=== PATIENT | female | born 1965 | race Caucasian/White ===

== ENCOUNTER → 2017-09-05 | Outpatient (CLI) | payer OTHER ==
[2016-11-08 12:27] VITALS: BP 129/80
[~2017-09-05] MED LIST: ATOR20TA58 PO; LISI40TA PO; MESA500C PO; METF-620 PO; METO-269 PO; METO50TA2 PO; REGADENOSON 0.4 MG/5 ML DISP.SYRIN. IV ONE; SITA50TA PO; [UNRECOGNIZED DRUG - CODE] PO
--- NOTE | 2017-09-05 12:49 | RAD ---
APPROVED REPORT Test Type: Pharmacological Stress Nurse/Tech: Angelica Sykes R.N. Test Indications: dyspnea on exertion Cardiac History: afib, htn, smoker, dm Medications: see ehr Medical History: see ehr Resting ECG: sr Resting Heart Rate: 89 bpm Resting Blood Pressure: 140/78mmHg Pretest Chest Pain: No chest pain Nurse/Tech Notes lungs cta but diminished, heart tones regular. Pt attempted treadmilll Luciano protocol-unable to comp lete due to leg cramping, Stopped treadmill test after 2:10 and proceeded on to [facility] Consent: The procedure was explained to the patient in lay terms. Informed consent was witnessed. Arie marsh was entered into [employer]. History and Stress Test performed by RT Hodan (R) (N) Pharm. Details Pharmacologic stress testing was performed using 0.4mg per 5ml of regadenoson given intravenously ove r 7-10 seconds. Stress Symptoms Dyspnea, pt had short episode of sharp chest pain 4/10 in minute 1 of recovery that resolved POST EXERCISE Reason for Termination: Infusion complete Target HR: No Max HR: 110 bpm Max Blood Pressure: 126/63mmHg Chest Pain: Yes. see above Arrhythmia: Yes. [address] Change: No. INTERPRETATION Stress EKG Conclusion: No evidence of stress induced EKG changes. Imaging Protocol IMAGE PROTOCOL: Rest Tc-99m/stress Tc-99m 1 day Rest: Stress: Viability: Radiopharm.Tc99m [id number] Sestamibi Dose11.4mCi 35mCi Duration 15min. 10min. Img Date 09/05/2017 09/05/2017 Inj-Img [id number]. 60min. Rest Admin Site:IV - Right AntecubitalAdministrator:RT Hodan (Jessica)(N) Stress Admin Site: IV - Right AntecubitalAdministrator: CHARLY Agustin STRESS DATA End Diast. Vol.67.0mlAv. Heart Rate93.0bpm End Syst. Vol.5.0mlCO Index BSA0.0L/min Myocardial Pvcj827.0gEject. Ebhozjac92.0% Stress Rates Pk. Fill Rate4.44EDV/secLVtime Pk. Fill 160.54msec Pk. Empty Rate5.02ESV/secLVtime Pk. Tmvaz230.28msec 1/3 Pk. Fill1.55EDV/sec Stress Scores Regional WT0.00Summed WT0.00 Regional WM0.00Summed WM0.00 The rest and stress images show normal perfusion, normal contraction and thickening. LV Perf. Quant 17 Seg. SSS0.00 17 Seg. SRS0.00 17 Seg. SDS0.00 Stress Defect Extent (% LAD)0.00Rest Defect Extent (% LAD)0.00Rev. Defect Extent (% LAD)0.00 Stress Defect Extent (% LCX) 0.00Rest Defect Extent (% LCX)0.00Rev. Defect Extent (% LCX)0.00 Stress Defect Extent (% RCA)0.00Rest Defect Extent (% RCA)0.00Rev. Defect Extent (% RCA)0.00 Stress Defect Extent (% MAURA)0.00Rest Defect Extent (% MAURA)0.00Rev. Defect Extent (% MAURA)0.00 Other Information Quality:Good Risk Assessment: Low Risk Conclusion 1. No evidence of EKG changes with stress testing. Poor exercise capacity, converted to lexiscan due to inability to go past stage 1 of the luciano protocol. 2. Normal perfusion at stress/rest. 3. Low risk study. 4. EF > 60%.
== END | disposition home or self-care (01) ==
LOC: NM 08:30
PROVIDERS: ATTEND Internal Medicine Cardiovascular Disease
DX: I49.5 Sick sinus syndrome (principal); I49.3 Ventricular premature depolarization; R06.09 Other forms of dyspnea
CPT/HCPCS: 78452; 93017; 96374; 96375; 96376; A9500; J2785

== ENCOUNTER → 2017-10-03 | Outpatient (CLI) | payer OTHER ==
[2016-11-08 12:27] VITALS: BP 129/80
[~2017-10-03] MED LIST changes: +IOHEXOL 300 MG/ML 100ML VIAL. IV ONE; -REGADENOSON 0.4 MG/5 ML DISP.SYRIN. IV ONE
[2017-10-03 09:13] LABS: CREATININE 0.8 mg/dL (0.6-1.0); GFR 75.3
--- NOTE | 2017-10-03 10:36 | RAD ---
CTA of the chest with and without contrast Clinical indications: Dyspnea on exertion. Technique: Noncontrast axial localizer was performed. After IV infusion of [ ] cc of Omnipaque 300, helical CT scanning of the chest was performed using the CT pulmonary embolism protocol. A coronal MIP reconstruction was generated. PQRS Compliance Statement: One or more of the following individualized dose reduction techniques were utilized for this examination: 1. Automated exposure control 2. Adjustment of the mA and/or kV according to patient size 3. Use of iterative reconstruction technique Comparison: No previous chest CT available. Findings: No enlarged thoracic lymphadenopathy is seen. Calcified granulomatous lymph node is seen in the right paratracheal region. No pulmonary embolism is evident. No focal aneurysmal dilatation or dissection of thoracic aorta is seen. The heart size is at the upper limits of normal. No pericardial effusion is seen. No lung mass or lung infiltrate is seen. There is a calcified granuloma of the medial anterior aspect of the medial segment of the right middle lobe which measures 13 mm. No pleural effusion or pneumothorax is evident. The proximal bronchial tree is patent. No adrenal mass is seen. There is a 6.2 cm hypodense mass of the upper pole of the left kidney. This measures up to 30 Hounsfield units. This most likely represents a cyst containing dense fluid. This could be seen on a previous CT study of the abdomen dated September 22, 2016 and is otherwise unchanged in size. Renal sonography may be performed to confirm the true cystic nature of this lesion given the higher Hounsfield unit measurement. No osteolytic process is seen. IMPRESSION: No pulmonary embolism is evident. No acute lung infiltrate. Calcified granulomatous disease. Probable hyperdense cyst of the upper pole of the right kidney. Renal sonography may confirm the true cystic nature.
== END | disposition home or self-care (01) ==
LOC: CT 08:45
PROVIDERS: ATTEND Internal Medicine Cardiovascular Disease
DX: Z01.818 Encounter for other preprocedural examination (principal); D71 Functional disorders of polymorphonuclear neutrophils; I10 Essential (primary) hypertension; E11.9 Type 2 diabetes mellitus without complications; R06.09 Other forms of dyspnea; Z79.01 Long term (current) use of anticoagulants; Z87.891 Personal history of nicotine dependence
CPT/HCPCS: 36415; 71275; 82565; Q9967

== ENCOUNTER → 2017-10-15 | Outpatient (CLI) | payer OTHER ==
[2016-11-08 12:27] VITALS: BP 129/80
[~2017-10-15] MED LIST changes: -IOHEXOL 300 MG/ML 100ML VIAL. IV ONE
--- NOTE | 2017-10-15 09:45 | CARD ---
APPROVED REPORT EXAM: Two-dimensional and M-mode echocardiogram with Doppler and color Doppler. Other Information Quality : Good INDICATION Murmur 2D DIMENSIONS RVDd2.5 (2.9-3.5cm)Left Atrium(2D)3.5 (1.6-4.0cm) IVSd1.1 (0.7-1.1cm)Aortic Root(2D)2.2 (2.0-3.7cm) LVDd3.7 (3.9-5.9cm)LVOT Diameter2.0 (1.8-2.4cm) PWd0.9 (0.7-1.1cm)LVDs2.0 (2.5-4.0cm) FS (%) 30.0 %SV43.9 ml LVEF(%)60.0 (>50%) Aortic Valve AoV Peak Landon.111.8cm/sAoV VTI21.6cm AO Peak GR.5.0mmHgLVOT Peak Landon.96.1cm/s LVOT VTI 22.31cmAO Mean GR.3mmHg HAILY (VMAX)2.45rk4BDO (VTI)3.20cm2 Mitral Valve MV E Ebjukdyo950.9cm/sMV DECEL SPCY285jc MV A Mipewveh83.0cm/sMV AYQ29qn E/A Ratio1.3MVA (PHT)3.79cm2 TDI E/Lateral E'14.3E/Medial E'19.0 Pulmonary Vein S1 Vqkhtsvh65.7cm/sD2 Zhzyqjjs36.2cm/s LEFT VENTRICLE The left ventricle is normal size. There is normal left ventricular wall thickness. The left ventricu lar systolic function is normal and the ejection fraction is within normal range. The Ejection Fracti on is 55-60%. There is normal LV segmental wall motion. The left ventricular diastolic function and f illing is normal for age. RIGHT VENTRICLE The right ventricle is normal size. The right ventricular systolic function is normal. ATRIA The left atrium size is normal. The right atrium size is normal. The interatrial septum is intact wit h no evidence for an atrial septal defect or patent foramen ovale as noted on 2-D or Doppler imaging. AORTIC VALVE The aortic valve is calcified but opens well and appears to be trileaflet. Doppler and Color Flow rev ealed trace aortic regurgitation. There is no significant aortic valvular stenosis. MITRAL VALVE The mitral valve is normal in structure and function. Posterior mitral annular calcification is mild. There is no evidence of mitral valve prolapse. There is no mitral valve stenosis. Doppler and Color- flow revealed trace mitral regurgitation. TRICUSPID VALVE The tricuspid valve is normal in structure and function. Doppler and Color Flow revealed no significa nt tricuspid valve regurgitation. There is no tricuspid valve stenosis. PULMONIC VALVE Doppler and Color Flow revealed no pulmonic valvular regurgitation. There is no pulmonic valvular dolores nosis. GREAT VESSELS The aortic root is normal in size. The ascending aorta is normal in size. The IVC is normal in size a nd collapses >50% with inspiration. PERICARDIAL EFFUSION There is no evidence of significant pericardial effusion. Critical Notification Critical Value: No <Conclusion> The left ventricular systolic function is normal and the ejection fraction is within normal range. Th e Ejection Fraction is 55-60%. There is normal LV segmental wall motion. No significant valvular disease.
== END | disposition home or self-care (01) ==
LOC: ECHO 08:46
PROVIDERS: ATTEND Internal Medicine Cardiovascular Disease
DX: R01.1 Cardiac murmur, unspecified (principal)
CPT/HCPCS: 93306

== ENCOUNTER 2017-12-27 11:07 | Inpatient (IN) | payer OTHER ==
[2017-12-27 12:03] LABS: ADD MAN DIFF? NO
[2017-12-27 12:10] LABS: BASO # 0.1 x10^3/uL (0.0-0.2); BASO % 1 % (0-3); EOS # 0.1 x10^3/uL (0.0-0.7); EOS % 2 % (0-3); HEMATOCRIT 42.3 % (36.0-47.0); LYMPH # 1.7 x10^3/uL (1.0-4.8); LYMPH % 20 % (24-48); MEAN CORPUSCULAR HEMOGLOBIN 31 pg (25-35); MEAN CORPUSCULAR HGB CONC 35 g/dL (31-37); MEAN CORPUSCULAR VOLUME 86 fL (79-100); MONO # 0.6 x10^3/uL (0.0-1.1); MONO % 7 % (0-9); NEUT # 5.9 x10^3uL (1.8-7.7); NEUT % 71 % (31-73); PLATELET COUNT 208 x10^3/uL (140-400); RED BLOOD COUNT 4.92 x10^6/uL (3.50-5.40); RED CELL DISTRIBUTION WIDTH 13.7 % (11.5-14.5); WHITE BLOOD COUNT 8.4 x10^3/uL (4.0-11.0)
[2017-12-27 12:23] LABS: ALBUMIN 3.6 g/dL (3.4-5.0); ALK PHOS 171 U/L (46-116); ALT (SGPT) 16 U/L (14-59); ANION GAP 6 (6-14); AST (SGOT) 10 U/L (15-37); BLOOD UREA NITROGEN 14 mg/dL (7-20); BUN/CREATININE RATIO 23 (6-20); CALCIUM 9.4 mg/dL (8.5-10.1); CARBON DIOXIDE 29 mmol/L (21-32); CHLORIDE 96 mmol/L (98-107); CREATINE KINASE 28 U/L (26-192); CREATININE 0.6 mg/dL (0.6-1.0); LIPASE 119 U/L (73-393); POTASSIUM 3.9 mmol/L (3.5-5.1); SODIUM 131 mmol/L (136-145); TOTAL BILIRUBIN 0.5 mg/dL (0.2-1.0); TOTAL PROTEIN 7.2 g/dL (6.4-8.2)
[2017-12-27 12:24] LABS: D-DIMER 0.27 ug/mlFEU (0.00-0.50)
[2017-12-27 12:26] LABS: GLUCOSE 511 mg/dL (70-99)
[2017-12-27 12:26] LABS: TROPONINI < 0.017 ng/mL (0.000-0.055)
[2017-12-27 12:32] LABS: NT-PRO BNP 30 pg/mL (0-124)
[2017-12-27 12:32] LABS: CKMB MASS < 0.5 ng/mL (0.0-3.6); CREATINE KINASE 29 U/L (26-192)
[2017-12-27] MEDS: INSULIN REGULAR 100 UNIT/ML 10ML VIAL. IV (12:45)
[2017-12-27] MEDS: IV NORMAL SALINE 1000ML BAG 1,000 ML IV (12:45)
[2017-12-27 13:12] LABS: ACETONE NEG (NEG)
[2017-12-27] MEDS ORDERED: ONDANSETRON PF 4 MG/2 ML VIAL. IV ×2 (13:15→14:30)
[2017-12-27] MEDS ORDERED: MORPHINE SULFATE 2 MG/ML DISP.SYRIN. IV (13:15)
[2017-12-27] MEDS ORDERED: DEXTROSE 50% 25 GM / 50ML DISP.SYRIN. IV (14:30)
[2017-12-27 14:53] LABS: POC GLUCOSE 262 mg/dL (70-99)
[2017-12-27] MEDS: METOPROLOL TART IMMED RELEASE 50 MG TABLET. PO ×3 (15:00→21:44)
[2017-12-27] MEDS: LISINOPRIL 40 MG TABLET. PO (15:00)
[2017-12-27 15:26] LABS: INFLUENZA A PATIENT NEGATIVE (NEGATIVE); INFLUENZA B PATIENT NEGATIVE (NEGATIVE); OBC FLU VALID
[2017-12-27] MEDS: LINAGLIPTIN 5 MG TABLET PO (16:27)
[2017-12-27 16:51] LABS: POC GLUCOSE 327 mg/dL (70-99)
[2017-12-27 16:54] LABS: CHOLESTEROL 232 mg/dL (0-200); HDLC 36 mg/dL (40-60); NON-HDL CHOLESTEROL 196 mg/dL (0-129); TRIGLYCERIDES 635 mg/dL (0-150); VLDLC 127 mg/dL (0-40)
[2017-12-27 16:56] LABS: CHOLESTEROL/HDL RATIO 6.4
[2017-12-27 17:11] LABS: BILIRUBIN,URINE NEGATIVE (NEG); CLARITY,URINE CLEAR; COLOR,URINE YELLOW; GLUCOSE,URINE >=1000 mg/dL (NEG); NITRITE,URINE POSITIVE (NEG); PH,URINE 5.5; PROTEIN,URINE 100 mg/dL (NEG-TRACE); UROBILINOGEN,URINE 0.2 mg/dL (0.2 mg/dL)
[2017-12-27] MEDS: INSULIN ASPART 300 UNITS/3 ML INSULN.PEN SQ ×2 (17:20→21:47)
[2017-12-27 17:25] LABS: BACTERIA,URINE MANY /HPF (0-FEW); WBC,URINE 20-40 /HPF (0-4)
[2017-12-27 20:07] LABS: TROPONINI < 0.017 ng/mL (0.000-0.055)
[2017-12-27 20:55] LABS: POC GLUCOSE 303 mg/dL (70-99)
[2017-12-27] MEDS: OMEGA-3 FATTY ACIDS/FISH OIL 1,000 MG CAPSULE. PO (21:48)
[2017-12-27] MEDS: ATORVASTATIN CALCIUM 20 MG TABLET PO (21:48)
[2017-12-28] MEDS: ACETAMINOPHEN 325 MG TABLET. PO ×2 (02:25→08:20)
[2017-12-28 05:18] LABS: ADD MAN DIFF? NO
[2017-12-28 05:47] LABS: BASO # 0.1 x10^3/uL (0.0-0.2); BASO % 1 % (0-3); EOS # 0.1 x10^3/uL (0.0-0.7); EOS % 2 % (0-3); HEMATOCRIT 44.4 % (36.0-47.0); LYMPH % 27 % (24-48); MEAN CORPUSCULAR HEMOGLOBIN 30 pg (25-35); MEAN CORPUSCULAR HGB CONC 34 g/dL (31-37); MEAN CORPUSCULAR VOLUME 88 fL (79-100); MONO # 0.4 x10^3/uL (0.0-1.1); MONO % 6 % (0-9); NEUT # 4.7 x10^3uL (1.8-7.7); NEUT % 65 % (31-73); PLATELET COUNT 223 x10^3/uL (140-400); RED BLOOD COUNT 5.02 x10^6/uL (3.50-5.40); RED CELL DISTRIBUTION WIDTH 14.1 % (11.5-14.5); WHITE BLOOD COUNT 7.4 x10^3/uL (4.0-11.0)
[2017-12-28 06:21] LABS: ALBUMIN 3.6 g/dL (3.4-5.0); ALK PHOS 158 U/L (46-116); ALT (SGPT) 14 U/L (14-59); ANION GAP 8 (6-14); AST (SGOT) 9 U/L (15-37); BLOOD UREA NITROGEN 15 mg/dL (7-20); BUN/CREATININE RATIO 25 (6-20); CALCIUM 9.8 mg/dL (8.5-10.1); CARBON DIOXIDE 30 mmol/L (21-32); CHLORIDE 100 mmol/L (98-107); CREATININE 0.6 mg/dL (0.6-1.0); GLUCOSE 354 mg/dL (70-99); POTASSIUM 3.3 mmol/L (3.5-5.1); SODIUM 138 mmol/L (136-145); TOTAL BILIRUBIN 0.6 mg/dL (0.2-1.0); TOTAL PROTEIN 7.3 g/dL (6.4-8.2)
[2017-12-28 06:27] LABS: TROPONINI < 0.017 ng/mL (0.000-0.055)
[2017-12-28] MEDS: PANTOPRAZOLE 40 MG TABLET.DR. PO (08:20)
[2017-12-28] MEDS: OMEGA-3 FATTY ACIDS/FISH OIL 1,000 MG CAPSULE. PO ×2 (08:20→08:26)
[2017-12-28] MEDS: FENOFIBRATE 54 MG TABLET. PO (08:20)
[2017-12-28 08:21] LABS: POC GLUCOSE 271 mg/dL (70-99)
[2017-12-28] MEDS: METOPROLOL TART IMMED RELEASE 50 MG TABLET. PO (08:21)
[2017-12-28] MEDS: LINAGLIPTIN 5 MG TABLET PO (08:21)
[2017-12-28] MEDS: INSULIN ASPART 300 UNITS/3 ML INSULN.PEN SQ ×2 (08:25→12:17)
[2017-12-28 11:38] LABS: POC GLUCOSE 309 mg/dL (70-99)
[2017-12-29 03:08] LABS: HEMOGLOBIN A1C 11.9 % (4.8-5.6)
== END 2017-12-28 14:43 | disposition home or self-care (01) | DRG 391 ==
LOC: ER 11:07 → 5 NORTH 12:42
DX: K21.9 Gastro-esophageal reflux disease without esophagitis (principal); E11.00 Type 2 diabetes mellitus with hyperosmolarity without nonketotic hyperglycemic-hyperosmolar coma (NKHHC); K50.90 Crohn's disease, unspecified, without complications; I48.0 Paroxysmal atrial fibrillation; E87.1 Hypo-osmolality and hyponatremia; E11.65 Type 2 diabetes mellitus with hyperglycemia; F17.210 Nicotine dependence, cigarettes, uncomplicated; R05 Cough; E78.5 Hyperlipidemia, unspecified; E78.00 Pure hypercholesterolemia, unspecified; I10 Essential (primary) hypertension; Z98.891 History of uterine scar from previous surgery; Z87.442 Personal history of urinary calculi; Z82.49 Family history of ischemic heart disease and other diseases of the circulatory system; Z86.010 Personal history of colon polyps; Z79.899 Other long term (current) drug therapy
CPT/HCPCS: 36415; 71045; 80053; 80061; 81001; 82010; 82550; 82553; 82962; 83036; 83690; 83880; 84484; 85025; 85379; 87804; 87804-59; 93005; 96361; 96374; 99285; 99285-25; J1815; J7030

== ENCOUNTER → 2018-03-03 | Outpatient (CLI) | payer OTHER | END | disposition home or self-care (01) | LOC: PMGWOUND 10:01 | DX: E11.622 Type 2 diabetes mellitus with other skin ulcer (principal); L97.313 Non-pressure chronic ulcer of right ankle with necrosis of muscle; I10 Essential (primary) hypertension; K21.9 Gastro-esophageal reflux disease without esophagitis; E11.65 Type 2 diabetes mellitus with hyperglycemia; I48.0 Paroxysmal atrial fibrillation; E78.00 Pure hypercholesterolemia, unspecified; F17.210 Nicotine dependence, cigarettes, uncomplicated; Z79.4 Long term (current) use of insulin | CPT/HCPCS: 97597; 97598 ==

== ENCOUNTER → 2018-03-13 | Outpatient (CLI) | payer OTHER | END | disposition home or self-care (01) | LOC: PMGWOUND 09:55 | DX: E11.622 Type 2 diabetes mellitus with other skin ulcer (principal); L97.821 Non-pressure chronic ulcer of other part of left lower leg limited to breakdown of skin; L97.313 Non-pressure chronic ulcer of right ankle with necrosis of muscle; I10 Essential (primary) hypertension; K21.9 Gastro-esophageal reflux disease without esophagitis; E11.65 Type 2 diabetes mellitus with hyperglycemia; I48.0 Paroxysmal atrial fibrillation; E78.00 Pure hypercholesterolemia, unspecified; F17.210 Nicotine dependence, cigarettes, uncomplicated; Z79.4 Long term (current) use of insulin | CPT/HCPCS: 97597; 97598 ==

== ENCOUNTER → 2018-03-20 | Outpatient (CLI) | payer OTHER | END | disposition home or self-care (01) | LOC: PMGWOUND 10:08 | DX: E11.622 Type 2 diabetes mellitus with other skin ulcer (principal); L97.821 Non-pressure chronic ulcer of other part of left lower leg limited to breakdown of skin; L97.313 Non-pressure chronic ulcer of right ankle with necrosis of muscle; I10 Essential (primary) hypertension; K21.9 Gastro-esophageal reflux disease without esophagitis; E11.65 Type 2 diabetes mellitus with hyperglycemia; I48.0 Paroxysmal atrial fibrillation; E78.00 Pure hypercholesterolemia, unspecified; F17.210 Nicotine dependence, cigarettes, uncomplicated; Z79.4 Long term (current) use of insulin | CPT/HCPCS: 97597; 97598 ==

== ENCOUNTER → 2018-03-27 | Outpatient (CLI) | payer OTHER | END | disposition home or self-care (01) | LOC: PMGWOUND 09:59 | DX: E11.622 Type 2 diabetes mellitus with other skin ulcer (principal); L97.821 Non-pressure chronic ulcer of other part of left lower leg limited to breakdown of skin; I10 Essential (primary) hypertension; K21.9 Gastro-esophageal reflux disease without esophagitis; I48.0 Paroxysmal atrial fibrillation; E78.00 Pure hypercholesterolemia, unspecified; F17.210 Nicotine dependence, cigarettes, uncomplicated; Z79.4 Long term (current) use of insulin | CPT/HCPCS: 97597; 97598 ==

== ENCOUNTER → 2018-03-28 | Outpatient (CLI) | payer OTHER | END | disposition home or self-care (01) | LOC: KCIC US 12:55 | DX: I10 Essential (primary) hypertension (principal); E11.9 Type 2 diabetes mellitus without complications; I48.91 Unspecified atrial fibrillation; I70.8 Atherosclerosis of other arteries; Z87.891 Personal history of nicotine dependence | CPT/HCPCS: 93926 ==

== ENCOUNTER → 2018-03-31 | Outpatient (CLI) | payer OTHER | END | disposition home or self-care (01) | LOC: PMGWOUND 13:12 | DX: E11.622 Type 2 diabetes mellitus with other skin ulcer (principal); L97.323 Non-pressure chronic ulcer of left ankle with necrosis of muscle; I10 Essential (primary) hypertension; K21.9 Gastro-esophageal reflux disease without esophagitis; I48.0 Paroxysmal atrial fibrillation; E78.00 Pure hypercholesterolemia, unspecified; F17.210 Nicotine dependence, cigarettes, uncomplicated; Z79.4 Long term (current) use of insulin | CPT/HCPCS: 99214 ==

== ENCOUNTER 2018-04-07 06:28 | Outpatient (CLI) | payer OTHER ==
[2018-04-07] MEDS ORDERED: IV NORMAL SALINE 1000ML BAG 1,000 ML IV ×2 (07:00→08:57)
[2018-04-07 07:04] LABS: HEMATOCRIT 40.7 % (36.0-47.0); HEMOGLOBIN 14.3 g/dL (12.0-15.5); MEAN CORPUSCULAR HEMOGLOBIN 30 pg (25-35); MEAN CORPUSCULAR HGB CONC 35 g/dL (31-37); MEAN CORPUSCULAR VOLUME 86 fL (79-100); PLATELET COUNT 282 x10^3/uL (140-400); RED BLOOD COUNT 4.74 x10^6/uL (3.50-5.40); RED CELL DISTRIBUTION WIDTH 13.8 % (11.5-14.5); WHITE BLOOD COUNT 10.4 x10^3/uL (4.0-11.0)
[2018-04-07] MEDS ORDERED: IODIXANOL 320 MG/ML 100 ML VIAL. (07:08)
[2018-04-07] MEDS ORDERED: LIDOCAINE 2% 20 ML VIAL. (07:08)
[2018-04-07 07:10] LABS: ANION GAP 10 (6-14); BLOOD UREA NITROGEN 24 mg/dL (7-20); CALCIUM 9.9 mg/dL (8.5-10.1); CARBON DIOXIDE 28 mmol/L (21-32); CHLORIDE 103 mmol/L (98-107); CREATININE 0.7 mg/dL (0.6-1.0); GFR 87.9; GLUCOSE 159 mg/dL (70-99); POTASSIUM 4.1 mmol/L (3.5-5.1); SODIUM 141 mmol/L (136-145)
[2018-04-07 07:26] LABS: INR 0.9 (0.8-1.1); PROTHROMBIN TIME PATIENT 11.4 SEC (11.7-14.0)
[2018-04-07] MEDS ORDERED: fentaNYL PF VIAL 100 MCG/2 ML VIAL (07:44)
[2018-04-07] MEDS ORDERED: MIDAZOLAM HCL/PF 2 MG/2 ML VIAL. (07:45)
[2018-04-07] MEDS ORDERED: HEPARIN for IV BOLUS 10,000 UNIT/10 ML VIAL. (07:45)
[2018-04-07] MEDS: LIDOCAINE 2% 20 ML VIAL. IJ (08:00)
[2018-04-07] MEDS: fentaNYL PF VIAL 100 MCG/2 ML VIAL IV (08:00)
[2018-04-07] MEDS: IODIXANOL 320 MG/ML 100 ML VIAL. IART (08:00)
[2018-04-07] MEDS: MIDAZOLAM HCL/PF 2 MG/2 ML VIAL. IV (08:00)
[2018-04-07] MEDS ORDERED: 0.9 % SODIUM CHLORIDE 10 ML DISP.SYRIN. IV (09:00)
[2018-04-07] MEDS ORDERED: NITROGLYCERIN SUBLINGUAL 0.4 MG BOTTLE OF 25. SL (09:00)
== END 2018-04-07 12:10 | disposition home or self-care (01) ==
LOC: CCL 06:28
DX: I70.293 Other atherosclerosis of native arteries of extremities, bilateral legs (principal); I77.1 Stricture of artery; I10 Essential (primary) hypertension; E78.5 Hyperlipidemia, unspecified; I48.91 Unspecified atrial fibrillation; F17.210 Nicotine dependence, cigarettes, uncomplicated; Z98.890 Other specified postprocedural states; E78.00 Pure hypercholesterolemia, unspecified; Z86.010 Personal history of colon polyps; Z90.710 Acquired absence of both cervix and uterus; Z87.442 Personal history of urinary calculi
CPT/HCPCS: 36245; 36415; 75630; 75716; 80048; 85027; 85610; 99152; 99153; C1769; C1771; C1892; G0269; J1644; J2250; J3010

== ENCOUNTER → 2018-04-10 | Outpatient (CLI) | payer OTHER | END | disposition home or self-care (01) | LOC: PMGWOUND 09:45 | DX: E11.622 Type 2 diabetes mellitus with other skin ulcer (principal); L97.323 Non-pressure chronic ulcer of left ankle with necrosis of muscle; I70.202 Unspecified atherosclerosis of native arteries of extremities, left leg; I10 Essential (primary) hypertension; E11.65 Type 2 diabetes mellitus with hyperglycemia; K21.9 Gastro-esophageal reflux disease without esophagitis; I48.0 Paroxysmal atrial fibrillation; E78.00 Pure hypercholesterolemia, unspecified; F17.210 Nicotine dependence, cigarettes, uncomplicated; Z79.4 Long term (current) use of insulin | CPT/HCPCS: 97597; 97598 ==

== ENCOUNTER → 2018-04-22 | Outpatient (CLI) | payer OTHER | END | disposition home or self-care (01) | LOC: PMGWOUND 09:40 | DX: E11.622 Type 2 diabetes mellitus with other skin ulcer (principal); L97.323 Non-pressure chronic ulcer of left ankle with necrosis of muscle; I70.202 Unspecified atherosclerosis of native arteries of extremities, left leg; I10 Essential (primary) hypertension; E11.65 Type 2 diabetes mellitus with hyperglycemia; E78.5 Hyperlipidemia, unspecified; E78.00 Pure hypercholesterolemia, unspecified; K21.9 Gastro-esophageal reflux disease without esophagitis; I48.0 Paroxysmal atrial fibrillation; F17.210 Nicotine dependence, cigarettes, uncomplicated; Z79.4 Long term (current) use of insulin | CPT/HCPCS: 99214 ==

== ENCOUNTER → 2018-04-29 | Outpatient (CLI) | payer OTHER | END | disposition home or self-care (01) | LOC: PMGWOUND 10:20 | DX: E11.622 Type 2 diabetes mellitus with other skin ulcer (principal); L97.323 Non-pressure chronic ulcer of left ankle with necrosis of muscle; I70.202 Unspecified atherosclerosis of native arteries of extremities, left leg; I10 Essential (primary) hypertension; E11.65 Type 2 diabetes mellitus with hyperglycemia; E78.5 Hyperlipidemia, unspecified; E78.00 Pure hypercholesterolemia, unspecified; K21.9 Gastro-esophageal reflux disease without esophagitis; I48.0 Paroxysmal atrial fibrillation; F17.210 Nicotine dependence, cigarettes, uncomplicated; Z79.4 Long term (current) use of insulin | CPT/HCPCS: 99214 ==

== ENCOUNTER → 2018-05-05 | Outpatient (CLI) | payer OTHER | END | disposition home or self-care (01) | LOC: US 07:32 | DX: I73.9 Peripheral vascular disease, unspecified (principal); R23.8 Other skin changes | CPT/HCPCS: 93970 ==

== ENCOUNTER → 2018-05-13 | Outpatient (CLI) | payer OTHER | END | disposition home or self-care (01) | LOC: PMGWOUND 09:52 | DX: E11.622 Type 2 diabetes mellitus with other skin ulcer (principal); L97.323 Non-pressure chronic ulcer of left ankle with necrosis of muscle; I87.2 Venous insufficiency (chronic) (peripheral); I70.202 Unspecified atherosclerosis of native arteries of extremities, left leg; I10 Essential (primary) hypertension; E11.65 Type 2 diabetes mellitus with hyperglycemia; E78.5 Hyperlipidemia, unspecified; E78.00 Pure hypercholesterolemia, unspecified; K21.9 Gastro-esophageal reflux disease without esophagitis; I48.0 Paroxysmal atrial fibrillation; F17.210 Nicotine dependence, cigarettes, uncomplicated; Z79.4 Long term (current) use of insulin | CPT/HCPCS: 99214 ==

== ENCOUNTER → 2018-05-27 | Outpatient (CLI) | payer OTHER | END | disposition home or self-care (01) | LOC: PMGWOUND 10:49 | DX: E11.622 Type 2 diabetes mellitus with other skin ulcer (principal); L97.323 Non-pressure chronic ulcer of left ankle with necrosis of muscle; I87.2 Venous insufficiency (chronic) (peripheral); I70.202 Unspecified atherosclerosis of native arteries of extremities, left leg; I10 Essential (primary) hypertension; E11.65 Type 2 diabetes mellitus with hyperglycemia; E78.5 Hyperlipidemia, unspecified; E78.00 Pure hypercholesterolemia, unspecified; K21.9 Gastro-esophageal reflux disease without esophagitis; I48.0 Paroxysmal atrial fibrillation; F17.210 Nicotine dependence, cigarettes, uncomplicated; Z79.4 Long term (current) use of insulin | CPT/HCPCS: 97597 ==

== ENCOUNTER → 2018-06-10 | Outpatient (CLI) | payer OTHER | END | disposition home or self-care (01) | LOC: PMGWOUND 09:00 | DX: E11.622 Type 2 diabetes mellitus with other skin ulcer (principal); L97.323 Non-pressure chronic ulcer of left ankle with necrosis of muscle; I87.2 Venous insufficiency (chronic) (peripheral); I70.202 Unspecified atherosclerosis of native arteries of extremities, left leg; E78.5 Hyperlipidemia, unspecified; I48.91 Unspecified atrial fibrillation; K21.9 Gastro-esophageal reflux disease without esophagitis; I48.0 Paroxysmal atrial fibrillation; E78.00 Pure hypercholesterolemia, unspecified; E11.51 Type 2 diabetes mellitus with diabetic peripheral angiopathy without gangrene; F17.210 Nicotine dependence, cigarettes, uncomplicated; Z79.4 Long term (current) use of insulin | CPT/HCPCS: 99214 ==

== ENCOUNTER → 2018-06-24 | Outpatient (CLI) | payer OTHER | END | disposition home or self-care (01) | LOC: PMGWOUND 08:53 | DX: E11.622 Type 2 diabetes mellitus with other skin ulcer (principal); L97.323 Non-pressure chronic ulcer of left ankle with necrosis of muscle; I87.2 Venous insufficiency (chronic) (peripheral); I70.202 Unspecified atherosclerosis of native arteries of extremities, left leg; E78.5 Hyperlipidemia, unspecified; K21.9 Gastro-esophageal reflux disease without esophagitis; I48.0 Paroxysmal atrial fibrillation; E78.00 Pure hypercholesterolemia, unspecified; E11.51 Type 2 diabetes mellitus with diabetic peripheral angiopathy without gangrene; F17.210 Nicotine dependence, cigarettes, uncomplicated; Z79.4 Long term (current) use of insulin | CPT/HCPCS: 99213 ==

== ENCOUNTER 2018-10-03 15:26 | Observation (INO) | payer OTHER ==
[~2018-10-03] VITALS: Ht 170.2 cm; Wt 85.4 kg
[~2018-10-03 15:26] MED LIST changes: +ASPI-630 PO; +CHOL2000 PO; +DILT180C2 PO; +FAMO-63 PO; +FENO54TA PO; +GLIP5TAB10 PO; +INSU100I17 SQ; +INSU100V13 SQ; +LISI-130 PO; -LISI40TA PO; -METF-620 PO; +METF10007 PO; -METO50TA2 PO; +METO50TA6 PO; +OMEG1CAP6 PO; +[UNRECOGNIZED DRUG - CODE] MC
[2018-10-03] MEDS ORDERED: ASPIRIN CHEWABLE 81 MG TABLET. PO ONE (16:15)
[2018-10-03 16:20] LABS: BASO # 0.1 x10^3/uL (0.0-0.2); BASO % 1 % (0-3); EOS # 0.2 x10^3/uL (0.0-0.7); EOS % 2 % (0-3); HEMATOCRIT 38.9 % (36.0-47.0); HEMOGLOBIN 13.5 g/dL (12.0-15.5); LYMPH # 2.3 x10^3/uL (1.0-4.8); LYMPH % 26 % (24-48); MEAN CORPUSCULAR HEMOGLOBIN 30 pg (25-35); MEAN CORPUSCULAR HGB CONC 35 g/dL (31-37); MEAN CORPUSCULAR VOLUME 85 fL (79-100); MONO # 0.6 x10^3/uL (0.0-1.1); MONO % 7 % (0-9); NEUT # 5.6 x10^3uL (1.8-7.7); NEUT % 64 % (31-73); PLATELET COUNT 254 x10^3/uL (140-400); RED BLOOD COUNT 4.56 x10^6/uL (3.50-5.40); RED CELL DISTRIBUTION WIDTH 13.8 % (11.5-14.5); WHITE BLOOD COUNT 8.8 x10^3/uL (4.0-11.0)
--- NOTE | 2018-10-03 16:20 | EKG ---
[facility] [address] [place] [address] Test Date: 2018-10-03 Test Time: 15:35:21 Pat Name: DENNIS JAIMES Department: Room: Gender: F [employer]: : 1965 Requested By: KEVIN TRUJILLO Order Number: [id number] Reading MD: Pedro uLis Cisneros MD Measurements Intervals [place] Rate: 97 P: 58 [place]: 164 QRS: 64 QRSD: 76 T: 38 QT: 300 QTc: 385 Interpretive Statements SINUS RHYTHM Electronically Signed On 10-06-2018 11:18:06 [employer] by Pedro Luis Cisneros MD
--- NOTE | 2018-10-03 16:27 | RAD ---
Single view of the chest. 10/03/2018 4:11 PM Indication: Chest pain x 1 hr Comparison: Chest radiograph December 27, 2017 Findings: There is no focal consolidation. There is no pleural effusion or pneumothorax. Heart size is normal. No acute osseous abnormalities are seen. Impression: No evidence of acute cardiopulmonary process. Electronically signed by: Aiden Pichardo MD (10/03/2018 4:24 PM) [facility]
[2018-10-03 16:31] LABS: CALCIUM 9.6 mg/dL (8.5-10.1); CREATININE 1.1 mg/dL (0.6-1.0); POTASSIUM 4.3 mmol/L (3.5-5.1)
[2018-10-03 16:36] LABS: ALBUMIN 3.6 g/dL (3.4-5.0); TOTAL BILIRUBIN 0.5 mg/dL (0.2-1.0); TOTAL PROTEIN 7.2 g/dL (6.4-8.2)
[2018-10-03 17:30] VITALS: BP 151/80
--- NOTE | 2018-10-03 17:45 | PHYS DOC ---
Past Medical History Past Medical History: A-Fib, Diabetes-Type II, High Cholesterol, Hypertension, Other Additional Past Medical Histor: IBS Past Surgical History: Additional Information: "1/2 PACK DAILY" Alcohol Use: Rarely Drug Use: None Adult General Chief Complaint Chief Complaint: CHEST PAIN HPI HPI Patient is a 53 year old female presenting with chest pain and right arm numbness. She's had these symptoms for the last 1 hour the chest pain is left- sided she feels like it is something sharp it comes and goes not really short of breath positive mild nausea also she's having tingling in the right arm. She has had a stress test over the last 2 years that was negative she does have a history of diabetes she is a smoker she currently is feeling better. Review of Systems Review of Systems Constitutional: Denies fever or chills [] Eyes: Denies change in visual acuity, redness, or eye pain [] HENT: Denies nasal congestion or sore throat [] GI: Denies abdominal pain, : Denies dysuria or hematuria [] Integument: Denies rash or skin lesions [] Neurologic: Denies headache, focal weaknes Endocrine: Denies polyuria or polydipsia [] All other systems were reviewed and found to be within normal limits, except as documented in this note. Current Medications Current Medications Current Medications Medications (Trade) Dose Ordered Sig/Perry Start Time Stop Time Status Last Admin Dose Admin Aspirin (Children'S Aspirin) 324 mg 1X ONCE 10/03/18 16:15 10/03/18 16:16 DC 10/03/18 16:22 324 MG Allergies Allergies Allergies Coded Allergies Type Severity Reaction Last Updated Verified No Known Drug Allergies 11/08/16 No Physical Exam Physical Exam Constitutional: Well developed, well nourished, no acute distress, non-toxic appearance. [] HENT: Normocephalic, atraumatic, bilateral external ears normal, oropharynx moist, no oral exudates, nose normal. [] Eyes: PERRLA, EOMI, conjunctiva normal, no discharge. [] Neck: Normal range of motion, no tenderness, supple, no stridor. [] Cardiovascular:Heart rate regular rhythm, no murmur [] Lungs & Thorax: Bilateral breath sounds clear to auscultation [] Abdomen: Bowel sounds normal, soft, no tenderness, no masses, no pulsatile masses. [] Skin: Warm, dry, no erythema, no rash. [] Back: No tenderness, no CVA tenderness. [] Extremities: No tenderness, no cyanosis, no clubbing, ROM intact, no edema. [] Sensation intact throughout Neurologic: Alert and oriented X 3, normal motor function, normal sensory function, no focal deficits noted. [] Psychologic: Affect normal, judgement normal, mood normal. [] Current Patient Data Vital Signs Vital Signs Date Time Temp Pulse Resp B/P (MAP) Pulse Ox O2 Delivery O2 Flow Rate FiO2 10/03/18 16:35 92 20 152/72 (98) 99 Room Air 10/03/18 15:28 97.6 97.6 Lab Values Laboratory Tests Test 10/03/18 15:45 White Blood Count 8.8 x10^3/uL (4.0-11.0) Red Blood Count 4.56 x10^6/uL (3.50-5.40) Hemoglobin 13.5 g/dL (12.0-15.5) Hematocrit 38.9 % (36.0-47.0) Mean Corpuscular Volume 85 fL (79-100) Mean Corpuscular Hemoglobin 30 pg (25-35) Mean Corpuscular Hemoglobin Concent 35 g/dL (31-37) Red Cell Distribution Width 13.8 % (11.5-14.5) Platelet Count 254 x10^3/uL (140-400) Neutrophils (%) (Auto) 64 % (31-73) Lymphocytes (%) (Auto) 26 % (24-48) Monocytes (%) (Auto) 7 % (0-9) Eosinophils (%) (Auto) 2 % (0-3) Basophils (%) (Auto) 1 % (0-3) Neutrophils # (Auto) 5.6 x10^3uL (1.8-7.7) Lymphocytes # (Auto) 2.3 x10^3/uL (1.0-4.8) Monocytes # (Auto) 0.6 x10^3/uL (0.0-1.1) Eosinophils # (Auto) 0.2 x10^3/uL (0.0-0.7) Basophils # (Auto) 0.1 x10^3/uL (0.0-0.2) Sodium Level 139 mmol/L (136-145) Potassium Level 4.3 mmol/L (3.5-5.1) Chloride Level 100 mmol/L (98-107) Carbon Dioxide Level 28 mmol/L (21-32) Anion Gap 11 (6-14) Blood Urea Nitrogen 19 mg/dL (7-20) Creatinine 1.1 mg/dL (0.6-1.0) H Estimated GFR (Cockcroft-Gault) 52.0 BUN/Creatinine Ratio 17 (6-20) Glucose Level 263 mg/dL (70-99) H Calcium Level 9.6 mg/dL (8.5-10.1) Total Bilirubin 0.5 mg/dL (0.2-1.0) Aspartate Amino Transferase (AST) 14 U/L (15-37) L Alanine Aminotransferase (ALT) 21 U/L (14-59) Alkaline Phosphatase 97 U/L (46-116) Troponin I Quantitative < 0.017 ng/mL (0.000-0.055) Total Protein 7.2 g/dL (6.4-8.2) Albumin 3.6 g/dL (3.4-5.0) Albumin/Globulin Ratio 1.0 (1.0-1.7) Laboratory Tests 10/03/18 15:45 Laboratory Tests 10/03/18 15:45 EKG EKG EKG shows normal sinus rhythm rate of 97 no acute ischemic changes noted interpreted by me time of encounter[] Radiology/Procedures Radiology/Procedures [] Impressions: Chest x-ray negative acute Course & Med Decision Making Course & Med Decision Making Pertinent Labs and Imaging studies reviewed. (See chart for details) []Atypical chest pain. It does not sound like a PE. Patient does have risk factors for coronary artery disease I think it would be prudent to keep her overnight for observation and serial troponins. She had negative stress testing somewhat recently She was given aspirin in the emergency room she was feeling somewhat better. Admitted to the service of Dr. FAYE. Latanya Disclaimer Latanya Disclaimer This electronic medical record was generated, in whole or in part, using a voice recognition dictation system. Departure Departure Impression: Primary Impression: Chest pain Disposition: ADMITTED INPATIENT Condition: STABLE KEVIN TRUJILLO MD Oct 03, 2018 17:45
[2018-10-03] MEDS ORDERED: DEXTROSE 50% 25 GM / 50ML DISP.SYRIN. IV PRN (18:00)
--- NOTE | 2018-10-03 18:06 | PDOC1 ---
History and Physical Date of Admission Date of Admission 10/03/18 Identification/Chief Complaint Chief Complaint chest pain Source Source: Chart review, Patient History of Present Illness History of Present Illness HPI HPI Patient is a 53 year old female presenting with chest pain and right arm numbness today from 3PM. pt had stress test 1 year ago, neg. has h/o afib now sinus, HTN, dm2, hld. + FMH heart dz. pt was sitting at desk today about 3pm, started to feel rt arm numbness and tingling, no weakness, then started to feel substernal "twinge" sharp pain, lasting for about 35-40min, no radiation, no diaphoresis, sob or N/V. She came to ER, rt arm numbness came back one time, not with chest pain this time. She is 1/2 PPD, has been non productive cough for months, sometimes has sob with cough. denies chest pain tenderness. denies acid reflux. see in room 672, no chest pain now. EKG sinus no acute changes, first trop neg. Past Medical History Cardiovascular: AFIB, HTN, Hyperlipidemia GI: Other Heme/Onc: No pertinent hx Hepatobiliary: No pertinent hx Rheumatologic: No pertinent hx Infectious disease: No pertinent hx Renal/: Other Endocrine: Diabetes Past Surgical History Past Surgical History: , No pertinent history Family History Family History: Coronary Artery Disease Social History Smoke: <1 pack per day ALCOHOL: occassional Drugs: None Current Medications Current Medications Current Medications Medications (Trade) Dose Ordered Sig/Perry Start Time Stop Time Status Last Admin Dose Admin Aspirin (Children'S Aspirin) 324 mg 1X ONCE 10/03/18 16:15 10/03/18 16:16 DC 10/03/18 16:22 324 MG Allergies Allergies Allergies Coded Allergies Type Severity Reaction Last Updated Verified No Known Drug Allergies 11/08/16 No ROS Review of System CONSTITUTIONAL: No fever or chills EYES: No recent changes SKIN: No rash or itching CARDIOVASCULAR: No chest pain, syncope, palpitations, or edema RESPIRATORY: No SOB or cough GASTROINTESTINAL: No nausea, vomiting or abdominal pain NEUROLOGICAL: No headaches or weakness ENDOCRINE: No cold or heat intolerance GENITOURINARY: No urgency or frequency of urination MUSCULOSKELETAL: No back pain or joint pain LYMPHATICS: No enlarged lymph nodes PSYCHIATRIC: No anxiety or depression Physical Exam Physical Exam GEN.: No apparent distress. Alert and oriented. HEENT: Head is normocephalic, atraumatic NECK: Supple. LUNGS: bl mild decreased bs. no chest wall tenderness. HEART: RRR, S1, S2 present. Peripheral pulses intact ABDOMEN: Soft, nontender. Positive bowel sounds. EXTREMITIES: Without any cyanosis. NEUROLOGIC: Normal speech, normal tone PSYCHIATRIC: Normal affect, normal mood. SKIN: No ulcerations Vitals Vitals Vital Signs Date Time Temp Pulse Resp B/P (MAP) Pulse Ox O2 Delivery O2 Flow Rate FiO2 10/03/18 16:35 92 20 152/72 (98) 99 Room Air 10/03/18 15:28 97.6 97.6 Labs Labs Laboratory Tests Test 10/03/18 15:45 White Blood Count 8.8 x10^3/uL (4.0-11.0) Red Blood Count 4.56 x10^6/uL (3.50-5.40) Hemoglobin 13.5 g/dL (12.0-15.5) Hematocrit 38.9 % (36.0-47.0) Mean Corpuscular Volume 85 fL (79-100) Mean Corpuscular Hemoglobin 30 pg (25-35) Mean Corpuscular Hemoglobin Concent 35 g/dL (31-37) Red Cell Distribution Width 13.8 % (11.5-14.5) Platelet Count 254 x10^3/uL (140-400) Neutrophils (%) (Auto) 64 % (31-73) Lymphocytes (%) (Auto) 26 % (24-48) Monocytes (%) (Auto) 7 % (0-9) Eosinophils (%) (Auto) 2 % (0-3) Basophils (%) (Auto) 1 % (0-3) Neutrophils # (Auto) 5.6 x10^3uL (1.8-7.7) Lymphocytes # (Auto) 2.3 x10^3/uL (1.0-4.8) Monocytes # (Auto) 0.6 x10^3/uL (0.0-1.1) Eosinophils # (Auto) 0.2 x10^3/uL (0.0-0.7) Basophils # (Auto) 0.1 x10^3/uL (0.0-0.2) Sodium Level 139 mmol/L (136-145) Potassium Level 4.3 mmol/L (3.5-5.1) Chloride Level 100 mmol/L (98-107) Carbon Dioxide Level 28 mmol/L (21-32) Anion Gap 11 (6-14) Blood Urea Nitrogen 19 mg/dL (7-20) Creatinine 1.1 mg/dL (0.6-1.0) Estimated GFR (Cockcroft-Gault) 52.0 BUN/Creatinine Ratio 17 (6-20) Glucose Level 263 mg/dL (70-99) Calcium Level 9.6 mg/dL (8.5-10.1) Total Bilirubin 0.5 mg/dL (0.2-1.0) Aspartate Amino Transf (AST/SGOT) 14 U/L (15-37) Alanine Aminotransferase (ALT/SGPT) 21 U/L (14-59) Alkaline Phosphatase 97 U/L (46-116) Troponin I Quantitative < 0.017 ng/mL (0.000-0.055) Total Protein 7.2 g/dL (6.4-8.2) Albumin 3.6 g/dL (3.4-5.0) Albumin/Globulin Ratio 1.0 (1.0-1.7) Laboratory Tests Test 10/03/18 15:45 White Blood Count 8.8 x10^3/uL (4.0-11.0) Red Blood Count 4.56 x10^6/uL (3.50-5.40) Hemoglobin 13.5 g/dL (12.0-15.5) Hematocrit 38.9 % (36.0-47.0) Mean Corpuscular Volume 85 fL (79-100) Mean Corpuscular Hemoglobin 30 pg (25-35) Mean Corpuscular Hemoglobin Concent 35 g/dL (31-37) Red Cell Distribution Width 13.8 % (11.5-14.5) Platelet Count 254 x10^3/uL (140-400) Neutrophils (%) (Auto) 64 % (31-73) Lymphocytes (%) (Auto) 26 % (24-48) Monocytes (%) (Auto) 7 % (0-9) Eosinophils (%) (Auto) 2 % (0-3) Basophils (%) (Auto) 1 % (0-3) Neutrophils # (Auto) 5.6 x10^3uL (1.8-7.7) Lymphocytes # (Auto) 2.3 x10^3/uL (1.0-4.8) Monocytes # (Auto) 0.6 x10^3/uL (0.0-1.1) Eosinophils # (Auto) 0.2 x10^3/uL (0.0-0.7) Basophils # (Auto) 0.1 x10^3/uL (0.0-0.2) Sodium Level 139 mmol/L (136-145) Potassium Level 4.3 mmol/L (3.5-5.1) Chloride Level 100 mmol/L (98-107) Carbon Dioxide Level 28 mmol/L (21-32) Anion Gap 11 (6-14) Blood Urea Nitrogen 19 mg/dL (7-20) Creatinine 1.1 mg/dL (0.6-1.0) Estimated GFR (Cockcroft-Gault) 52.0 BUN/Creatinine Ratio 17 (6-20) Glucose Level 263 mg/dL (70-99) Calcium Level 9.6 mg/dL (8.5-10.1) Total Bilirubin 0.5 mg/dL (0.2-1.0) Aspartate Amino Transf (AST/SGOT) 14 U/L (15-37) Alanine Aminotransferase (ALT/SGPT) 21 U/L (14-59) Alkaline Phosphatase 97 U/L (46-116) Troponin I Quantitative < 0.017 ng/mL (0.000-0.055) Total Protein 7.2 g/dL (6.4-8.2) Albumin 3.6 g/dL (3.4-5.0) Albumin/Globulin Ratio 1.0 (1.0-1.7) VTE Prophylaxis Ordered VTE Prophylaxis Devices: No VTE Pharmacological Prophylaxi: Yes Assessment/Plan Assessment/Plan rt arm numbness with chest pain, need to rule out unstable angina accelerate HTN dm2 on insulin h/o Afib now sinus wo AC HLD IBS tobaccoism CKD3 plan: card consult cycle CE, check lipid panel, tsh Echo cont home meds ssi, add lantus 15u qhs for now Head CT dvt ppx RAND FAYE MD Oct 03, 2018 18:06
[2018-10-03] MEDS ORDERED: METO50TA6 PO (18:07)
--- NOTE | 2018-10-03 18:15 | RAD ---
EXAM: Head CT without contrast. HISTORY: Right arm numbness. TECHNIQUE: Computed tomographic images of the head were obtained without contrast. *One or more of the following individualized dose reduction techniques were utilized for this examination: 1. Automated exposure control. 2. Adjustment of the mA and/or kV according to patient size. 3. Use of iterative reconstruction technique. COMPARISON: None. FINDINGS: There is no acute or subacute extra-axial or intraparenchymal hemorrhage. There is no mass effect or midline shift. There is no hydrocephalus. The degroot-white matter differentiation pattern is intact. There is a prominent incidental left choroid fissure cyst. The visualized portions of the orbits, paranasal sinuses and mastoid air cells are unremarkable. No suspicious calvarial lesion is seen. IMPRESSION: 1. No acute intracranial finding. 2. Note is made that MRI is more sensitive for acute infarction. Electronically signed by: Salena Antoine MD (10/03/2018 6:12 PM) [facility]
[2018-10-03 19:20] VITALS: BP 140/68
[2018-10-03] MEDS: CHOLECALCIFEROL (VITAMIN D3) 1,000 UNIT TABLET PO SCH (19:27)
[2018-10-03] MEDS: METOPROLOL TART IMMED RELEASE 50 MG TABLET. PO SCH (19:27)
[2018-10-03] MEDS ORDERED: NON FORMULARY ITEM (Metoprolol Succinate (Toprol Xl) 1 TAB) PO SCH (21:00)
[2018-10-03] MEDS ORDERED: INSULIN GLARGINE 300 UNITS/3 ML INSULN.PEN. SQ SCH (21:00)
[2018-10-03] MEDS ORDERED: ATORVASTATIN CALCIUM 20 MG TABLET PO SCH (21:00)
[2018-10-03] MEDS ORDERED: OMEGA-3 FATTY ACIDS/FISH OIL 1,000 MG CAPSULE. PO SCH (21:00)
[2018-10-03] MEDS: ENOXAPARIN 40 MG/0.4 ML SYRINGE. SQ SCH (21:17)
[2018-10-03] MEDS: INSULIN GLARGINE 300 UNITS/3 ML INSULN.PEN. SQ SCH (21:29)
[2018-10-03 23:18] VITALS: BP 144/76
[2018-10-04 03:48] VITALS: BP 152/71
[2018-10-04 07:19] LABS: CALCIUM 9.5 mg/dL (8.5-10.1); CREATININE 0.7 mg/dL (0.6-1.0); GFR 87.5; POTASSIUM 4.4 mmol/L (3.5-5.1)
[2018-10-04 07:20] VITALS: BP 108/69
[2018-10-04 07:30] LABS: CHOLESTEROL/HDL RATIO 4.9
[2018-10-04] MEDS ORDERED: ASPIRIN CHEWABLE 81 MG TABLET. PO SCH (08:00)
[2018-10-04] MEDS ORDERED: NICOTINE 21MG PATCH. TD PRN (08:30)
--- NOTE | 2018-10-04 08:57 | PDOC ---
PROGRESS NOTES Chief Complaint Chief Complaint RT facial numbness rt arm numbness with chest pain, need to rule out unstable angina accelerate HTN dm2 on insulin h/o Afib now sinus wo AC HLD IBS tobaccoism CKD3 History of Present Illness History of Present Illness called by RN because of right-sided facial numbness Right hand numbness still there, minimal chest pain Known patient of Dr. Deleon for A. fib 2 years ago but now normal sinus rhythm -only maintained on aspirin 81 Echo ordered by cardiology service Plan: MRI of the brain without contrast now Continue aspirin 81, follow-up echocardiogram to be done today Discussed with her NEuro consult my neuro exam is nonfocal Vitals Vitals Vital Signs Date Time Temp Pulse Resp B/P (MAP) Pulse Ox O2 Delivery O2 Flow Rate FiO2 10/04/18 07:20 97.9 100 18 108/69 (82) 97 Room Air 97.9 Physical Exam General: Alert, Oriented X3, Cooperative, No acute distress Heart: Regular rate, Normal S1, Normal S2, No murmurs Lungs: Clear Abdomen: Normal bowel sounds, Soft, No tenderness Extremities: No clubbing, No cyanosis, No edema Skin: No rashes, No breakdown, No significant lesion Labs LABS Laboratory Tests Test 10/03/18 15:45 10/03/18 19:30 10/03/18 20:26 10/04/18 01:00 White Blood Count 8.8 x10^3/uL (4.0-11.0) Red Blood Count 4.56 x10^6/uL (3.50-5.40) Hemoglobin 13.5 g/dL (12.0-15.5) Hematocrit 38.9 % (36.0-47.0) Mean Corpuscular Volume 85 fL (79-100) Mean Corpuscular Hemoglobin 30 pg (25-35) Mean Corpuscular Hemoglobin Concent 35 g/dL (31-37) Red Cell Distribution Width 13.8 % (11.5-14.5) Platelet Count 254 x10^3/uL (140-400) Neutrophils (%) (Auto) 64 % (31-73) Lymphocytes (%) (Auto) 26 % (24-48) Monocytes (%) (Auto) 7 % (0-9) Eosinophils (%) (Auto) 2 % (0-3) Basophils (%) (Auto) 1 % (0-3) Neutrophils # (Auto) 5.6 x10^3uL (1.8-7.7) Lymphocytes # (Auto) 2.3 x10^3/uL (1.0-4.8) Monocytes # (Auto) 0.6 x10^3/uL (0.0-1.1) Eosinophils # (Auto) 0.2 x10^3/uL (0.0-0.7) Basophils # (Auto) 0.1 x10^3/uL (0.0-0.2) Sodium Level 139 mmol/L (136-145) Potassium Level 4.3 mmol/L (3.5-5.1) Chloride Level 100 mmol/L (98-107) Carbon Dioxide Level 28 mmol/L (21-32) Anion Gap 11 (6-14) Blood Urea Nitrogen 19 mg/dL (7-20) Creatinine 1.1 mg/dL (0.6-1.0) Estimated GFR (Cockcroft-Gault) 52.0 BUN/Creatinine Ratio 17 (6-20) Glucose Level 263 mg/dL (70-99) Calcium Level 9.6 mg/dL (8.5-10.1) Total Bilirubin 0.5 mg/dL (0.2-1.0) Aspartate Amino Transf (AST/SGOT) 14 U/L (15-37) Alanine Aminotransferase (ALT/SGPT) 21 U/L (14-59) Alkaline Phosphatase 97 U/L (46-116) Troponin I Quantitative < 0.017 ng/mL (0.000-0.055) < 0.017 ng/mL (0.000-0.055) < 0.017 ng/mL (0.000-0.055) Total Protein 7.2 g/dL (6.4-8.2) Albumin 3.6 g/dL (3.4-5.0) Albumin/Globulin Ratio 1.0 (1.0-1.7) Glucose (Fingerstick) 348 mg/dL (70-99) Test 10/04/18 06:15 10/04/18 07:26 Sodium Level 141 mmol/L (136-145) Potassium Level 4.4 mmol/L (3.5-5.1) Chloride Level 103 mmol/L (98-107) Carbon Dioxide Level 29 mmol/L (21-32) Anion Gap 9 (6-14) Blood Urea Nitrogen 20 mg/dL (7-20) Creatinine 0.7 mg/dL (0.6-1.0) Estimated GFR (Cockcroft-Gault) 87.5 Glucose Level 234 mg/dL (70-99) Calcium Level 9.5 mg/dL (8.5-10.1) Troponin I Quantitative < 0.017 ng/mL (0.000-0.055) Triglycerides Level 401 mg/dL (0-150) Cholesterol Level 167 mg/dL (0-200) LDL Cholesterol, Calculated 53 mg/dL (0-100) VLDL Cholesterol, Calculated 80 mg/dL (0-40) Non-HDL Cholesterol Calculated 133 mg/dL (0-129) HDL Cholesterol 34 mg/dL (40-60) Cholesterol/HDL Ratio 4.9 Thyroid Stimulating Hormone (TSH) 0.715 uIU/mL (0.358-3.74) Glucose (Fingerstick) 217 mg/dL (70-99) Review of Systems Review of Systems As per history of present illness, the rest of ROS 14 point negative Comment Review of Relevant I have reviewed the following items mady (where applicable) has been applied. Labs Laboratory Tests Test 10/03/18 15:45 10/03/18 19:30 10/03/18 20:26 10/04/18 01:00 White Blood Count 8.8 x10^3/uL (4.0-11.0) Red Blood Count 4.56 x10^6/uL (3.50-5.40) Hemoglobin 13.5 g/dL (12.0-15.5) Hematocrit 38.9 % (36.0-47.0) Mean Corpuscular Volume 85 fL (79-100) Mean Corpuscular Hemoglobin 30 pg (25-35) Mean Corpuscular Hemoglobin Concent 35 g/dL (31-37) Red Cell Distribution Width 13.8 % (11.5-14.5) Platelet Count 254 x10^3/uL (140-400) Neutrophils (%) (Auto) 64 % (31-73) Lymphocytes (%) (Auto) 26 % (24-48) Monocytes (%) (Auto) 7 % (0-9) Eosinophils (%) (Auto) 2 % (0-3) Basophils (%) (Auto) 1 % (0-3) Neutrophils # (Auto) 5.6 x10^3uL (1.8-7.7) Lymphocytes # (Auto) 2.3 x10^3/uL (1.0-4.8) Monocytes # (Auto) 0.6 x10^3/uL (0.0-1.1) Eosinophils # (Auto) 0.2 x10^3/uL (0.0-0.7) Basophils # (Auto) 0.1 x10^3/uL (0.0-0.2) Sodium Level 139 mmol/L (136-145) Potassium Level 4.3 mmol/L (3.5-5.1) Chloride Level 100 mmol/L (98-107) Carbon Dioxide Level 28 mmol/L (21-32) Anion Gap 11 (6-14) Blood Urea Nitrogen 19 mg/dL (7-20) Creatinine 1.1 mg/dL (0.6-1.0) Estimated GFR (Cockcroft-Gault) 52.0 BUN/Creatinine Ratio 17 (6-20) Glucose Level 263 mg/dL (70-99) Calcium Level 9.6 mg/dL (8.5-10.1) Total Bilirubin 0.5 mg/dL (0.2-1.0) Aspartate Amino Transf (AST/SGOT) 14 U/L (15-37) Alanine Aminotransferase (ALT/SGPT) 21 U/L (14-59) Alkaline Phosphatase 97 U/L (46-116) Troponin I Quantitative < 0.017 ng/mL (0.000-0.055) < 0.017 ng/mL (0.000-0.055) < 0.017 ng/mL (0.000-0.055) Total Protein 7.2 g/dL (6.4-8.2) Albumin 3.6 g/dL (3.4-5.0) Albumin/Globulin Ratio 1.0 (1.0-1.7) Glucose (Fingerstick) 348 mg/dL (70-99) Test 10/04/18 06:15 10/04/18 07:26 Sodium Level 141 mmol/L (136-145) Potassium Level 4.4 mmol/L (3.5-5.1) Chloride Level 103 mmol/L (98-107) Carbon Dioxide Level 29 mmol/L (21-32) Anion Gap 9 (6-14) Blood Urea Nitrogen 20 mg/dL (7-20) Creatinine 0.7 mg/dL (0.6-1.0) Estimated GFR (Cockcroft-Gault) 87.5 Glucose Level 234 mg/dL (70-99) Calcium Level 9.5 mg/dL (8.5-10.1) Troponin I Quantitative < 0.017 ng/mL (0.000-0.055) Triglycerides Level 401 mg/dL (0-150) Cholesterol Level 167 mg/dL (0-200) LDL Cholesterol, Calculated 53 mg/dL (0-100) VLDL Cholesterol, Calculated 80 mg/dL (0-40) Non-HDL Cholesterol Calculated 133 mg/dL (0-129) HDL Cholesterol 34 mg/dL (40-60) Cholesterol/HDL Ratio 4.9 Thyroid Stimulating Hormone (TSH) 0.715 uIU/mL (0.358-3.74) Glucose (Fingerstick) 217 mg/dL (70-99) Laboratory Tests Test 10/03/18 15:45 10/03/18 19:30 10/03/18 20:26 10/04/18 01:00 White Blood Count 8.8 x10^3/uL (4.0-11.0) Red Blood Count 4.56 x10^6/uL (3.50-5.40) Hemoglobin 13.5 g/dL (12.0-15.5) Hematocrit 38.9 % (36.0-47.0) Mean Corpuscular Volume 85 fL (79-100) Mean Corpuscular Hemoglobin 30 pg (25-35) Mean Corpuscular Hemoglobin Concent 35 g/dL (31-37) Red Cell Distribution Width 13.8 % (11.5-14.5) Platelet Count 254 x10^3/uL (140-400) Neutrophils (%) (Auto) 64 % (31-73) Lymphocytes (%) (Auto) 26 % (24-48) Monocytes (%) (Auto) 7 % (0-9) Eosinophils (%) (Auto) 2 % (0-3) Basophils (%) (Auto) 1 % (0-3) Neutrophils # (Auto) 5.6 x10^3uL (1.8-7.7) Lymphocytes # (Auto) 2.3 x10^3/uL (1.0-4.8) Monocytes # (Auto) 0.6 x10^3/uL (0.0-1.1) Eosinophils # (Auto) 0.2 x10^3/uL (0.0-0.7) Basophils # (Auto) 0.1 x10^3/uL (0.0-0.2) Sodium Level 139 mmol/L (136-145) Potassium Level 4.3 mmol/L (3.5-5.1) Chloride Level 100 mmol/L (98-107) Carbon Dioxide Level 28 mmol/L (21-32) Anion Gap 11 (6-14) Blood Urea Nitrogen 19 mg/dL (7-20) Creatinine 1.1 mg/dL (0.6-1.0) Estimated GFR (Cockcroft-Gault) 52.0 BUN/Creatinine Ratio 17 (6-20) Glucose Level 263 mg/dL (70-99) Calcium Level 9.6 mg/dL (8.5-10.1) Total Bilirubin 0.5 mg/dL (0.2-1.0) Aspartate Amino Transf (AST/SGOT) 14 U/L (15-37) Alanine Aminotransferase (ALT/SGPT) 21 U/L (14-59) Alkaline Phosphatase 97 U/L (46-116) Troponin I Quantitative < 0.017 ng/mL (0.000-0.055) < 0.017 ng/mL (0.000-0.055) < 0.017 ng/mL (0.000-0.055) Total Protein 7.2 g/dL (6.4-8.2) Albumin 3.6 g/dL (3.4-5.0) Albumin/Globulin Ratio 1.0 (1.0-1.7) Glucose (Fingerstick) 348 mg/dL (70-99) Test 10/04/18 06:15 10/04/18 07:26 Sodium Level 141 mmol/L (136-145) Potassium Level 4.4 mmol/L (3.5-5.1) Chloride Level 103 mmol/L (98-107) Carbon Dioxide Level 29 mmol/L (21-32) Anion Gap 9 (6-14) Blood Urea Nitrogen 20 mg/dL (7-20) Creatinine 0.7 mg/dL (0.6-1.0) Estimated GFR (Cockcroft-Gault) 87.5 Glucose Level 234 mg/dL (70-99) Calcium Level 9.5 mg/dL (8.5-10.1) Troponin I Quantitative < 0.017 ng/mL (0.000-0.055) Triglycerides Level 401 mg/dL (0-150) Cholesterol Level 167 mg/dL (0-200) LDL Cholesterol, Calculated 53 mg/dL (0-100) VLDL Cholesterol, Calculated 80 mg/dL (0-40) Non-HDL Cholesterol Calculated 133 mg/dL (0-129) HDL Cholesterol 34 mg/dL (40-60) Cholesterol/HDL Ratio 4.9 Thyroid Stimulating Hormone (TSH) 0.715 uIU/mL (0.358-3.74) Glucose (Fingerstick) 217 mg/dL (70-99) Medications Current Medications Aspirin (Children'S Aspirin) 324 mg 1X ONCE PO Last administered on 10/03/18at 16:22; Start 10/03/18 at 16:15; Stop 10/03/18 at 16:16; Status DC Aspirin (Children'S Aspirin) 81 mg DAILY08 PO ; Start 10/04/18 at 08:00 Atorvastatin Calcium (Lipitor) 20 mg HS PO ; Start 10/03/18 at 21:00; Stop 10/03 at 21:00; Status DC Fenofibrate (Lofibra) 54 mg DAILY PO ; Start 10/04/18 at 09:00 Glipizide (Glucotrol) 5 mg BIDAC PO ; Start 10/04/18 at 07:30 Fish Oil (Fish Oil) 2,000 mg BID PO ; Start 10/03/18 at 21:00; Stop 10/03/18 at 21:00; Status DC Vitamin D (Vitamin D3) 1,000 unit BID PO ; Start 10/03/18 at 21:00 Diltiazem HCl (Cardizem 24hr Cd) 180 mg DAILY PO ; Start 10/04/18 at 09:00 Insulin Glargine (Lantus) 15 units QHS SQ ; Start 10/03/18 at 21:00; Stop at 21:00; Status DC Non-Formulary Medication (Metoprolol Succinate (Toprol Xl)) 1 tab BID PO ; Start 10/03/18 at 21:00; Status UNV Insulin Human Lispro (HumaLOG) 0-9 UNITS TIDWMEALS SQ ; Start 10/04/18 at 08:00 Dextrose (Dextrose 50%-Water Syringe) 12.5 gm PRN Q15MIN PRN IV SEE COMMENTS; Start 10/03/18 at 18:00 Enoxaparin Sodium (Lovenox 40mg Syringe) 40 mg DAILY SQ Last administered on at 21:17; Start 10/03/18 at 18:30 Metoprolol Tartrate (Lopressor) 50 mg BID PO ; Start 10/03/18 at 21:00 Atorvastatin Calcium (Lipitor) 20 mg DAILY PO ; Start 10/04/18 at 09:00 Insulin Glargine (Lantus) 20 units QHS SQ Last administered on 10/03/18at 21:29 ; Start 10/03/18 at 21:00 Nicotine (Nicoderm Cq 21mg) 1 patch PRN DAILY PRN TD SMOKING CESSATION; Start 10/04/18 at 08:30 Active Scripts Active Vitamin D (Cholecalciferol (Vitamin D3)) 2,000 Unit Capsule 1 Cap PO BID Cool Blood Glucose Meter (Blood-Glucose Meter) 1 Each Each Each dm please also dispense test strips and lancets quantity sufficient for 1 month Fenofibrate 54 Mg Tablet 54 Mg PO DAILY 30 Days Reported Metoprolol Tartrate 50 Mg Tablet 50 Mg PO BID Levemir (Insulin Detemir) 100 Unit/1 Ml Vial 20 Unit SQ HS Aspirin 81 Mg Tab.chew 1 Tab PO DAILY Glipizide 5 Mg Tablet 1 Tab PO BID Cardizem Cd (Diltiazem Hcl) 180 Mg Cap.er.24h 1 Cap PO DAILY Metformin Hcl 1,000 Mg Tablet 1,000 Mg PO BID hold for 48 hours. Next dose 04/09 evening dose Atorvastatin Calcium 20 Mg Tablet 20 Mg PO DAILY Vitals/I & O Vital Sign - Last 24 Hours 10/03/18 10/03/18 10/03/18 10/03/18 15:28 16:05 16:35 17:30 Temp 97.6 97.9 97.6 97.9 Pulse 94 96 92 92 Resp 20 20 20 16 B/P (MAP) 171/77 (108) 174/69 (104) 152/72 (98) 151/80 (103) Pulse Ox 99 99 99 98 O2 Delivery Room Air Room Air Room Air Room Air 10/03/18 10/03/18 10/04/18 10/04/18 19:20 23:18 03:48 07:20 Temp 97.5 97.5 97.9 97.9 97.5 97.5 97.9 97.9 Pulse 97 100 92 100 Resp 18 B/P (MAP) 140/68 (92) 144/76 (98) 152/71 (98) 108/69 (82) Pulse Ox 97 99 98 97 O2 Delivery Room Air Room Air Room Air Room Air Intake and Output 10/03/18 10/03/18 10/04/18 15:00 23:00 07:00 Intake Total 0 ml 350 ml Balance 0 ml 350 ml MARJAN RUIZ MD Oct 04, 2018 08:57
[2018-10-04] MEDS ORDERED: ATORVASTATIN CALCIUM 20 MG TABLET PO SCH (09:00)
[2018-10-04] MEDS: ENOXAPARIN 40 MG/0.4 ML SYRINGE. SQ SCH (09:15)
[2018-10-04] MEDS: CHOLECALCIFEROL (VITAMIN D3) 1,000 UNIT TABLET PO SCH ×2 (09:18→20:42)
[2018-10-04] MEDS: FENOFIBRATE 54 MG TABLET. PO SCH (09:18)
[2018-10-04] MEDS: glipiZIDE 5 MG TABLET PO SCH ×2 (09:19→17:17)
[2018-10-04] MEDS: METOPROLOL TART IMMED RELEASE 50 MG TABLET. PO SCH ×2 (09:19→20:43)
[2018-10-04] MEDS: INSULIN LISPRO 300 UNITS/3 ML INSULN.PEN. SQ SCH ×3 (09:30→17:22)
[2018-10-04 11:27] VITALS: BP 127/79
--- NOTE | 2018-10-04 13:03 | PDOC2 ---
CONSULT Date of Consult Date of Consult DATE: 10/04/18 TIME: 12:57 Reason for Consult Reason for Consult: Chest pain Referring Physician Referring Physician: Dr. Bond Identification/Chief Complaint Chief Complaint Chest and right arm pain Source Source: Patient History of Present Illness Reason for Visit: The patient is a 53-year-old female who was admitted through the emergency room with episodes of chest and right arm discomfort. Patient states the right arm discomfort occurred initially and had some mild radiation to the chest. Her chest pain has really resolved but she reports continued right sided arm pain and numbness. From a cardiac viewpoint her troponins have been normal 4. EKG shows no acute ischemic changes. Her pain in her chest has resolved. Arm pain has continued and is now more of a numbness. CT head scan showed no acute changes. An MRI is pending. Past Medical History Cardiovascular: AFIB, HTN, Hyperlipidemia GI: Other Heme/Onc: No pertinent hx Hepatobiliary: No pertinent hx Rheumatologic: No pertinent hx Infectious disease: No pertinent hx Renal/: Chronic renal insuff, Other Endocrine: Diabetes Past Surgical History Past Surgical History: , No pertinent history Family History Family History: Coronary Artery Disease Social History <1 pack per day ALCOHOL: occassional Drugs: None Lives: with Family Current Medications Current Medications Current Medications Aspirin (Children'S Aspirin) 324 mg 1X ONCE PO Last administered on 10/03/18at 16:22; Start 10/03/18 at 16:15; Stop 10/03/18 at 16:16; Status DC Aspirin (Children'S Aspirin) 81 mg DAILY08 PO Last administered on 10/04/18at 09:18; Start 10/04/18 at 08:00; Stop 10/04/18 at 11:56; Status DC Atorvastatin Calcium (Lipitor) 20 mg HS PO ; Start 10/03/18 at 21:00; Stop 10/03 at 21:00; Status DC Fenofibrate (Lofibra) 54 mg DAILY PO Last administered on 10/04/18at 09:18; Start 10/04/18 at 09:00 Glipizide (Glucotrol) 5 mg BIDAC PO Last administered on 10/04/18at 09:19; Start 10/04/18 at 07:30 Fish Oil (Fish Oil) 2,000 mg BID PO ; Start 10/03/18 at 21:00; Stop 10/03/18 at 21:00; Status DC Vitamin D (Vitamin D3) 1,000 unit BID PO Last administered on 10/04/18at 09:18 ; Start 10/03/18 at 21:00 Diltiazem HCl (Cardizem 24hr Cd) 180 mg DAILY PO Last administered on at 09:18; Start 10/04/18 at 09:00 Insulin Glargine (Lantus) 15 units QHS SQ ; Start 10/03/18 at 21:00; Stop at 21:00; Status DC Non-Formulary Medication (Metoprolol Succinate (Toprol Xl)) 1 tab BID PO ; Start 10/03/18 at 21:00; Status UNV Insulin Human Lispro (HumaLOG) 0-9 UNITS TIDWMEALS SQ Last administered on 09/11at 12:28; Start 10/04/18 at 08:00 Dextrose (Dextrose 50%-Water Syringe) 12.5 gm PRN Q15MIN PRN IV SEE COMMENTS; Start 10/03/18 at 18:00 Enoxaparin Sodium (Lovenox 40mg Syringe) 40 mg DAILY SQ Last administered on at 09:15; Start 10/03/18 at 18:30 Metoprolol Tartrate (Lopressor) 50 mg BID PO Last administered on 10/04/18at 09 :19; Start 10/03/18 at 21:00 Atorvastatin Calcium (Lipitor) 20 mg DAILY PO Last administered on 10/04/18at 09:19; Start 10/04/18 at 09:00 Insulin Glargine (Lantus) 20 units QHS SQ Last administered on 10/03/18at 21:29 ; Start 10/03/18 at 21:00 Nicotine (Nicoderm Cq 21mg) 1 patch PRN DAILY PRN TD SMOKING CESSATION; Start 10/04/18 at 08:30 Aspirin (Susan Aspirin) 325 mg DAILY08 PO ; Start 10/04/18 at 12:00 Active Scripts Active Vitamin D (Cholecalciferol (Vitamin D3)) 2,000 Unit Capsule 1 Cap PO BID Cool Blood Glucose Meter (Blood-Glucose Meter) 1 Each Each Each dm please also dispense test strips and lancets quantity sufficient for 1 month Fenofibrate 54 Mg Tablet 54 Mg PO DAILY 30 Days Reported Metoprolol Tartrate 50 Mg Tablet 50 Mg PO BID Levemir (Insulin Detemir) 100 Unit/1 Ml Vial 20 Unit SQ HS Aspirin 81 Mg Tab.chew 1 Tab PO DAILY Glipizide 5 Mg Tablet 1 Tab PO BID Cardizem Cd (Diltiazem Hcl) 180 Mg Cap.er.24h 1 Cap PO DAILY Metformin Hcl 1,000 Mg Tablet 1,000 Mg PO BID hold for 48 hours. Next dose 04/09 evening dose Atorvastatin Calcium 20 Mg Tablet 20 Mg PO DAILY Allergies Allergies: Coded Allergies: No Known Drug Allergies (Unverified , 11/08/16) ROS Cardiovascular: yes Chest Pain Neurological: Yes Other (right arm numbness and discomfort) Physical Exam General: mild distress HEENT: Atraumatic Lungs: Clear to auscultation Heart: Regular rate Abdomen: Normal bowel sounds Extremities: No clubbing Skin: No rashes Vitals VITALS Vital Signs Date Time Temp Pulse Resp B/P (MAP) Pulse Ox O2 Delivery O2 Flow Rate FiO2 10/04/18 11:27 97.7 83 18 127/79 (95) 99 Room Air 97.7 Labs Labs Laboratory Tests Test 10/03/18 15:45 10/03/18 19:30 10/03/18 20:26 10/04/18 01:00 White Blood Count 8.8 x10^3/uL (4.0-11.0) Red Blood Count 4.56 x10^6/uL (3.50-5.40) Hemoglobin 13.5 g/dL (12.0-15.5) Hematocrit 38.9 % (36.0-47.0) Mean Corpuscular Volume 85 fL (79-100) Mean Corpuscular Hemoglobin 30 pg (25-35) Mean Corpuscular Hemoglobin Concent 35 g/dL (31-37) Red Cell Distribution Width 13.8 % (11.5-14.5) Platelet Count 254 x10^3/uL (140-400) Neutrophils (%) (Auto) 64 % (31-73) Lymphocytes (%) (Auto) 26 % (24-48) Monocytes (%) (Auto) 7 % (0-9) Eosinophils (%) (Auto) 2 % (0-3) Basophils (%) (Auto) 1 % (0-3) Neutrophils # (Auto) 5.6 x10^3uL (1.8-7.7) Lymphocytes # (Auto) 2.3 x10^3/uL (1.0-4.8) Monocytes # (Auto) 0.6 x10^3/uL (0.0-1.1) Eosinophils # (Auto) 0.2 x10^3/uL (0.0-0.7) Basophils # (Auto) 0.1 x10^3/uL (0.0-0.2) Sodium Level 139 mmol/L (136-145) Potassium Level 4.3 mmol/L (3.5-5.1) Chloride Level 100 mmol/L (98-107) Carbon Dioxide Level 28 mmol/L (21-32) Anion Gap 11 (6-14) Blood Urea Nitrogen 19 mg/dL (7-20) Creatinine 1.1 mg/dL (0.6-1.0) Estimated GFR (Cockcroft-Gault) 52.0 BUN/Creatinine Ratio 17 (6-20) Glucose Level 263 mg/dL (70-99) Calcium Level 9.6 mg/dL (8.5-10.1) Total Bilirubin 0.5 mg/dL (0.2-1.0) Aspartate Amino Transf (AST/SGOT) 14 U/L (15-37) Alanine Aminotransferase (ALT/SGPT) 21 U/L (14-59) Alkaline Phosphatase 97 U/L (46-116) Troponin I Quantitative < 0.017 ng/mL (0.000-0.055) < 0.017 ng/mL (0.000-0.055) < 0.017 ng/mL (0.000-0.055) Total Protein 7.2 g/dL (6.4-8.2) Albumin 3.6 g/dL (3.4-5.0) Albumin/Globulin Ratio 1.0 (1.0-1.7) Glucose (Fingerstick) 348 mg/dL (70-99) Test 10/04/18 06:15 10/04/18 07:26 10/04/18 11:50 Sodium Level 141 mmol/L (136-145) Potassium Level 4.4 mmol/L (3.5-5.1) Chloride Level 103 mmol/L (98-107) Carbon Dioxide Level 29 mmol/L (21-32) Anion Gap 9 (6-14) Blood Urea Nitrogen 20 mg/dL (7-20) Creatinine 0.7 mg/dL (0.6-1.0) Estimated GFR (Cockcroft-Gault) 87.5 Glucose Level 234 mg/dL (70-99) Calcium Level 9.5 mg/dL (8.5-10.1) Troponin I Quantitative < 0.017 ng/mL (0.000-0.055) Triglycerides Level 401 mg/dL (0-150) Cholesterol Level 167 mg/dL (0-200) LDL Cholesterol, Calculated 53 mg/dL (0-100) VLDL Cholesterol, Calculated 80 mg/dL (0-40) Non-HDL Cholesterol Calculated 133 mg/dL (0-129) HDL Cholesterol 34 mg/dL (40-60) Cholesterol/HDL Ratio 4.9 Thyroid Stimulating Hormone (TSH) 0.715 uIU/mL (0.358-3.74) Glucose (Fingerstick) 217 mg/dL (70-99) 216 mg/dL (70-99) Laboratory Tests Test 10/03/18 15:45 10/03/18 19:30 10/03/18 20:26 10/04/18 01:00 White Blood Count 8.8 x10^3/uL (4.0-11.0) Red Blood Count 4.56 x10^6/uL (3.50-5.40) Hemoglobin 13.5 g/dL (12.0-15.5) Hematocrit 38.9 % (36.0-47.0) Mean Corpuscular Volume 85 fL (79-100) Mean Corpuscular Hemoglobin 30 pg (25-35) Mean Corpuscular Hemoglobin Concent 35 g/dL (31-37) Red Cell Distribution Width 13.8 % (11.5-14.5) Platelet Count 254 x10^3/uL (140-400) Neutrophils (%) (Auto) 64 % (31-73) Lymphocytes (%) (Auto) 26 % (24-48) Monocytes (%) (Auto) 7 % (0-9) Eosinophils (%) (Auto) 2 % (0-3) Basophils (%) (Auto) 1 % (0-3) Neutrophils # (Auto) 5.6 x10^3uL (1.8-7.7) Lymphocytes # (Auto) 2.3 x10^3/uL (1.0-4.8) Monocytes # (Auto) 0.6 x10^3/uL (0.0-1.1) Eosinophils # (Auto) 0.2 x10^3/uL (0.0-0.7) Basophils # (Auto) 0.1 x10^3/uL (0.0-0.2) Sodium Level 139 mmol/L (136-145) Potassium Level 4.3 mmol/L (3.5-5.1) Chloride Level 100 mmol/L (98-107) Carbon Dioxide Level 28 mmol/L (21-32) Anion Gap 11 (6-14) Blood Urea Nitrogen 19 mg/dL (7-20) Creatinine 1.1 mg/dL (0.6-1.0) Estimated GFR (Cockcroft-Gault) 52.0 BUN/Creatinine Ratio 17 (6-20) Glucose Level 263 mg/dL (70-99) Calcium Level 9.6 mg/dL (8.5-10.1) Total Bilirubin 0.5 mg/dL (0.2-1.0) Aspartate Amino Transf (AST/SGOT) 14 U/L (15-37) Alanine Aminotransferase (ALT/SGPT) 21 U/L (14-59) Alkaline Phosphatase 97 U/L (46-116) Troponin I Quantitative < 0.017 ng/mL (0.000-0.055) < 0.017 ng/mL (0.000-0.055) < 0.017 ng/mL (0.000-0.055) Total Protein 7.2 g/dL (6.4-8.2) Albumin 3.6 g/dL (3.4-5.0) Albumin/Globulin Ratio 1.0 (1.0-1.7) Glucose (Fingerstick) 348 mg/dL (70-99) Test 10/04/18 06:15 10/04/18 07:26 10/04/18 11:50 Sodium Level 141 mmol/L (136-145) Potassium Level 4.4 mmol/L (3.5-5.1) Chloride Level 103 mmol/L (98-107) Carbon Dioxide Level 29 mmol/L (21-32) Anion Gap 9 (6-14) Blood Urea Nitrogen 20 mg/dL (7-20) Creatinine 0.7 mg/dL (0.6-1.0) Estimated GFR (Cockcroft-Gault) 87.5 Glucose Level 234 mg/dL (70-99) Calcium Level 9.5 mg/dL (8.5-10.1) Troponin I Quantitative < 0.017 ng/mL (0.000-0.055) Triglycerides Level 401 mg/dL (0-150) Cholesterol Level 167 mg/dL (0-200) LDL Cholesterol, Calculated 53 mg/dL (0-100) VLDL Cholesterol, Calculated 80 mg/dL (0-40) Non-HDL Cholesterol Calculated 133 mg/dL (0-129) HDL Cholesterol 34 mg/dL (40-60) Cholesterol/HDL Ratio 4.9 Thyroid Stimulating Hormone (TSH) 0.715 uIU/mL (0.358-3.74) Glucose (Fingerstick) 217 mg/dL (70-99) 216 mg/dL (70-99) Images Images Chest x-ray showed no acute changes. CT scan of the head showed no acute changes. Assessment/Plan Assessment/Plan 1. Chest pain. Resolved. Troponin 4 is normal. EKG shows no acute ischemic changes. We'll continue medical treatment and consider outpatient stress testing. 2. Right arm numbness. This is been somewhat progressive. MRI scan is pending. 3. Hypertension. Under improved control. Continue medical treatment. 4. Hyperlipidemia. We'll check lab in the morning. 5. Chronic kidney disease. Again will monitor lab. 6. Diabetes mellitus. As per the primary service. Thank you for allowing us to participate in the care of your patient. RICK GAUTHIER MD Oct 04, 2018 13:03
[2018-10-04 13:36] LABS: BILIRUBIN,URINE SMALL (NEG); CLARITY,URINE CLEAR; COLOR,URINE YELLOW; NITRITE,URINE NEGATIVE (NEG); PH,URINE 5.5; PROTEIN,URINE 30 mg/dL (NEG-TRACE)
[2018-10-04 13:45] LABS: BARBITURATES NEG (NEG); BENZODIAZEPINES NEG (NEG); CANNABINOIDS NEG (NEG); COCAINE NEG (NEG); METHADONE NEG (NEG); OPIATES NEG (NEG); PHENCYCLIDINE NEG (NEG)
[2018-10-04 13:49] LABS: BACTERIA,URINE MANY /HPF (0-FEW); RBC,URINE 0 /HPF (0-2); SQUAMOUS EPITHELIAL CELL,UR MOD /LPF; WBC,URINE >40 /HPF (0-4)
[2018-10-04 13:50] LABS: AMPHETAMINE/METHAMPHETAMINE NEG (NEG)
[2018-10-04] MEDS: ASPIRIN 325 MG TABLET PO SCH (14:08)
--- NOTE | 2018-10-04 14:32 | PDOC2 ---
NEUROLOGY CONSULT Date of Admission Date of Admission DATE: 10/04/18 TIME: 14:20 Reason for Consult Reason for Consult: IMPRESSION: Subacute left BG infarct likely. Right side face and UE numbness and tingling x 1 day. Hyperglycemia. Chest pain. AFib Hx, sinus rhythm now. DM. HTN. HLD. IBS. Obesity. Smoking. RECOMMENDATIONS/PLAN: ASA 325 mg daily. Lipitor 40 mg HS. Carotid A US + Doppler. Echo + Bubble study. Weight reduction. Diet. Exercise. Discussed in great detail with her, her and her mother at bedside on 09/11. HISTORY OF THE PRESENT ILLNESS: 53-y-old female patient with above medical history developed symptoms of chest pain to be brought to the ER of [facility]. She also has symptoms of right UE and face numbness and tingling persistent so far, so neurology was requested for consultation. Past Medical History Cardiovascular: AFIB, HTN, Hyperlipidemia GI: Other Heme/Onc: No pertinent hx Hepatobiliary: No pertinent hx Rheumatologic: No pertinent hx Infectious disease: No pertinent hx Renal/: Other Endocrine: Diabetes Past Surgical History . Family History Coronary Artery Disease Social History Smoke: <1 pack per day She drinks occasionally. Denied illicit drug use. ALLERGY: NKDA MEDICATIONS: Refer to MAR REVIEW OF SYSTEMS: Constitutional: Obesity.. Head: No recent traumatic brain or head injury. Skin: No edema, or rash. Ear: No infection. Eyes: No vision loss or color blindness. Nose: No bleeding or purulent discharges. Hearing: No hearing decrease. Neck: No injury. Breast: No history of cancer, masses,or discharges. Cardiac: Chest pain, HTN, HLD. Pulmonary: Smoking.. GI: No GI ulcer, GI bleeding. Urinary/genital: UTI. Endocrinologic: Diabetes Mellitus, obesity. Skeletomuscular: No muscular atrophy, deformity. Neurological: see HP. Psychiatric: Denies drug use/abuse. Otherwise, not [id number] review of systems. PHYSICAL EXAMINATION: General appearance is in subacute distress. HEENT: Normocephalic and nontraumatic. Eyes, nose, ears, and throat are unremarkable. Neck is supple. No lymphadenopathy. No crepitus. Cardiovascular: S1, S2, regular rate and rhythm. Pulmonary: Clear to auscultation bilaterally. Abdomen: Bowel sounds are positive. Abdomen is soft, nontender, and nondistended. Extremities: No rash, lesions, or edema. No restriction of range of motion NEUROLOGICAL EXAMINATION: Alert Oriented to time, place and person. PERRL. EOMI. CN: no focal findings. Muscle tone: within normal. Muscle strength: 5 DTR: 2 Plantar reflex: Flexor response bilaterally Gait: not examined in bed. Sensory exam: no abnormal findings. No cerebellar signs elicited. F-T-N test fine. Current Medications Current Medications Current Medications Aspirin (Children'S Aspirin) 324 mg 1X ONCE PO Last administered on 10/03/18at 16:22; Start 10/03/18 at 16:15; Stop 10/03/18 at 16:16; Status DC Aspirin (Children'S Aspirin) 81 mg DAILY08 PO Last administered on 10/04/18at 09:18; Start 10/04/18 at 08:00; Stop 10/04/18 at 11:56; Status DC Atorvastatin Calcium (Lipitor) 20 mg HS PO ; Start 10/03/18 at 21:00; Stop 10/03 at 21:00; Status DC Fenofibrate (Lofibra) 54 mg DAILY PO Last administered on 10/04/18at 09:18; Start 10/04/18 at 09:00 Glipizide (Glucotrol) 5 mg BIDAC PO Last administered on 10/04/18at 09:19; Start 10/04/18 at 07:30 Fish Oil (Fish Oil) 2,000 mg BID PO ; Start 10/03/18 at 21:00; Stop 10/03/18 at 21:00; Status DC Vitamin D (Vitamin D3) 1,000 unit BID PO Last administered on 10/04/18at 09:18 ; Start 10/03/18 at 21:00 Diltiazem HCl (Cardizem 24hr Cd) 180 mg DAILY PO Last administered on at 09:18; Start 10/04/18 at 09:00 Insulin Glargine (Lantus) 15 units QHS SQ ; Start 10/03/18 at 21:00; Stop at 21:00; Status DC Non-Formulary Medication (Metoprolol Succinate (Toprol Xl)) 1 tab BID PO ; Start 10/03/18 at 21:00; Status UNV Insulin Human Lispro (HumaLOG) 0-9 UNITS TIDWMEALS SQ Last administered on 09/11at 12:28; Start 10/04/18 at 08:00 Dextrose (Dextrose 50%-Water Syringe) 12.5 gm PRN Q15MIN PRN IV SEE COMMENTS; Start 10/03/18 at 18:00 Enoxaparin Sodium (Lovenox 40mg Syringe) 40 mg DAILY SQ Last administered on at 09:15; Start 10/03/18 at 18:30 Metoprolol Tartrate (Lopressor) 50 mg BID PO Last administered on 10/04/18at 09 :19; Start 10/03/18 at 21:00 Atorvastatin Calcium (Lipitor) 20 mg DAILY PO Last administered on 10/04/18at 09:19; Start 10/04/18 at 09:00 Insulin Glargine (Lantus) 20 units QHS SQ Last administered on 10/03/18at 21:29 ; Start 10/03/18 at 21:00 Nicotine (Nicoderm Cq 21mg) 1 patch PRN DAILY PRN TD SMOKING CESSATION; Start 10/04/18 at 08:30 Aspirin (Susan Aspirin) 325 mg DAILY08 PO Last administered on 10/04/18at 14:08 ; Start 10/04/18 at 12:00 Active Scripts Active Vitamin D (Cholecalciferol (Vitamin D3)) 2,000 Unit Capsule 1 Cap PO BID Cool Blood Glucose Meter (Blood-Glucose Meter) 1 Each Each Each dm please also dispense test strips and lancets quantity sufficient for 1 month Fenofibrate 54 Mg Tablet 54 Mg PO DAILY 30 Days Reported Metoprolol Tartrate 50 Mg Tablet 50 Mg PO BID Levemir (Insulin Detemir) 100 Unit/1 Ml Vial 20 Unit SQ HS Aspirin 81 Mg Tab.chew 1 Tab PO DAILY Glipizide 5 Mg Tablet 1 Tab PO BID Cardizem Cd (Diltiazem Hcl) 180 Mg Cap.er.24h 1 Cap PO DAILY Metformin Hcl 1,000 Mg Tablet 1,000 Mg PO BID hold for 48 hours. Next dose 04/09 evening dose Atorvastatin Calcium 20 Mg Tablet 20 Mg PO DAILY Allergies Allergies: Allergies Coded Allergies Type Severity Reaction Last Updated Verified No Known Drug Allergies 11/08/16 No ROS Review of System The patient denies any associated fevers, chills, headache, ear pain, rhinorrhea , sore throat, stiff neck, productive cough, chest pain, shortness of breath, back or flank pain, abdominal pain, nausea, vomiting, diarrhea, constipation, dysuria, rash, numbness, weakness, tingling, incontinence, difficulty ambulating, or diaphoresis. Physical Exam Physical Exam General: Well developed, well nourished, no acute distress, well appearing HEENT: Pupils equally round and reactive to light, EOMI, no discharge, normal conjunctiva Neck: Supple, no nuchal rigidity, no JVD, trachea midline, no tenderness Cardiac: RRR, no murmurs, no gallops, no rubs Chest/Lungs: CTAB, no wheeze, no rhonchi, no crackles Abdomen: soft, non-distended, no guarding, no peritoneal signs, non-tender Back: No tenderness Extremities: no edema, pulses intact, non-tender,capillary refill <3 sec bilateral upper and lower extremities, Neuro: Alert and oriented x 4, no focal deficits, normal speech Vitals Vitals: Vital Signs Date Time Temp Pulse Resp B/P (MAP) Pulse Ox O2 Delivery O2 Flow Rate FiO2 10/04/18 11:27 97.7 83 18 127/79 (95) 99 Room Air 97.7 Labs Labs Laboratory Tests Test 10/03/18 15:45 10/03/18 19:30 10/03/18 20:26 10/04/18 01:00 White Blood Count 8.8 x10^3/uL (4.0-11.0) Red Blood Count 4.56 x10^6/uL (3.50-5.40) Hemoglobin 13.5 g/dL (12.0-15.5) Hematocrit 38.9 % (36.0-47.0) Mean Corpuscular Volume 85 fL (79-100) Mean Corpuscular Hemoglobin 30 pg (25-35) Mean Corpuscular Hemoglobin Concent 35 g/dL (31-37) Red Cell Distribution Width 13.8 % (11.5-14.5) Platelet Count 254 x10^3/uL (140-400) Neutrophils (%) (Auto) 64 % (31-73) Lymphocytes (%) (Auto) 26 % (24-48) Monocytes (%) (Auto) 7 % (0-9) Eosinophils (%) (Auto) 2 % (0-3) Basophils (%) (Auto) 1 % (0-3) Neutrophils # (Auto) 5.6 x10^3uL (1.8-7.7) Lymphocytes # (Auto) 2.3 x10^3/uL (1.0-4.8) Monocytes # (Auto) 0.6 x10^3/uL (0.0-1.1) Eosinophils # (Auto) 0.2 x10^3/uL (0.0-0.7) Basophils # (Auto) 0.1 x10^3/uL (0.0-0.2) Sodium Level 139 mmol/L (136-145) Potassium Level 4.3 mmol/L (3.5-5.1) Chloride Level 100 mmol/L (98-107) Carbon Dioxide Level 28 mmol/L (21-32) Anion Gap 11 (6-14) Blood Urea Nitrogen 19 mg/dL (7-20) Creatinine 1.1 mg/dL (0.6-1.0) Estimated GFR (Cockcroft-Gault) 52.0 BUN/Creatinine Ratio 17 (6-20) Glucose Level 263 mg/dL (70-99) Calcium Level 9.6 mg/dL (8.5-10.1) Total Bilirubin 0.5 mg/dL (0.2-1.0) Aspartate Amino Transf (AST/SGOT) 14 U/L (15-37) Alanine Aminotransferase (ALT/SGPT) 21 U/L (14-59) Alkaline Phosphatase 97 U/L (46-116) Troponin I Quantitative < 0.017 ng/mL (0.000-0.055) < 0.017 ng/mL (0.000-0.055) < 0.017 ng/mL (0.000-0.055) Total Protein 7.2 g/dL (6.4-8.2) Albumin 3.6 g/dL (3.4-5.0) Albumin/Globulin Ratio 1.0 (1.0-1.7) Glucose (Fingerstick) 348 mg/dL (70-99) Test 10/04/18 06:15 10/04/18 07:26 10/04/18 11:50 10/04/18 13:05 Sodium Level 141 mmol/L (136-145) Potassium Level 4.4 mmol/L (3.5-5.1) Chloride Level 103 mmol/L (98-107) Carbon Dioxide Level 29 mmol/L (21-32) Anion Gap 9 (6-14) Blood Urea Nitrogen 20 mg/dL (7-20) Creatinine 0.7 mg/dL (0.6-1.0) Estimated GFR (Cockcroft-Gault) 87.5 Glucose Level 234 mg/dL (70-99) Calcium Level 9.5 mg/dL (8.5-10.1) Troponin I Quantitative < 0.017 ng/mL (0.000-0.055) Triglycerides Level 401 mg/dL (0-150) Cholesterol Level 167 mg/dL (0-200) LDL Cholesterol, Calculated 53 mg/dL (0-100) VLDL Cholesterol, Calculated 80 mg/dL (0-40) Non-HDL Cholesterol Calculated 133 mg/dL (0-129) HDL Cholesterol 34 mg/dL (40-60) Cholesterol/HDL Ratio 4.9 Thyroid Stimulating Hormone (TSH) 0.715 uIU/mL (0.358-3.74) Glucose (Fingerstick) 217 mg/dL (70-99) 216 mg/dL (70-99) Urine Collection Type Unknown Urine Color Yellow Urine Clarity Clear Urine pH 5.5 Urine Specific [place] 1.025 Urine Protein 30 mg/dL (NEG-TRACE) Urine Glucose (UA) 500 mg/dL (NEG) Urine Ketones (Stick) Negative mg/dL (NEG) Urine Blood Negative (NEG) Urine Nitrite Negative (NEG) Urine Bilirubin Small (NEG) Urine Urobilinogen Dipstick 1.0 mg/dL (0.2 mg/dL) Urine Leukocyte Esterase Small (NEG) Urine RBC 0 /HPF (0-2) Urine WBC >40 /HPF (0-4) Urine Squamous Epithelial Cells Mod /LPF Urine Bacteria Many /HPF (0-FEW) Urine Mucus Mod /LPF Urine Opiates Screen Neg (NEG) Urine Methadone Screen Neg (NEG) Urine Barbiturates Neg (NEG) Urine Phencyclidine Screen Neg (NEG) Urine Amphetamine/Methamphetamine Neg (NEG) Urine Benzodiazepines Screen Neg (NEG) Urine Cocaine Screen Neg (NEG) Urine Cannabinoids Screen Neg (NEG) Urine Ethyl Alcohol Neg (NEG) Laboratory Tests Test 10/03/18 15:45 10/03/18 19:30 10/03/18 20:26 10/04/18 01:00 White Blood Count 8.8 x10^3/uL (4.0-11.0) Red Blood Count 4.56 x10^6/uL (3.50-5.40) Hemoglobin 13.5 g/dL (12.0-15.5) Hematocrit 38.9 % (36.0-47.0) Mean Corpuscular Volume 85 fL (79-100) Mean Corpuscular Hemoglobin 30 pg (25-35) Mean Corpuscular Hemoglobin Concent 35 g/dL (31-37) Red Cell Distribution Width 13.8 % (11.5-14.5) Platelet Count 254 x10^3/uL (140-400) Neutrophils (%) (Auto) 64 % (31-73) Lymphocytes (%) (Auto) 26 % (24-48) Monocytes (%) (Auto) 7 % (0-9) Eosinophils (%) (Auto) 2 % (0-3) Basophils (%) (Auto) 1 % (0-3) Neutrophils # (Auto) 5.6 x10^3uL (1.8-7.7) Lymphocytes # (Auto) 2.3 x10^3/uL (1.0-4.8) Monocytes # (Auto) 0.6 x10^3/uL (0.0-1.1) Eosinophils # (Auto) 0.2 x10^3/uL (0.0-0.7) Basophils # (Auto) 0.1 x10^3/uL (0.0-0.2) Sodium Level 139 mmol/L (136-145) Potassium Level 4.3 mmol/L (3.5-5.1) Chloride Level 100 mmol/L (98-107) Carbon Dioxide Level 28 mmol/L (21-32) Anion Gap 11 (6-14) Blood Urea Nitrogen 19 mg/dL (7-20) Creatinine 1.1 mg/dL (0.6-1.0) Estimated GFR (Cockcroft-Gault) 52.0 BUN/Creatinine Ratio 17 (6-20) Glucose Level 263 mg/dL (70-99) Calcium Level 9.6 mg/dL (8.5-10.1) Total Bilirubin 0.5 mg/dL (0.2-1.0) Aspartate Amino Transf (AST/SGOT) 14 U/L (15-37) Alanine Aminotransferase (ALT/SGPT) 21 U/L (14-59) Alkaline Phosphatase 97 U/L (46-116) Troponin I Quantitative < 0.017 ng/mL (0.000-0.055) < 0.017 ng/mL (0.000-0.055) < 0.017 ng/mL (0.000-0.055) Total Protein 7.2 g/dL (6.4-8.2) Albumin 3.6 g/dL (3.4-5.0) Albumin/Globulin Ratio 1.0 (1.0-1.7) Glucose (Fingerstick) 348 mg/dL (70-99) Test 10/04/18 06:15 10/04/18 07:26 10/04/18 11:50 10/04/18 13:05 Sodium Level 141 mmol/L (136-145) Potassium Level 4.4 mmol/L (3.5-5.1) Chloride Level 103 mmol/L (98-107) Carbon Dioxide Level 29 mmol/L (21-32) Anion Gap 9 (6-14) Blood Urea Nitrogen 20 mg/dL (7-20) Creatinine 0.7 mg/dL (0.6-1.0) Estimated GFR (Cockcroft-Gault) 87.5 Glucose Level 234 mg/dL (70-99) Calcium Level 9.5 mg/dL (8.5-10.1) Troponin I Quantitative < 0.017 ng/mL (0.000-0.055) Triglycerides Level 401 mg/dL (0-150) Cholesterol Level 167 mg/dL (0-200) LDL Cholesterol, Calculated 53 mg/dL (0-100) VLDL Cholesterol, Calculated 80 mg/dL (0-40) Non-HDL Cholesterol Calculated 133 mg/dL (0-129) HDL Cholesterol 34 mg/dL (40-60) Cholesterol/HDL Ratio 4.9 Thyroid Stimulating Hormone (TSH) 0.715 uIU/mL (0.358-3.74) Glucose (Fingerstick) 217 mg/dL (70-99) 216 mg/dL (70-99) Urine Collection Type Unknown Urine Color Yellow Urine Clarity Clear Urine pH 5.5 Urine Specific [place] 1.025 Urine Protein 30 mg/dL (NEG-TRACE) Urine Glucose (UA) 500 mg/dL (NEG) Urine Ketones (Stick) Negative mg/dL (NEG) Urine Blood Negative (NEG) Urine Nitrite Negative (NEG) Urine Bilirubin Small (NEG) Urine Urobilinogen Dipstick 1.0 mg/dL (0.2 mg/dL) Urine Leukocyte Esterase Small (NEG) Urine RBC 0 /HPF (0-2) Urine WBC >40 /HPF (0-4) Urine Squamous Epithelial Cells Mod /LPF Urine Bacteria Many /HPF (0-FEW) Urine Mucus Mod /LPF Urine Opiates Screen Neg (NEG) Urine Methadone Screen Neg (NEG) Urine Barbiturates Neg (NEG) Urine Phencyclidine Screen Neg (NEG) Urine Amphetamine/Methamphetamine Neg (NEG) Urine Benzodiazepines Screen Neg (NEG) Urine Cocaine Screen Neg (NEG) Urine Cannabinoids Screen Neg (NEG) Urine Ethyl Alcohol Neg (NEG) ALETHEA GUERRA MD Oct 04, 2018 14:32
--- NOTE | 2018-10-04 14:59 | RAD ---
MRI brain without contrast 10/04/2018 CLINICAL INDICATION: Right facial numbness. COMPARISON: CT head 10/03/2018 TECHNIQUE: Multisequence, multiplanar MR imaging of the brain was performed without contrast. FINDINGS: Ventricles and subarachnoid spaces are normal in size and configuration for age. Prominent left basal ganglia perivascular spaces. No midline shift. The basal cisterns are patent. There is mild periventricular and deep supratentorial punctate FLAIR hyperintensities. There is a more patchy left periventricular FLAIR hyperintensity measuring 0.7 cm series 11/image 18. The central T2 vascular flow voids are maintained. No restricted diffusion to suggest acute or recent infarct. Globes and orbits are unremarkable. IMPRESSION: 1. No evidence of acute or recent infarct. 2. Mild nonspecific white matter disease, most commonly seen with chronic small vessel ischemic disease. Electronically signed by: Federico Guevara MD (10/04/2018 2:56 PM) [facility] [place]
[2018-10-04 15:39] VITALS: BP 126/73
[2018-10-04 19:40] VITALS: BP 160/73
[2018-10-04] MEDS: INSULIN GLARGINE 300 UNITS/3 ML INSULN.PEN. SQ SCH (20:47)
[2018-10-04] MEDS ORDERED: ATORVASTATIN CALCIUM 40 MG TABLET. PO SCH (21:00)
[2018-10-04 22:11] LABS: HEMOGLOBIN A1C 9.1 % (4.8-5.6)
[2018-10-04 23:23] VITALS: BP 164/79
--- NOTE | 2018-10-05 00:10 | RAD ---
Examination: DOPPLER CAROTID BILAT History: CVA Comparison/Correlation: None Findings: Duplex carotid ultrasound exam was performed. Grayscale, spectral Doppler and color Doppler imaging was performed. Right common carotid artery peak systolic velocity: 73.5 cm/s Right common carotid artery end-diastolic velocity: 20.2 cm/s Right internal carotid artery peak systolic velocity: 89 cm/s Right internal carotid artery peak systolic velocity: 30.7 cm/s Right internal carotid artery/right common carotid artery peak systolic velocity ratio: 1.32 Left common carotid artery peak systolic velocity 116.2 cm/s Left common carotid artery end-diastolic velocity 29.6 cm/s Left internal carotid artery peak systolic velocity: 94 cm/s Left internal carotid artery end-diastolic velocity: 36.3 cm/s Left internal carotid artery/left common carotid artery peak systolic velocity ratio: 1.04 cm/s Normal spectral waveforms of the carotid arteries including the external carotid arteries is noted. Antegrade flow is identified involving the vertebral arteries. Mild diffuse plaque and intimal wall thickening is noted involving the common carotid and internal carotid arteries. Impression: No evidence of significant stenosis involving the the visualized common carotid arteries or internal carotid arteries. Normal antegrade flow in the vertebral arteries. Electronically signed by: Keyon Silvestre MD (10/05/2018 12:07 AM) [facility]
[2018-10-05 03:40] VITALS: BP 128/69
[2018-10-05 07:30] VITALS: BP 135/72
[2018-10-05 07:34] LABS: CALCIUM 9.6 mg/dL (8.5-10.1); CREATININE 0.6 mg/dL (0.6-1.0); GFR 104.6; POTASSIUM 4.1 mmol/L (3.5-5.1)
[2018-10-05] MEDS ORDERED: PSEUDOEPHEDRINE ER 120 MG TABLET.ER. PO PRN (08:15)
[2018-10-05] MEDS: FENOFIBRATE 54 MG TABLET. PO SCH (08:41)
[2018-10-05] MEDS: glipiZIDE 5 MG TABLET PO SCH (08:41)
[2018-10-05] MEDS: ASPIRIN 325 MG TABLET PO SCH (08:41)
[2018-10-05] MEDS: ENOXAPARIN 40 MG/0.4 ML SYRINGE. SQ SCH (08:41)
[2018-10-05] MEDS: METOPROLOL TART IMMED RELEASE 50 MG TABLET. PO SCH (08:41)
[2018-10-05] MEDS: CHOLECALCIFEROL (VITAMIN D3) 1,000 UNIT TABLET PO SCH (08:42)
[2018-10-05] MEDS: INSULIN LISPRO 300 UNITS/3 ML INSULN.PEN. SQ SCH (08:46)
[2018-10-05] MEDS ORDERED: PSEU120T12 PO (08:47)
[2018-10-05] MEDS ORDERED: ATOR40TA59 PO (08:47)
--- NOTE | 2018-10-05 08:49 | PDOC3 ---
Discharge Summary Visit Information Date of Admission: Oct 03, 2018 Date of Discharge: Oct 05, 2018 Admitting Diagnosis Comment: RT facial numbness, rt arm numbness neg Acute CVA dm2 on insulin h/o Afib now sinus wo AC HLD IBS tobaccoism CKD3 CHest pain, MSK, non cardiac Brief Hospital Course Allergies Allergies Coded Allergies Type Severity Reaction Last Updated Verified No Known Drug Allergies 11/08/16 No Vital Signs Vital Signs Date Time Temp Pulse Resp B/P (MAP) Pulse Ox O2 Delivery O2 Flow Rate FiO2 10/05/18 08:42 83 135/72 10/05/18 07:30 97.5 18 98 Room Air 97.5 Lab Results Laboratory Tests Test 10/03/18 15:45 10/03/18 19:30 10/03/18 20:26 10/04/18 01:00 White Blood Count 8.8 x10^3/uL (4.0-11.0) Red Blood Count 4.56 x10^6/uL (3.50-5.40) Hemoglobin 13.5 g/dL (12.0-15.5) Hematocrit 38.9 % (36.0-47.0) Mean Corpuscular Volume 85 fL (79-100) Mean Corpuscular Hemoglobin 30 pg (25-35) Mean Corpuscular Hemoglobin Concent 35 g/dL (31-37) Red Cell Distribution Width 13.8 % (11.5-14.5) Platelet Count 254 x10^3/uL (140-400) Neutrophils (%) (Auto) 64 % (31-73) Lymphocytes (%) (Auto) 26 % (24-48) Monocytes (%) (Auto) 7 % (0-9) Eosinophils (%) (Auto) 2 % (0-3) Basophils (%) (Auto) 1 % (0-3) Neutrophils # (Auto) 5.6 x10^3uL (1.8-7.7) Lymphocytes # (Auto) 2.3 x10^3/uL (1.0-4.8) Monocytes # (Auto) 0.6 x10^3/uL (0.0-1.1) Eosinophils # (Auto) 0.2 x10^3/uL (0.0-0.7) Basophils # (Auto) 0.1 x10^3/uL (0.0-0.2) Sodium Level 139 mmol/L (136-145) Potassium Level 4.3 mmol/L (3.5-5.1) Chloride Level 100 mmol/L (98-107) Carbon Dioxide Level 28 mmol/L (21-32) Anion Gap 11 (6-14) Blood Urea Nitrogen 19 mg/dL (7-20) Creatinine 1.1 mg/dL (0.6-1.0) Estimated GFR (Cockcroft-Gault) 52.0 BUN/Creatinine Ratio 17 (6-20) Glucose Level 263 mg/dL (70-99) Calcium Level 9.6 mg/dL (8.5-10.1) Total Bilirubin 0.5 mg/dL (0.2-1.0) Aspartate Amino Transf (AST/SGOT) 14 U/L (15-37) Alanine Aminotransferase (ALT/SGPT) 21 U/L (14-59) Alkaline Phosphatase 97 U/L (46-116) Troponin I Quantitative < 0.017 ng/mL (0.000-0.055) < 0.017 ng/mL (0.000-0.055) < 0.017 ng/mL (0.000-0.055) Total Protein 7.2 g/dL (6.4-8.2) Albumin 3.6 g/dL (3.4-5.0) Albumin/Globulin Ratio 1.0 (1.0-1.7) Glucose (Fingerstick) 348 mg/dL (70-99) Test 10/04/18 06:15 10/04/18 07:26 10/04/18 11:50 10/04/18 13:05 Sodium Level 141 mmol/L (136-145) Potassium Level 4.4 mmol/L (3.5-5.1) Chloride Level 103 mmol/L (98-107) Carbon Dioxide Level 29 mmol/L (21-32) Anion Gap 9 (6-14) Blood Urea Nitrogen 20 mg/dL (7-20) Creatinine 0.7 mg/dL (0.6-1.0) Estimated GFR (Cockcroft-Gault) 87.5 Glucose Level 234 mg/dL (70-99) Hemoglobin A1c 9.1 % (4.8-5.6) Calcium Level 9.5 mg/dL (8.5-10.1) Troponin I Quantitative < 0.017 ng/mL (0.000-0.055) Triglycerides Level 401 mg/dL (0-150) Cholesterol Level 167 mg/dL (0-200) LDL Cholesterol, Calculated 53 mg/dL (0-100) VLDL Cholesterol, Calculated 80 mg/dL (0-40) Non-HDL Cholesterol Calculated 133 mg/dL (0-129) HDL Cholesterol 34 mg/dL (40-60) Cholesterol/HDL Ratio 4.9 Thyroid Stimulating Hormone (TSH) 0.715 uIU/mL (0.358-3.74) Glucose (Fingerstick) 217 mg/dL (70-99) 216 mg/dL (70-99) Urine Collection Type Unknown Urine Color Yellow Urine Clarity Clear Urine pH 5.5 Urine Specific [place] 1.025 Urine Protein 30 mg/dL (NEG-TRACE) Urine Glucose (UA) 500 mg/dL (NEG) Urine Ketones (Stick) Negative mg/dL (NEG) Urine Blood Negative (NEG) Urine Nitrite Negative (NEG) Urine Bilirubin Small (NEG) Urine Urobilinogen Dipstick 1.0 mg/dL (0.2 mg/dL) Urine Leukocyte Esterase Small (NEG) Urine RBC 0 /HPF (0-2) Urine WBC >40 /HPF (0-4) Urine Squamous Epithelial Cells Mod /LPF Urine Bacteria Many /HPF (0-FEW) Urine Mucus Mod /LPF Urine Opiates Screen Neg (NEG) Urine Methadone Screen Neg (NEG) Urine Barbiturates Neg (NEG) Urine Phencyclidine Screen Neg (NEG) Urine Amphetamine/Methamphetamine Neg (NEG) Urine Benzodiazepines Screen Neg (NEG) Urine Cocaine Screen Neg (NEG) Urine Cannabinoids Screen Neg (NEG) Urine Ethyl Alcohol Neg (NEG) Test 10/04/18 17:04 10/04/18 20:33 10/05/18 06:55 10/05/18 07:29 Glucose (Fingerstick) 234 mg/dL (70-99) 274 mg/dL (70-99) 195 mg/dL (70-99) Sodium Level 141 mmol/L (136-145) Potassium Level 4.1 mmol/L (3.5-5.1) Chloride Level 102 mmol/L (98-107) Carbon Dioxide Level 31 mmol/L (21-32) Anion Gap 8 (6-14) Blood Urea Nitrogen 18 mg/dL (7-20) Creatinine 0.6 mg/dL (0.6-1.0) Estimated GFR (Cockcroft-Gault) 104.6 Glucose Level 204 mg/dL (70-99) Calcium Level 9.6 mg/dL (8.5-10.1) Laboratory Tests Test 10/04/18 11:50 10/04/18 13:05 10/04/18 17:04 10/04/18 20:33 Glucose (Fingerstick) 216 mg/dL (70-99) 234 mg/dL (70-99) 274 mg/dL (70-99) Urine Collection Type Unknown Urine Color Yellow Urine Clarity Clear Urine pH 5.5 Urine Specific [place] 1.025 Urine Protein 30 mg/dL (NEG-TRACE) Urine Glucose (UA) 500 mg/dL (NEG) Urine Ketones (Stick) Negative mg/dL (NEG) Urine Blood Negative (NEG) Urine Nitrite Negative (NEG) Urine Bilirubin Small (NEG) Urine Urobilinogen Dipstick 1.0 mg/dL (0.2 mg/dL) Urine Leukocyte Esterase Small (NEG) Urine RBC 0 /HPF (0-2) Urine WBC >40 /HPF (0-4) Urine Squamous Epithelial Cells Mod /LPF Urine Bacteria Many /HPF (0-FEW) Urine Mucus Mod /LPF Urine Opiates Screen Neg (NEG) Urine Methadone Screen Neg (NEG) Urine Barbiturates Neg (NEG) Urine Phencyclidine Screen Neg (NEG) Urine Amphetamine/Methamphetamine Neg (NEG) Urine Benzodiazepines Screen Neg (NEG) Urine Cocaine Screen Neg (NEG) Urine Cannabinoids Screen Neg (NEG) Urine Ethyl Alcohol Neg (NEG) Test 10/05/18 06:55 10/05/18 07:29 Sodium Level 141 mmol/L (136-145) Potassium Level 4.1 mmol/L (3.5-5.1) Chloride Level 102 mmol/L (98-107) Carbon Dioxide Level 31 mmol/L (21-32) Anion Gap 8 (6-14) Blood Urea Nitrogen 18 mg/dL (7-20) Creatinine 0.6 mg/dL (0.6-1.0) Estimated GFR (Cockcroft-Gault) 104.6 Glucose Level 204 mg/dL (70-99) Calcium Level 9.6 mg/dL (8.5-10.1) Glucose (Fingerstick) 195 mg/dL (70-99) Brief Hospital Course Ms. Chamorro is a 53 old white female admitted for stroke workup basically right facial numbness and right arm numbness, negative MRI.. Known patient of Dr. Melgar for history of A. fib now NSR. Also had some chest pains but EKG and troponin 4 negative hence no further workup Neurology did increase home atorvastatin from 20 to 40 because of high lipids. Could not help but wonder if this is some peripheral neuropathy? Trial of gabapentin But medically ready for discharge if okay with neurology. We'll await for neurology rounds. I did leave some scripts in the chart including increased dose of atorvastatin and maybe trial of gabapentin? Discussed with RN at bedside Patient seen and examined Procedures performed MRI brain, CAT scan brain, carotid ultrasound all negative Procedures per consults cardiology and neurology Discharge Information Condition at Discharge: Improved, Stable Disposition/Orders: D/C to Home Scheduled Aspirin (Aspirin) 81 Mg Tab.chew, 1 TAB PO DAILY, #90 Ref 3 (Reported) Entered as Reported by: BEBE PALAFOX on 04/07/18 0700 Last Action: Reviewed on 10/03/181842 by YADIEL TINOCO Atorvastatin Calcium (Atorvastatin Calcium) 20 Mg Tablet, 20 MG PO DAILY for high cholesterol, #30 Ref 0 (Reported) Entered as Reported by: ISAIAH BELL on 08/30/16 0907 Last Action: Edited on 10/03/181841 by YADIEL TINOCO Atorvastatin Calcium (Atorvastatin Calcium) 40 Mg Tablet, 40 MG PO QHS for hlp MDD 1, #30 Prescribed by: MARJAN RUIZ on 10/05/18 0847 Cholecalciferol (Vitamin D3) (Vitamin D) 2,000 Unit Capsule, 1 CAP PO BID, #60 Ref 3 Prescribed by: KEREN KILLIAN MD on 12/28/17 1302 Last Action: Reviewed on 10/03/181841 by YADIEL TINOCO Diltiazem Hcl (Cardizem Cd) 180 Mg Cap.er.24h, 1 CAP PO DAILY, #90 Ref 1 ( Reported) Entered as Reported by: JAE HERNANDEZ on 12/27/17 1644 Last Action: Reviewed on 10/03/181841 by YADIEL TINOCO Fenofibrate (Fenofibrate) 54 Mg Tablet, 54 MG PO DAILY for 30 Days, #30 Prescribed by: KEREN KILLIAN MD on 12/28/17 130 Last Action: Reviewed on 10/03/181841 by YADIEL TINOCO Glipizide (Glipizide) 5 Mg Tablet, 1 TAB PO BID, #180 Ref 3 (Reported) Entered as Reported by: BEBE PALAFOX on 04/07/18 0700 Last Action: Reviewed on 10/03/181842 by YADIEL TINOCO Insulin Detemir (Levemir) 100 Unit/1 Ml Vial, 20 UNIT SQ HS for diabetes, ( Reported) Entered as Reported by: BEBE PALAFOX on 04/07/18 0700 Last Action: Edited on 10/03/181842 by YADIEL TINOCO Metformin Hcl (Metformin Hcl) 1,000 Mg Tablet, 1,000 MG PO BID for ANTI-DIABETIC , Ref 0 (Reported) hold for 48 hours. Next dose Wed 04/09 evening dose Entered as Reported by: ISAIAH BELL on 08/30/16 0907 Last Action: Reviewed on 10/03/181841 by YADIEL TINOCO Metoprolol Tartrate (Metoprolol Tartrate) 50 Mg Tablet, 50 MG PO BID, (Reported) Entered as Reported by: BEAN MCCOLLUM RPH on 10/03/181806 Last Action: Reviewed on 10/03/181842 by YADIEL TINOCO Scheduled PRN Pseudoephedrine Hcl (Sinus 12-Hour) 120 Mg Tablet.er, 120 MG PO PRN BID PRN for NASAL CONGESTION for 7 Days, #14 Prescribed by: MARJAN RUIZ on 10/05/18 0847 Discontinued Medications Metoprolol Succinate (Toprol Xl) 50 Mg Tab.er.24h, 1 TAB PO BID, #30 Ref 5 ( Reported) Discontinued Reason: DC Entered as Reported by: RYLIE SOSA on 11/08/16 1008 Last Action: Discontinued on 10/03/181811 by BEAN MCCOLLUM [facility] Durable Medical Equipment Blood-Glucose Meter (Cool Blood Glucose Meter) 1 Each Each, EACH for SEE COMMENTS, #1, (DME) dm please also dispense test strips and lancets quantity sufficient for 1 month Prescribed by: KEREN KILLIAN MD on 12/28/171301 MARJAN RUIZ MD Oct 05, 2018 08:49
--- NOTE | 2018-10-05 10:57 | CARD ---
MR#: [id number] Date of Study: 10/05/2018 Ordering Physician: ALETHEA GUERRA, Referring Physician: RAND FAYE Tech: Mayra Jain RDCS APPROVED REPORT EXAM: Two-dimensional and M-mode echocardiogram with Doppler, color Doppler with contrast. Other Information Quality : GoodHR: 90bpm Rhythm : NSR INDICATION CVA/TIA 2D DIMENSIONS Left Atrium(2D)3.8 (1.6-4.0cm)IVSd0.9 (0.7-1.1cm) Aortic Root(2D)1.8 (2.0-3.7cm)LVDd3.7 (3.9-5.9cm) LVOT Diameter2.0 (1.8-2.4cm)PWd0.9 (0.7-1.1cm) LA Eecxqi47 (18-58mL)LVDs2.6 (2.5-4.0cm) FS (%) 30.2 %SV34.0 ml LVEF(%)58.4 (>50%)CO2.8 L/min M-Mode DIMENSIONS Aortic Cusp Exc1.17 (1.5-2.0cm) Aortic Valve AoV Peak Landon.153.6cm/sAoV VTI32.2cm AO Peak GR.9.4mmHgLVOT VTI 27.02cm AO Mean GR.6mmHgAVA (VTI)2.70cm2 Mitral Valve MV E Ddhokotz40.0cm/sMV DECEL FVMT188gu MV A Juwtiwtn60.8cm/sE/A Ratio1.0 MV A Cntmjcln116kd TDI Lateral E' P. V6.89cm/sMedial E' P. V6.57cm/s E/Lateral E'13.9E/Medial E'14.6 Tricuspid Valve TR P. Idfuzmok410qb/sTR Peak Gr.17mmHg Pulmonary Vein S1 Eoyhavcv65.0cm/sS2 Fxqdjqjq61.37cm/s D2 Haecjdyq21.4cm/s LEFT VENTRICLE The left ventricle is normal size. There is normal left ventricular wall thickness. The left ventricu lar systolic function is normal and the ejection fraction is within normal range. Left ventricular ej ection fraction of 55-60%. There is normal LV segmental wall motion. Transmitral Doppler flow pattern is Grade I-abnormal relaxation pattern. No left ventricle thrombus noted on this study. There is no ventricular septal defect visualized. There is no left ventricular aneurysm. There is no mass noted i n the left ventricle. RIGHT VENTRICLE The right ventricle is normal size. There is normal right ventricular wall thickness. The right ventr icular systolic function is normal. ATRIA The left atrium size is normal. The right atrium size is normal. The interatrial septum is intact wit h no evidence for an atrial septal defect or patent foramen ovale as noted on 2-D or Doppler imaging. Normal bubble study. AORTIC VALVE The aortic valve is normal in structure and function. Doppler and Color Flow revealed no significant aortic regurgitation. There is no significant aortic valvular stenosis. There is no aortic valvular v egetation. MITRAL VALVE The mitral valve is normal in structure and function. There is no evidence of mitral valve prolapse. There is no mitral valve stenosis. Doppler and Color Flow revealed no mitral valve regurgitation note d. TRICUSPID VALVE The tricuspid valve is normal in structure and function. Doppler and Color Flow revealed trace tricus pid regurgitation. There is no tricuspid valve prolapse or vegetation. There is no tricuspid valve st enosis. PULMONIC VALVE The pulmonary valve is normal in structure and function. There is no pulmonic valvular stenosis. GREAT VESSELS The aortic root is normal in size. Normal pulmonary venous flow (Doppler). The IVC is normal in size and collapses >50% with inspiration. PERICARDIAL EFFUSION There is no pleural effusion. There is no evidence of significant pericardial effusion. Critical Notification Critical Value: No <Conclusion> The left ventricle is normal size. The left ventricular systolic function is normal and the ejection fraction is within normal range. Left ventricular ejection fraction of 55-60%. The interatrial septum is intact with no evidence for an atrial septal defect or patent foramen ovale as noted on 2-D or Doppler imaging. Normal bubble study. There is no significant aortic valvular stenosis. Doppler and Color Flow revealed no significant aortic regurgitation. Doppler and Color Flow revealed no mitral valve regurgitation noted. Doppler and Color Flow revealed trace tricuspid regurgitation. Signed by : Loc Marquez MD Electronically Approved : 10/05/2018 10:56:09
[2018-10-05 11:30] VITALS: BP 151/82
--- NOTE | 2018-10-05 11:37 | PDOC ---
PROGRESS NOTES Subjective Subjective Patient seen and examined The patient has no chest pain. She continues to have numbness of her right upper extremity. Objective Objective Vital Signs Date Time Temp Pulse Resp B/P (MAP) Pulse Ox O2 Delivery O2 Flow Rate FiO2 10/05/18 11:30 98.1 80 18 151/82 (105) 100 Room Air 98.1 Intake and Output 10/05/18 07:00 Intake Total 1150 ml Output Total 300 ml Balance 850 ml Intake Oral 1150 ml Output Urine Total 300 ml Physical Exam Abdomen: Normal bowel sounds Heart: Regular rate General: No acute distress Lungs: Clear to auscultation Assessment Assessment 1. Chest pain. Resolved. Troponin 4 is normal. EKG shows no acute ischemic changes. Echo shows normal left ventricular systolic function. We'll continue medical treatment and consider outpatient stress testing. 2. Right arm numbness. MRI scan shows no acute changes. Echocardiogram has a negative bubble study. Neurology following. 3. Hypertension. Under improved control. Continue medical treatment. 4. Hyperlipidemia. Continue present treat treatment, 5. Chronic kidney disease. Continue present treatment. 6. Diabetes mellitus. As per the primary service. Comment Review of Relevant I have reviewed the following items mady (where applicable) has been applied. Labs Laboratory Tests Test 10/03/18 15:45 10/03/18 19:30 10/03/18 20:26 10/04/18 01:00 White Blood Count 8.8 x10^3/uL (4.0-11.0) Red Blood Count 4.56 x10^6/uL (3.50-5.40) Hemoglobin 13.5 g/dL (12.0-15.5) Hematocrit 38.9 % (36.0-47.0) Mean Corpuscular Volume 85 fL (79-100) Mean Corpuscular Hemoglobin 30 pg (25-35) Mean Corpuscular Hemoglobin Concent 35 g/dL (31-37) Red Cell Distribution Width 13.8 % (11.5-14.5) Platelet Count 254 x10^3/uL (140-400) Neutrophils (%) (Auto) 64 % (31-73) Lymphocytes (%) (Auto) 26 % (24-48) Monocytes (%) (Auto) 7 % (0-9) Eosinophils (%) (Auto) 2 % (0-3) Basophils (%) (Auto) 1 % (0-3) Neutrophils # (Auto) 5.6 x10^3uL (1.8-7.7) Lymphocytes # (Auto) 2.3 x10^3/uL (1.0-4.8) Monocytes # (Auto) 0.6 x10^3/uL (0.0-1.1) Eosinophils # (Auto) 0.2 x10^3/uL (0.0-0.7) Basophils # (Auto) 0.1 x10^3/uL (0.0-0.2) Sodium Level 139 mmol/L (136-145) Potassium Level 4.3 mmol/L (3.5-5.1) Chloride Level 100 mmol/L (98-107) Carbon Dioxide Level 28 mmol/L (21-32) Anion Gap 11 (6-14) Blood Urea Nitrogen 19 mg/dL (7-20) Creatinine 1.1 mg/dL (0.6-1.0) Estimated GFR (Cockcroft-Gault) 52.0 BUN/Creatinine Ratio 17 (6-20) Glucose Level 263 mg/dL (70-99) Calcium Level 9.6 mg/dL (8.5-10.1) Total Bilirubin 0.5 mg/dL (0.2-1.0) Aspartate Amino Transf (AST/SGOT) 14 U/L (15-37) Alanine Aminotransferase (ALT/SGPT) 21 U/L (14-59) Alkaline Phosphatase 97 U/L (46-116) Troponin I Quantitative < 0.017 ng/mL (0.000-0.055) < 0.017 ng/mL (0.000-0.055) < 0.017 ng/mL (0.000-0.055) Total Protein 7.2 g/dL (6.4-8.2) Albumin 3.6 g/dL (3.4-5.0) Albumin/Globulin Ratio 1.0 (1.0-1.7) Glucose (Fingerstick) 348 mg/dL (70-99) Test 10/04/18 06:15 10/04/18 07:26 10/04/18 11:50 10/04/18 13:05 Sodium Level 141 mmol/L (136-145) Potassium Level 4.4 mmol/L (3.5-5.1) Chloride Level 103 mmol/L (98-107) Carbon Dioxide Level 29 mmol/L (21-32) Anion Gap 9 (6-14) Blood Urea Nitrogen 20 mg/dL (7-20) Creatinine 0.7 mg/dL (0.6-1.0) Estimated GFR (Cockcroft-Gault) 87.5 Glucose Level 234 mg/dL (70-99) Hemoglobin A1c 9.1 % (4.8-5.6) Calcium Level 9.5 mg/dL (8.5-10.1) Troponin I Quantitative < 0.017 ng/mL (0.000-0.055) Triglycerides Level 401 mg/dL (0-150) Cholesterol Level 167 mg/dL (0-200) LDL Cholesterol, Calculated 53 mg/dL (0-100) VLDL Cholesterol, Calculated 80 mg/dL (0-40) Non-HDL Cholesterol Calculated 133 mg/dL (0-129) HDL Cholesterol 34 mg/dL (40-60) Cholesterol/HDL Ratio 4.9 Thyroid Stimulating Hormone (TSH) 0.715 uIU/mL (0.358-3.74) Glucose (Fingerstick) 217 mg/dL (70-99) 216 mg/dL (70-99) Urine Collection Type Unknown Urine Color Yellow Urine Clarity Clear Urine pH 5.5 Urine Specific [place] 1.025 Urine Protein 30 mg/dL (NEG-TRACE) Urine Glucose (UA) 500 mg/dL (NEG) Urine Ketones (Stick) Negative mg/dL (NEG) Urine Blood Negative (NEG) Urine Nitrite Negative (NEG) Urine Bilirubin Small (NEG) Urine Urobilinogen Dipstick 1.0 mg/dL (0.2 mg/dL) Urine Leukocyte Esterase Small (NEG) Urine RBC 0 /HPF (0-2) Urine WBC >40 /HPF (0-4) Urine Squamous Epithelial Cells Mod /LPF Urine Bacteria Many /HPF (0-FEW) Urine Mucus Mod /LPF Urine Opiates Screen Neg (NEG) Urine Methadone Screen Neg (NEG) Urine Barbiturates Neg (NEG) Urine Phencyclidine Screen Neg (NEG) Urine Amphetamine/Methamphetamine Neg (NEG) Urine Benzodiazepines Screen Neg (NEG) Urine Cocaine Screen Neg (NEG) Urine Cannabinoids Screen Neg (NEG) Urine Ethyl Alcohol Neg (NEG) Test 10/04/18 17:04 10/04/18 20:33 10/05/18 06:55 10/05/18 07:29 Glucose (Fingerstick) 234 mg/dL (70-99) 274 mg/dL (70-99) 195 mg/dL (70-99) Sodium Level 141 mmol/L (136-145) Potassium Level 4.1 mmol/L (3.5-5.1) Chloride Level 102 mmol/L (98-107) Carbon Dioxide Level 31 mmol/L (21-32) Anion Gap 8 (6-14) Blood Urea Nitrogen 18 mg/dL (7-20) Creatinine 0.6 mg/dL (0.6-1.0) Estimated GFR (Cockcroft-Gault) 104.6 Glucose Level 204 mg/dL (70-99) Calcium Level 9.6 mg/dL (8.5-10.1) Test 10/05/18 11:04 Glucose (Fingerstick) 268 mg/dL (70-99) Laboratory Tests Test 10/04/18 11:50 10/04/18 13:05 10/04/18 17:04 10/04/18 20:33 Glucose (Fingerstick) 216 mg/dL (70-99) 234 mg/dL (70-99) 274 mg/dL (70-99) Urine Collection Type Unknown Urine Color Yellow Urine Clarity Clear Urine pH 5.5 Urine Specific [place] 1.025 Urine Protein 30 mg/dL (NEG-TRACE) Urine Glucose (UA) 500 mg/dL (NEG) Urine Ketones (Stick) Negative mg/dL (NEG) Urine Blood Negative (NEG) Urine Nitrite Negative (NEG) Urine Bilirubin Small (NEG) Urine Urobilinogen Dipstick 1.0 mg/dL (0.2 mg/dL) Urine Leukocyte Esterase Small (NEG) Urine RBC 0 /HPF (0-2) Urine WBC >40 /HPF (0-4) Urine Squamous Epithelial Cells Mod /LPF Urine Bacteria Many /HPF (0-FEW) Urine Mucus Mod /LPF Urine Opiates Screen Neg (NEG) Urine Methadone Screen Neg (NEG) Urine Barbiturates Neg (NEG) Urine Phencyclidine Screen Neg (NEG) Urine Amphetamine/Methamphetamine Neg (NEG) Urine Benzodiazepines Screen Neg (NEG) Urine Cocaine Screen Neg (NEG) Urine Cannabinoids Screen Neg (NEG) Urine Ethyl Alcohol Neg (NEG) Test 10/05/18 06:55 10/05/18 07:29 10/05/18 11:04 Sodium Level 141 mmol/L (136-145) Potassium Level 4.1 mmol/L (3.5-5.1) Chloride Level 102 mmol/L (98-107) Carbon Dioxide Level 31 mmol/L (21-32) Anion Gap 8 (6-14) Blood Urea Nitrogen 18 mg/dL (7-20) Creatinine 0.6 mg/dL (0.6-1.0) Estimated GFR (Cockcroft-Gault) 104.6 Glucose Level 204 mg/dL (70-99) Calcium Level 9.6 mg/dL (8.5-10.1) Glucose (Fingerstick) 195 mg/dL (70-99) 268 mg/dL (70-99) Medications Current Medications Aspirin (Children'S Aspirin) 324 mg 1X ONCE PO Last administered on 10/03/18at 16:22; Start 10/03/18 at 16:15; Stop 10/03/18 at 16:16; Status DC Aspirin (Children'S Aspirin) 81 mg DAILY08 PO Last administered on 10/04/18at 09:18; Start 10/04/18 at 08:00; Stop 10/04/18 at 11:56; Status DC Atorvastatin Calcium (Lipitor) 20 mg HS PO ; Start 10/03/18 at 21:00; Stop 10/03 at 21:00; Status DC Fenofibrate (Lofibra) 54 mg DAILY PO Last administered on 10/05/18at 08:41; Start 10/04/18 at 09:00 Glipizide (Glucotrol) 5 mg BIDAC PO Last administered on 10/05/18at 08:41; Start 10/04/18 at 07:30 Fish Oil (Fish Oil) 2,000 mg BID PO ; Start 10/03/18 at 21:00; Stop 10/03/18 at 21:00; Status DC Vitamin D (Vitamin D3) 1,000 unit BID PO Last administered on 10/05/18at 08:42 ; Start 10/03/18 at 21:00 Diltiazem HCl (Cardizem 24hr Cd) 180 mg DAILY PO Last administered on at 08:42; Start 10/04/18 at 09:00 Insulin Glargine (Lantus) 15 units QHS SQ ; Start 10/03/18 at 21:00; Stop at 21:00; Status DC Non-Formulary Medication (Metoprolol Succinate (Toprol Xl)) 1 tab BID PO ; Start 10/03/18 at 21:00; Status UNV Insulin Human Lispro (HumaLOG) 0-9 UNITS TIDWMEALS SQ Last administered on 10/12at 08:46; Start 10/04/18 at 08:00 Dextrose (Dextrose 50%-Water Syringe) 12.5 gm PRN Q15MIN PRN IV SEE COMMENTS; Start 10/03/18 at 18:00 Enoxaparin Sodium (Lovenox 40mg Syringe) 40 mg DAILY SQ Last administered on at 08:41; Start 10/03/18 at 18:30 Metoprolol Tartrate (Lopressor) 50 mg BID PO Last administered on 10/05/18at 08 :41; Start 10/03/18 at 21:00 Atorvastatin Calcium (Lipitor) 20 mg DAILY PO Last administered on 10/04/18at 09:19; Start 10/04/18 at 09:00; Stop 10/04/18 at 14:20; Status DC Insulin Glargine (Lantus) 20 units QHS SQ Last administered on 10/04/18at 20:47 ; Start 10/03/18 at 21:00 Nicotine (Nicoderm Cq 21mg) 1 patch PRN DAILY PRN TD SMOKING CESSATION; Start 10/04/18 at 08:30 Aspirin (Susan Aspirin) 325 mg DAILY08 PO Last administered on 10/05/18at 08:41 ; Start 10/04/18 at 12:00 Atorvastatin Calcium (Lipitor) 40 mg QHS PO Last administered on 10/04/18at 20: 43; Start 10/04/18 at 21:00 Pseudoephedrine HCl (Sudafed 12-Hour) 120 mg PRN BID PRN PO NASAL CONGESTION Last administered on 10/05/18at 08:42; Start 10/05/18 at 08:15 Active Scripts Active Atorvastatin Calcium 40 Mg Tablet 40 Mg PO QHS MDD 1 Sinus 12-Hour (Pseudoephedrine Hcl) 120 Mg Tablet.er 120 Mg PO PRN BID PRN 7 Days Vitamin D (Cholecalciferol (Vitamin D3)) 2,000 Unit Capsule 1 Cap PO BID Cool Blood Glucose Meter (Blood-Glucose Meter) 1 Each Each Each dm please also dispense test strips and lancets quantity sufficient for 1 month Fenofibrate 54 Mg Tablet 54 Mg PO DAILY 30 Days Reported Metoprolol Tartrate 50 Mg Tablet 50 Mg PO BID Levemir (Insulin Detemir) 100 Unit/1 Ml Vial 20 Unit SQ HS Aspirin 81 Mg Tab.chew 1 Tab PO DAILY Glipizide 5 Mg Tablet 1 Tab PO BID Cardizem Cd (Diltiazem Hcl) 180 Mg Cap.er.24h 1 Cap PO DAILY Metformin Hcl 1,000 Mg Tablet 1,000 Mg PO BID hold for 48 hours. Next dose 04/09 evening dose Atorvastatin Calcium 20 Mg Tablet 20 Mg PO DAILY Vitals/I & O Vital Sign - Last 24 Hours 10/04/18 10/04/18 10/04/18 10/04/18 15:39 19:40 20:43 23:23 Temp 97.7 97.5 98.2 97.7 97.5 98.2 Pulse 84 91 91 86 Resp B/P (MAP) 126/73 (90) 160/73 (102) 160/73 164/79 (107) Pulse Ox 98 98 99 O2 Delivery Room Air Room Air Room Air 10/05/18 10/05/18 10/05/18 10/05/18 03:40 07:30 08:00 08:41 Temp 97.7 97.5 97.7 97.5 Pulse 81 83 83 Resp 18 B/P (MAP) 128/69 (88) 135/72 (93) 135/72 Pulse Ox 98 98 O2 Delivery Room Air Room Air Room Air 10/05/18 10/05/18 08:42 11:30 Temp 98.1 98.1 Pulse 83 80 Resp 18 B/P (MAP) 135/72 151/82 (105) Pulse Ox 100 O2 Delivery Room Air Intake and Output 10/04/18 10/04/18 10/05/18 15:00 23:00 07:00 Intake Total 200 ml 700 ml 250 ml Output Total 300 ml Balance 200 ml 400 ml 250 ml RICK GAUTHIER MD Oct 05, 2018 11:37
--- NOTE | 2018-10-05 13:24 | PDOC ---
PROGRESS NOTES Assessment Assessment Subacute left thalamic infarct. Right side face and UE numbness and tingling. Hyperglycemia. Chest pain. AFib Hx, sinus rhythm now. DM. HTN. HLD. IBS. Obesity. Smoking. RECOMMENDATIONS/PLAN: ASA 325 mg daily. Lipitor 40 mg HS. [id number] mg tid. Control hyperglycemia per medical team. Treat medical diseases. Weight reduction. Diet. Exercise. FU with PCP. FU with Neurology within 1 month. Discussed in a great detail with the patient about her stroke, diagnosis, treatment, prognosis, and secondary prevention, etc. at bedside on 10/05/18. Carotid A US + Doppler on 10/04/18: No high grade stenosis. Echo + Bubble study on 10/05/18: Unremarkable. Brain MRI on 10/04/18: Report and addendum refer to Radiology final reports. HISTORY OF THE PRESENT ILLNESS: 53-y-old female patient with above medical history developed symptoms of chest pain to be brought to the ER of [facility]. She also has symptoms of right UE numbness on 10/03/18 and face numbness and tingling since 10/04/18 and her symptoms persistent, so neurology was requested for consultation on 10/04/18. She stated on 10/05/18 still has symptoms of numbness in her right side of face below eye and right UE. No motor deficits. Past Medical History Cardiovascular: AFIB, HTN, Hyperlipidemia GI: Other Heme/Onc: No pertinent hx Hepatobiliary: No pertinent hx Rheumatologic: No pertinent hx Infectious disease: No pertinent hx Renal/: Other Endocrine: Diabetes Past Surgical History . Family History Coronary Artery Disease Social History Smoke: <1 pack per day She drinks occasionally. Denied illicit drug use. ALLERGY: NKDA MEDICATIONS: Refer to [facility] REVIEW OF SYSTEMS: Constitutional: Obesity.. Head: No recent traumatic brain or head injury. Skin: No edema, or rash. Ear: No infection. Eyes: No vision loss or color blindness. Nose: No bleeding or purulent discharges. Hearing: No hearing decrease. Neck: No injury. Breast: No history of cancer, masses,or discharges. Cardiac: Chest pain, HTN, HLD. Pulmonary: Smoking.. GI: No GI ulcer, GI bleeding. Urinary/genital: UTI. Endocrinologic: Diabetes Mellitus, obesity. Skeletomuscular: No muscular atrophy, deformity. Neurological: see HP. Psychiatric: Denies drug use/abuse. Otherwise, not [id number] review of systems. PHYSICAL EXAMINATION: General appearance is in subacute distress. HEENT: Normocephalic and nontraumatic. Eyes, nose, ears, and throat are unremarkable. Neck is supple. No lymphadenopathy. No crepitus. Cardiovascular: S1, S2, regular rate and rhythm. Pulmonary: Clear to auscultation bilaterally. Abdomen: Bowel sounds are positive. Abdomen is soft, nontender, and nondistended. Extremities: No rash, lesions, or edema. No restriction of range of motion NEUROLOGICAL EXAMINATION: Alert Oriented to time, place and person. PERRL. EOMI. CN: no focal findings. Muscle tone: within normal. Muscle strength: 5 DTR: 2 Plantar reflex: Flexor response bilaterally Gait: Reportedly normal. Sensory exam: no acute abnormal findings. No cerebellar signs elicited. F-T-N test fine. Objective Objective Vital Signs Date Time Temp Pulse Resp B/P (MAP) Pulse Ox O2 Delivery O2 Flow Rate FiO2 10/05/18 11:30 98.1 80 18 151/82 (105) 100 Room Air 98.1 Intake and Output 10/05/18 07:00 Intake Total 1150 ml Output Total 300 ml Balance 850 ml Intake Oral 1150 ml Output Urine Total 300 ml Vitals Signs Vitals VS - Last 72 Hours, by Label Date Time Temp Pulse Resp B/P (MAP) Pulse Ox O2 Delivery O2 Flow Rate FiO2 10/05/18 11:30 98.1 80 18 151/82 (105) 100 Room Air 98.1 10/05/18 08:42 83 135/72 10/05/18 08:41 83 135/72 10/05/18 08:00 Room Air 10/05/18 07:30 97.5 83 18 135/72 (93) 98 Room Air 97.5 10/05/18 03:40 97.7 81 18 128/69 (88) 98 Room Air 97.7 10/04/18 23:23 98.2 86 18 164/79 (107) 99 Room Air 98.2 10/04/18 20:43 91 160/73 10/04/18 19:40 97.5 91 20 160/73 (102) 98 Room Air 97.5 10/04/18 15:39 97.7 84 18 126/73 (90) 98 Room Air 97.7 10/04/18 11:27 97.7 83 18 127/79 (95) 99 Room Air 97.7 10/04/18 09:19 92 140/78 10/04/18 09:18 92 140/78 10/04/18 08:00 Room Air 10/04/18 07:20 97.9 100 18 108/69 (82) 97 Room Air 97.9 Laboratory Laboratory Laboratory Tests Test 10/04/18 17:04 10/04/18 20:33 10/05/18 06:55 10/05/18 07:29 Glucose (Fingerstick) 234 mg/dL (70-99) 274 mg/dL (70-99) 195 mg/dL (70-99) Sodium Level 141 mmol/L (136-145) Potassium Level 4.1 mmol/L (3.5-5.1) Chloride Level 102 mmol/L (98-107) Carbon Dioxide Level 31 mmol/L (21-32) Anion Gap 8 (6-14) Blood Urea Nitrogen 18 mg/dL (7-20) Creatinine 0.6 mg/dL (0.6-1.0) Estimated GFR (Cockcroft-Gault) 104.6 Glucose Level 204 mg/dL (70-99) Calcium Level 9.6 mg/dL (8.5-10.1) Test 10/05/18 11:04 Glucose (Fingerstick) 268 mg/dL (70-99) Medication Medications Current Medications Atorvastatin Calcium (Lipitor) 40 mg QHS PO Last administered on 10/04/18at 20: 43; Start 10/04/18 at 21:00 Pseudoephedrine HCl (Sudafed 12-Hour) 120 mg PRN BID PRN PO NASAL CONGESTION Last administered on 10/05/18at 08:42; Start 10/05/18 at 08:15 Comment Review of Relevant I have reviewed the following items mady (where applicable) has been applied. ALETHEA GUERRA MD Oct 05, 2018 13:24
== END 2018-10-05 14:39 | disposition home or self-care (01) ==
LOC: ER 15:26 → INTOOBSV 17:14 → 6 SOUTH 17:14 → UNDODISOB 10-05 14:39
PROVIDERS: ADMIT Internal Medicine; ATTEND Internal Medicine
DX: R07.9 Chest pain, unspecified (principal); E11.22 Type 2 diabetes mellitus with diabetic chronic kidney disease; E11.65 Type 2 diabetes mellitus with hyperglycemia; E66.9 Obesity, unspecified; E78.00 Pure hypercholesterolemia, unspecified; E78.5 Hyperlipidemia, unspecified; I12.9 Hypertensive chronic kidney disease with stage 1 through stage 4 chronic kidney disease, or unspecified chronic kidney disease; I48.91 Unspecified atrial fibrillation; K58.9 Irritable bowel syndrome, unspecified; E11.42 Type 2 diabetes mellitus with diabetic polyneuropathy; N18.3 Chronic kidney disease, stage 3 (moderate); F17.210 Nicotine dependence, cigarettes, uncomplicated; Z79.4 Long term (current) use of insulin; Z79.82 Long term (current) use of aspirin; Z82.49 Family history of ischemic heart disease and other diseases of the circulatory system; Z68.29 Body mass index [BMI] 29.0-29.9, adult; Z79.899 Other long term (current) drug therapy
CPT/HCPCS: 36415; 70450; 70551; 71045; 80048; 80053; 80061; 80307; 81001; 82607; 82962; 83036; 84443; 84484; 85025; 93005; 93880; 96372; 99285; C8929; G0378; G0379; J1650; J1815

== ENCOUNTER 2019-11-11 05:55 | Day surgery (SDC) | payer OTHER ==
[~2019-11-11] VITALS: Ht 170.2 cm; Wt 88.5 kg
[~2019-11-11 05:55] MED LIST changes: +ATOR40TA59 PO; +PSEU120T12 PO
[2019-11-11] MEDS ORDERED: MORPHINE SULFATE 2 MG/ML VIAL. IV PRN (07:00)
[2019-11-11] MEDS ORDERED: fentaNYL PF VIAL 100 MCG/2 ML VIAL IV PRN (07:00)
[2019-11-11] MEDS ORDERED: IV RINGERS,LACTATED 1000ML 1,000 ML IV SCH (07:00)
[2019-11-11] MEDS ORDERED: HYDROmorphone 2 MG/ML VIAL IV PRN (07:00)
[2019-11-11] MEDS ORDERED: LIDOCAINE 1% PF 2 ML VIAL. ID PRN (07:00)
[2019-11-11] MEDS ORDERED: ONDANSETRON PF 4 MG/2 ML VIAL. IV PRN (07:00)
[2019-11-11] MEDS ORDERED: PROCHLORPERAZINE 10 MG/2 ML VIAL. IV PRN (07:00)
[2019-11-11] MEDS: INSULIN LISPRO 100 UNIT/ML 3ML VIAL for OP,RR ONLY. SQ PRN ×2 (07:03→08:45)
[2019-11-11] MEDS ORDERED: BUPIVACAINE MPF 0.5% 30 ML VIAL. ONE (07:05)
[2019-11-11] MEDS ORDERED: LIDOCAINE 1% 20 ML VIAL. ONE (07:05)
[2019-11-11] MEDS ORDERED: LIDOCAINE 1% PF 5 ML VIAL. ONE (07:06)
[2019-11-11] MEDS ORDERED: PROPOFOL 20 ML IV ONE (07:06)
[2019-11-11] MEDS ORDERED: ONDANSETRON PF 4 MG/2 ML VIAL. ONE (07:06)
[2019-11-11] MEDS ORDERED: DEXAMETHASONE SOD PHOS 4 MG/ML VIAL ONE (07:06)
[2019-11-11] MEDS ORDERED: fentaNYL PF VIAL 100 MCG/2 ML VIAL ONE (07:07)
[2019-11-11] MEDS ORDERED: MIDAZOLAM HCL/PF 2 MG/2 ML VIAL. ONE (07:07)
[2019-11-11] MEDS ORDERED: KETOROLAC 30 MG/ML VIAL. ONE (07:07)
[2019-11-11] MEDS ORDERED: PHENYLEPHRINE in 0.9% NACL PF 1 MG/10 ML SYRINGE. IV ONE (07:56)
[2019-11-11] MEDS ORDERED: ceFAZolin 2GM PREMIX 2 GM/50 ML BAG IV ONE (08:00)
--- NOTE | 2019-11-11 08:43 | DISCH ---
DISCHARGE INSTRUCTIONS Condition on Discharge Condition on Discharge: Stable Activity After Discharge Activity Instructions for Disc: Activity as tolerated Bathing Instructions: Shower-keep dressing dry Exercise Instruction after Dis: Progress as tolerated Driving Instructions after Dis: Do not drive Weight Bearing Status after Di: As tolerated Diet after Discharge Diet after Discharge: Regular, Diabetic No Calorie Level Diet Texture: Regular Swallowing Supervision: None needed Wound Incision Care Wound/Incision Care: Ice to area for comfort, Keep wound/cast CDI Other wound/incision instructi: okay to change dressing, keep incision covered and resume brace in 2 days Wound Care Equipment: Dressings Checks after Discharge Checks after discharge: Check blood press - daily, Check blood sugar, ac/hs Contacting the DR. after DC Call your doctor for: Concerns you may have Follow-Up Follow up with: Alejandra in 2 weeks HARLEEN CORREA II, MD Nov 11, 2019 08:43
--- NOTE | 2019-11-11 08:48 | PDOC4 ---
Operative Note Operative Note Date of procedure: 11/11/2019 Surgeon: Darin Correa Asst.: Fuad Gandhi Preoperative diagnosis: Painful bony prominence at the right BKA site Postoperative diagnosis: Same Procedure performed: Revision right below-knee amputation Complications: None Blood loss: 25 mL Anesthesia: Gen. Tourniquet time: Less than 60 minutes Reason for procedure: Patient is a pleasant 54-year-old female who underwent a below-knee amputation and began noticing a painful bony prominence that limited her prosthetic wear. Radiographs and clinical exam were performed by myself and I discussed the risks, benefits, alternatives to surgery and she wished to proceed. Description of procedure: Patient was greeted in the preoperative area where the correct extremity was verified and marked. She is taking the operative suite and antibiotics are started as she was brought back. Once in the operating room, she was transferred gently supine to the operating table and secured to the bed with all pressure points padded and had successful induction of a general anesthetic. Nonsterile tourniquet was taped in place to her right upper thigh. Right lower extremity was prepped and draped in our usual sterile fashion and tourniquet was insufflated. We then conducted our standard preoperative timeout. I then incised skin through her prior incision and dissected subcutaneous tissue and cauterized bleeders with electrocautery. Identified her prior fascial repair from my posterior flap and incised this with electrocautery. I then palpated for the distal tibia, she had a an abundant amount of fibrotic tissue around this area and I released some with electrocautery in order to gain access to the distal tibia, I then used an elevator to free up a couple centimeters of distal tibia for appropriate exposure and then made an oblique cut to remove the bony prominence. I then used the saw blade to carefully paint the area to smooth out any rough edges. After this, irrigated the operative field out and inspected to see if there is any further bone removal, there was not. I irrigated everything out again and closed deep layer and repaired my prior layer with #2 Ethibond in a simple interrupted fashion. Inverted interrupted 0 Vicryl was used for deeper layers of the subcutaneous tissues tissue and inverted interrupted 2-0 Vicryl for superficial subcutaneous tissue. 3-0 nylon in a mattress fashion was used for skin. Prior to wound closure, hemostasis was ensured with electrocautery and tourniquet was let down. All counts were correct 2 prior to wound closure. After closing the wound, I injected local anesthetic into the grayson-incisional soft tissues. A soft bulky dressing was then applied and held in place with an Aaron wrap. She tolerated surgery well. No complications. At the conclusion, she was awakened from anesthesia and transferred gently supine to the hospital bed and taken to the PACU in a stable next bit condition. Postoperative plan is to discharge her home, we will follow up with wound care and healing here in 2 weeks. DARIN CORREA II, MD Nov 11, 2019 08:48
[2019-11-11] MEDS: fentaNYL PF VIAL 100 MCG/2 ML VIAL IV PRN ×2 (08:57→09:06)
[2019-11-11] MEDS ORDERED: OXYC-325 PO (08:59)
[2019-11-11] MEDS ORDERED: DOCU-109 PO (09:00)
[2019-11-11] MEDS ORDERED: ONDA8TAB9 PO (09:00)
[2019-11-11 09:10] VITALS: BP 96/53
[2019-11-11] MEDS ORDERED: oxyCODONE/APAP 5/325 1 TAB TABLET PO PRN (09:15)
== END 2019-11-11 09:40 | disposition home or self-care (01) ==
LOC: SURG 05:55
PROVIDERS: ATTEND Orthopaedic Surgery Sports Medicine
DX: T84.84XA Pain due to internal orthopedic prosthetic devices, implants and grafts, initial encounter (principal); I48.20 Chronic atrial fibrillation, unspecified; K58.9 Irritable bowel syndrome, unspecified; E78.5 Hyperlipidemia, unspecified; E11.22 Type 2 diabetes mellitus with diabetic chronic kidney disease; I12.9 Hypertensive chronic kidney disease with stage 1 through stage 4 chronic kidney disease, or unspecified chronic kidney disease; N18.9 Chronic kidney disease, unspecified; Z86.73 Personal history of transient ischemic attack (TIA), and cerebral infarction without residual deficits; Z89.611 Acquired absence of right leg above knee; Z87.891 Personal history of nicotine dependence; Z79.84 Long term (current) use of oral hypoglycemic drugs; Z89.511 Acquired absence of right leg below knee; Z98.890 Other specified postprocedural states; Z82.49 Family history of ischemic heart disease and other diseases of the circulatory system; Z79.82 Long term (current) use of aspirin; Z79.899 Other long term (current) drug therapy; Y83.8 Other surgical procedures as the cause of abnormal reaction of the patient, or of later complication, without mention of misadventure at the time of the procedure; Y92.89 Other specified places as the place of occurrence of the external cause
CPT/HCPCS: 27886; 82962; A7015; J0696; J1100; J1885; J2250; J2370; J2405; J2704; J3010; J3490; J7120

== ENCOUNTER 2020-11-28 08:06 | Inpatient (IN) | payer BC, OTHER ==
[~2020-11-28] VITALS: Ht 170.2 cm; Wt 83.5 kg
[2020-11-28] VITALS (9 sets, daily range): BP systolic 96–124; BP diastolic 40–74
[~2020-11-28 08:06] MED LIST changes: +DOCU-109 PO; +ONDA8TAB9 PO; +OXYC-325 PO
[2020-11-28] MEDS ORDERED: PIPERACILLIN/TAZOBACTAM 3.375 GM in IV NORMAL SALINE 50ML 50 ML IV ONE (09:00)
--- NOTE | 2020-11-28 09:06 | PHYS DOC ---
Past Medical History Past Medical History: A-Fib, Diabetes-Type II, High Cholesterol, Hypertension, Other Additional Past Medical Histor: IBS Past Surgical History: Additional Past Surgical Histo: RIGHT BKA APRIL 2019 Smoking Status: Former Smoker Alcohol Use: None Drug Use: None General Adult EDM: Chief Complaint: LOWEREXTREMITY INJURY HPI: HPI: Patient is a 55 year old with history atrial fibrillation, diabetic, presented to ER for evaluation of a wound on her left foot. Patient says she was walking and hit her left foot against a door frame few days ago, now become infected. Patient already has a nonhealing ulcer on the distal part of her left leg for 6 months. Patient denies any fever. Patient denies any chest pain, no abdominal pain, no nausea vomiting. Patient denies any trouble breathing. Review of Systems: Review of Systems: Constitutional: Denies fever or chills. [] Eyes: Denies change in visual acuity. [] HENT: Denies nasal congestion or sore throat. [] Respiratory: Denies cough or shortness of breath. [] Cardiovascular: Denies chest pain or edema. [] GI: Denies abdominal pain, nausea, vomiting, bloody stools or diarrhea. [] : Denies dysuria. [] Musculoskeletal: Denies back pain or joint pain. [] Integument: Positive for left leg and left foot wounds. Neurologic: Denies headache, focal weakness or sensory changes. [] Endocrine: Denies polyuria or polydipsia. [] Lymphatic: Denies swollen glands. [] Psychiatric: Denies depression or anxiety. [] Heart Score: Risk Factors: Risk Factors: DM, Current or recent (<one month) smoker, HTN, HLP, family history of CAD, obesity. Risk Scores: Score 0 - 3: 2.5% MACE over next 6 weeks - Discharge Home Score 4 - 6: 20.3% MACE over next 6 weeks - Admit for Clinical Observation Score 7 - 10: 72.7% MACE over next 6 weeks - Early Invasive Strategies Current Medications: Current Medications Medications (Trade) Dose Ordered Sig/Perry Start Time Stop Time Status Last Admin Dose Admin Piperacillin Sod/ Tazobactam Sod 3.375 gm/Sodium Chloride 50 ml @ 100 mls/hr 1X ONCE 11/28/20 09:00 11/28/20 09:29 Allergies: Allergies: Allergies Coded Allergies Type Severity Reaction Last Updated Verified No Known Drug Allergies 11/11/19 No Physical Exam: PE: Constitutional: Well developed, well nourished, no acute distress, non-toxic appearance. [] HENT: Normocephalic, atraumatic, bilateral external ears normal, oropharynx moist, no oral exudates, nose normal. [] Eyes: PERRLA, EOMI, conjunctiva normal, no discharge. [] Neck: Normal range of motion, no tenderness, supple, no stridor. [] Cardiovascular:Heart rate regular rhythm, no murmur [] Lungs & Thorax: Bilateral breath sounds clear to auscultation [] Abdomen: Bowel sounds normal, soft, no tenderness, no masses, no pulsatile masses. [] Skin: Warm, dry, no erythema, no rash. [] Back: No tenderness, no CVA tenderness. [] Extremities: darken ulcerated wound on left foot at the 5th and 4th toe, crepitus to palpation. There is a large ulcerated wound on the inner part of left distal leg. Neurologic: Alert and oriented X 3, normal motor function, normal sensory function, no focal deficits noted. [] Psychologic: Affect normal, judgement normal, mood normal. [] Current Patient Data: Labs: Laboratory Tests Test 11/28/20 08:46 White Blood Count 13.7 x10^3/uL Red Blood Count 4.09 x10^6/uL Hemoglobin 11.5 g/dL Hematocrit 33.5 % Mean Corpuscular Volume 82 fL Mean Corpuscular Hemoglobin 28 pg Mean Corpuscular Hemoglobin Concent 34 g/dL Red Cell Distribution Width 13.4 % Platelet Count 352 x10^3/uL Neutrophils (%) (Auto) 87 % Lymphocytes (%) (Auto) 6 % Monocytes (%) (Auto) 7 % Eosinophils (%) (Auto) 0 % Basophils (%) (Auto) 0 % Neutrophils # (Auto) 11.9 x10^3/uL Lymphocytes # (Auto) 0.8 x10^3/uL Monocytes # (Auto) 1.0 x10^3/uL Eosinophils # (Auto) 0.0 x10^3/uL Basophils # (Auto) 0.0 x10^3/uL Platelet Estimate Pending Sodium Level 127 mmol/L Potassium Level 4.1 mmol/L Chloride Level 89 mmol/L Carbon Dioxide Level 28 mmol/L Anion Gap 10 Blood Urea Nitrogen 13 mg/dL Creatinine 1.0 mg/dL Estimated GFR (Cockcroft-Gault) 57.6 BUN/Creatinine Ratio 13 Glucose Level 572 mg/dL Lactic Acid Level 1.4 mmol/L Calcium Level 10.1 mg/dL Magnesium Level 1.7 mg/dL Total Bilirubin 0.6 mg/dL Aspartate Amino Transf (AST/SGOT) 6 U/L Alanine Aminotransferase (ALT/SGPT) 16 U/L Alkaline Phosphatase 114 U/L Total Protein 7.5 g/dL Albumin 2.8 g/dL Albumin/Globulin Ratio 0.6 Current Medications Medications (Trade) Dose Ordered Sig/Perry Route PRN Reason Start Time Stop Time Status Last Admin Dose Admin Piperacillin Sod/ Tazobactam Sod 3.375 gm/Sodium Chloride 50 ml @ 100 mls/hr 1X ONCE IV 11/28/20 09:00 11/28/20 09:29 DC 11/28/20 09:18 Atorvastatin Calcium (Lipitor) 40 mg QHS PO 11/28/20 21:00 Diltiazem HCl (Cardizem 24hr Cd) 180 mg DAILY PO 11/29/20 09:00 UNV Metoprolol Tartrate (Lopressor) 50 mg BID PO 11/28/20 21:00 UNV Oxycodone/ Acetaminophen (Percocet 5/325) 1 tab PRN Q6HRS PRN PO PAIN 11/28/20 09:45 UNV Non-Formulary Medication (Cholecalciferol (Vitamin D3) (Vitamin D)) 1 cap BID PO 11/28/20 21:00 UNV Non-Formulary Medication (Insulin Detemir (Levemir)) 30 unit HS SQ 11/28/20 21:00 UNV Non-Formulary Medication (Ondansetron Hcl (Zofran)) 8 mg BID PRN PO NAUSEA/VOMITING 11/28/20 09:45 UNV Ondansetron HCl (Zofran) 4 mg PRN Q6HRS PRN IVP NAUSEA/VOMITING 11/28/20 09:45 UNV Acetaminophen (Tylenol) 650 mg PRN Q6HRS PRN PO Headaches, Temp > 101.5F 11/28/20 09:45 UNV Bisacodyl (Dulcolax Supp) 10 mg PRN DAILY PRN PA CONSTIPATION 11/28/20 09:45 UNV Laboratory Tests Test 11/28/20 08:46 White Blood Count 13.7 x10^3/uL Red Blood Count 4.09 x10^6/uL Hemoglobin 11.5 g/dL Hematocrit 33.5 % Mean Corpuscular Volume 82 fL Mean Corpuscular Hemoglobin 28 pg Mean Corpuscular Hemoglobin Concent 34 g/dL Red Cell Distribution Width 13.4 % Platelet Count 352 x10^3/uL Neutrophils (%) (Auto) 87 % Lymphocytes (%) (Auto) 6 % Monocytes (%) (Auto) 7 % Eosinophils (%) (Auto) 0 % Basophils (%) (Auto) 0 % Neutrophils # (Auto) 11.9 x10^3/uL Lymphocytes # (Auto) 0.8 x10^3/uL Monocytes # (Auto) 1.0 x10^3/uL Eosinophils # (Auto) 0.0 x10^3/uL Basophils # (Auto) 0.0 x10^3/uL Platelet Estimate Pending Lactic Acid Level 1.4 mmol/L Magnesium Level 1.7 mg/dL Current Medications Medications (Trade) Dose Ordered Sig/Perry Route PRN Reason Start Time Stop Time Status Last Admin Dose Admin Piperacillin Sod/ Tazobactam Sod 3.375 gm/Sodium Chloride 50 ml @ 100 mls/hr 1X ONCE IV 11/28/20 09:00 11/28/20 09:29 DC 11/28/20 09:18 Vital Signs: Vital Signs Date Time Temp Pulse Resp B/P (MAP) Pulse Ox O2 Delivery O2 Flow Rate FiO2 11/28/20 08:20 98.7 103 18 146/76 (99) Room Air 98.7 EKG: EKG: [] Radiology/Procedures: Radiology/Procedures: [][facility] [address] [place], [place] [id number] IMAGING REPORT Signed PATIENT: DENNIS JAIMES ACCOUNT: [id number] : 1965 LOCATION: ER AGE: 55 SEX: F EXAM STATUS: REG ER ORD. PHYSICIAN: JERILYN MURPHY DO REASON: left foot injured, diabetic PROCEDURE: FOOT LEFT 3V XR FOOT_LEFT 3 VIEWS 11/28/2020 9:02 AM INDICATION: Left foot injured, diabetic COMPARISON: None available. TECHNIQUE: 3 views of the left foot are provided. FINDINGS/ IMPRESSION: 1. There is no acute fracture or dislocation. There is soft tissue swelling along the dorsum of the foot with associated thinning is gas is centered along the fourth metatarsophalangeal joint space. No definite osseous erosion or opaque foreign density. Vascular calcifications are identified. Posterior and plantar calcaneal enthesophytes are present. Further evaluation with MRI of the forefoot could be of benefit to assess for developing abscess or osteomyelitis. Electronically signed by: Jacquie Field MD (11/28/2020 9:21 AM) [id number] DICTATED and SIGNED BY: JACQUIE FIELD MD DATE: 11/28/20 [id number] 0 Course & Med Decision Making: Course & Med Decision Making Pertinent Labs and Imaging studies reviewed. (See chart for details) Patient is a 55-year-old female who presented to ER for evaluation of a wound on her left foot. Patient had diabetic, there is gas-forming infection in her left foot, patient will need to be admitted to hospital for IV antibiotic. Discussed with Dr. Hall who will admit the patient. Latanya Disclaimer: Latanya Disclaimer: This electronic medical record was generated, in whole or in part, using a voice recognition dictation system. Departure Departure Impression: Primary Impression: Gas gangrene of foot Additional Impression: Hyperglycemia Disposition: ADMITTED INPT THIS HOSP Admitting Physician: DOROTAS (Dr. Hall) Condition: STABLE Referrals: KALEN SPRING MD (PCP) JERILYN MURPHY DO Nov 28, 2020 09:06
[2020-11-28 09:19] LABS: BASO % 0 % (0-3); EOS % 0 % (0-3); HEMATOCRIT 33.5 % (36.0-47.0); HEMOGLOBIN 11.5 g/dL (12.0-15.5); LYMPH # 0.8 x10^3/uL (1.0-4.8); LYMPH % 6 % (24-48); MEAN CORPUSCULAR HEMOGLOBIN 28 pg (25-35); MEAN CORPUSCULAR HGB CONC 34 g/dL (31-37); MEAN CORPUSCULAR VOLUME 82 fL (79-100); MONO % 7 % (0-9); NEUT # 11.9 x10^3/uL (1.8-7.7); NEUT % 87 % (31-73); PLATELET COUNT 352 x10^3/uL (140-400); RED BLOOD COUNT 4.09 x10^6/uL (3.50-5.40); RED CELL DISTRIBUTION WIDTH 13.4 % (11.5-14.5); WHITE BLOOD COUNT 13.7 x10^3/uL (4.0-11.0)
--- NOTE | 2020-11-28 09:23 | RAD ---
XR FOOT_LEFT 3 VIEWS 11/28/2020 9:02 AM INDICATION: Left foot injured, diabetic COMPARISON: None available. TECHNIQUE: 3 views of the left foot are provided. FINDINGS/ IMPRESSION: 1. There is no acute fracture or dislocation. There is soft tissue swelling along the dorsum of the f oot with associated thinning is gas is centered along the fourth metatarsophalangeal joint space. No definite osseous erosion or opaque foreign density. Vascular calcifications are identified. Posterior and plantar calcaneal enthesophytes are present. Further evaluation with MRI of the forefoot could b e of benefit to assess for developing abscess or osteomyelitis. Electronically signed by: Leila Adam MD (11/28/2020 9:21 AM) [id number]
[2020-11-28] MEDS ORDERED: oxyCODONE/APAP 5/325 1 TAB TABLET PO PRN (09:45)
[2020-11-28] MEDS ORDERED: BISACODYL 10 MG SUPP.RECT. PR PRN (09:45)
[2020-11-28] MEDS ORDERED: ACETAMINOPHEN 325 MG TABLET. PO PRN (09:45)
[2020-11-28 09:50] LABS: ALBUMIN 2.8 g/dL (3.4-5.0); ALBUMIN/GLOBULIN RATIO 0.6 (1.0-1.7); CALCIUM 10.1 mg/dL (8.5-10.1); GFR 57.6; POTASSIUM 4.1 mmol/L (3.5-5.1); TOTAL BILIRUBIN 0.6 mg/dL (0.2-1.0); TOTAL PROTEIN 7.5 g/dL (6.4-8.2)
--- NOTE | 2020-11-28 09:52 | PDOC1 ---
History and Physical Date of Admission Date of Admission DATE: 11/28/20 TIME: 09:30 Identification/Chief Complaint Chief Complaint Left foot injury Source Source: Patient History of Present Illness History of Present Illness Ms Chamorro is a 55yo F w/ PMHx peripheral vascular disease s/p R BKA, diabetes, CVA, atrial fibrillation, hypertension, irritable bowel, kidney stones, HLD, CKD who presents to ED with her c/o left foot redness and swelling. She was walking and hit her left foot against a door frame 11/26/2020 and noted over the past 2 days it has become infected. She notes redness, an odor and popping sensation. Patient already has a nonhealing ulcer on the medial aspect of her left leg for 6 months mid-tibia. She has been unable to get into wound care due to insurance restrictions. Patient denies any fever. Patient denies any chest pain, no abdominal pain. Patient denies any trouble breathing. No recent sick contacts. She has had nausea since 11/23/2020 and has vomited 1 time daily for the past week. Left foot XR with soft tissue swelling along the dorsum of the foot with associated thinning is gas is centered along the fourth metatarsophalangeal joint space. No definite osseous erosion or opaque foreign density. WBC 13.7, Hb 11.5, Platelets 352, Na 127, K 4.1, BUN 13, Cr 1, glucose 572, Mg 1.7, albumin 2.8 Admitted for further treatment Past Medical History Cardiovascular: AFIB, HTN, Hyperlipidemia GI: Other Heme/Onc: No pertinent hx Hepatobiliary: No pertinent hx Rheumatologic: No pertinent hx Infectious disease: No pertinent hx Renal/: Chronic renal insuff, Other Endocrine: Diabetes Past Surgical History Past Surgical History: , Other (Right BKA) Family History Family History: Coronary Artery Disease, High Cholestrol, Hypertension Social History Smoke: No ALCOHOL: none Drugs: None Current Medications Current Medications Current Medications Piperacillin Sod/ Tazobactam Sod 3.375 gm/Sodium Chloride 50 ml @ 100 mls/hr 1X ONCE IV Last administered on 11/28/20at 09:18; Start 11/28/20 at 09:00; Stop 11/28/20 at 09:29; Status DC Active Scripts Active Atorvastatin Calcium 40 Mg Tablet 40 Mg PO QHS MDD 1 Sinus 12-Hour (Pseudoephedrine Hcl) 120 Mg Tablet.er 120 Mg PO PRN BID PRN 7 Days Vitamin D (Cholecalciferol (Vitamin D3)) 2,000 Unit Capsule 1 Cap PO BID Cool Blood Glucose Meter (Blood-Glucose Meter) 1 Each Each Each dm please also dispense test strips and lancets quantity sufficient for 1 month Fenofibrate 54 Mg Tablet 54 Mg PO DAILY 30 Days Reported Colace (Docusate Sodium) 100 Mg Capsule 1 Cap PO BID 30 Days Zofran (Ondansetron Hcl) 8 Mg Tablet 8 Mg PO BID PRN Percocet 5-325 mg Tablet (Oxycodone HCl/Acetaminophen) 1 Each Tablet 1 Tab PO PRN Q6HRS PRN MDD 2 Tablet(s) 5 Days Metoprolol Tartrate 50 Mg Tablet 50 Mg PO BID Levemir (Insulin Detemir) 100 Unit/1 Ml Vial 30 Unit SQ HS Aspirin 81 Mg Tab.chew 1 Tab PO DAILY Glipizide 5 Mg Tablet 1 Tab PO BID Cardizem Cd (Diltiazem Hcl) 180 Mg Cap.er.24h 1 Cap PO DAILY Metformin Hcl 1,000 Mg Tablet 1,000 Mg PO BID hold for 48 hours. Next dose 04/09 evening dose Allergies Allergies: Coded Allergies: No Known Drug Allergies (Unverified , 11/11/19) ROS General: YES: Chills, Night Sweats, Fatigue, Malaise, Appetite; No: Other PSYCHOLOGICAL ROS: No: Anxiety, Behavioral Disorder, Concentration difficultie, Decreased libido, Depression, Disorientation, Hallucinations, Hostility, Irritablity, Memory difficulties, Mood Swings, Obsessive thoughts, Physical abuse, Sexual abuse, Sleep disturbances, Suicidal ideation, Other Eyes: No Blurry vision, No Decreased vision, No Double vision, No Dry eyes, No Excessive tearing, No Eye Pain, No Itchy Eyes, No Loss of vision, No Photophobia, No Scotomata, No Uses contacts, No Uses glasses, No Other HEENT: No: Heacaches, Visual Changes, Hearing change, Nasal congestion, Nasal discharge, Oral lesions, Sinus pain, Sore Throat, Epistaxis, Sneezing, Snoring, Tinnitus, Vertigo, Vocal changes, Other ALLERGY AND IMMUNOLOGY: No: Hives, Insect Bite Sensitivity, Itchy/Watery Eyes, Nasal Congestion, Post Nasal Drip, Seasonal Allergies, Other Hematological and Lymphatic: No: Bleeding Problems, Blood Clots, Blood Transfusions, Brusing, Night Sweats, Pallor, Swollen Lymph Nodes, Other ENDOCRINE: No: Breast Changes, Galactorrhea, Hair Pattern Changes, Hot Flashes, Malaise/lethargy, Mood Swings, Palpitations, Polydipsia/polyuria, Skin Changes, Temperature Intolerance, Unexpected Weight Changes, Other Breast: No New/Changing Breast Lumps, No Nipple changes, No Nipple discharge, No Other Respiratory: No: Cough, Hemoptysis, Orthopnea, Pleuritic Pain, Shortness of breath, SOB with excertion, Sputum Changes, Stridor, Tachypnea, Wheezing, Other Cardiovascular: No Chest Pain, No Palpitations, No Orthopnea, No Paroxysmal Noc. Dyspnea, No Edema, No Lt Headedness, No Other Gastrointestinal: Yes Nausea, Yes Vomiting, Yes Abdominal Pain; No Diarrhea, No Constipation, No Melena, No Hematochezia, No Other Genitourinary: No Dysuria, No Frequency, No Incontinence, No Hematuria, No Retention, No Discharge, No Urgency, No Pain, No Flank Pain, No Other, No , No , No , No , No , No , No Musculoskeletal: Yes Gait Disturbance, Yes Joint Pain; No Joint Stiffness, No Joint Swelling, No Muscle Pain, No Muscular Weakness, No Pain In:, No Swelling In:, No Other Neurological: Yes Gait Disturbance; No Behavorial Changes, No Bowel/Bladder ControlChng, No Confusion, No Dizziness, No Headaches, No Impaired Coord/balance, No Memory Loss, No Numbness/Tingling, No Seizures, No Speech Problems, No Tremors, No Visual C hanges, No Weakness, No Other Skin: Yes Dry Skin, Yes Rash, Yes Skin Lesion Changes; No Eczema, No Hair Changes, No Lumps, No Mole Changes, No Mottling, No Nail Changes, No Pruritus, No Other, No Acne Physical Exam General: Alert, Oriented X3, Cooperative, mild distress HEENT: Atraumatic, PERRLA, EOMI, Mucous membr. moist/pink Lungs: Clear to auscultation, Normal air movement Heart: S1S2, RRR, no thrills, no rubs, no gallops, no murmurs Abdomen: Normal bowel sounds, Soft, No tenderness, No hepatosplenomegaly, No masses Rectal Exam: not examined Extremities: Other (RLE BKA clean, dry. LLE with medial ulcer 4cm x8 cm well demarcated. Fluctuance 4th and 5th dorsal MTP joint with surrounding erythema and crepitus) Skin: Other (left leg medial ulcer and left anterior foot hot red, crepitus, dry gangrene) Neuro: Normal speech, Strength at 5/5 X4 ext, Normal tone, Sensation intact, Cranial nerves 3-12 NL, Reflexes 2+ Psych/Mental Status: Mental status NL, Mood NL Vitals Vitals Vital Signs Date Time Temp Pulse Resp B/P (MAP) Pulse Ox O2 Delivery O2 Flow Rate FiO2 11/28/20 09:19 100 20 167/74 (105) 95 Room Air 11/28/20 08:20 98.7 98.7 Labs Labs Laboratory Tests Test 11/28/20 08:46 White Blood Count 13.7 x10^3/uL (4.0-11.0) Red Blood Count 4.09 x10^6/uL (3.50-5.40) Hemoglobin 11.5 g/dL (12.0-15.5) Hematocrit 33.5 % (36.0-47.0) Mean Corpuscular Volume 82 fL (79-100) Mean Corpuscular Hemoglobin 28 pg (25-35) Mean Corpuscular Hemoglobin Concent 34 g/dL (31-37) Red Cell Distribution Width 13.4 % (11.5-14.5) Platelet Count 352 x10^3/uL (140-400) Neutrophils (%) (Auto) 87 % (31-73) Lymphocytes (%) (Auto) 6 % (24-48) Monocytes (%) (Auto) 7 % (0-9) Eosinophils (%) (Auto) 0 % (0-3) Basophils (%) (Auto) 0 % (0-3) Neutrophils # (Auto) 11.9 x10^3/uL (1.8-7.7) Lymphocytes # (Auto) 0.8 x10^3/uL (1.0-4.8) Monocytes # (Auto) 1.0 x10^3/uL (0.0-1.1) Eosinophils # (Auto) 0.0 x10^3/uL (0.0-0.7) Basophils # (Auto) 0.0 x10^3/uL (0.0-0.2) Magnesium Level 1.7 mg/dL (1.8-2.4) Laboratory Tests Test 11/28/20 08:46 White Blood Count 13.7 x10^3/uL (4.0-11.0) Red Blood Count 4.09 x10^6/uL (3.50-5.40) Hemoglobin 11.5 g/dL (12.0-15.5) Hematocrit 33.5 % (36.0-47.0) Mean Corpuscular Volume 82 fL (79-100) Mean Corpuscular Hemoglobin 28 pg (25-35) Mean Corpuscular Hemoglobin Concent 34 g/dL (31-37) Red Cell Distribution Width 13.4 % (11.5-14.5) Platelet Count 352 x10^3/uL (140-400) Neutrophils (%) (Auto) 87 % (31-73) Lymphocytes (%) (Auto) 6 % (24-48) Monocytes (%) (Auto) 7 % (0-9) Eosinophils (%) (Auto) 0 % (0-3) Basophils (%) (Auto) 0 % (0-3) Neutrophils # (Auto) 11.9 x10^3/uL (1.8-7.7) Lymphocytes # (Auto) 0.8 x10^3/uL (1.0-4.8) Monocytes # (Auto) 1.0 x10^3/uL (0.0-1.1) Eosinophils # (Auto) 0.0 x10^3/uL (0.0-0.7) Basophils # (Auto) 0.0 x10^3/uL (0.0-0.2) Magnesium Level 1.7 mg/dL (1.8-2.4) Images Images Left foot radiograph 3 view: There is no acute fracture or dislocation. There is soft tissue swelling along the dorsum of the foot with associated thinning is gas is centered along the fourth metatarsophalangeal joint space. No definite osseous erosion or opaque foreign density. Vascular calcifications are identified. Posterior and plantar calcaneal enthesophytes are present. Further evaluation with MRI of the forefoot could be of benefit to assess for developing abscess or osteomyelitis. VTE Prophylaxis Ordered VTE Prophylaxis Devices: Yes VTE Pharmacological Prophylaxi: Yes Assessment/Plan Assessment/Plan A/P: Gas gangrene of left foot - empiric antibiotics, consult ID and vascular surgery Cellulitis left foot - antibiotics, fluids Left medial leg diabetic ulcer - will need wound care, debridement PVD s/p right BKA Sepsis - due to cellulitis/abscess, will cont empiric antibiotics. ID consulted for management given prior history of renal insufficiency and possible need for longer term antibiotics Diabetes - with hyperglycemia - will give aggressive insulin regimen Hypomagnesemia - will replace Hyponatremia - related to hyperglycemia, hypovolemia, will replace FEN - NPO PPX - lovenox FULL CODE Dispo - inpatient for above Justifications for Admission Other Justification TAJ GHOSH MD Nov 28, 2020 09:52
[2020-11-28] MEDS: METOPROLOL TART IMMED RELEASE 50 MG TABLET. PO SCH ×2 (10:00→21:00)
--- NOTE | 2020-11-28 10:08 | EKG ---
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
[2020-11-28] MEDS: CHOLECALCIFEROL (VITAMIN D3) 1,000 UNIT TABLET PO SCH ×2 (10:15→21:09)
[2020-11-28] MEDS ORDERED: ONDANSETRON ODT 4 MG TAB.RAPDIS. PO PRN (10:15)
[2020-11-28] MEDS: ONDANSETRON PF 4 MG/2 ML VIAL. IVP PRN (10:18)
--- NOTE | 2020-11-28 12:28 | PDOC ---
Infectious Disease Note Vital Sign Vital Signs Vital Signs Date Time Temp Pulse Resp B/P (MAP) Pulse Ox O2 Delivery O2 Flow Rate FiO2 11/28/20 09:19 100 20 167/74 (105) 95 Room Air 11/28/20 08:20 98.7 98.7 Labs Lab Laboratory Tests Test 11/28/20 08:46 11/28/20 10:25 White Blood Count 13.7 x10^3/uL (4.0-11.0) Red Blood Count 4.09 x10^6/uL (3.50-5.40) Hemoglobin 11.5 g/dL (12.0-15.5) Hematocrit 33.5 % (36.0-47.0) Mean Corpuscular Volume 82 fL (79-100) Mean Corpuscular Hemoglobin 28 pg (25-35) Mean Corpuscular Hemoglobin Concent 34 g/dL (31-37) Red Cell Distribution Width 13.4 % (11.5-14.5) Platelet Count 352 x10^3/uL (140-400) Neutrophils (%) (Auto) 87 % (31-73) Lymphocytes (%) (Auto) 6 % (24-48) Monocytes (%) (Auto) 7 % (0-9) Eosinophils (%) (Auto) 0 % (0-3) Basophils (%) (Auto) 0 % (0-3) Neutrophils # (Auto) 11.9 x10^3/uL (1.8-7.7) Lymphocytes # (Auto) 0.8 x10^3/uL (1.0-4.8) Monocytes # (Auto) 1.0 x10^3/uL (0.0-1.1) Eosinophils # (Auto) 0.0 x10^3/uL (0.0-0.7) Basophils # (Auto) 0.0 x10^3/uL (0.0-0.2) Sodium Level 127 mmol/L (136-145) Potassium Level 4.1 mmol/L (3.5-5.1) Chloride Level 89 mmol/L (98-107) Carbon Dioxide Level 28 mmol/L (21-32) Anion Gap 10 (6-14) Blood Urea Nitrogen 13 mg/dL (7-20) Creatinine 1.0 mg/dL (0.6-1.0) Estimated GFR (Cockcroft-Gault) 57.6 BUN/Creatinine Ratio 13 (6-20) Glucose Level 572 mg/dL (70-99) Lactic Acid Level 1.4 mmol/L (0.4-2.0) Calcium Level 10.1 mg/dL (8.5-10.1) Magnesium Level 1.7 mg/dL (1.8-2.4) Total Bilirubin 0.6 mg/dL (0.2-1.0) Aspartate Amino Transf (AST/SGOT) 6 U/L (15-37) Alanine Aminotransferase (ALT/SGPT) 16 U/L (14-59) Alkaline Phosphatase 114 U/L (46-116) Total Protein 7.5 g/dL (6.4-8.2) Albumin 2.8 g/dL (3.4-5.0) Albumin/Globulin Ratio 0.6 (1.0-1.7) SARS-CoV-2 Antigen (Rapid) Negative (NEGATIVE) Objective Assessment pt seen, consult dictated Plan Plan of Care / DONTA CRAIG MD Nov 28, 2020 12:28
[2020-11-28] MEDS ORDERED: CLINDAMYCIN 600MG PREMIX 50 ML IV ONE (13:00)
[2020-11-28] MEDS ORDERED: MORPHINE SULFATE 4 MG/ML VIAL. IV PRN (13:00)
[2020-11-28] MEDS ORDERED: DEXTROSE 50% 25 GM / 50ML DISP.SYRIN. IV PRN (13:00)
[2020-11-28 13:01] LABS: % BANDS 12 % (0-9); % BASOS 1 % (0-3); % LYMPHS 3 % (24-48); % MONOS 4 % (0-10); % SEGS 80 % (35-66); PLT ESTIMATE ADEQUATE (ADEQUATE)
--- NOTE | 2020-11-28 13:11 | PDOC2 ---
CONSULT Date of Service Date of Service DATE: 11/28/20 TIME: 12:56 Reason for Consult Reason for Consult: Left foot and leg ulcer Referring Physician Referring Physician: Dr. Hall Identification/Chief Complaint Chief Complaint Left foot injury with redness and swelling Source Source: Chart review, Patient History of Present Illness Reason for Visit: This is a 55-year-old female with a past medical history of peripheral vascular disease, status post right below-knee amputation, diabetes, CVA, atrial fibrillation, and hypertension who presents to the emergency room with a left foot wound with drainage, erythema and swelling. Patient notes that 2 days ago she injured her foot hitting it against a door frame while in her wheelchair and then progressively worsening with erythema, swelling and drainage. In addition she has a chronic non-healing ulcer on the posterior aspect of her left calf. This has been present for over 6 months. Patient states she has been trying to get into the wound care center but unable to due to insurance restrictions. Patient denies any recent fever or chills. She does have a 2-day history of nausea and vomiting. She has not been taking her medications to include her insulin. Left foot x-ray shows soft tissue swelling along the dorsum of the foot with associated thinning is gas is centered along the fourth metatarsophalangeal joint space. No definite osseous erosion or opaque foreign density. She states she has been using her wheelchair predominantly while awaiting adjustments to her right leg prosthesis. Past Medical History Cardiovascular: AFIB, HTN, Hyperlipidemia GI: Other Heme/Onc: No pertinent hx Hepatobiliary: No pertinent hx Rheumatologic: No pertinent hx Infectious disease: No pertinent hx Renal/: Chronic renal insuff, Other Endocrine: Diabetes Past Surgical History Past Surgical History: , Other (right below knee amputation) Family History Family History: Coronary Artery Disease, High Cholestrol, Hypertension Social History No ALCOHOL: none Drugs: None Lives: with Family Current Problem List Problem List Problems Medical Problems: (1) Gas gangrene of foot Status: Acute Current Medications Current Medications Current Medications Piperacillin Sod/ Tazobactam Sod 3.375 gm/Sodium Chloride 50 ml @ 100 mls/hr 1X ONCE IV Last administered on 11/28/20at 09:18; Start 11/28/20 at 09:00; Stop 11/28/20 at 09:29; Status DC Atorvastatin Calcium (Lipitor) 40 mg QHS PO ; Start 11/28/20 at 21:00 Diltiazem HCl (Cardizem 24hr Cd) 180 mg DAILY PO ; Start 11/29/20 at 10:00 Metoprolol Tartrate (Lopressor) 50 mg BID PO ; Start 11/28/20 at 10:00 Oxycodone/ Acetaminophen (Percocet 5/325) 1 tab PRN Q6HRS PRN PO MODERATE TO SEVERE PAIN; Start 11/28/20 at 09:45 Vitamin D (Vitamin D3) 2,000 unit BID PO ; Start 11/28/20 at 10:15 Insulin Glargine (Lantus Syringe) 30 unit HS SQ ; Start 11/28/20 at 21:00 Ondansetron HCl (Zofran Odt) 8 mg PRN BID PRN PO NAUSEA/VOMITING; Start 11/28/20 at 10:15 Ondansetron HCl (Zofran) 4 mg PRN Q6HRS PRN IVP NAUSEA/VOMITING Last administered on 11/28/20at 10:18; Start 11/28/20 at 09:45 Acetaminophen (Tylenol) 650 mg PRN Q6HRS PRN PO Headaches, Temp > 101.5F; Start 11/28/20 at 09:45 Bisacodyl (Dulcolax Supp) 10 mg PRN DAILY PRN ID CONSTIPATION; Start 11/28/20 at 09:45 Linezolid/Dextrose 300 ml @ 300 mls/hr Q12HR IV ; Start 11/28/20 at 21:00; Status UNV Clindamycin Phosphate 50 ml @ 100 mls/hr Q8HRS IV ; Start 11/28/20 at 22:00; Status UNV Linezolid/Dextrose 300 ml @ 300 mls/hr Q12HR IV ; Start 11/28/20 at 13:00 Clindamycin Phosphate 50 ml @ 100 mls/hr 1X ONCE IV ; Start 11/28/20 at 13:00; Stop 11/28/20 at 13:29 Active Scripts Active Atorvastatin Calcium 40 Mg Tablet 40 Mg PO QHS MDD 1 Sinus 12-Hour (Pseudoephedrine Hcl) 120 Mg Tablet.er 120 Mg PO PRN BID PRN 7 Days Vitamin D (Cholecalciferol (Vitamin D3)) 2,000 Unit Capsule 1 Cap PO BID Cool Blood Glucose Meter (Blood-Glucose Meter) 1 Each Each Each dm please also dispense test strips and lancets quantity sufficient for 1 month Fenofibrate 54 Mg Tablet 54 Mg PO DAILY 30 Days Reported Colace (Docusate Sodium) 100 Mg Capsule 1 Cap PO BID 30 Days Zofran (Ondansetron Hcl) 8 Mg Tablet 8 Mg PO BID PRN Percocet 5-325 mg Tablet (Oxycodone HCl/Acetaminophen) 1 Each Tablet 1 Tab PO PRN Q6HRS PRN MDD 2 Tablet(s) 5 Days Metoprolol Tartrate 50 Mg Tablet 50 Mg PO BID Levemir (Insulin Detemir) 100 Unit/1 Ml Vial 30 Unit SQ HS Aspirin 81 Mg Tab.chew 1 Tab PO DAILY Glipizide 5 Mg Tablet 1 Tab PO BID Cardizem Cd (Diltiazem Hcl) 180 Mg Cap.er.24h 1 Cap PO DAILY Metformin Hcl 1,000 Mg Tablet 1,000 Mg PO BID hold for 48 hours. Next dose 04/09 evening dose Allergies Allergies: Coded Allergies: No Known Drug Allergies (Unverified , 11/11/19) ROS Review of System Constitutional: Denies fever or chills Eyes: Denies any visual disturbances HENT: Denies nasal congestion or sore throat Respiratory: Denies cough or shortness of breath Cardiovascular: Denies any palpitations or chest pain GI: Positive for nausea and vomiting : Denies dysuria or hematuria Musculoskeletal: As per HPI Integument: As per HPI Neurologic: No gross deficits, uses wheelchair due to right BKA and waiting on adjustments to her prosthesis Endocrine: Diabetes Physical Exam Physical Exam Gen.: Alert and oriented X3 Cardiac: Heart rate regular. Normal carotid pulses. Lungs: Nonlabored respirations. Abdomen: Obese, soft, nontender, nondistended, no palpable masses. Extremities: 2+ palpable bilateral radial and femoral pulses, Doppler left DP and PT. Skin: Large left lateral calf wound with tissue necrosis, unable to determine depth without surrounding erythema or swelling. Small ulceration dorsum of foot between 4th and 5th toes, maceration in webspace with purulent drainage, forefoot erythema and swelling. Fluctuance noted on dorsum near 4,5th toe webspace. Right below knee amputation well healed incision. Neurological: Motor and sensation intact Vitals VITALS Vital Signs Date Time Temp Pulse Resp B/P (MAP) Pulse Ox O2 Delivery O2 Flow Rate FiO2 11/28/20 09:19 100 20 167/74 (105) 95 Room Air 11/28/20 08:20 98.7 98.7 Labs Labs Laboratory Tests Test 11/28/20 08:46 11/28/20 10:25 11/28/20 12:41 White Blood Count 13.7 x10^3/uL (4.0-11.0) Red Blood Count 4.09 x10^6/uL (3.50-5.40) Hemoglobin 11.5 g/dL (12.0-15.5) Hematocrit 33.5 % (36.0-47.0) Mean Corpuscular Volume 82 fL (79-100) Mean Corpuscular Hemoglobin 28 pg (25-35) Mean Corpuscular Hemoglobin Concent 34 g/dL (31-37) Red Cell Distribution Width 13.4 % (11.5-14.5) Platelet Count 352 x10^3/uL (140-400) Neutrophils (%) (Auto) 87 % (31-73) Lymphocytes (%) (Auto) 6 % (24-48) Monocytes (%) (Auto) 7 % (0-9) Eosinophils (%) (Auto) 0 % (0-3) Basophils (%) (Auto) 0 % (0-3) Neutrophils # (Auto) 11.9 x10^3/uL (1.8-7.7) Lymphocytes # (Auto) 0.8 x10^3/uL (1.0-4.8) Monocytes # (Auto) 1.0 x10^3/uL (0.0-1.1) Eosinophils # (Auto) 0.0 x10^3/uL (0.0-0.7) Basophils # (Auto) 0.0 x10^3/uL (0.0-0.2) Sodium Level 127 mmol/L (136-145) Potassium Level 4.1 mmol/L (3.5-5.1) Chloride Level 89 mmol/L (98-107) Carbon Dioxide Level 28 mmol/L (21-32) Anion Gap 10 (6-14) Blood Urea Nitrogen 13 mg/dL (7-20) Creatinine 1.0 mg/dL (0.6-1.0) Estimated GFR (Cockcroft-Gault) 57.6 BUN/Creatinine Ratio 13 (6-20) Glucose Level 572 mg/dL (70-99) Lactic Acid Level 1.4 mmol/L (0.4-2.0) Calcium Level 10.1 mg/dL (8.5-10.1) Magnesium Level 1.7 mg/dL (1.8-2.4) Total Bilirubin 0.6 mg/dL (0.2-1.0) Aspartate Amino Transf (AST/SGOT) 6 U/L (15-37) Alanine Aminotransferase (ALT/SGPT) 16 U/L (14-59) Alkaline Phosphatase 114 U/L (46-116) Total Protein 7.5 g/dL (6.4-8.2) Albumin 2.8 g/dL (3.4-5.0) Albumin/Globulin Ratio 0.6 (1.0-1.7) SARS-CoV-2 Antigen (Rapid) Negative (NEGATIVE) Glucose (Fingerstick) 494 mg/dL (70-99) Laboratory Tests Test 11/28/20 08:46 11/28/20 10:25 11/28/20 12:41 White Blood Count 13.7 x10^3/uL (4.0-11.0) Red Blood Count 4.09 x10^6/uL (3.50-5.40) Hemoglobin 11.5 g/dL (12.0-15.5) Hematocrit 33.5 % (36.0-47.0) Mean Corpuscular Volume 82 fL (79-100) Mean Corpuscular Hemoglobin 28 pg (25-35) Mean Corpuscular Hemoglobin Concent 34 g/dL (31-37) Red Cell Distribution Width 13.4 % (11.5-14.5) Platelet Count 352 x10^3/uL (140-400) Neutrophils (%) (Auto) 87 % (31-73) Lymphocytes (%) (Auto) 6 % (24-48) Monocytes (%) (Auto) 7 % (0-9) Eosinophils (%) (Auto) 0 % (0-3) Basophils (%) (Auto) 0 % (0-3) Neutrophils # (Auto) 11.9 x10^3/uL (1.8-7.7) Lymphocytes # (Auto) 0.8 x10^3/uL (1.0-4.8) Monocytes # (Auto) 1.0 x10^3/uL (0.0-1.1) Eosinophils # (Auto) 0.0 x10^3/uL (0.0-0.7) Basophils # (Auto) 0.0 x10^3/uL (0.0-0.2) Sodium Level 127 mmol/L (136-145) Potassium Level 4.1 mmol/L (3.5-5.1) Chloride Level 89 mmol/L (98-107) Carbon Dioxide Level 28 mmol/L (21-32) Anion Gap 10 (6-14) Blood Urea Nitrogen 13 mg/dL (7-20) Creatinine 1.0 mg/dL (0.6-1.0) Estimated GFR (Cockcroft-Gault) 57.6 BUN/Creatinine Ratio 13 (6-20) Glucose Level 572 mg/dL (70-99) Lactic Acid Level 1.4 mmol/L (0.4-2.0) Calcium Level 10.1 mg/dL (8.5-10.1) Magnesium Level 1.7 mg/dL (1.8-2.4) Total Bilirubin 0.6 mg/dL (0.2-1.0) Aspartate Amino Transf (AST/SGOT) 6 U/L (15-37) Alanine Aminotransferase (ALT/SGPT) 16 U/L (14-59) Alkaline Phosphatase 114 U/L (46-116) Total Protein 7.5 g/dL (6.4-8.2) Albumin 2.8 g/dL (3.4-5.0) Albumin/Globulin Ratio 0.6 (1.0-1.7) SARS-CoV-2 Antigen (Rapid) Negative (NEGATIVE) Glucose (Fingerstick) 494 mg/dL (70-99) Assessment/Plan Assessment/Plan 55 year old female with diabetic foot wound from injury with possible gas in subcutaneous tissue and cellulitis. She has a history of peripheral arterial disease, I can not palpate distal pulses, she does have doppler signal in her DP and PT. Arterial doppler has been ordered. Depending on the results the patient may need angiogram. She will need urgent incision and drainage with possible amputation of her 4th and 5th toes if bone or joint is involved. Continue antibiotics per Infectious Disease. Aggressive management of her diabetes. The patient has been seen by Dr. Atwood and recommend surgical intervention this afternoon. Discussed planned procedure with the patient and she expresses willingness to proceed. 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 The patient has been seen by Dr. Atwood, will plan OR this afternoon. Lebron Galaviz MD Pt seen and examined with Maureen MCGHEE -- her left foot has gangrene at the base of the left 4th and 5th toes with fluctuance, erythema, pain and gas on films. there is also a wound on the left calf that will need debridement while we are there left leg was marked consent signed after discussion with patient and her significant other. MAUREEN LOERA APRN Nov 28, 2020 13:11 FABRIZIO GALAVIZ MD Nov 28, 2020 14:47
--- NOTE | 2020-11-28 13:18 | CONS ---
DATE OF CONSULTATION: 11/28/2020 REQUESTING PHYSICIAN: Gil Hall MD REASON FOR CONSULTATION: Gangrene and gas forming organism in the foot. HISTORY OF PRESENT ILLNESS: This is a 55-year-old female with a right BKA in 2019, diabetic, who has had wound on the back of the leg for some time, but since last 3 days ago or so, she noticed some change in the foot became all black and then foot became red, hence she decided to come in. The patient had no fever. She has no nausea, no vomiting, no diarrhea. Denies any trauma. Denies any dog or cat or any other bite. The patient was noted to have normal vitals. Tachycardic. White count 13.7, sugar 572. Normal creatinine. Lactic acid is normal and the foot has a red gangrene with some drainage coming out with the black area between the fourth and fifth toe and redness of the foot as well as subcutaneous air. The patient has been started on Zosyn and consult has been requested. I saw the patient in the ER. The patient has no chest pain, shortness of breath, abdominal pain or any other trauma. PAST MEDICAL HISTORY: Positive for diabetes mellitus, right BKA, hypertension, atrial fibrillation, hyperlipidemia, peripheral vascular disease, cerebrovascular accident, cardiac disorder, has had , hysterectomy, Crohn's disease, kidney stones. SOCIAL HISTORY: Negative for smoking. She quit in 2019. No alcohol use or drug use. ALLERGIES: No known drug allergies. CURRENT MEDICATIONS: Reviewed. REVIEW OF SYSTEMS: As per HPI, all other systems reviewed are negative. PHYSICAL EXAMINATION: GENERAL: Alert, oriented female, not in any distress. VITAL SIGNS: Stable, afebrile. HEENT: NAD. NECK: Supple, no JVP, no lymphadenopathy. LUNGS: Clear. HEART: S1, S2 regular. ABDOMEN: Benign. EXTREMITIES: Right BKA unremarkable. Left lower extremity has a necrotic wound on the back of the leg, which is chronic appearing, minimal surrounding edema. The patient's whole foot is red, subcutaneous air is palpable. There is a necrotic area between the fourth and fifth toe dorsally with some drainage coming out. NEUROLOGIC: The patient is alert, awake and appropriate. No focal neurologic deficit. LABORATORY DATA: White count is 13.7. BUN and creatinine is normal. Rapid COVID is negative. IMAGING: Foot x-ray does show air in the tissue. IMPRESSION: 1. Gangrene of the left foot. 2. Cellulitis of the left foot. 3. Gas forming organism with subcutaneous air in the left foot. 4. Chronic wound on the back of the left leg. 5. Leukocytosis. 6. Diabetes with poor control. 7. Hypertension. 8. Coronary artery disease. 9. Peripheral vascular disease. RECOMMENDATIONS: Continue Zosyn. Add Zyvox and clindamycin. I did personally call Vascular Surgery nurse practitioner to talk to her about the patient's condition so that they can see her sooner and take her to surgery. Thank you very much, Dr. Hall, for giving me the opportunity to participate in this patient's care. DONTA CRAIG MD DR: KASSI/pamela JOB#: [id number] / [id number] YANI
[2020-11-28] MEDS: METOCLOPRAMIDE HCL 10 MG/2 ML VIAL. IVP PRN ×2 (13:20→21:27)
[2020-11-28] MEDS ORDERED: MORPHINE SULFATE 2 MG/ML VIAL. IV PRN (13:45)
[2020-11-28] MEDS ORDERED: IV RINGERS,LACTATED 1000ML 1,000 ML IV SCH (13:45)
[2020-11-28] MEDS ORDERED: fentaNYL PF VIAL 100 MCG/2 ML VIAL IV PRN ×2 (13:45)
[2020-11-28] MEDS ORDERED: ONDANSETRON PF 4 MG/2 ML VIAL. IV PRN (13:45)
[2020-11-28] MEDS ORDERED: HYDROmorphone 2 MG/ML VIAL IV PRN (13:45)
[2020-11-28] MEDS ORDERED: LIDOCAINE 1% PF 2 ML VIAL. ID PRN (13:45)
[2020-11-28] MEDS ORDERED: PROCHLORPERAZINE 10 MG/2 ML VIAL. IV PRN (13:45)
[2020-11-28] MEDS ORDERED: PROPOFOL 10 MG/ML (20ML) VIAL. IV ONE (13:53)
[2020-11-28] MEDS ORDERED: DEXAMETHASONE SOD PHOS 4 MG/ML VIAL ONE (13:53)
[2020-11-28] MEDS ORDERED: ONDANSETRON PF 4 MG/2 ML VIAL. ONE (13:53)
[2020-11-28] MEDS ORDERED: LIDOCAINE 2% PF 5 ML VIAL. ONE (13:53)
--- NOTE | 2020-11-28 13:55 | NUR ---
Attempted to call report, RN unavailable.
--- NOTE | 2020-11-28 14:32 | NUR ---
Report given to Sayda VICKERS
--- NOTE | 2020-11-28 14:40 | RAD ---
EXAM: Left lower extremity arterial Doppler sonogram. HISTORY: Nonhealing wound. Peripheral vascular disease. Atherosclerosis. TECHNIQUE: Aponte scale and color Doppler sonographic imaging of the left lower extremity arteries with spectral analysis was performed. COMPARISON: None. FINDINGS: There is moderate atherosclerotic plaque throughout the left lower extremity arteries. The posterior tibial artery is not seen. There are elevated peak systolic velocities the common femoral, deep femoral and proximal superficial femoral artery, measuring 208 cm/s, 190 cm/s, and one 93 cm/s, respectively. IMPRESSION: 1. Moderate atherosclerotic plaque throughout the lower extremity arteries and elevated peak systolic velocities in the common femoral, deep femoral and proximal superficial femoral artery, consistent w ith hemodynamically significant stenosis. 2. Nonvisualization of the posterior tibial artery. This may be due to low flow or occlusion. Electronically signed by: Salena Antoine MD (11/28/2020 2:38 PM) [id number]
[2020-11-28] MEDS: INSULIN LISPRO 100 UNIT/ML 3ML VIAL for OP,RR ONLY. SQ PRN ×3 (14:42→16:41)
[2020-11-28] MEDS ORDERED: PHENYLEPHRINE in 0.9% NACL PF 1 MG/10 ML SYRINGE. IV ONE (14:57)
[2020-11-28] MEDS ORDERED: SEVOFLURANE 31 TO 60 MINUTES. IH ONE (14:57)
[2020-11-28] MEDS ORDERED: HYDROmorphone 2 MG/ML VIAL ONE (15:18)
--- NOTE | 2020-11-28 15:49 | PDOC4 ---
OPERATIVE NOTE Date: Date: Nov 28, 2020 Pre-Op Diagnosis: DM with PAD left foot gangrene, left calf wound Post-Op Diagnosis: left foot gangrene with severe soft tissue infection involving the fascia / tendons / etc extending up past the ankle and deep into the joint of the ankle requring BKA for source control Procedure Performed: left leg guillotine BKA Surgeon: Lebron Chris MD Anesthesia Type: general Blood Loss: 20 cc Specimans Obtained: left lower leg / foot left foot deep abscess culture Findings: infection was much more extensive than anticipated on opening the foot -- extended up to above the ankle with purulent drainage from deep in the ankle / foot I scrubbed out and called the patient's -- we discussed findings and he gave telephone consent to proceed with BKA. he was very upset and so I asked my partner Dr Atwood (operating in another room) to come to the room for a 2nd opinion. Dr. Atwood came to the room and examine the foot with mehe agreed about the extent of infection and agreed that the only course of action to control the source of infection was guillotine below-knee amputation. He agreed that this was a lifesaving urgent procedure and should not be delayed for another anesthetic. Complications: None Operative Note: Patient was taken to the operating room and placed supine on the table. Anesthesia was induced without difficulty. The left leg was prepped and draped in usual sterile fashion. An appropriate timeout was performed. Attention was directed to the left foot where scalpel was used to make a wedge shaped incision over the base of the fourth and fifth toes centered over the area of obvious open ulceration gangrene and purulent drainage to amputate these toes. This was carried down through the tendon and to the bone but as I got down to this level it is obvious that the infection extended medially and proximally within the foot. I probed the area proximally medially with sterile gloved finger and the skin easily lifted off showing tracking of infection and obviously data necrotic tissue deep including all of the tendons and extending down to the bone through most of the entire midfoot as well as all the way up to the ankle. I used the cautery to extend the incision proximally to examine the tissue in the midfoot and this showed that the tendons and deep tissue below this were all involved and on squeezing the foot extremely foul-smelling purulent drainage came out from deep in the midfoot deep down the ankle around osseous structures. I probed this more medially as well and it was obvious that the entire medial lateral ankle were involved on the dorsum of the foot and ankle that the infection was deep in the foot. This was much more severe than anticipated on external physical exam. It was obvious that there was severe life-threatening infection here and that this was deep and that simple debridement of the foot would not be adequate for source control. I directed attention to the more proximal wound in the posterior /medial distal calf and unroofed this area and a large amount of purulent drainage came out and it was obvious that the deep muscle and fascia were involved and severely infected below the eschar. At this point I scrubbed out and called the patient's husbandhe was no longer in the hospital but I discussed with him the findings on the phone and discussed with him the need for amputation of the entire foot and distal leg for source control of the infection. He was very upset and understandably very emotional but after some discussion he agreed to left BKA for source control of the infection given that I felt this was potentially life-threatening if not treated and given the fact that we would just have to bring the patient back either later tonight or early tomorrow morning for amputation anyway given the severity of infection. Given the 's very understandably upset condition I asked my partner who was operating on another patient in another room to come look at foot and give a second professional opinion. Dr. Atwood did come to the room and examined the foot with me sterilely draped in the operating room and agreed with my assessment that the foot was severely infected and not salvageable and that given the fluctuance and large purulent drainage from deep tissues that below-knee amputation was necessary for source control and would likely be life saving. We placed a tourniquet on the left thigh and inflated this and then used amputation saw to perform a guillotine amputation of the left leg just above the necrotic posterior calf wound through the tibia and fibula. I used some silk pop offs to oversew the tibial vessels and the took the tourniquet down with less than 3 minutes of inflation and used Bovie cautery bone wax and salt pop- off to obtain good hemostasis at the stump. Given the fact there was severe infection here I felt that we needed to perform only the guillotine amputation and leave the stump initially open with a resuscitation and a few days of antibiotics and then come back for a formal BKA with posterior flap for the best chance of preserving a BKA in this patient. There is a very high risk of BKA stump infection if we are to close this today. With excellent hemostasis achieved sterile dressing with tightly wrapped Kerlix and Coban was placed over the BKA stump for sterile seal and good hemostasis. Patient was awakened and extubated in the operating room and escorted to recovery in stable condition. There were no complications she tolerated procedure well throughout. At the end of the case all sponge, needle, and instrument counts were reported to me as correct x2. Cultures of the deep abscess in the foot were sent as well as the like for specimen GUILLAUME,FABRIZIO Sullivan MD Nov 28, 2020 15:48
[2020-11-28] MEDS ORDERED: fentaNYL PF VIAL 100 MCG/2 ML VIAL ONE (16:04)
--- NOTE | 2020-11-28 17:40 | PDOC ---
Provider Note Date of Service: DATE: 11/28/20 TIME: 17:35 Provider Note I was asked to evaluate the patient in the operating room regarding findings. I concur that the forefoot infection is extensive with proximal extension to the ankle joint. The exposed dorsum of the foot underlying the skin and subcutaneous tissue is necrotic, maloderous and clearly infected. I concur with the urgent need for guillotine amputation of the foot to prevent systemic sepsis in this brittle diabetic. Justifications for Admission Other Justification AKSHAT CARABALLO II, MD Nov 28, 2020 17:40
[2020-11-28] MEDS: MORPHINE SULFATE 2 MG/ML VIAL. IV PRN ×2 (19:11→21:27)
[2020-11-28] MEDS: INSULIN LISPRO 300 UNITS/3 ML VIAL. SQ SCH (19:14)
--- NOTE | 2020-11-28 19:19 | NUR ---
Pictures placed in chart.
[2020-11-28] MEDS: ATORVASTATIN CALCIUM 40 MG TABLET. PO SCH (21:00)
[2020-11-28] MEDS: INSULIN GLARGINE SYRINGE. SQ SCH (21:00)
[2020-11-28] MEDS ORDERED: MAGNESIUM SULFATE 2GM 50 ML IV ONE (22:00)
[2020-11-28] MEDS: CLINDAMYCIN 600MG PREMIX 50 ML IV SCH (22:40)
[2020-11-29 03:00] VITALS: BP 134/55
[2020-11-29] MEDS: CLINDAMYCIN 600MG PREMIX 50 ML IV SCH ×3 (06:19→22:07)
[2020-11-29 07:00] VITALS: BP 101/51
[2020-11-29] MEDS: INSULIN LISPRO 300 UNITS/3 ML VIAL. SQ SCH ×7 (08:00→18:53)
[2020-11-29 08:13] LABS: BASO # 0.1 x10^3/uL (0.0-0.2); BASO % 1 % (0-3); EOS # 0.1 x10^3/uL (0.0-0.7); EOS % 1 % (0-3); HEMATOCRIT 32.2 % (36.0-47.0); LYMPH # 1.6 x10^3/uL (1.0-4.8); LYMPH % 16 % (24-48); MEAN CORPUSCULAR HEMOGLOBIN 28 pg (25-35); MEAN CORPUSCULAR HGB CONC 34 g/dL (31-37); MEAN CORPUSCULAR VOLUME 83 fL (79-100); MONO # 0.8 x10^3/uL (0.0-1.1); MONO % 8 % (0-9); NEUT # 7.2 x10^3/uL (1.8-7.7); NEUT % 73 % (31-73); PLATELET COUNT 361 x10^3/uL (140-400); RED CELL DISTRIBUTION WIDTH 13.7 % (11.5-14.5); WHITE BLOOD COUNT 9.8 x10^3/uL (4.0-11.0)
[2020-11-29 08:39] LABS: CREATININE 1.8 mg/dL (0.6-1.0); GFR 29.2; POTASSIUM 3.3 mmol/L (3.5-5.1)
[2020-11-29] MEDS: METOCLOPRAMIDE HCL 10 MG/2 ML VIAL. IVP PRN (08:47)
[2020-11-29] MEDS: CHOLECALCIFEROL (VITAMIN D3) 1,000 UNIT TABLET PO SCH ×2 (10:13→20:32)
[2020-11-29] MEDS: METOPROLOL TART IMMED RELEASE 50 MG TABLET. PO SCH ×2 (10:16→20:33)
--- NOTE | 2020-11-29 10:28 | NUR ---
SW following. Discussed with RN, pt from home with , room air, ada diet. Pt had a surgery yesterday with an amputation. RN advised it is open and will likely need another surgery in a couple of days. SW will continue to follow.
[2020-11-29 11:00] VITALS: BP 124/52
[2020-11-29] MEDS: ENOXAPARIN 40 MG/0.4 ML SYRINGE. SQ SCH (11:00)
[2020-11-29] MEDS: MORPHINE SULFATE 2 MG/ML VIAL. IV PRN (11:03)
--- NOTE | 2020-11-29 11:08 | PDOC ---
Infectious Disease Note Subjective Subjective Patient is feeling good ROS ROS No nausea vomiting diarrhea or fever Vital Sign Vital Signs Vital Signs Date Time Temp Pulse Resp B/P (MAP) Pulse Ox O2 Delivery O2 Flow Rate FiO2 11/29/20 10:17 98 125/68 11/29/20 10:14 20 93 Room Air 11/29/20 07:00 97.5 97.5 11/28/20 16:25 10. Physical Exam PHYSICAL EXAM GENERAL: Alert, oriented female, not in any distress. VITAL SIGNS: Stable, afebrile. HEENT: NAD. NECK: Supple, no JVP, no lymphadenopathy. LUNGS: Clear. HEART: S1, S2 regular. ABDOMEN: Benign. EXTREMITIES: Right BKA unremarkable. Left lower extremity has BKA now coming out. NEUROLOGIC: The patient is alert, awake and appropriate. No focal neurologic deficit. Labs Lab Laboratory Tests Test 11/28/20 12:41 11/28/20 14:35 11/28/20 15:43 11/28/20 16:38 Glucose (Fingerstick) 494 mg/dL (70-99) 482 mg/dL (70-99) 462 mg/dL (70-99) 489 mg/dL (70-99) Test 11/28/20 17:51 11/28/20 20:33 11/29/20 07:10 11/29/20 07:34 Glucose (Fingerstick) 366 mg/dL (70-99) 264 mg/dL (70-99) 344 mg/dL (70-99) White Blood Count 9.8 x10^3/uL (4.0-11.0) Red Blood Count 3.90 x10^6/uL (3.50-5.40) Hemoglobin 11.0 g/dL (12.0-15.5) Hematocrit 32.2 % (36.0-47.0) Mean Corpuscular Volume 83 fL (79-100) Mean Corpuscular Hemoglobin 28 pg (25-35) Mean Corpuscular Hemoglobin Concent 34 g/dL (31-37) Red Cell Distribution Width 13.7 % (11.5-14.5) Platelet Count 361 x10^3/uL (140-400) Neutrophils (%) (Auto) 73 % (31-73) Lymphocytes (%) (Auto) 16 % (24-48) Monocytes (%) (Auto) 8 % (0-9) Eosinophils (%) (Auto) 1 % (0-3) Basophils (%) (Auto) 1 % (0-3) Neutrophils # (Auto) 7.2 x10^3/uL (1.8-7.7) Lymphocytes # (Auto) 1.6 x10^3/uL (1.0-4.8) Monocytes # (Auto) 0.8 x10^3/uL (0.0-1.1) Eosinophils # (Auto) 0.1 x10^3/uL (0.0-0.7) Basophils # (Auto) 0.1 x10^3/uL (0.0-0.2) Sodium Level 130 mmol/L (136-145) Potassium Level 3.3 mmol/L (3.5-5.1) Chloride Level 91 mmol/L (98-107) Carbon Dioxide Level 27 mmol/L (21-32) Anion Gap 12 (6-14) Blood Urea Nitrogen 24 mg/dL (7-20) Creatinine 1.8 mg/dL (0.6-1.0) Estimated GFR (Cockcroft-Gault) 29.2 Glucose Level 307 mg/dL (70-99) Calcium Level 10.0 mg/dL (8.5-10.1) Micro GRAM STAIN Final Final GRAM NEGATIVE RODS:RARE GRAM POSITIVE COCCI:MANY SQUAMOUS EPI CELL:NONE SEEN PMN (WBCs):MODERATE Unless otherwise specified, Testing Performed by: [address] [id number] For Inquires, the Physician may contact the Microbiology department at [phone] ANAEROBIC-AEROBIC CULTURE Preliminary Preliminary FEW GRAM NEGATIVE RODS on 11/29/20 at 0858 Unless otherwise specified, Testing Performed by: [address] [id number] For Inquires, the Physician may contact the Microbiology department at [phone] Objective Assessment IMPRESSION: 1. Gangrene of the left foot. Status post BKA 2. Cellulitis of the left foot. 3. Gas forming organism with subcutaneous air in the left foot. 4. Chronic wound on the back of the left leg. 5. Leukocytosis. 6. Diabetes with poor control. 7. Hypertension. 8. Coronary artery disease. 9. Peripheral vascular disease. Plan Plan of Care Continue antibiotics for now patient is going to go for another surgery to close the wound and then will scale down Continue supportive care Continue to monitor DONTA CRAIG MD Nov 29, 2020 11:07
--- NOTE | 2020-11-29 11:09 | NUR ---
Lovenox held per ortho
--- NOTE | 2020-11-29 11:42 | PDOC ---
Provider Note Date of Service: DATE: 11/29/20 TIME: 11:35 Provider Note Provider Note Vascular S: Patient seen and examined in room with Dr. Vallejo at bedside and daughter on phone. Patient with complaints of pain during dressing change, otherwise no new complaints. O: Awake and alert VSS Left leg dressing removed, periwound intact without erythema or drainage, amputation site tissues pink, no purulent drainage. A/P: Left foot gangrene with severe soft tissue infection involving the fascia / tendons / etc extending up past the ankle and deep into the joint of the ankle requring open BKA for source control Amputation site looks healthy without any evidence of more proximal infection, recommend formal BKA, scheduled for am. Patient is in agreement. WBC remain stable, no fevers. Continue Abx per ID Continue bedrest with leg elevation. CBC - BMP 11/29/20 07:10 Justicifation of Admission Dx: Justifications for Admission: Justification of Admission Dx: N/A MAUREEN LOERA APRN Nov 29, 2020 11:41
[2020-11-29] MEDS ORDERED: POTASSIUM CHLORIDE 20 MEQ TABLET.ER. PO ONE (14:45)
[2020-11-29] MEDS ORDERED: PSEUDOEPHEDRINE ER 120 MG TABLET.ER. PO PRN (14:45)
[2020-11-29 15:00] VITALS: BP 131/63
[2020-11-29] MEDS: ASPIRIN CHEWABLE 81 MG TABLET. PO SCH (15:00)
[2020-11-29] MEDS: glipiZIDE 5 MG TABLET PO SCH (18:40)
[2020-11-29] MEDS: IV RINGERS,LACTATED 1000ML 1,000 ML IV SCH (18:41)
[2020-11-29] MEDS: FENOFIBRATE 54 MG TABLET. PO SCH (18:41)
[2020-11-29 19:00] VITALS: BP 132/65
--- NOTE | 2020-11-29 20:29 | PDOC ---
PROGRESS NOTES Date of Service: DATE: 11/29/20 TIME: 21:25 Chief Complaint Chief Complaint Gas gangrene of left foot - empiric antibiotics, jewelry consultant recommendations greatly appreciated (ID and vascular surgery) left foot gangrene with severe soft tissue infection involving the fascia / tendons / etc extending up past the ankle and deep into the joint of the ankle requring BKA for source control Cellulitis left foot - antibiotics, fluids Left medial leg diabetic ulcer - will need wound care, debridement PVD s/p right BKA Sepsis - due to cellulitis/abscess, will cont empiric antibiotics. ID consulted for management given prior history of renal insufficiency and possible need for longer term antibiotics Diabetes - with hyperglycemia - will give aggressive insulin regimen Hypomagnesemia - will replace Hyponatremia - related to hyperglycemia, hypovolemia, will replace FEN - NPO PPX - lovenox FULL CODE Dispo - inpatient for above History of Present Illness History of Present Illness History of Present Illness Ms Chamorro is a 55yo F w/ PMHx peripheral vascular disease s/p R BKA, diabetes, CVA, atrial fibrillation, hypertension, irritable bowel, kidney stones, HLD, CKD who presents to ED with her c/o left foot redness and swelling. She was walking and hit her left foot against a door frame 11/26/2020 and noted over the past 2 days it has become infected. She notes redness, an odor and popping sensation. Patient already has a nonhealing ulcer on the medial aspect of her left leg for 6 months mid-tibia. She has been unable to get into wound care due to insurance restrictions. Patient denies any fever. Patient denies any chest pain, no abdominal pain. Patient denies any trouble breathing. No recent sick contacts. She has had nausea since 11/23/2020 and has vomited 1 time daily for the past week. Left foot XR with soft tissue swelling along the dorsum of the foot with associated thinning is gas is centered along the fourth metatarsophalangeal joint space. No definite osseous erosion or opaque foreign density. WBC 13.7, Hb 11.5, Platelets 352, Na 127, K 4.1, BUN 13, Cr 1, glucose 572, Mg 1.7, albumin 2.8 11/29: Patient with well controlled pain, no acute events reported overnight, plan of care discussed in detail. she will be going to the or in the am Vitals Vitals Vital Signs Date Time Temp Pulse Resp B/P (MAP) Pulse Ox O2 Delivery O2 Flow Rate FiO2 11/29/20 19:00 98.0 78 24 132/65 (87) 97 Room Air 98.0 11/28/20 16:25 10. Physical Exam Physical Exam GENERAL: Alert, oriented female, not in any distress. VITAL SIGNS: Stable, afebrile. HEENT: NAD. NECK: Supple, no JVP, no lymphadenopathy. LUNGS: Clear. HEART: S1, S2 regular. ABDOMEN: Benign. EXTREMITIES: Right BKA unremarkable. Left lower extremity has BKA now coming out. NEUROLOGIC: The patient is alert, awake and appropriate. No focal neurologic deficit. General: Alert, Oriented X3, Cooperative, mild distress Lungs: Clear Abdomen: Normal bowel sounds, Soft, No tenderness, No hepatosplenomegaly, No masses Extremities: Other (RLE BKA clean, dry. LLE with medial ulcer 4cm x8 cm well demarcated. Fluctuance 4th and 5th dorsal MTP joint with surrounding erythema and crepitus) Skin: Other (left leg medial ulcer and left anterior foot hot red, crepitus, dry gangrene) Labs LABS Laboratory Tests Test 11/28/20 20:33 11/29/20 07:10 11/29/20 07:34 11/29/20 11:10 Glucose (Fingerstick) 264 mg/dL (70-99) 344 mg/dL (70-99) 441 mg/dL (70-99) White Blood Count 9.8 x10^3/uL (4.0-11.0) Red Blood Count 3.90 x10^6/uL (3.50-5.40) Hemoglobin 11.0 g/dL (12.0-15.5) Hematocrit 32.2 % (36.0-47.0) Mean Corpuscular Volume 83 fL (79-100) Mean Corpuscular Hemoglobin 28 pg (25-35) Mean Corpuscular Hemoglobin Concent 34 g/dL (31-37) Red Cell Distribution Width 13.7 % (11.5-14.5) Platelet Count 361 x10^3/uL (140-400) Neutrophils (%) (Auto) 73 % (31-73) Lymphocytes (%) (Auto) 16 % (24-48) Monocytes (%) (Auto) 8 % (0-9) Eosinophils (%) (Auto) 1 % (0-3) Basophils (%) (Auto) 1 % (0-3) Neutrophils # (Auto) 7.2 x10^3/uL (1.8-7.7) Lymphocytes # (Auto) 1.6 x10^3/uL (1.0-4.8) Monocytes # (Auto) 0.8 x10^3/uL (0.0-1.1) Eosinophils # (Auto) 0.1 x10^3/uL (0.0-0.7) Basophils # (Auto) 0.1 x10^3/uL (0.0-0.2) Sodium Level 130 mmol/L (136-145) Potassium Level 3.3 mmol/L (3.5-5.1) Chloride Level 91 mmol/L (98-107) Carbon Dioxide Level 27 mmol/L (21-32) Anion Gap 12 (6-14) Blood Urea Nitrogen 24 mg/dL (7-20) Creatinine 1.8 mg/dL (0.6-1.0) Estimated GFR (Cockcroft-Gault) 29.2 Glucose Level 307 mg/dL (70-99) Calcium Level 10.0 mg/dL (8.5-10.1) Test 11/29/20 16:36 Glucose (Fingerstick) 383 mg/dL (70-99) Assessment and Plan Assessmemt and Plan Problems Medical Problems: (1) Gas gangrene of foot Status: Acute Comment Review of Relevant I have reviewed the following items mady (where applicable) has been applied. Labs Laboratory Tests Test 11/28/20 08:46 11/28/20 10:25 11/28/20 12:41 11/28/20 14:35 White Blood Count 13.7 x10^3/uL (4.0-11.0) Red Blood Count 4.09 x10^6/uL (3.50-5.40) Hemoglobin 11.5 g/dL (12.0-15.5) Hematocrit 33.5 % (36.0-47.0) Mean Corpuscular Volume 82 fL (79-100) Mean Corpuscular Hemoglobin 28 pg (25-35) Mean Corpuscular Hemoglobin Concent 34 g/dL (31-37) Red Cell Distribution Width 13.4 % (11.5-14.5) Platelet Count 352 x10^3/uL (140-400) Neutrophils (%) (Auto) 87 % (31-73) Lymphocytes (%) (Auto) 6 % (24-48) Monocytes (%) (Auto) 7 % (0-9) Eosinophils (%) (Auto) 0 % (0-3) Basophils (%) (Auto) 0 % (0-3) Neutrophils # (Auto) 11.9 x10^3/uL (1.8-7.7) Lymphocytes # (Auto) 0.8 x10^3/uL (1.0-4.8) Monocytes # (Auto) 1.0 x10^3/uL (0.0-1.1) Eosinophils # (Auto) 0.0 x10^3/uL (0.0-0.7) Basophils # (Auto) 0.0 x10^3/uL (0.0-0.2) Segmented Neutrophils % 80 % (35-66) Band Neutrophils % 12 % (0-9) Lymphocytes % 3 % (24-48) Monocytes % 4 % (0-10) Basophils % 1 % (0-3) Platelet Estimate Adequate (ADEQUATE) Sodium Level 127 mmol/L (136-145) Potassium Level 4.1 mmol/L (3.5-5.1) Chloride Level 89 mmol/L (98-107) Carbon Dioxide Level 28 mmol/L (21-32) Anion Gap 10 (6-14) Blood Urea Nitrogen 13 mg/dL (7-20) Creatinine 1.0 mg/dL (0.6-1.0) Estimated GFR (Cockcroft-Gault) 57.6 BUN/Creatinine Ratio 13 (6-20) Glucose Level 572 mg/dL (70-99) Lactic Acid Level 1.4 mmol/L (0.4-2.0) Calcium Level 10.1 mg/dL (8.5-10.1) Magnesium Level 1.7 mg/dL (1.8-2.4) Total Bilirubin 0.6 mg/dL (0.2-1.0) Aspartate Amino Transf (AST/SGOT) 6 U/L (15-37) Alanine Aminotransferase (ALT/SGPT) 16 U/L (14-59) Alkaline Phosphatase 114 U/L (46-116) Total Protein 7.5 g/dL (6.4-8.2) Albumin 2.8 g/dL (3.4-5.0) Albumin/Globulin Ratio 0.6 (1.0-1.7) Coronavirus (PCR) Not detected (Not Detected) SARS-CoV-2 Antigen (Rapid) Negative (NEGATIVE) Glucose (Fingerstick) 494 mg/dL (70-99) 482 mg/dL (70-99) Test 11/28/20 15:43 11/28/20 16:38 11/28/20 17:51 11/28/20 20:33 Glucose (Fingerstick) 462 mg/dL (70-99) 489 mg/dL (70-99) 366 mg/dL (70-99) 264 mg/dL (70-99) Test 11/29/20 07:10 11/29/20 07:34 11/29/20 11:10 11/29/20 16:36 White Blood Count 9.8 x10^3/uL (4.0-11.0) Red Blood Count 3.90 x10^6/uL (3.50-5.40) Hemoglobin 11.0 g/dL (12.0-15.5) Hematocrit 32.2 % (36.0-47.0) Mean Corpuscular Volume 83 fL (79-100) Mean Corpuscular Hemoglobin 28 pg (25-35) Mean Corpuscular Hemoglobin Concent 34 g/dL (31-37) Red Cell Distribution Width 13.7 % (11.5-14.5) Platelet Count 361 x10^3/uL (140-400) Neutrophils (%) (Auto) 73 % (31-73) Lymphocytes (%) (Auto) 16 % (24-48) Monocytes (%) (Auto) 8 % (0-9) Eosinophils (%) (Auto) 1 % (0-3) Basophils (%) (Auto) 1 % (0-3) Neutrophils # (Auto) 7.2 x10^3/uL (1.8-7.7) Lymphocytes # (Auto) 1.6 x10^3/uL (1.0-4.8) Monocytes # (Auto) 0.8 x10^3/uL (0.0-1.1) Eosinophils # (Auto) 0.1 x10^3/uL (0.0-0.7) Basophils # (Auto) 0.1 x10^3/uL (0.0-0.2) Sodium Level 130 mmol/L (136-145) Potassium Level 3.3 mmol/L (3.5-5.1) Chloride Level 91 mmol/L (98-107) Carbon Dioxide Level 27 mmol/L (21-32) Anion Gap 12 (6-14) Blood Urea Nitrogen 24 mg/dL (7-20) Creatinine 1.8 mg/dL (0.6-1.0) Estimated GFR (Cockcroft-Gault) 29.2 Glucose Level 307 mg/dL (70-99) Calcium Level 10.0 mg/dL (8.5-10.1) Glucose (Fingerstick) 344 mg/dL (70-99) 441 mg/dL (70-99) 383 mg/dL (70-99) Laboratory Tests Test 11/28/20 20:33 11/29/20 07:10 11/29/20 07:34 11/29/20 11:10 Glucose (Fingerstick) 264 mg/dL (70-99) 344 mg/dL (70-99) 441 mg/dL (70-99) White Blood Count 9.8 x10^3/uL (4.0-11.0) Red Blood Count 3.90 x10^6/uL (3.50-5.40) Hemoglobin 11.0 g/dL (12.0-15.5) Hematocrit 32.2 % (36.0-47.0) Mean Corpuscular Volume 83 fL (79-100) Mean Corpuscular Hemoglobin 28 pg (25-35) Mean Corpuscular Hemoglobin Concent 34 g/dL (31-37) Red Cell Distribution Width 13.7 % (11.5-14.5) Platelet Count 361 x10^3/uL (140-400) Neutrophils (%) (Auto) 73 % (31-73) Lymphocytes (%) (Auto) 16 % (24-48) Monocytes (%) (Auto) 8 % (0-9) Eosinophils (%) (Auto) 1 % (0-3) Basophils (%) (Auto) 1 % (0-3) Neutrophils # (Auto) 7.2 x10^3/uL (1.8-7.7) Lymphocytes # (Auto) 1.6 x10^3/uL (1.0-4.8) Monocytes # (Auto) 0.8 x10^3/uL (0.0-1.1) Eosinophils # (Auto) 0.1 x10^3/uL (0.0-0.7) Basophils # (Auto) 0.1 x10^3/uL (0.0-0.2) Sodium Level 130 mmol/L (136-145) Potassium Level 3.3 mmol/L (3.5-5.1) Chloride Level 91 mmol/L (98-107) Carbon Dioxide Level 27 mmol/L (21-32) Anion Gap 12 (6-14) Blood Urea Nitrogen 24 mg/dL (7-20) Creatinine 1.8 mg/dL (0.6-1.0) Estimated GFR (Cockcroft-Gault) 29.2 Glucose Level 307 mg/dL (70-99) Calcium Level 10.0 mg/dL (8.5-10.1) Test 11/29/20 16:36 Glucose (Fingerstick) 383 mg/dL (70-99) Microbiology 11/28/20 Gram Stain - Final, Resulted 11/28/20 Aerobic and Anaerobic Culture, Resulted Pending 11/28/20 Blood Culture - Preliminary, Resulted NO GROWTH AFTER 1 DAY Medications Current Medications Piperacillin Sod/ Tazobactam Sod 3.375 gm/Sodium Chloride 50 ml @ 100 mls/hr 1X ONCE IV Last administered on 11/28/20at 09:18; Start 11/28/20 at 09:00; Stop 11/28/20 at 09:29; Status DC Atorvastatin Calcium (Lipitor) 40 mg QHS PO ; Start 11/28/20 at 21:00 Diltiazem HCl (Cardizem 24hr Cd) 180 mg DAILY PO Last administered on 11/29/20at 10:17; Start 11/29/20 at 10:00 Metoprolol Tartrate (Lopressor) 50 mg BID PO Last administered on 11/29/20at 10:16; Start 11/28/20 at 10:00 Oxycodone/ Acetaminophen (Percocet 5/325) 1 tab PRN Q6HRS PRN PO MODERATE TO SEVERE PAIN Last administered on 11/29/20at 10:14; Start 11/28/20 at 09:45; Stop 11/29/20 at 11:36; Status DC Vitamin D (Vitamin D3) 2,000 unit BID PO Last administered on 11/29/20at 10:13; Start 11/28/20 at 10:15 Insulin Glargine (Lantus Syringe) 30 unit HS SQ ; Start 11/28/20 at 21:00 Ondansetron HCl (Zofran Odt) 8 mg PRN BID PRN PO NAUSEA/VOMITING; Start 11/28/20 at 10:15 Ondansetron HCl (Zofran) 4 mg PRN Q6HRS PRN IVP NAUSEA/VOMITING Last administered on 11/28/20at 10:18; Start 11/28/20 at 09:45 Acetaminophen (Tylenol) 650 mg PRN Q6HRS PRN PO Headaches, Temp > 101.5F; Start 11/28/20 at 09:45 Bisacodyl (Dulcolax Supp) 10 mg PRN DAILY PRN DC CONSTIPATION; Start 11/28/20 at 09:45 Linezolid/Dextrose 300 ml @ 300 mls/hr Q12HR IV ; Start 11/28/20 at 21:00; Status UNV Clindamycin Phosphate 50 ml @ 100 mls/hr Q8HRS IV Last administered on 11/29/20at 14:05; Start 11/28/20 at 22:00 Linezolid/Dextrose 300 ml @ 300 mls/hr Q12HR IV Last administered on 11/29/20at 08:37; Start 11/28/20 at 13:00 Clindamycin Phosphate 50 ml @ 100 mls/hr 1X ONCE IV Last administered on 11/28/20at 13:18; Start 11/28/20 at 13:00; Stop 11/28/20 at 13:29; Status DC Morphine Sulfate (Morphine Sulfate) 4 mg PRN Q2HR PRN IV PAIN Last administered on 11/28/20at 13:19; Start 11/28/20 at 13:00; Stop 11/28/20 at 16:56; Status DC Metoclopramide HCl (Reglan Vial) 10 mg PRN Q6HRS PRN IVP NAUSEA/VOMITING Last administered on 11/29/20at 08:47; Start 11/28/20 at 13:00 Insulin Human Lispro (HumaLOG) 0-9 UNITS TIDWMEALS SQ Last administered on 11/29/20at 18:52; Start 11/28/20 at 17:00 Dextrose (Dextrose 50%-Water Syringe) 12.5 gm PRN Q15MIN PRN IV SEE COMMENTS; Start 11/28/20 at 13:00 Ondansetron HCl (Zofran) 4 mg PRN Q6HRS PRN IV NAUSEA/VOMITING Last administered on 11/28/20at 18:19; Start 11/28/20 at 13:45; Stop 11/29/20 at 11:36; Status DC Fentanyl Citrate (Fentanyl 2ml Vial) 25 mcg PRN Q5MIN PRN IV MILD PAIN 1-3; Start 11/28/20 at 13:45; Stop 11/28/20 at 22:00; Status DC Fentanyl Citrate (Fentanyl 2ml Vial) 50 mcg PRN Q5MIN PRN IV MODERATE TO SEVERE PAIN Last administered on 11/28/20at 16:06; Start 11/28/20 at 13:45; Stop 11/28/20 at 22:00; Status DC Morphine Sulfate (Morphine Sulfate) 1 mg PRN Q10MIN PRN IV SEVERE PAIN 7-10; Start 11/28/20 at 13:45; Stop 11/28/20 at 22:00; Status DC Ringer's Solution 1,000 ml @ 30 mls/hr Q24H IV ; Start 11/28/20 at 13:45; Stop 11/29/20 at 01:44; Status DC Lidocaine HCl (Xylocaine-Mpf 1% 2ml Vial) 2 ml PRN 1X PRN ID PRIOR TO IV START; Start 11/28/20 at 13:45; Stop 11/28/20 at 22:00; Status DC Hydromorphone HCl (Dilaudid) 0.5 mg PRN Q10MIN PRN IV SEV PAIN, Second choice; Start 11/28/20 at 13:45; Stop 11/28/20 at 22:00; Status DC Prochlorperazine Edisylate (Compazine) 5 mg PACU PRN PRN IV NAUSEA, MRX1; Start 11/28/20 at 13:45; Stop 11/28/20 at 22:00; Status DC Propofol (Diprivan) 200 mg STK-MED ONCE IV ; Start 11/28/20 at 13:53; Stop 11/28/20 at 13:53; Status DC Dexamethasone Sodium Phosphate (Decadron) 4 mg STK-MED ONCE .ROUTE ; Start 11/28/20 at 13:53; Stop 11/28/20 at 13:53; Status DC Lidocaine HCl (Lidocaine Pf 2% Vial) 5 ml STK-MED ONCE .ROUTE ; Start 11/28/20 at 13:53; Stop 11/28/20 at 13:53; Status DC Ondansetron HCl (Zofran) 4 mg STK-MED ONCE .ROUTE ; Start 11/28/20 at 13:53; Stop 11/28/20 at 13:53; Status DC Insulin Human Lispro (HumaLOG VIAL for OP,RR ONLY) 0-10 units PRN Q1HR PRN SQ PER PROTOCOL Last administered on 11/28/20at 16:41; Start 11/28/20 at 14:45; Stop 11/29/20 at 10:24; Status DC Phenylephrine HCl (PHENYLEPHRINE in 0.9% NACL PF) 1 mg STK-MED ONCE IV ; Start 11/28/20 at 14:57; Stop 11/28/20 at 14:57; Status DC Sevoflurane (Ultane) 30 ml STK-MED ONCE IH ; Start 11/28/20 at 14:57; Stop 11/28/20 at 14:57; Status DC Hydromorphone HCl (Dilaudid) 2 mg STK-MED ONCE .ROUTE ; Start 11/28/20 at 15:18; Stop 11/28/20 at 15:18; Status DC Fentanyl Citrate (Fentanyl 2ml Vial) 100 mcg STK-MED ONCE .ROUTE ; Start 11/28/20 at 16:04; Stop 11/28/20 at 16:04; Status DC Morphine Sulfate (Morphine Sulfate) 2 mg PRN Q2HR PRN IV MODERATE TO SEVERE PAIN Last administered on 11/29/20at 11:03; Start 11/28/20 at 17:00 Oxycodone/ Acetaminophen (Percocet 5/325) 1 tab PRN Q4HRS PRN PO MODERATE TO SEVERE PAIN; Start 11/28/20 at 17:00 Insulin Human Lispro (HumaLOG) 4 units TIDWMEALS SQ Last administered on 11/29/20at 12:32; Start 11/29/20 at 08:00 Magnesium Sulfate 50 ml @ 25 mls/hr 1X ONCE IV Last administered on 11/28/20at 23:38; Start 11/28/20 at 22:00; Stop 11/28/20 at 23:59; Status DC Enoxaparin Sodium (Lovenox 40mg Syringe) 40 mg Q24H SQ ; Start 11/29/20 at 11:00 Aspirin (Aspirin Chewable) 81 mg DAILY PO ; Start 11/29/20 at 15:00 Docusate Sodium (Colace) 100 mg BID PO ; Start 11/29/20 at 21:00 Fenofibrate (Lofibra) 54 mg DAILY PO Last administered on 11/29/20at 18:41; Start 11/29/20 at 15:00 Glipizide (Glucotrol) 5 mg BIDAC PO Last administered on 11/29/20at 18:40; Start 11/29/20 at 16:30 Pseudoephedrine HCl (Sudafed 12-Hour) 120 mg PRN BID PRN PO NASAL CONGESTION; Start 11/29/20 at 14:45; Stop 11/29/20 at 14:42; Status DC Insulin Human Lispro (HumaLOG) 8 units TIDAC SQ Last administered on 11/29/20at 18:53; Start 11/29/20 at 16:30 Potassium Chloride (Klor-Con) 40 meq 1X ONCE PO Last administered on 11/29/20at 18:42; Start 11/29/20 at 14:45; Stop 11/29/20 at 14:46; Status DC Lactobacillus Rhamnosus (Culturelle) 1 cap BID PO ; Start 11/29/20 at 21:00 Ringer's Solution 1,000 ml @ 100 mls/hr Q10H IV Last administered on 11/29/20at 18:41; Start 11/29/20 at 15:00 Active Scripts Active Atorvastatin Calcium 40 Mg Tablet 40 Mg PO QHS MDD 1 Sinus 12-Hour (Pseudoephedrine Hcl) 120 Mg Tablet.er 120 Mg PO PRN BID PRN 7 Days Vitamin D (Cholecalciferol (Vitamin D3)) 2,000 Unit Capsule 1 Cap PO BID Cool Blood Glucose Meter (Blood-Glucose Meter) 1 Each Each Each MC dm please also dispense test strips and lancets quantity sufficient for 1 month Fenofibrate 54 Mg Tablet 54 Mg PO DAILY 30 Days Reported Colace (Docusate Sodium) 100 Mg Capsule 1 Cap PO BID 30 Days Zofran (Ondansetron Hcl) 8 Mg Tablet 8 Mg PO BID PRN Percocet 5-325 mg Tablet (Oxycodone HCl/Acetaminophen) 1 Each Tablet 1 Tab PO PRN Q6HRS PRN MDD 2 Tablet(s) 5 Days Metoprolol Tartrate 50 Mg Tablet 50 Mg PO BID Levemir (Insulin Detemir) 100 Unit/1 Ml Vial 30 Unit SQ HS Aspirin 81 Mg Tab.chew 1 Tab PO DAILY Glipizide 5 Mg Tablet 1 Tab PO BID Cardizem Cd (Diltiazem Hcl) 180 Mg Cap.er.24h 1 Cap PO DAILY Metformin Hcl 1,000 Mg Tablet 1,000 Mg PO BID hold for 48 hours. Next dose 04/09 evening dose Vitals/I & O Vital Sign - Last 24 Hours 11/28/20 11/28/20 11/28/20 11/29/20 21:27 22:00 23:11 03:00 Temp 97.6 97.5 97.6 97.5 Pulse 85 86 Resp 20 20 B/P (MAP) 109/54 (72) 134/55 (81) Pulse Ox 93 93 95 97 O2 Delivery Room Air Room Air Room Air Room Air 11/29/20 11/29/20 11/29/20 11/29/20 07:00 10:14 10:16 10:17 Temp 97.5 97.5 Pulse 89 99 98 Resp 16 20 B/P (MAP) 101/51 (68) 125/65 125/68 Pulse Ox 93 93 O2 Delivery Room Air Room Air 11/29/20 11/29/20 11/29/20 11/29/20 11:00 11:03 11:33 15:00 Temp 97.6 97.2 97.6 97.2 Pulse 96 85 Resp 16 20 20 16 B/P (MAP) 124/52 (76) 131/63 (85) Pulse Ox 94 93 93 93 O2 Delivery Room Air Room Air Room Air Room Air 11/29/20 19:00 Temp 98.0 98.0 Pulse 78 Resp 24 B/P (MAP) 132/65 (87) Pulse Ox 97 O2 Delivery Room Air Intake and Output 11/28/20 11/28/20 11/29/20 14:00 22:00 06:00 Intake Total 50 ml 400 ml 100 ml Output Total 25 ml Balance 50 ml 375 ml 100 ml Justicifation of Admission Dx: Justifications for Admission: Justification of Admission Dx: N/A PIOTR FLORES MD Nov 29, 2020 20:29
[2020-11-29] MEDS: ATORVASTATIN CALCIUM 40 MG TABLET. PO SCH (20:33)
[2020-11-29] MEDS: LACTOBACILLUS RHAMNOSUS GG 1 CAPSULE. PO SCH (20:33)
[2020-11-29] MEDS: DOCUSATE SODIUM 100 MG CAPSULE. PO SCH (20:33)
[2020-11-29] MEDS: oxyCODONE/APAP 5/325 1 TAB TABLET PO PRN (20:34)
[2020-11-29] MEDS ORDERED: INSULIN LISPRO 300 UNITS/3 ML VIAL. SQ ONE (22:00)
[2020-11-29] MEDS: INSULIN GLARGINE SYRINGE. SQ SCH (22:12)
[2020-11-29 23:00] VITALS: BP 123/82
[2020-11-30] MEDS: ONDANSETRON PF 4 MG/2 ML VIAL. IVP PRN (02:21)
[2020-11-30 03:00] VITALS: BP 162/83
[2020-11-30 03:12] LABS: HEMOGLOBIN A1C 11.3 % (4.8-5.6)
[2020-11-30] MEDS: IV RINGERS,LACTATED 1000ML 1,000 ML IV SCH ×2 (06:00→18:07)
[2020-11-30] MEDS: CLINDAMYCIN 600MG PREMIX 50 ML IV SCH (06:00)
[2020-11-30 07:00] VITALS: BP 150/101
[2020-11-30] MEDS: oxyCODONE/APAP 5/325 1 TAB TABLET PO PRN ×3 (07:25→17:30)
[2020-11-30] MEDS: glipiZIDE 5 MG TABLET PO SCH ×2 (07:25→16:17)
--- NOTE | 2020-11-30 07:35 | PDOC ---
Provider Note Date of Service: DATE: 11/30/20 TIME: 07:33 Provider Note Provider Note Vascular S: Patient seen and examined in room. at bedside and daughter on phone. Patient with complaints of pain at amputation site. O: Awake and alert VSS Left leg dressing removed, periwound intact without erythema or drainage, amputation site tissues pink, no purulent drainage. A/P: Left foot gangrene with severe soft tissue infection involving the fascia / tendons / etc extending up past the ankle and deep into the joint of the ankle requring open BKA for source control Amputation site looks healthy without any evidence of more proximal infection, recommend formal BKA, scheduled for tomorrow. Patient is in agreement. WBC remain stable, no fevers. Continue Abx per ID Continue bedrest with leg elevation. Justicifation of Admission Dx: Justifications for Admission: Justification of Admission Dx: N/A MAUREEN LOERA APRN Nov 30, 2020 07:35
[2020-11-30] MEDS: INSULIN LISPRO 300 UNITS/3 ML VIAL. SQ SCH ×9 (08:00→17:26)
[2020-11-30] MEDS: FENOFIBRATE 54 MG TABLET. PO SCH (08:12)
[2020-11-30] MEDS: LACTOBACILLUS RHAMNOSUS GG 1 CAPSULE. PO SCH ×2 (08:12→21:07)
[2020-11-30] MEDS: CHOLECALCIFEROL (VITAMIN D3) 1,000 UNIT TABLET PO SCH ×2 (08:12→21:06)
[2020-11-30] MEDS: DOCUSATE SODIUM 100 MG CAPSULE. PO SCH ×2 (08:13→21:07)
[2020-11-30] MEDS: METOPROLOL TART IMMED RELEASE 50 MG TABLET. PO SCH ×2 (08:13→21:07)
[2020-11-30] MEDS: ASPIRIN CHEWABLE 81 MG TABLET. PO SCH (08:13)
[2020-11-30] MEDS: ENOXAPARIN 40 MG/0.4 ML SYRINGE. SQ SCH (10:10)
--- NOTE | 2020-11-30 10:46 | PDOC ---
Infectious Disease Note Subjective Subjective Patient is feeling good Does have some burning at the surgery site ROS ROS No nausea vomiting diarrhea Vital Sign Vital Signs Vital Signs Date Time Temp Pulse Resp B/P (MAP) Pulse Ox O2 Delivery O2 Flow Rate FiO2 11/30/20 08:21 97 Room Air 11/30/20 08:13 93 150/101 11/30/20 07:00 97.8 22 97.8 Physical Exam PHYSICAL EXAM GENERAL: Alert, oriented female, not in any distress. VITAL SIGNS: Stable, afebrile. HEENT: NAD. NECK: Supple, no JVP, no lymphadenopathy. LUNGS: Clear. HEART: S1, S2 regular. ABDOMEN: Benign. EXTREMITIES: Right BKA unremarkable. Left lower extremity has BKA now coming out. NEUROLOGIC: The patient is alert, awake and appropriate. No focal neurologic deficit. Labs Lab Laboratory Tests Test 11/29/20 11:10 11/29/20 16:36 11/29/20 21:13 11/30/20 07:26 Glucose (Fingerstick) 441 mg/dL (70-99) 383 mg/dL (70-99) 459 mg/dL (70-99) 253 mg/dL (70-99) Micro GRAM STAIN Final Final GRAM NEGATIVE RODS:RARE GRAM POSITIVE COCCI:MANY SQUAMOUS EPI CELL:NONE SEEN PMN (WBCs):MODERATE Unless otherwise specified, Testing Performed by: [address] [address] For Inquires, the Physician may contact the Microbiology department at [phone] ANAEROBIC-AEROBIC CULTURE Preliminary Preliminary FEW GRAM NEGATIVE RODS on 11/29/20 at 0858 FINAL ID= [PSEUDOMONAS AERUGINOSA] MODERATE [STAPHYLOCOCCUS AUREUS] on 11/29/20 at 1251 PSEUDOMONAS AERUGINOSA STAPHYLOCOCCUS AUREUS STAPHYLOCOCCUS AUREUS ANTIMICROBIAL SUSCEPTIBILITY Preliminary Comment Comment NEG AJIME 56 PSEUDOMONAS AERUGINOSA ANTIBIOTIC RESULT INTERPRETATION AMIKACIN 32 I AZTREONAM <=4 S CEFTAZIDIME 4 S CIPROFLOXACIN 1 S CEFEPIME 8 S CEFTAZIDIME/AVIBACTAM <=4 S GENTAMICIN >8 R LEVOFLOXACIN 4 I MEROPENEM <=1 S PIPERACILLIN/TAZOBACTAM <=8 S RUN DATE: 11/30/20 [facility] *LIVE* PAGE 2 RUN TIME: 1001 Specimen Inquiry SPEC: [id number] PATIENT: DENNIS JAIMES [id number] (Continued) Procedure Result CONTINUED ON NEXT PAGE RUN DATE: 11/30/20 [facility] *LIVE* PAGE 3 RUN TIME: 1001 Specimen Inquiry SPEC: [id number] PATIENT: DENNIS JAIMES [id number] (Continued) ----- ------- Procedure Result ANTIMICROBIAL SUSCEPTIBILITY Preliminary (continued) TOBRAMYCIN 4 S POS JAIME TYPE 38 STAPHYLOCOCCUS AUREUS ANTIBIOTIC RESULT INTERPRETATION AZITHROMYCIN <=2 S CLINDAMYCIN <=0.25 S CEFOXITIN SCREEN <=4 NEG CIPROFLOXACIN <=1 S CEFTAROLINE <=0.5 S DAPTOMYCIN 1 S ERYTHROMYCIN <=0.25 S GENTAMICIN <=4 S LINEZOLID 2 S LEVOFLOXACIN <=1 S OXACILLIN <=0.25 S PENICILLIN >2 Yessica RIFAMPIN <=1 S TRIMETHOPRIM/SULFAMETHOXAZOLE <=0.5/9.5 S TETRACYCLINE <=4 S VANCOMYCIN 1 S Unless otherwise specified, Testing Performed by: [facility] [address] [place] [address] For Inquires, the Physician may contact the Microbiology department at [phone] END OF REPORT Objective Assessment IMPRESSION: 1. Gangrene of the left foot. Status post BKA 2. Cellulitis of the left foot. 3. Gas forming organism with subcutaneous air in the left foot. 4. Chronic wound on the back of the left leg. 5. Leukocytosis. 6. Diabetes with poor control. 7. Hypertension. 8. Coronary artery disease. 9. Peripheral vascular disease. Plan Plan of Care Continue Zosyn. Discontinue Clinda and Zyvox Continue supportive care Continue to monitor DONTA CRAIG MD Nov 30, 2020 10:46
[2020-11-30 11:00] VITALS: BP 139/61
--- NOTE | 2020-11-30 11:19 | NUR ---
SW following. Discussed with RN, pt from home with , room air, NPO, COVID-19 negative. Pt having surgery to close BKA tomorrow (12/01/20). SW will continue to follow.
[2020-11-30] MEDS: PIPERACILLIN/TAZOBACTAM 3.375 GM in IV NORMAL SALINE 50ML 50 ML IV SCH ×2 (14:16→22:51)
[2020-11-30 15:00] VITALS: BP 136/57
[2020-11-30 19:00] VITALS: BP 140/62
[2020-11-30] MEDS: ATORVASTATIN CALCIUM 40 MG TABLET. PO SCH (21:07)
[2020-11-30] MEDS: INSULIN GLARGINE SYRINGE. SQ SCH (21:15)
[2020-11-30 23:00] VITALS: BP 115/59
--- NOTE | 2020-11-30 23:10 | PDOC ---
PROGRESS NOTES Date of Service: DATE: 11/30/20 TIME: 1999 Chief Complaint Chief Complaint Gas gangrene of left foot - empiric antibiotics, professional benefits sales consultant recommendations greatly appreciated (ID and vascular surgery) left foot gangrene with severe soft tissue infection involving the fascia / tendons / etc extending up past the ankle and deep into the joint of the ankle requring BKA for source control Cellulitis left foot - antibiotics, fluids Left medial leg diabetic ulcer - will need wound care, debridement PVD s/p right BKA Sepsis - due to cellulitis/abscess, will cont empiric antibiotics. ID consulted for management given prior history of renal insufficiency and possible need for longer term antibiotics Diabetes - with hyperglycemia - will give aggressive insulin regimen Hypomagnesemia - will replace Hyponatremia - related to hyperglycemia, hypovolemia, will replace FEN - NPO PPX - lovenox FULL CODE Dispo - inpatient for above History of Present Illness History of Present Illness History of Present Illness Ms Chamorro is a 55yo F w/ PMHx peripheral vascular disease s/p R BKA, diabetes, CVA, atrial fibrillation, hypertension, irritable bowel, kidney stones, HLD, CKD who presents to ED with her c/o left foot redness and swelling. She was walking and hit her left foot against a door frame 11/26/2020 and noted over the past 2 days it has become infected. She notes redness, an odor and popping sensation. Patient already has a nonhealing ulcer on the medial aspect of her left leg for 6 months mid-tibia. She has been unable to get into wound care due to insurance restrictions. Patient denies any fever. Patient denies any chest pain, no abdominal pain. Patient denies any trouble breathing. No recent sick contacts. She has had nausea since 11/23/2020 and has vomited 1 time daily for the past week. Left foot XR with soft tissue swelling along the dorsum of the foot with associated thinning is gas is centered along the fourth metatarsophalangeal joint space. No definite osseous erosion or opaque foreign density. WBC 13.7, Hb 11.5, Platelets 352, Na 127, K 4.1, BUN 13, Cr 1, glucose 572, Mg 1.7, albumin 2.8 11/29: Patient with well controlled pain, no acute events reported overnight, plan of care discussed in detail. she will be going to the or in the am 11/30: Patient complainign fo nausea during my visit, hyperglycemia noted, patient not able to eat much and worried about receiving insulin and having hypogleycemic events, reassruacne provided, family at bedside, all concerns addressed to the best of my abilities Vitals Vitals Vital Signs Date Time Temp Pulse Resp B/P (MAP) Pulse Ox O2 Delivery O2 Flow Rate FiO2 11/30/20 21:07 94 140/62 11/30/20 19:00 98.3 18 93 Room Air 98.3 Physical Exam Physical Exam GENERAL: Alert, oriented female, not in any distress. VITAL SIGNS: Stable, afebrile. HEENT: NAD. NECK: Supple, no JVP, no lymphadenopathy. LUNGS: Clear. HEART: S1, S2 regular. ABDOMEN: Benign. EXTREMITIES: Right BKA unremarkable. Left lower extremity has BKA now coming out. NEUROLOGIC: The patient is alert, awake and appropriate. No focal neurologic deficit. General: Alert, Oriented X3, Cooperative, mild distress Lungs: Clear Abdomen: Normal bowel sounds, Soft, No tenderness, No hepatosplenomegaly, No masses Extremities: Other (RLE BKA clean, dry. LLE with medial ulcer 4cm x8 cm well demarcated. Fluctuance 4th and 5th dorsal MTP joint with surrounding erythema and crepitus) Skin: Other (left leg medial ulcer and left anterior foot hot red, crepitus, dry gangrene) Labs LABS Laboratory Tests Test 11/30/20 07:26 11/30/20 11:45 11/30/20 17:16 11/30/20 20:10 Glucose (Fingerstick) 253 mg/dL (70-99) 207 mg/dL (70-99) 145 mg/dL (70-99) 186 mg/dL (70-99) Assessment and Plan Assessmemt and Plan Problems Medical Problems: (1) Gas gangrene of foot Status: Acute Comment Review of Relevant I have reviewed the following items mady (where applicable) has been applied. Labs Laboratory Tests Test 11/29/20 07:10 11/29/20 07:34 11/29/20 11:10 11/29/20 16:36 White Blood Count 9.8 x10^3/uL (4.0-11.0) Red Blood Count 3.90 x10^6/uL (3.50-5.40) Hemoglobin 11.0 g/dL (12.0-15.5) Hematocrit 32.2 % (36.0-47.0) Mean Corpuscular Volume 83 fL (79-100) Mean Corpuscular Hemoglobin 28 pg (25-35) Mean Corpuscular Hemoglobin Concent 34 g/dL (31-37) Red Cell Distribution Width 13.7 % (11.5-14.5) Platelet Count 361 x10^3/uL (140-400) Neutrophils (%) (Auto) 73 % (31-73) Lymphocytes (%) (Auto) 16 % (24-48) Monocytes (%) (Auto) 8 % (0-9) Eosinophils (%) (Auto) 1 % (0-3) Basophils (%) (Auto) 1 % (0-3) Neutrophils # (Auto) 7.2 x10^3/uL (1.8-7.7) Lymphocytes # (Auto) 1.6 x10^3/uL (1.0-4.8) Monocytes # (Auto) 0.8 x10^3/uL (0.0-1.1) Eosinophils # (Auto) 0.1 x10^3/uL (0.0-0.7) Basophils # (Auto) 0.1 x10^3/uL (0.0-0.2) Sodium Level 130 mmol/L (136-145) Potassium Level 3.3 mmol/L (3.5-5.1) Chloride Level 91 mmol/L (98-107) Carbon Dioxide Level 27 mmol/L (21-32) Anion Gap 12 (6-14) Blood Urea Nitrogen 24 mg/dL (7-20) Creatinine 1.8 mg/dL (0.6-1.0) Estimated GFR (Cockcroft-Gault) 29.2 Glucose Level 307 mg/dL (70-99) Hemoglobin A1c 11.3 % (4.8-5.6) Calcium Level 10.0 mg/dL (8.5-10.1) Glucose (Fingerstick) 344 mg/dL (70-99) 441 mg/dL (70-99) 383 mg/dL (70-99) Test 11/29/20 21:13 11/30/20 07:26 11/30/20 11:45 11/30/20 17:16 Glucose (Fingerstick) 459 mg/dL (70-99) 253 mg/dL (70-99) 207 mg/dL (70-99) 145 mg/dL (70-99) Test 11/30/20 20:10 Glucose (Fingerstick) 186 mg/dL (70-99) Laboratory Tests Test 11/30/20 07:26 11/30/20 11:45 11/30/20 17:16 11/30/20 20:10 Glucose (Fingerstick) 253 mg/dL (70-99) 207 mg/dL (70-99) 145 mg/dL (70-99) 186 mg/dL (70-99) Microbiology 11/28/20 Gram Stain - Final, Resulted 11/28/20 Aerobic and Anaerobic Culture - Preliminary, Resulted 11/28/20 Blood Culture - Preliminary, Resulted NO GROWTH AFTER 2 DAYS Medications Current Medications Piperacillin Sod/ Tazobactam Sod 3.375 gm/Sodium Chloride 50 ml @ 100 mls/hr 1X ONCE IV Last administered on 11/28/20at 09:18; Start 11/28/20 at 09:00; Stop 11/28/20 at 09:29; Status DC Atorvastatin Calcium (Lipitor) 40 mg QHS PO Last administered on 11/30/20at 21:07; Start 11/28/20 at 21:00 Diltiazem HCl (Cardizem 24hr Cd) 180 mg DAILY PO Last administered on 11/30/20at 08:12; Start 11/29/20 at 10:00 Metoprolol Tartrate (Lopressor) 50 mg BID PO Last administered on 11/30/20at 21:07; Start 11/28/20 at 10:00 Oxycodone/ Acetaminophen (Percocet 5/325) 1 tab PRN Q6HRS PRN PO MODERATE TO SEVERE PAIN Last administered on 11/29/20at 10:14; Start 11/28/20 at 09:45; Stop 11/29/20 at 11:36; Status DC Vitamin D (Vitamin D3) 2,000 unit BID PO Last administered on 11/30/20at 21:06; Start 11/28/20 at 10:15 Insulin Glargine (Lantus Syringe) 30 unit HS SQ Last administered on 11/30/20at 21:15; Start 11/28/20 at 21:00 Ondansetron HCl (Zofran Odt) 8 mg PRN BID PRN PO NAUSEA/VOMITING; Start 11/28/20 at 10:15 Ondansetron HCl (Zofran) 4 mg PRN Q6HRS PRN IVP NAUSEA/VOMITING, 1ST CHOICE Last administered on 11/30/20at 02:21; Start 11/28/20 at 09:45 Acetaminophen (Tylenol) 650 mg PRN Q6HRS PRN PO Headaches, Temp > 101.5F; Start 11/28/20 at 09:45 Bisacodyl (Dulcolax Supp) 10 mg PRN DAILY PRN OK CONSTIPATION; Start 11/28/20 at 09:45 Linezolid/Dextrose 300 ml @ 300 mls/hr Q12HR IV ; Start 11/28/20 at 21:00; Status UNV Clindamycin Phosphate 50 ml @ 100 mls/hr Q8HRS IV Last administered on 11/30/20at 06:00; Start 11/28/20 at 22:00; Stop 11/30/20 at 11:24; Status DC Linezolid/Dextrose 300 ml @ 300 mls/hr Q12HR IV Last administered on 11/30/20at 08:14; Start 11/28/20 at 13:00; Stop 11/30/20 at 11:24; Status DC Clindamycin Phosphate 50 ml @ 100 mls/hr 1X ONCE IV Last administered on 11/28/20at 13:18; Start 11/28/20 at 13:00; Stop 11/28/20 at 13:29; Status DC Morphine Sulfate (Morphine Sulfate) 4 mg PRN Q2HR PRN IV PAIN Last administered on 11/28/20at 13:19; Start 11/28/20 at 13:00; Stop 11/28/20 at 16:56; Status DC Metoclopramide HCl (Reglan Vial) 10 mg PRN Q6HRS PRN IVP NAUSEA/VOMITING, 2ND CHOICE Last administered on 11/29/20at 08:47; Start 11/28/20 at 13:00 Insulin Human Lispro (HumaLOG) 0-9 UNITS TIDWMEALS SQ Last administered on 11/30/20at 12:13; Start 11/28/20 at 17:00 Dextrose (Dextrose 50%-Water Syringe) 12.5 gm PRN Q15MIN PRN IV SEE COMMENTS; Start 11/28/20 at 13:00 Ondansetron HCl (Zofran) 4 mg PRN Q6HRS PRN IV NAUSEA/VOMITING Last administered on 11/28/20at 18:19; Start 11/28/20 at 13:45; Stop 11/29/20 at 11:36; Status DC Fentanyl Citrate (Fentanyl 2ml Vial) 25 mcg PRN Q5MIN PRN IV MILD PAIN 1-3; Start 11/28/20 at 13:45; Stop 11/28/20 at 22:00; Status DC Fentanyl Citrate (Fentanyl 2ml Vial) 50 mcg PRN Q5MIN PRN IV MODERATE TO SEVERE PAIN Last administered on 11/28/20at 16:06; Start 11/28/20 at 13:45; Stop 11/28/20 at 22:00; Status DC Morphine Sulfate (Morphine Sulfate) 1 mg PRN Q10MIN PRN IV SEVERE PAIN 7-10; Start 11/28/20 at 13:45; Stop 11/28/20 at 22:00; Status DC Ringer's Solution 1,000 ml @ 30 mls/hr Q24H IV ; Start 11/28/20 at 13:45; Stop 11/29/20 at 01:44; Status DC Lidocaine HCl (Xylocaine-Mpf 1% 2ml Vial) 2 ml PRN 1X PRN ID PRIOR TO IV START; Start 11/28/20 at 13:45; Stop 11/28/20 at 22:00; Status DC Hydromorphone HCl (Dilaudid) 0.5 mg PRN Q10MIN PRN IV SEV PAIN, Second choice; Start 11/28/20 at 13:45; Stop 11/28/20 at 22:00; Status DC Prochlorperazine Edisylate (Compazine) 5 mg PACU PRN PRN IV NAUSEA, MRX1; Start 11/28/20 at 13:45; Stop 11/28/20 at 22:00; Status DC Propofol (Diprivan) 200 mg STK-MED ONCE IV ; Start 11/28/20 at 13:53; Stop 11/28/20 at 13:53; Status DC Dexamethasone Sodium Phosphate (Decadron) 4 mg STK-MED ONCE .ROUTE ; Start 11/28/20 at 13:53; Stop 11/28/20 at 13:53; Status DC Lidocaine HCl (Lidocaine Pf 2% Vial) 5 ml STK-MED ONCE .ROUTE ; Start 11/28/20 at 13:53; Stop 11/28/20 at 13:53; Status DC Ondansetron HCl (Zofran) 4 mg STK-MED ONCE .ROUTE ; Start 11/28/20 at 13:53; Stop 11/28/20 at 13:53; Status DC Insulin Human Lispro (HumaLOG VIAL for OP,RR ONLY) 0-10 units PRN Q1HR PRN SQ PER PROTOCOL Last administered on 11/28/20at 16:41; Start 11/28/20 at 14:45; Stop 11/29/20 at 10:24; Status DC Phenylephrine HCl (PHENYLEPHRINE in 0.9% NACL PF) 1 mg STK-MED ONCE IV ; Start 11/28/20 at 14:57; Stop 11/28/20 at 14:57; Status DC Sevoflurane (Ultane) 30 ml STK-MED ONCE IH ; Start 11/28/20 at 14:57; Stop 11/28/20 at 14:57; Status DC Hydromorphone HCl (Dilaudid) 2 mg STK-MED ONCE .ROUTE ; Start 11/28/20 at 15:18; Stop 11/28/20 at 15:18; Status DC Fentanyl Citrate (Fentanyl 2ml Vial) 100 mcg STK-MED ONCE .ROUTE ; Start 11/28/20 at 16:04; Stop 11/28/20 at 16:04; Status DC Morphine Sulfate (Morphine Sulfate) 2 mg PRN Q2HR PRN IV MODERATE TO SEVERE PAIN Last administered on 11/29/20at 11:03; Start 11/28/20 at 17:00 Oxycodone/ Acetaminophen (Percocet 5/325) 1 tab PRN Q4HRS PRN PO MODERATE TO SEVERE PAIN Last administered on 11/30/20at 17:30; Start 11/28/20 at 17:00 Insulin Human Lispro (HumaLOG) 4 units TIDWMEALS SQ Last administered on at 12:32; Start 11/29/20 at 08:00 Magnesium Sulfate 50 ml @ 25 mls/hr 1X ONCE IV Last administered on 11/28/20at 23:38; Start 11/28/20 at 22:00; Stop 11/28/20 at 23:59; Status DC Enoxaparin Sodium (Lovenox 40mg Syringe) 40 mg Q24H SQ Last administered on 11/30/20at 10:10; Start 11/29/20 at 11:00 Aspirin (Aspirin Chewable) 81 mg DAILY PO Last administered on 11/30/20at 08:13; Start 11/29/20 at 15:00 Docusate Sodium (Colace) 100 mg BID PO Last administered on 11/30/20at 21:07; Start 11/29/20 at 21:00 Fenofibrate (Lofibra) 54 mg DAILY PO Last administered on 11/30/20at 08:12; Start 11/29/20 at 15:00 Glipizide (Glucotrol) 5 mg BIDAC PO Last administered on 11/30/20at 16:17; Start 11/29/20 at 16:30 Pseudoephedrine HCl (Sudafed 12-Hour) 120 mg PRN BID PRN PO NASAL CONGESTION; Start 11/29/20 at 14:45; Stop 11/29/20 at 14:42; Status DC Insulin Human Lispro (HumaLOG) 8 units TIDAC SQ Last administered on 11/30/20at 17:26; Start 11/29/20 at 16:30 Potassium Chloride (Klor-Con) 40 meq 1X ONCE PO Last administered on 11/29/20at 18:42; Start 11/29/20 at 14:45; Stop 11/29/20 at 14:46; Status DC Lactobacillus Rhamnosus (Culturelle) 1 cap BID PO Last administered on 11/30/20at 21:07; Start 11/29/20 at 21:00 Ringer's Solution 1,000 ml @ 100 mls/hr Q10H IV Last administered on 11/30/20at 18:07; Start 11/29/20 at 15:00 Insulin Human Lispro (HumaLOG) 15 units 1X ONCE SQ Last administered on 11/29/20at 22:13; Start 11/29/20 at 22:00; Stop 11/29/20 at 22:01; Status DC Ondansetron HCl (Zofran) 4 mg PRN Q6HRS PRN IV NAUSEA/VOMITING; Start 12/01/20 at 07:00; Stop 12/01/20 at 20:00 Fentanyl Citrate (Fentanyl 2ml Vial) 25 mcg PRN Q5MIN PRN IV MILD PAIN 1-3; Start 12/01/20 at 07:00; Stop 12/01/20 at 20:00 Fentanyl Citrate (Fentanyl 2ml Vial) 50 mcg PRN Q5MIN PRN IV MODERATE TO SEVERE PAIN; Start 12/01/20 at 07:00; Stop 12/01/20 at 20:00 Morphine Sulfate (Morphine Sulfate) 1 mg PRN Q10MIN PRN IV SEVERE PAIN 7-10; Start 12/01/20 at 07:00; Stop 12/01/20 at 20:00 Ringer's Solution 1,000 ml @ 30 mls/hr Q24H IV ; Start 12/01/20 at 07:00; Stop 12/01/20 at 18:59 Lidocaine HCl (Xylocaine-Mpf 1% 2ml Vial) 2 ml PRN 1X PRN ID PRIOR TO IV START; Start 12/01/20 at 07:00; Stop 12/01/20 at 20:01 Hydromorphone HCl (Dilaudid) 0.5 mg PRN Q10MIN PRN IV SEV PAIN, Second choice; Start 12/01/20 at 07:00; Stop 12/01/20 at 20:00 Prochlorperazine Edisylate (Compazine) 5 mg PACU PRN PRN IV NAUSEA, MRX1; Start 12/01/20 at 07:00; Stop 12/02/20 at 06:59 Piperacillin Sod/ Tazobactam Sod 3.375 gm/Sodium Chloride 50 ml @ 100 mls/hr Q8HRS IV Last administered on 11/30/20at 22:51; Start 11/30/20 at 14:00 Active Scripts Active Atorvastatin Calcium 40 Mg Tablet 40 Mg PO QHS MDD 1 Sinus 12-Hour (Pseudoephedrine Hcl) 120 Mg Tablet.er 120 Mg PO PRN BID PRN 7 Days Vitamin D (Cholecalciferol (Vitamin D3)) 2,000 Unit Capsule 1 Cap PO BID Cool Blood Glucose Meter (Blood-Glucose Meter) 1 Each Each Each dm please also dispense test strips and lancets quantity sufficient for 1 month Fenofibrate 54 Mg Tablet 54 Mg PO DAILY 30 Days Reported Colace (Docusate Sodium) 100 Mg Capsule 1 Cap PO BID 30 Days Zofran (Ondansetron Hcl) 8 Mg Tablet 8 Mg PO BID PRN Percocet 5-325 mg Tablet (Oxycodone HCl/Acetaminophen) 1 Each Tablet 1 Tab PO PRN Q6HRS PRN MDD 2 Tablet(s) 5 Days Metoprolol Tartrate 50 Mg Tablet 50 Mg PO BID Levemir (Insulin Detemir) 100 Unit/1 Ml Vial 30 Unit SQ HS Aspirin 81 Mg Tab.chew 1 Tab PO DAILY Glipizide 5 Mg Tablet 1 Tab PO BID Cardizem Cd (Diltiazem Hcl) 180 Mg Cap.er.24h 1 Cap PO DAILY Metformin Hcl 1,000 Mg Tablet 1,000 Mg PO BID hold for 48 hours. Next dose 04/09 evening dose Vitals/I & O Vital Sign - Last 24 Hours 11/30/20 11/30/20 11/30/20 11/30/20 07:00 07:25 07:30 08:12 Temp 97.8 97.8 Pulse 93 93 Resp 22 B/P (MAP) 150/101 (117) 150/101 Pulse Ox 97 O2 Delivery Room Air Room Air Room Air 11/30/20 11/30/20 11/30/20 11/30/20 08:13 08:21 11:00 12:54 Temp 98.2 98.2 Pulse 93 85 Resp 20 B/P (MAP) 150/101 139/61 (87) Pulse Ox 97 96 O2 Delivery Room Air Room Air Room Air 11/30/20 11/30/20 11/30/20 11/30/20 14:16 15:00 17:30 18:34 Temp 97.9 97.9 Pulse 89 Resp 16 B/P (MAP) 136/57 (83) Pulse Ox 96 96 O2 Delivery Room Air Room Air Room Air Room Air 11/30/20 11/30/20 19:00 21:07 Temp 98.3 98.3 Pulse 94 94 Resp 18 B/P (MAP) 140/62 (88) 140/62 Pulse Ox 93 O2 Delivery Room Air Intake and Output 11/30/20 11/30/20 12/01/20 14:00 22:00 06:00 Intake Total 660 ml 410 ml Output Total 240 ml Balance 420 ml 410 ml Justicifation of Admission Dx: Justifications for Admission: Justification of Admission Dx: N/A PIOTR FLORES MD Nov 30, 2020 23:10
[2020-12-01] VITALS (11 sets, daily range): BP systolic 148–196; BP diastolic 67–93
[2020-12-01] MEDS: MORPHINE SULFATE 2 MG/ML VIAL. IV PRN ×6 (00:57→18:44)
[2020-12-01] MEDS: IV RINGERS,LACTATED 1000ML 1,000 ML IV SCH ×3 (04:45→23:46)
[2020-12-01] MEDS: ONDANSETRON PF 4 MG/2 ML VIAL. IVP PRN (04:53)
[2020-12-01] MEDS: PIPERACILLIN/TAZOBACTAM 3.375 GM in IV NORMAL SALINE 50ML 50 ML IV SCH ×4 (05:49→23:46)
[2020-12-01] MEDS ORDERED: PROPOFOL 10 MG/ML (20ML) VIAL. IV ONE (06:22)
[2020-12-01] MEDS ORDERED: LIDOCAINE 2% PF 5 ML VIAL. ONE (06:22)
[2020-12-01] MEDS ORDERED: DEXAMETHASONE SOD PHOS 4 MG/ML VIAL ONE (06:22)
[2020-12-01] MEDS ORDERED: ONDANSETRON PF 4 MG/2 ML VIAL. ONE (06:22)
[2020-12-01] MEDS ORDERED: HYDROmorphone 2 MG/ML VIAL IV PRN (07:00)
[2020-12-01] MEDS ORDERED: fentaNYL PF VIAL 100 MCG/2 ML VIAL IV PRN (07:00)
[2020-12-01] MEDS ORDERED: ONDANSETRON PF 4 MG/2 ML VIAL. IV PRN (07:00)
[2020-12-01] MEDS ORDERED: IV RINGERS,LACTATED 1000ML 1,000 ML IV SCH (07:00)
[2020-12-01] MEDS ORDERED: PROCHLORPERAZINE 10 MG/2 ML VIAL. IV PRN (07:00)
[2020-12-01] MEDS ORDERED: MORPHINE SULFATE 2 MG/ML VIAL. IV PRN (07:00)
[2020-12-01] MEDS ORDERED: LIDOCAINE 1% PF 2 ML VIAL. ID PRN (07:00)
[2020-12-01] MEDS ORDERED: fentaNYL PF VIAL 100 MCG/2 ML VIAL ONE ×3 (07:12→09:30)
[2020-12-01] MEDS: INSULIN LISPRO 100 UNIT/ML 3ML VIAL for OP,RR ONLY. SQ PRN ×2 (07:23→09:34)
--- NOTE | 2020-12-01 07:23 | PDOC ---
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 Plan to proceed. Objective Objective Vital Signs Date Time Temp Pulse Resp B/P (MAP) Pulse Ox O2 Delivery O2 Flow Rate FiO2 12/01/20 06:59 98.0 86 19 173/100 94 Room Air 98.0 11/28/20 16:25 10. Intake and Output 12/01/20 07:00 Intake Total 2320 ml Output Total 240 ml Balance 2080 ml Intake Oral 920 ml IV Total 1400 ml Output Urine Total 240 ml # Voids 4 Assessment Assessment Problems Medical Problems: (1) Gas gangrene of foot Status: Acute Comment Review of Relevant I have reviewed the following items mady (where applicable) has been applied. Labs Laboratory Tests Test 11/29/20 07:34 11/29/20 11:10 11/29/20 16:36 11/29/20 21:13 Glucose (Fingerstick) 344 mg/dL (70-99) 441 mg/dL (70-99) 383 mg/dL (70-99) 459 mg/dL (70-99) Test 11/30/20 07:26 11/30/20 11:45 11/30/20 17:16 11/30/20 20:10 Glucose (Fingerstick) 253 mg/dL (70-99) 207 mg/dL (70-99) 145 mg/dL (70-99) 186 mg/dL (70-99) Laboratory Tests Test 11/30/20 07:26 11/30/20 11:45 11/30/20 17:16 11/30/20 20:10 Glucose (Fingerstick) 253 mg/dL (70-99) 207 mg/dL (70-99) 145 mg/dL (70-99) 186 mg/dL (70-99) Microbiology 11/28/20 Gram Stain - Final, Resulted 11/28/20 Aerobic and Anaerobic Culture - Preliminary, Resulted 11/28/20 Blood Culture - Preliminary, Resulted NO GROWTH AFTER 2 DAYS Medications Current Medications Piperacillin Sod/ Tazobactam Sod 3.375 gm/Sodium Chloride 50 ml @ 100 mls/hr 1X ONCE IV Last administered on 11/28/20at 09:18; Start 11/28/20 at 09:00; Stop 11/28/20 at 09:29; Status DC Atorvastatin Calcium (Lipitor) 40 mg QHS PO Last administered on 11/30/20at 21:07; Start 11/28/20 at 21:00 Diltiazem HCl (Cardizem 24hr Cd) 180 mg DAILY PO Last administered on 11/30/20at 08:12; Start 11/29/20 at 10:00 Metoprolol Tartrate (Lopressor) 50 mg BID PO Last administered on 11/30/20at 21:07; Start 11/28/20 at 10:00 Oxycodone/ Acetaminophen (Percocet 5/325) 1 tab PRN Q6HRS PRN PO MODERATE TO SEVERE PAIN Last administered on 11/29/20at 10:14; Start 11/28/20 at 09:45; Stop 11/29/20 at 11:36; Status DC Vitamin D (Vitamin D3) 2,000 unit BID PO Last administered on 11/30/20at 21:06; Start 11/28/20 at 10:15 Insulin Glargine (Lantus Syringe) 30 unit HS SQ Last administered on 11/30/20at 21:15; Start 11/28/20 at 21:00 Ondansetron HCl (Zofran Odt) 8 mg PRN BID PRN PO NAUSEA/VOMITING; Start 11/28/20 at 10:15 Ondansetron HCl (Zofran) 4 mg PRN Q6HRS PRN IVP NAUSEA/VOMITING, 1ST CHOICE Last administered on 12/01/20at 04:53; Start 11/28/20 at 09:45 Acetaminophen (Tylenol) 650 mg PRN Q6HRS PRN PO Headaches, Temp > 101.5F; Start 11/28/20 at 09:45 Bisacodyl (Dulcolax Supp) 10 mg PRN DAILY PRN MT CONSTIPATION; Start 11/28/20 at 09:45 Linezolid/Dextrose 300 ml @ 300 mls/hr Q12HR IV ; Start 11/28/20 at 21:00; Status UNV Clindamycin Phosphate 50 ml @ 100 mls/hr Q8HRS IV Last administered on 11/30/20at 06:00; Start 11/28/20 at 22:00; Stop 11/30/20 at 11:24; Status DC Linezolid/Dextrose 300 ml @ 300 mls/hr Q12HR IV Last administered on 11/30/20at 08:14; Start 11/28/20 at 13:00; Stop 11/30/20 at 11:24; Status DC Clindamycin Phosphate 50 ml @ 100 mls/hr 1X ONCE IV Last administered on 11/28/20at 13:18; Start 11/28/20 at 13:00; Stop 11/28/20 at 13:29; Status DC Morphine Sulfate (Morphine Sulfate) 4 mg PRN Q2HR PRN IV PAIN Last administered on 11/28/20at 13:19; Start 11/28/20 at 13:00; Stop 11/28/20 at 16:56; Status DC Metoclopramide HCl (Reglan Vial) 10 mg PRN Q6HRS PRN IVP NAUSEA/VOMITING, 2ND CHOICE Last administered on 11/29/20at 08:47; Start 11/28/20 at 13:00 Insulin Human Lispro (HumaLOG) 0-9 UNITS TIDWMEALS SQ Last administered on 11/30/20at 12:13; Start 11/28/20 at 17:00 Dextrose (Dextrose 50%-Water Syringe) 12.5 gm PRN Q15MIN PRN IV SEE COMMENTS; Start 11/28/20 at 13:00 Ondansetron HCl (Zofran) 4 mg PRN Q6HRS PRN IV NAUSEA/VOMITING Last administered on 11/28/20at 18:19; Start 11/28/20 at 13:45; Stop 11/29/20 at 11:36; Status DC Fentanyl Citrate (Fentanyl 2ml Vial) 25 mcg PRN Q5MIN PRN IV MILD PAIN 1-3; Start 11/28/20 at 13:45; Stop 11/28/20 at 22:00; Status DC Fentanyl Citrate (Fentanyl 2ml Vial) 50 mcg PRN Q5MIN PRN IV MODERATE TO SEVERE PAIN Last administered on 11/28/20at 16:06; Start 11/28/20 at 13:45; Stop 11/28/20 at 22:00; Status DC Morphine Sulfate (Morphine Sulfate) 1 mg PRN Q10MIN PRN IV SEVERE PAIN 7-10; Start 11/28/20 at 13:45; Stop 11/28/20 at 22:00; Status DC Ringer's Solution 1,000 ml @ 30 mls/hr Q24H IV ; Start 11/28/20 at 13:45; Stop 11/29/20 at 01:44; Status DC Lidocaine HCl (Xylocaine-Mpf 1% 2ml Vial) 2 ml PRN 1X PRN ID PRIOR TO IV START; Start 11/28/20 at 13:45; Stop 11/28/20 at 22:00; Status DC Hydromorphone HCl (Dilaudid) 0.5 mg PRN Q10MIN PRN IV SEV PAIN, Second choice; Start 11/28/20 at 13:45; Stop 11/28/20 at 22:00; Status DC Prochlorperazine Edisylate (Compazine) 5 mg PACU PRN PRN IV NAUSEA, MRX1; Start 11/28/20 at 13:45; Stop 11/28/20 at 22:00; Status DC Propofol (Diprivan) 200 mg STK-MED ONCE IV ; Start 11/28/20 at 13:53; Stop 1 at 13:53; Status DC Dexamethasone Sodium Phosphate (Decadron) 4 mg STK-MED ONCE .ROUTE ; Start 11/28/20 at 13:53; Stop 11/28/20 at 13:53; Status DC Lidocaine HCl (Lidocaine Pf 2% Vial) 5 ml STK-MED ONCE .ROUTE ; Start 11/28/20 at 13:53; Stop 11/28/20 at 13:53; Status DC Ondansetron HCl (Zofran) 4 mg STK-MED ONCE .ROUTE ; Start 11/28/20 at 13:53; Stop 11/28/20 at 13:53; Status DC Insulin Human Lispro (HumaLOG VIAL for OP,RR ONLY) 0-10 units PRN Q1HR PRN SQ PER PROTOCOL Last administered on 11/28/20at 16:41; Start 11/28/20 at 14:45; Stop 11/29/20 at 10:24; Status DC Phenylephrine HCl (PHENYLEPHRINE in 0.9% NACL PF) 1 mg STK-MED ONCE IV ; Start 11/28/20 at 14:57; Stop 11/28/20 at 14:57; Status DC Sevoflurane (Ultane) 30 ml STK-MED ONCE IH ; Start 11/28/20 at 14:57; Stop 11/28/20 at 14:57; Status DC Hydromorphone HCl (Dilaudid) 2 mg STK-MED ONCE .ROUTE ; Start 11/28/20 at 15:18; Stop 11/28/20 at 15:18; Status DC Fentanyl Citrate (Fentanyl 2ml Vial) 100 mcg STK-MED ONCE .ROUTE ; Start 11/28/20 at 16:04; Stop 11/28/20 at 16:04; Status DC Morphine Sulfate (Morphine Sulfate) 2 mg PRN Q2HR PRN IV MODERATE TO SEVERE PAIN Last administered on 12/01/20at 04:45; Start 11/28/20 at 17:00 Oxycodone/ Acetaminophen (Percocet 5/325) 1 tab PRN Q4HRS PRN PO MODERATE TO SEVERE PAIN Last administered on 11/30/20at 17:30; Start 11/28/20 at 17:00 Insulin Human Lispro (HumaLOG) 4 units TIDWMEALS SQ Last administered on 11/29/20at 12:32; Start 11/29/20 at 08:00 Magnesium Sulfate 50 ml @ 25 mls/hr 1X ONCE IV Last administered on 11/28/20at 23:38; Start 11/28/20 at 22:00; Stop 11/28/20 at 23:59; Status DC Enoxaparin Sodium (Lovenox 40mg Syringe) 40 mg Q24H SQ Last administered on 11/30/20at 10:10; Start 11/29/20 at 11:00 Aspirin (Aspirin Chewable) 81 mg DAILY PO Last administered on 11/30/20at 08:13; Start 11/29/20 at 15:00 Docusate Sodium (Colace) 100 mg BID PO Last administered on 11/30/20at 21:07; Start 11/29/20 at 21:00 Fenofibrate (Lofibra) 54 mg DAILY PO Last administered on 11/30/20at 08:12; Start 11/29/20 at 15:00 Glipizide (Glucotrol) 5 mg BIDAC PO Last administered on 11/30/20at 16:17; Start 11/29/20 at 16:30 Pseudoephedrine HCl (Sudafed 12-Hour) 120 mg PRN BID PRN PO NASAL CONGESTION; Start 11/29/20 at 14:45; Stop 11/29/20 at 14:42; Status DC Insulin Human Lispro (HumaLOG) 8 units TIDAC SQ Last administered on 11/30/20at 17:26; Start 11/29/20 at 16:30 Potassium Chloride (Klor-Con) 40 meq 1X ONCE PO Last administered on 11/29/20at 18:42; Start 11/29/20 at 14:45; Stop 11/29/20 at 14:46; Status DC Lactobacillus Rhamnosus (Culturelle) 1 cap BID PO Last administered on 11/30/20at 21:07; Start 11/29/20 at 21:00 Ringer's Solution 1,000 ml @ 100 mls/hr Q10H IV Last administered on 12/01/20at 04:45; Start 11/29/20 at 15:00 Insulin Human Lispro (HumaLOG) 15 units 1X ONCE SQ Last administered on 11/29/20at 22:13; Start 11/29/20 at 22:00; Stop 11/29/20 at 22:01; Status DC Ondansetron HCl (Zofran) 4 mg PRN Q6HRS PRN IV NAUSEA/VOMITING; Start 12/01/20 at 07:00; Stop 12/01/20 at 20:00 Fentanyl Citrate (Fentanyl 2ml Vial) 25 mcg PRN Q5MIN PRN IV MILD PAIN 1-3; Start 12/01/20 at 07:00; Stop 12/01/20 at 20:00 Fentanyl Citrate (Fentanyl 2ml Vial) 50 mcg PRN Q5MIN PRN IV MODERATE TO SEVERE PAIN; Start 12/01/20 at 07:00; Stop 12/01/20 at 20:00 Morphine Sulfate (Morphine Sulfate) 1 mg PRN Q10MIN PRN IV SEVERE PAIN 7-10; Start 12/01/20 at 07:00; Stop 12/01/20 at 20:00 Ringer's Solution 1,000 ml @ 30 mls/hr Q24H IV ; Start 12/01/20 at 07:00; Stop 12/01/20 at 18:59 Lidocaine HCl (Xylocaine-Mpf 1% 2ml Vial) 2 ml PRN 1X PRN ID PRIOR TO IV START; Start 12/01/20 at 07:00; Stop 12/01/20 at 20:01 Hydromorphone HCl (Dilaudid) 0.5 mg PRN Q10MIN PRN IV SEV PAIN, Second choice; Start 12/01/20 at 07:00; Stop 12/01/20 at 20:00 Prochlorperazine Edisylate (Compazine) 5 mg PACU PRN PRN IV NAUSEA, MRX1; Start 12/01/20 at 07:00; Stop 12/02/20 at 06:59 Piperacillin Sod/ Tazobactam Sod 3.375 gm/Sodium Chloride 50 ml @ 100 mls/hr Q8HRS IV Last administered on 12/01/20at 05:49; Start 11/30/20 at 14:00 Ondansetron HCl (Zofran) 4 mg STK-MED ONCE .ROUTE ; Start 12/01/20 at 06:22; Stop 12/01/20 at 06:22; Status DC Propofol (Diprivan) 200 mg STK-MED ONCE IV ; Start 12/01/20 at 06:22; Stop 12/01/20 at 06:22; Status DC Lidocaine HCl (Lidocaine Pf 2% Vial) 5 ml STK-MED ONCE .ROUTE ; Start 12/01/20 at 06:22; Stop 12/01/20 at 06:22; Status DC Dexamethasone Sodium Phosphate (Decadron) 4 mg STK-MED ONCE .ROUTE ; Start 12/01/20 at 06:22; Stop 12/01/20 at 06:22; Status DC Fentanyl Citrate (Fentanyl 2ml Vial) 100 mcg STK-MED ONCE .ROUTE ; Start 12/01/20 at 07:12; Stop 12/01/20 at 07:13; Status DC Insulin Human Lispro (HumaLOG VIAL for OP,RR ONLY) 0-10 units PRN Q1HR PRN SQ PER PROTOCOL; Start 12/01/20 at 07:15; Stop 12/02/20 at 07:14 Active Scripts Active Atorvastatin Calcium 40 Mg Tablet 40 Mg PO QHS MDD 1 Sinus 12-Hour (Pseudoephedrine Hcl) 120 Mg Tablet.er 120 Mg PO PRN BID PRN 7 Days Vitamin D (Cholecalciferol (Vitamin D3)) 2,000 Unit Capsule 1 Cap PO BID Cool Blood Glucose Meter (Blood-Glucose Meter) 1 Each Each Each MC dm please also dispense test strips and lancets quantity sufficient for 1 month Fenofibrate 54 Mg Tablet 54 Mg PO DAILY 30 Days Reported Colace (Docusate Sodium) 100 Mg Capsule 1 Cap PO BID 30 Days Zofran (Ondansetron Hcl) 8 Mg Tablet 8 Mg PO BID PRN Percocet 5-325 mg Tablet (Oxycodone HCl/Acetaminophen) 1 Each Tablet 1 Tab PO PRN Q6HRS PRN MDD 2 Tablet(s) 5 Days Metoprolol Tartrate 50 Mg Tablet 50 Mg PO BID Levemir (Insulin Detemir) 100 Unit/1 Ml Vial 30 Unit SQ HS Aspirin 81 Mg Tab.chew 1 Tab PO DAILY Glipizide 5 Mg Tablet 1 Tab PO BID Cardizem Cd (Diltiazem Hcl) 180 Mg Cap.er.24h 1 Cap PO DAILY Metformin Hcl 1,000 Mg Tablet 1,000 Mg PO BID hold for 48 hours. Next dose 04/09 evening dose Vitals/I & O Vital Sign - Last 24 Hours 11/30/20 11/30/20 11/30/20 11/30/20 07:25 07:30 08:12 08:13 Pulse 93 93 B/P (MAP) 150/101 150/101 O2 Delivery Room Air Room Air 11/30/20 11/30/20 11/30/20 11/30/20 08:21 11:00 12:54 14:16 Temp 98.2 98.2 Pulse 85 Resp 20 B/P (MAP) 139/61 (87) Pulse Ox 97 96 96 O2 Delivery Room Air Room Air Room Air Room Air 11/30/20 11/30/20 11/30/20 11/30/20 15:00 17:30 18:34 19:00 Temp 97.9 98.3 97.9 98.3 Pulse 89 94 Resp 16 18 B/P (MAP) 136/57 (83) 140/62 (88) Pulse Ox 96 93 O2 Delivery Room Air Room Air Room Air Room Air 11/30/20 11/30/20 11/30/20 12/01/20 20:00 21:07 23:00 00:57 Temp 98.4 98.4 Pulse 94 89 Resp 18 20 B/P (MAP) 140/62 115/59 (77) Pulse Ox 94 O2 Delivery Room Air Room Air Room Air 12/01/20 12/01/20 12/01/20 12/01/20 01:27 03:00 04:45 06:59 Temp 98.0 98.0 98.0 98.0 Pulse 89 86 Resp 18 20 19 B/P (MAP) 169/79 (109) 173/100 Pulse Ox 97 94 O2 Delivery Room Air Room Air Room Air Room Air Intake and Output 11/30/20 11/30/20 12/01/20 15:00 23:00 07:00 Intake Total 710 ml 360 ml 1250 ml Output Total 240 ml Balance 470 ml 360 ml 1250 ml Justifications for Admission Other Justification GUILLAUME,FABRIZIO Sullivan MD Dec 01, 2020 07:23
[2020-12-01] MEDS: INSULIN LISPRO 300 UNITS/3 ML VIAL. SQ SCH ×8 (07:30→17:28)
[2020-12-01] MEDS: glipiZIDE 5 MG TABLET PO SCH ×2 (07:30→16:40)
[2020-12-01] MEDS ORDERED: SEVOFLURANE 31 TO 60 MINUTES. IH ONE (08:05)
[2020-12-01] MEDS ORDERED: SEVOFLURANE 61 TO 120 MINUTES. IH ONE (08:40)
--- NOTE | 2020-12-01 09:14 | PDOC4 ---
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 Left leg was prepped and draped in usual sterile fashion. Appropriate timeout was performed. Attention was directed to left leg where area for posterior flap of BKA was marked on the skin with a marking pen. A #10 scalpel was used to make an incision along this line and this was carried down with Bovie cautery through the subcutaneous tissue and fascia. The superficial muscle was divided and we inflated the tourniquet on the thigh. I divided the bone both the tibia and the fibula with the saw and then divided the posterior muscle with the amputation knife and passed the lower leg off the field. I oversewed the tibial vessels at their ends with 0 silk pop offs and then took the tourniquet down. Couple small areas of minimal bleeding were treated with Bovie cautery and oversewn with silk pop-off's and then the surgical wound was irrigated with saline and cleaned. Small amount of muscle was removed to ensure adequate space for posterior flap closure but there was plenty muscle left over for good pad below the bone. Once hemostasis had been assured and the flap was cleaned of the fibula was taken back above the area of amputation with rongeurs and the tibia was smoothed off with the saw. Posterior flap was brought forward and the fascia was reapproximated with a series of interrupted buried [id number] 0 Vicryl sutures. The skin was reapproximated with a running subdermal 3-0 Vicryl to take tension off of the closure and then the final layer was closed with klarissa. The leg was cleaned and dried and a sterile bulky dressing was placed. Patient was awakened and extubated in the operating_room and escorted to recovery in stable condition. There were no complications, she tolerated procedure well throughout, and at the end of the case all sponge, needle, and instrument counts were reported to me as correct x2. FABRIZIO GALAVIZ MD Dec 01, 2020 09:14
[2020-12-01] MEDS: fentaNYL PF VIAL 100 MCG/2 ML VIAL IV PRN ×2 (09:33→09:46)
--- NOTE | 2020-12-01 09:57 | NUR ---
ADRIAN following. Discussed with RN, pt from home with , room air, NPO, COVID-19 negative. Pt having BKA finished today. PT/OT to be ordered after amputation. ADRIAN will continue to follow. Addendum: 12/01/20 at 1154 by SUNITA CAMPBELL Therapy spoke with ADRIAN regarding pt's wishes to go to [facility] upon discharge, as she has been there before. Therapy has not yet worked with pt. ADRIAN to send referral to [facility] when therapy notes are in due to insurance having to approve acute rehab stay. Cassidy CAMPBELL following pt tomorrow (12/02/20) - notified of plan. ADRIAN will continue to follow.
[2020-12-01] MEDS ORDERED: HYDROmorphone 2 MG/ML VIAL IVP ONE (10:30)
[2020-12-01] MEDS: oxyCODONE/APAP 5/325 1 TAB TABLET PO PRN ×2 (11:03→16:39)
[2020-12-01 11:27] LABS: BASO # 0.1 x10^3/uL (0.0-0.2); BASO % 1 % (0-3); EOS # 0.1 x10^3/uL (0.0-0.7); EOS % 1 % (0-3); HEMATOCRIT 31.4 % (36.0-47.0); HEMOGLOBIN 10.6 g/dL (12.0-15.5); LYMPH # 1.3 x10^3/uL (1.0-4.8); LYMPH % 16 % (24-48); MEAN CORPUSCULAR HEMOGLOBIN 28 pg (25-35); MEAN CORPUSCULAR HGB CONC 34 g/dL (31-37); MEAN CORPUSCULAR VOLUME 83 fL (79-100); MONO # 0.9 x10^3/uL (0.0-1.1); MONO % 11 % (0-9); NEUT # 6.2 x10^3/uL (1.8-7.7); NEUT % 72 % (31-73); PLATELET COUNT 422 x10^3/uL (140-400); WHITE BLOOD COUNT 8.6 x10^3/uL (4.0-11.0)
[2020-12-01 11:31] LABS: CALCIUM 9.9 mg/dL (8.5-10.1); CREATININE 0.7 mg/dL (0.6-1.0); GFR 86.9; POTASSIUM 4.2 mmol/L (3.5-5.1)
[2020-12-01] MEDS: METOPROLOL TART IMMED RELEASE 50 MG TABLET. PO SCH ×2 (12:39→22:40)
[2020-12-01] MEDS: ASPIRIN CHEWABLE 81 MG TABLET. PO SCH (12:39)
[2020-12-01] MEDS: DOCUSATE SODIUM 100 MG CAPSULE. PO SCH ×2 (12:39→22:39)
[2020-12-01] MEDS: LACTOBACILLUS RHAMNOSUS GG 1 CAPSULE. PO SCH ×2 (12:39→22:39)
[2020-12-01] MEDS: CHOLECALCIFEROL (VITAMIN D3) 1,000 UNIT TABLET PO SCH ×2 (12:40→22:39)
[2020-12-01] MEDS: FENOFIBRATE 54 MG TABLET. PO SCH (12:40)
[2020-12-01] MEDS: ENOXAPARIN 40 MG/0.4 ML SYRINGE. SQ SCH (12:40)
[2020-12-01] MEDS: GABAPENTIN 100 MG CAPSULE. PO SCH ×2 (13:39→22:39)
[2020-12-01] MEDS: MORPHINE SULFATE 10 MG/5 ML ORAL SOLUTION. PO PRN ×2 (13:39→17:51)
--- NOTE | 2020-12-01 17:51 | PDOC ---
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 ID consulted for management given prior history of renal insufficiency and possible need for longer term antibiotics Diabetes - with hyperglycemia - will give aggressive insulin regimen Hypomagnesemia - will replace Hyponatremia - related to hyperglycemia, hypovolemia, will replace FEN - NPO PPX - lovenox FULL CODE Dispo - inpatient for above History of Present Illness History of Present Illness History of Present Illness Ms Chamorro is a 55yo F w/ PMHx peripheral vascular disease s/p R BKA, diabetes, CVA, atrial fibrillation, hypertension, irritable bowel, kidney stones, HLD, CKD who presents to ED with her c/o left foot redness and swelling. She was walking and hit her left foot against a door frame 11/26/2020 and noted over the past 2 days it has become infected. She notes redness, an odor and popping sensation. Patient already has a nonhealing ulcer on the medial aspect of her left leg for 6 months mid-tibia. She has been unable to get into wound care due to insurance restrictions. Patient denies any fever. Patient denies any chest pain, no abdominal pain. Patient denies any trouble breathing. No recent sick contacts. She has had nausea since 11/23/2020 and has vomited 1 time daily for the past week. Left foot XR with soft tissue swelling along the dorsum of the foot with associated thinning is gas is centered along the fourth metatarsophalangeal joint space. No definite osseous erosion or opaque foreign density. WBC 13.7, Hb 11.5, Platelets 352, Na 127, K 4.1, BUN 13, Cr 1, glucose 572, Mg 1.7, albumin 2.8 11/29: Patient with well controlled pain, no acute events reported overnight, plan of care discussed in detail. she will be going to the or in the am 11/30: Patient complainign fo nausea during my visit, hyperglycemia noted, patient not able to eat much and worried about receiving insulin and having hypogleycemic events, reassruacne provided, family at bedside, all concerns addressed to the best of my abilities 12/01: Patient with a lot of pain after the surgery. Patient is not responded well to Dilaudid since it does not seem to provide her prolonged relief. We will try with oral morphine and start her on gabapentin as well. Recommendations from Dr. Gomez greatly appreciated Vitals Vitals Vital Signs Date Time Temp Pulse Resp B/P (MAP) Pulse Ox O2 Delivery O2 Flow Rate FiO2 12/01/20 17:29 94 Room Air 12/01/20 15:00 97.9 103 16 196/93 (127) 97.9 12/01/20 09:46 6.0 Physical Exam Physical Exam GENERAL: Alert, oriented female, not in any distress. VITAL SIGNS: Stable, afebrile. HEENT: NAD. NECK: Supple, no JVP, no lymphadenopathy. LUNGS: Clear. HEART: S1, S2 regular. ABDOMEN: Benign. EXTREMITIES: Right BKA unremarkable. Left lower extremity has BKA now coming out. NEUROLOGIC: The patient is alert, awake and appropriate. No focal neurologic deficit. General: Alert, Oriented X3, Cooperative, mild distress Lungs: Clear Abdomen: Normal bowel sounds, Soft, No tenderness, No hepatosplenomegaly, No masses Extremities: Other (RLE BKA clean, dry. LLE with medial ulcer 4cm x8 cm well demarcated. Fluctuance 4th and 5th dorsal MTP joint with surrounding erythema and crepitus) Skin: Other (left leg medial ulcer and left anterior foot hot red, crepitus, dry gangrene) Labs LABS Laboratory Tests Test 11/30/20 20:10 12/01/20 07:12 12/01/20 09:21 12/01/20 10:50 Glucose (Fingerstick) 186 mg/dL (70-99) 220 mg/dL (70-99) 198 mg/dL (70-99) White Blood Count 8.6 x10^3/uL (4.0-11.0) Red Blood Count 3.80 x10^6/uL (3.50-5.40) Hemoglobin 10.6 g/dL (12.0-15.5) Hematocrit 31.4 % (36.0-47.0) Mean Corpuscular Volume 83 fL (79-100) Mean Corpuscular Hemoglobin 28 pg (25-35) Mean Corpuscular Hemoglobin Concent 34 g/dL (31-37) Red Cell Distribution Width 14.0 % (11.5-14.5) Platelet Count 422 x10^3/uL (140-400) Neutrophils (%) (Auto) 72 % (31-73) Lymphocytes (%) (Auto) 16 % (24-48) Monocytes (%) (Auto) 11 % (0-9) Eosinophils (%) (Auto) 1 % (0-3) Basophils (%) (Auto) 1 % (0-3) Neutrophils # (Auto) 6.2 x10^3/uL (1.8-7.7) Lymphocytes # (Auto) 1.3 x10^3/uL (1.0-4.8) Monocytes # (Auto) 0.9 x10^3/uL (0.0-1.1) Eosinophils # (Auto) 0.1 x10^3/uL (0.0-0.7) Basophils # (Auto) 0.1 x10^3/uL (0.0-0.2) Sodium Level 137 mmol/L (136-145) Potassium Level 4.2 mmol/L (3.5-5.1) Chloride Level 99 mmol/L (98-107) Carbon Dioxide Level 30 mmol/L (21-32) Anion Gap 8 (6-14) Blood Urea Nitrogen 22 mg/dL (7-20) Creatinine 0.7 mg/dL (0.6-1.0) Estimated GFR (Cockcroft-Gault) 86.9 Glucose Level 207 mg/dL (70-99) Calcium Level 9.9 mg/dL (8.5-10.1) Test 12/01/20 11:15 12/01/20 17:18 Glucose (Fingerstick) 213 mg/dL (70-99) 177 mg/dL (70-99) Assessment and Plan Assessmemt and Plan Problems Medical Problems: (1) Gas gangrene of foot Status: Acute Comment Review of Relevant I have reviewed the following items mady (where applicable) has been applied. Labs Laboratory Tests Test 11/29/20 21:13 11/30/20 07:26 11/30/20 11:45 11/30/20 17:16 Glucose (Fingerstick) 459 mg/dL (70-99) 253 mg/dL (70-99) 207 mg/dL (70-99) 145 mg/dL (70-99) Test 11/30/20 20:10 12/01/20 07:12 12/01/20 09:21 12/01/20 10:50 Glucose (Fingerstick) 186 mg/dL (70-99) 220 mg/dL (70-99) 198 mg/dL (70-99) White Blood Count 8.6 x10^3/uL (4.0-11.0) Red Blood Count 3.80 x10^6/uL (3.50-5.40) Hemoglobin 10.6 g/dL (12.0-15.5) Hematocrit 31.4 % (36.0-47.0) Mean Corpuscular Volume 83 fL (79-100) Mean Corpuscular Hemoglobin 28 pg (25-35) Mean Corpuscular Hemoglobin Concent 34 g/dL (31-37) Red Cell Distribution Width 14.0 % (11.5-14.5) Platelet Count 422 x10^3/uL (140-400) Neutrophils (%) (Auto) 72 % (31-73) Lymphocytes (%) (Auto) 16 % (24-48) Monocytes (%) (Auto) 11 % (0-9) Eosinophils (%) (Auto) 1 % (0-3) Basophils (%) (Auto) 1 % (0-3) Neutrophils # (Auto) 6.2 x10^3/uL (1.8-7.7) Lymphocytes # (Auto) 1.3 x10^3/uL (1.0-4.8) Monocytes # (Auto) 0.9 x10^3/uL (0.0-1.1) Eosinophils # (Auto) 0.1 x10^3/uL (0.0-0.7) Basophils # (Auto) 0.1 x10^3/uL (0.0-0.2) Sodium Level 137 mmol/L (136-145) Potassium Level 4.2 mmol/L (3.5-5.1) Chloride Level 99 mmol/L (98-107) Carbon Dioxide Level 30 mmol/L (21-32) Anion Gap 8 (6-14) Blood Urea Nitrogen 22 mg/dL (7-20) Creatinine 0.7 mg/dL (0.6-1.0) Estimated GFR (Cockcroft-Gault) 86.9 Glucose Level 207 mg/dL (70-99) Calcium Level 9.9 mg/dL (8.5-10.1) Test 12/01/20 11:15 12/01/20 17:18 Glucose (Fingerstick) 213 mg/dL (70-99) 177 mg/dL (70-99) Laboratory Tests Test 11/30/20 20:10 12/01/20 07:12 12/01/20 09:21 12/01/20 10:50 Glucose (Fingerstick) 186 mg/dL (70-99) 220 mg/dL (70-99) 198 mg/dL (70-99) White Blood Count 8.6 x10^3/uL (4.0-11.0) Red Blood Count 3.80 x10^6/uL (3.50-5.40) Hemoglobin 10.6 g/dL (12.0-15.5) Hematocrit 31.4 % (36.0-47.0) Mean Corpuscular Volume 83 fL (79-100) Mean Corpuscular Hemoglobin 28 pg (25-35) Mean Corpuscular Hemoglobin Concent 34 g/dL (31-37) Red Cell Distribution Width 14.0 % (11.5-14.5) Platelet Count 422 x10^3/uL (140-400) Neutrophils (%) (Auto) 72 % (31-73) Lymphocytes (%) (Auto) 16 % (24-48) Monocytes (%) (Auto) 11 % (0-9) Eosinophils (%) (Auto) 1 % (0-3) Basophils (%) (Auto) 1 % (0-3) Neutrophils # (Auto) 6.2 x10^3/uL (1.8-7.7) Lymphocytes # (Auto) 1.3 x10^3/uL (1.0-4.8) Monocytes # (Auto) 0.9 x10^3/uL (0.0-1.1) Eosinophils # (Auto) 0.1 x10^3/uL (0.0-0.7) Basophils # (Auto) 0.1 x10^3/uL (0.0-0.2) Sodium Level 137 mmol/L (136-145) Potassium Level 4.2 mmol/L (3.5-5.1) Chloride Level 99 mmol/L (98-107) Carbon Dioxide Level 30 mmol/L (21-32) Anion Gap 8 (6-14) Blood Urea Nitrogen 22 mg/dL (7-20) Creatinine 0.7 mg/dL (0.6-1.0) Estimated GFR (Cockcroft-Gault) 86.9 Glucose Level 207 mg/dL (70-99) Calcium Level 9.9 mg/dL (8.5-10.1) Test 12/01/20 11:15 12/01/20 17:18 Glucose (Fingerstick) 213 mg/dL (70-99) 177 mg/dL (70-99) Microbiology 11/28/20 Gram Stain - Final, Resulted 11/28/20 Aerobic and Anaerobic Culture - Preliminary, Resulted 11/28/20 Blood Culture - Preliminary, Resulted NO GROWTH AFTER 3 DAYS Medications Current Medications Piperacillin Sod/ Tazobactam Sod 3.375 gm/Sodium Chloride 50 ml @ 100 mls/hr 1X ONCE IV Last administered on 11/28/20at 09:18; Start 11/28/20 at 09:00; Stop 11/28/20 at 09:29; Status DC Atorvastatin Calcium (Lipitor) 40 mg QHS PO Last administered on 11/30/20at 21:07; Start 11/28/20 at 21:00 Diltiazem HCl (Cardizem 24hr Cd) 180 mg DAILY PO Last administered on 12/01/20at 12:40; Start 11/29/20 at 10:00 Metoprolol Tartrate (Lopressor) 50 mg BID PO Last administered on 12/01/20at 12:39; Start 11/28/20 at 10:00 Oxycodone/ Acetaminophen (Percocet 5/325) 1 tab PRN Q6HRS PRN PO MODERATE TO SEVERE PAIN Last administered on 11/29/20at 10:14; Start 11/28/20 at 09:45; Stop 11/29/20 at 11:36; Status DC Vitamin D (Vitamin D3) 2,000 unit BID PO Last administered on 12/01/20at 12:40; Start 11/28/20 at 10:15 Insulin Glargine (Lantus Syringe) 30 unit HS SQ Last administered on 11/30/20at 21:15; Start 11/28/20 at 21:00 Ondansetron HCl (Zofran Odt) 8 mg PRN BID PRN PO NAUSEA/VOMITING; Start 11/28/20 at 10:15 Ondansetron HCl (Zofran) 4 mg PRN Q6HRS PRN IVP NAUSEA/VOMITING, 1ST CHOICE Last administered on 12/01/20at 04:53; Start 11/28/20 at 09:45 Acetaminophen (Tylenol) 650 mg PRN Q6HRS PRN PO Headaches, Temp > 101.5F; Start 11/28/20 at 09:45 Bisacodyl (Dulcolax Supp) 10 mg PRN DAILY PRN AL CONSTIPATION; Start 11/28/20 at 09:45 Linezolid/Dextrose 300 ml @ 300 mls/hr Q12HR IV ; Start 11/28/20 at 21:00; Status UNV Clindamycin Phosphate 50 ml @ 100 mls/hr Q8HRS IV Last administered on 11/30/20at 06:00; Start 11/28/20 at 22:00; Stop 11/30/20 at 11:24; Status DC Linezolid/Dextrose 300 ml @ 300 mls/hr Q12HR IV Last administered on 11/30/20at 08:14; Start 11/28/20 at 13:00; Stop 11/30/20 at 11:24; Status DC Clindamycin Phosphate 50 ml @ 100 mls/hr 1X ONCE IV Last administered on 11/28/20at 13:18; Start 11/28/20 at 13:00; Stop 11/28/20 at 13:29; Status DC Morphine Sulfate (Morphine Sulfate) 4 mg PRN Q2HR PRN IV PAIN Last administered on 11/28/20at 13:19; Start 11/28/20 at 13:00; Stop 11/28/20 at 16:56; Status DC Metoclopramide HCl (Reglan Vial) 10 mg PRN Q6HRS PRN IVP NAUSEA/VOMITING, 2ND CHOICE Last administered on 11/29/20at 08:47; Start 11/28/20 at 13:00 Insulin Human Lispro (HumaLOG) 0-9 UNITS TIDWMEALS SQ Last administered on 11/30/20at 12:13; Start 11/28/20 at 17:00 Dextrose (Dextrose 50%-Water Syringe) 12.5 gm PRN Q15MIN PRN IV SEE COMMENTS; Start 11/28/20 at 13:00 Ondansetron HCl (Zofran) 4 mg PRN Q6HRS PRN IV NAUSEA/VOMITING Last administered on 11/28/20at 18:19; Start 11/28/20 at 13:45; Stop 11/29/20 at 11:36; Status DC Fentanyl Citrate (Fentanyl 2ml Vial) 25 mcg PRN Q5MIN PRN IV MILD PAIN 1-3; Start 11/28/20 at 13:45; Stop 11/28/20 at 22:00; Status DC Fentanyl Citrate (Fentanyl 2ml Vial) 50 mcg PRN Q5MIN PRN IV MODERATE TO SEVERE PAIN Last administered on 11/28/20at 16:06; Start 11/28/20 at 13:45; Stop 11/28/20 at 22:00; Status DC Morphine Sulfate (Morphine Sulfate) 1 mg PRN Q10MIN PRN IV SEVERE PAIN 7-10; Start 11/28/20 at 13:45; Stop 11/28/20 at 22:00; Status DC Ringer's Solution 1,000 ml @ 30 mls/hr Q24H IV ; Start 11/28/20 at 13:45; Stop 11/29/20 at 01:44; Status DC Lidocaine HCl (Xylocaine-Mpf 1% 2ml Vial) 2 ml PRN 1X PRN ID PRIOR TO IV START; Start 11/28/20 at 13:45; Stop 11/28/20 at 22:00; Status DC Hydromorphone HCl (Dilaudid) 0.5 mg PRN Q10MIN PRN IV SEV PAIN, Second choice; Start 11/28/20 at 13:45; Stop 11/28/20 at 22:00; Status DC Prochlorperazine Edisylate (Compazine) 5 mg PACU PRN PRN IV NAUSEA, MRX1; Start 11/28/20 at 13:45; Stop 11/28/20 at 22:00; Status DC Propofol (Diprivan) 200 mg STK-MED ONCE IV ; Start 11/28/20 at 13:53; Stop 11/28/20 at 13:53; Status DC Dexamethasone Sodium Phosphate (Decadron) 4 mg STK-MED ONCE .ROUTE ; Start 11/28/20 at 13:53; Stop 11/28/20 at 13:53; Status DC Lidocaine HCl (Lidocaine Pf 2% Vial) 5 ml STK-MED ONCE .ROUTE ; Start 11/28/20 at 13:53; Stop 11/28/20 at 13:53; Status DC Ondansetron HCl (Zofran) 4 mg STK-MED ONCE .ROUTE ; Start 11/28/20 at 13:53; Stop 11/28/20 at 13:53; Status DC Insulin Human Lispro (HumaLOG VIAL for OP,RR ONLY) 0-10 units PRN Q1HR PRN SQ PER PROTOCOL Last administered on 11/28/20at 16:41; Start 11/28/20 at 14:45; Stop 11/29/20 at 10:24; Status DC Phenylephrine HCl (PHENYLEPHRINE in 0.9% NACL PF) 1 mg STK-MED ONCE IV ; Start 11/28/20 at 14:57; Stop 11/28/20 at 14:57; Status DC Sevoflurane (Ultane) 30 ml STK-MED ONCE IH ; Start 11/28/20 at 14:57; Stop 11/28/20 at 14:57; Status DC Hydromorphone HCl (Dilaudid) 2 mg STK-MED ONCE .ROUTE ; Start 11/28/20 at 15:18; Stop 11/28/20 at 15:18; Status DC Fentanyl Citrate (Fentanyl 2ml Vial) 100 mcg STK-MED ONCE .ROUTE ; Start 11/28/20 at 16:04; Stop 11/28/20 at 16:04; Status DC Morphine Sulfate (Morphine Sulfate) 2 mg PRN Q2HR PRN IV MODERATE TO SEVERE PAIN Last administered on 12/01/20at 16:40; Start 11/28/20 at 17:00 Oxycodone/ Acetaminophen (Percocet 5/325) 1 tab PRN Q4HRS PRN PO MODERATE TO SEVERE PAIN Last administered on 12/01/20at 16:39; Start 11/28/20 at 17:00 Insulin Human Lispro (HumaLOG) 4 units TIDWMEALS SQ Last administered on 11/29/20at 12:32; Start 11/29/20 at 08:00; Stop 12/01/20 at 14:45; Status DC Magnesium Sulfate 50 ml @ 25 mls/hr 1X ONCE IV Last administered on 11/28/20at 23:38; Start 11/28/20 at 22:00; Stop 11/28/20 at 23:59; Status DC Enoxaparin Sodium (Lovenox 40mg Syringe) 40 mg Q24H SQ Last administered on 12/01/20at 12:40; Start 11/29/20 at 11:00 Aspirin (Aspirin Chewable) 81 mg DAILY PO Last administered on 12/01/20at 12:39; Start 11/29/20 at 15:00 Docusate Sodium (Colace) 100 mg BID PO Last administered on 12/01/20 12:39; Start 11/29/20 at 21:00 Fenofibrate (Lofibra) 54 mg DAILY PO Last administered on 12/01/20 12:40; Start 11/29/20 at 15:00 Glipizide (Glucotrol) 5 mg BIDAC PO Last administered on 12/01/20at 16:40; Start 11/29/20 at 16:30 Pseudoephedrine HCl (Sudafed 12-Hour) 120 mg PRN BID PRN PO NASAL CONGESTION; Start 11/29/20 at 14:45; Stop 11/29/20 at 14:42; Status DC Insulin Human Lispro (HumaLOG) 8 units TIDAC SQ Last administered on 12/01/20 17:28; Start 11/29/20 at 16:30 Potassium Chloride (Klor-Con) 40 meq 1X ONCE PO Last administered on 11/29/20at 18:42; Start 11/29/20 at 14:45; Stop 11/29/20 at 14:46; Status DC Lactobacillus Rhamnosus (Culturelle) 1 cap BID PO Last administered on 1/7/21at 12:39; Start 11/29/20 at 21:00 Ringer's Solution 1,000 ml @ 100 mls/hr Q10H IV Last administered on 12/01/20at 12:48; Start 11/29/20 at 15:00 Insulin Human Lispro (HumaLOG) 15 units 1X ONCE SQ Last administered on 11/29/20at 22:13; Start 11/29/20 at 22:00; Stop 11/29/20 at 22:01; Status DC Ondansetron HCl (Zofran) 4 mg PRN Q6HRS PRN IV NAUSEA/VOMITING; Start 12/01/20 at 07:00; Stop 12/01/20 at 20:00 Fentanyl Citrate (Fentanyl 2ml Vial) 25 mcg PRN Q5MIN PRN IV MILD PAIN 1-3; Start 12/01/20 at 07:00; Stop 12/01/20 at 20:00 Fentanyl Citrate (Fentanyl 2ml Vial) 50 mcg PRN Q5MIN PRN IV MODERATE TO SEVERE PAIN Last administered on 12/01/20at 09:46; Start 12/01/20 at 07:00; Stop 12/01/20 at 20:00 Morphine Sulfate (Morphine Sulfate) 1 mg PRN Q10MIN PRN IV SEVERE PAIN 7-10; Start 12/01/20 at 07:00; Stop 12/01/20 at 20:00 Ringer's Solution 1,000 ml @ 30 mls/hr Q24H IV ; Start 12/01/20 at 07:00; Stop 12/01/20 at 18:59 Lidocaine HCl (Xylocaine-Mpf 1% 2ml Vial) 2 ml PRN 1X PRN ID PRIOR TO IV START; Start 12/01/20 at 07:00; Stop 12/01/20 at 20:01 Hydromorphone HCl (Dilaudid) 0.5 mg PRN Q10MIN PRN IV SEV PAIN, Second choice; Start 12/01/20 at 07:00; Stop 12/01/20 at 20:00 Prochlorperazine Edisylate (Compazine) 5 mg PACU PRN PRN IV NAUSEA, MRX1; Start 12/01/20 at 07:00; Stop 12/02/20 at 06:59 Piperacillin Sod/ Tazobactam Sod 3.375 gm/Sodium Chloride 50 ml @ 100 mls/hr Q8HRS IV Last administered on 12/01/20at 13:39; Start 11/30/20 at 14:00; Stop 12/01/20 at 14:48; Status DC Ondansetron HCl (Zofran) 4 mg STK-MED ONCE .ROUTE ; Start 12/01/20 at 06:22; Stop 12/01/20 at 06:22; Status DC Propofol (Diprivan) 200 mg STK-MED ONCE IV ; Start 12/01/20 at 06:22; Stop 12/01/20 at 06:22; Status DC Lidocaine HCl (Lidocaine Pf 2% Vial) 5 ml STK-MED ONCE .ROUTE ; Start 12/01/20 at 06:22; Stop 12/01/20 at 06:22; Status DC Dexamethasone Sodium Phosphate (Decadron) 4 mg STK-MED ONCE .ROUTE ; Start 12/01/20 at 06:22; Stop 12/01/20 at 06:22; Status DC Fentanyl Citrate (Fentanyl 2ml Vial) 100 mcg STK-MED ONCE .ROUTE ; Start 12/01/20 at 07:12; Stop 12/01/20 at 07:13; Status DC Insulin Human Lispro (HumaLOG VIAL for OP,RR ONLY) 0-10 units PRN Q1HR PRN SQ PER PROTOCOL Last administered on 12/01/20at 09:34; Start 12/01/20 at 07:15; Stop 12/02/20 at 07:14 Fentanyl Citrate (Fentanyl 2ml Vial) 100 mcg STK-MED ONCE .ROUTE ; Start 12/01/20 at 07:46; Stop 12/01/20 at 07:47; Status DC Sevoflurane (Ultane) 30 ml STK-MED ONCE IH ; Start 12/01/20 at 08:05; Stop 12/01/20 at 08:06; Status DC Sevoflurane (Ultane) 60 ml STK-MED ONCE IH ; Start 12/01/20 at 08:40; Stop 12/01/20 at 08:41; Status DC Fentanyl Citrate (Fentanyl 2ml Vial) 100 mcg STK-MED ONCE .ROUTE ; Start 12/01/20 at 09:30; Stop 12/01/20 at 09:31; Status DC Hydromorphone HCl (Dilaudid) 1 mg 1X ONCE IVP Last administered on 12/01/20at 10:39; Start 12/01/20 at 10:30; Stop 12/01/20 at 10:31; Status DC Gabapentin (Neurontin) 100 mg TID PO Last administered on 12/01/20at 13:39; Start 12/01/20 at 14:00 Morphine Sulfate (Morphine Oral Solution) 10 mg PRN Q3HRS PRN PO PAIN Last administered on 12/01/20at 13:39; Start 12/01/20 at 12:45 Piperacillin Sod/ Tazobactam Sod 3.375 gm/Sodium Chloride 50 ml @ 100 mls/hr Q6HRS IV ; Start 12/01/20 at 18:00 Active Scripts Active Atorvastatin Calcium 40 Mg Tablet 40 Mg PO QHS MDD 1 Sinus 12-Hour (Pseudoephedrine Hcl) 120 Mg Tablet.er 120 Mg PO PRN BID PRN 7 Days Vitamin D (Cholecalciferol (Vitamin D3)) 2,000 Unit Capsule 1 Cap PO BID Cool Blood Glucose Meter (Blood-Glucose Meter) 1 Each Each Each dm please also dispense test strips and lancets quantity sufficient for 1 month Fenofibrate 54 Mg Tablet 54 Mg PO DAILY 30 Days Reported Colace (Docusate Sodium) 100 Mg Capsule 1 Cap PO BID 30 Days Zofran (Ondansetron Hcl) 8 Mg Tablet 8 Mg PO BID PRN Percocet 5-325 mg Tablet (Oxycodone HCl/Acetaminophen) 1 Each Tablet 1 Tab PO PRN Q6HRS PRN MDD 2 Tablet(s) 5 Days Metoprolol Tartrate 50 Mg Tablet 50 Mg PO BID Levemir (Insulin Detemir) 100 Unit/1 Ml Vial 30 Unit SQ HS Aspirin 81 Mg Tab.chew 1 Tab PO DAILY Glipizide 5 Mg Tablet 1 Tab PO BID Cardizem Cd (Diltiazem Hcl) 180 Mg Cap.er.24h 1 Cap PO DAILY Metformin Hcl 1,000 Mg Tablet 1,000 Mg PO BID hold for 48 hours. Next dose 04/09 evening dose Vitals/I & O Vital Sign - Last 24 Hours 11/30/20 11/30/20 11/30/20 11/30/20 18:34 19:00 20:00 21:07 Temp 98.3 98.3 Pulse 94 94 Resp 18 B/P (MAP) 140/62 (88) 140/62 Pulse Ox 93 O2 Delivery Room Air Room Air Room Air 11/30/20 12/01/20 12/01/20 12/01/20 23:00 00:57 01:27 03:00 Temp 98.4 98.0 98.4 98.0 Pulse 89 89 Resp 18 20 18 B/P (MAP) 115/59 (77) 169/79 (109) Pulse Ox 94 97 O2 Delivery Room Air Room Air Room Air Room Air 12/01/20 12/01/20 12/01/20 12/01/20 04:45 06:59 09:14 09:14 Temp 98.0 98.5 98.0 98.5 Pulse 86 88 Resp 20 19 18 B/P (MAP) 173/100 126/80 Pulse Ox 94 100 O2 Delivery Room Air Room Air Simple Mask Mask O2 Flow Rate 6 6 12/01/20 12/01/20 12/01/20 12/01/20 09:25 09:33 09:40 09:46 Pulse 93 95 Resp 18 18 18 18 B/P (MAP) 146/58 162/68 Pulse Ox 100 100 100 100 O2 Delivery Simple Mask Simple Mask Simple Mask O2 Flow Rate 6 6.0 6 6.0 12/01/20 12/01/20 12/01/20 12/01/20 09:51 09:55 10:02 10:30 Temp 98.1 98.1 Pulse 97 Resp 18 18 B/P (MAP) 163/66 Pulse Ox 94 94 O2 Delivery Room Air Room Air Room Air Room Air 12/01/20 12/01/20 12/01/20 12/01/20 10:39 10:40 10:55 11:00 Temp 97.8 97.8 97.8 97.8 Pulse 86 100 100 Resp 18 18 B/P (MAP) 150/67 (94) 161/70 (100) 148/69 (95) Pulse Ox 90 90 90 O2 Delivery Room Air Room Air Room Air Room Air 12/01/20 12/01/20 12/01/20 12/01/20 11:03 11:10 11:25 11:55 Pulse 103 102 102 B/P (MAP) 156/70 (98) 168/74 (105) 192/92 (125) Pulse Ox 95 98 97 O2 Delivery Room Air Room Air Room Air Room Air 12/01/20 12/01/20 12/01/20 12/01/20 12:13 12:25 12:38 12:39 Pulse 101 97 B/P (MAP) 192/87 (122) 163/66 Pulse Ox 96 94 O2 Delivery Room Air Room Air Room Air 12/01/20 12/01/20 12/01/20 12/01/20 12:40 13:30 13:31 13:39 Pulse 97 B/P (MAP) 163/66 O2 Delivery Room Air Room Air Room Air 12/01/20 12/01/20 12/01/20 12/01/20 15:00 16:39 16:40 16:44 Temp 97.9 97.9 Pulse 103 Resp 16 B/P (MAP) 196/93 (127) Pulse Ox 95 94 O2 Delivery Room Air Room Air Room Air Room Air 12/01/20 12/01/20 17:29 17:29 Pulse Ox 94 94 O2 Delivery Room Air Room Air Intake and Output 11/30/20 11/30/20 12/01/20 15:00 23:00 07:00 Intake Total 710 ml 360 ml 1250 ml Output Total 240 ml Balance 470 ml 360 ml 1250 ml Justicifation of Admission Dx: Justifications for Admission: Justification of Admission Dx: N/A PIOTR FLORES MD Dec 01, 2020 17:51
[2020-12-01] MEDS: HYDROmorphone 2 MG/ML VIAL IVP PRN (22:38)
[2020-12-01] MEDS: ATORVASTATIN CALCIUM 40 MG TABLET. PO SCH (22:39)
[2020-12-01] MEDS: INSULIN GLARGINE SYRINGE. SQ SCH (22:53)
[2020-12-02] MEDS: oxyCODONE/APAP 5/325 1 TAB TABLET PO PRN ×4 (02:07→17:22)
[2020-12-02] MEDS: HYDROmorphone 2 MG/ML VIAL IVP PRN ×4 (02:07→19:55)
[2020-12-02 03:00] VITALS: BP 156/81
[2020-12-02] MEDS: IV RINGERS,LACTATED 1000ML 1,000 ML IV SCH ×2 (03:00→11:13)
[2020-12-02] MEDS: PIPERACILLIN/TAZOBACTAM 3.375 GM in IV NORMAL SALINE 50ML 50 ML IV SCH ×3 (05:59→17:23)
[2020-12-02 07:15] VITALS: BP 161/80
[2020-12-02] MEDS: INSULIN LISPRO 300 UNITS/3 ML VIAL. SQ SCH ×6 (07:30→17:29)
--- NOTE | 2020-12-02 07:39 | PDOC ---
Provider Note Date of Service: DATE: 12/02/20 TIME: 07:36 Provider Note Provider Note Vascular S: Patient complains of throbbing/burning pain overnight. Controlled now with multiple pain medications. 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
[2020-12-02] MEDS: FENOFIBRATE 54 MG TABLET. PO SCH (08:18)
[2020-12-02] MEDS: LACTOBACILLUS RHAMNOSUS GG 1 CAPSULE. PO SCH ×2 (08:18→21:12)
[2020-12-02] MEDS: CHOLECALCIFEROL (VITAMIN D3) 1,000 UNIT TABLET PO SCH ×2 (08:19→21:12)
[2020-12-02] MEDS: glipiZIDE 5 MG TABLET PO SCH ×2 (08:21→17:22)
[2020-12-02] MEDS: GABAPENTIN 100 MG CAPSULE. PO SCH ×3 (08:21→21:12)
[2020-12-02] MEDS: ASPIRIN CHEWABLE 81 MG TABLET. PO SCH (08:22)
[2020-12-02] MEDS: DOCUSATE SODIUM 100 MG CAPSULE. PO SCH ×2 (08:22→21:12)
[2020-12-02] MEDS: METOPROLOL TART IMMED RELEASE 50 MG TABLET. PO SCH ×2 (08:22→21:13)
--- NOTE | 2020-12-02 09:59 | PDOC ---
Infectious Disease Note Subjective Subjective Patient is feeling good Does have some pain at the surgery site ROS ROS No nausea vomiting diarrhea or fever Vital Sign Vital Signs Vital Signs Date Time Temp Pulse Resp B/P (MAP) Pulse Ox O2 Delivery O2 Flow Rate FiO2 12/02/20 08:22 91 161/80 12/02/20 07:15 97.6 20 99 Room Air 2.0 97.6 Physical Exam PHYSICAL EXAM GENERAL: Alert, oriented female, not in any distress. VITAL SIGNS: Stable, afebrile. HEENT: NAD. NECK: Supple, no JVP, no lymphadenopathy. LUNGS: Clear. HEART: S1, S2 regular. ABDOMEN: Benign. EXTREMITIES: Right BKA unremarkable. Left lower extremity has BKA now coming out. NEUROLOGIC: The patient is alert, awake and appropriate. No focal neurologic deficit. Labs Lab Laboratory Tests Test 12/01/20 10:50 12/01/20 11:15 12/01/20 17:18 12/01/20 20:35 White Blood Count 8.6 x10^3/uL (4.0-11.0) Red Blood Count 3.80 x10^6/uL (3.50-5.40) Hemoglobin 10.6 g/dL (12.0-15.5) Hematocrit 31.4 % (36.0-47.0) Mean Corpuscular Volume 83 fL (79-100) Mean Corpuscular Hemoglobin 28 pg (25-35) Mean Corpuscular Hemoglobin Concent 34 g/dL (31-37) Red Cell Distribution Width 14.0 % (11.5-14.5) Platelet Count 422 x10^3/uL (140-400) Neutrophils (%) (Auto) 72 % (31-73) Lymphocytes (%) (Auto) 16 % (24-48) Monocytes (%) (Auto) 11 % (0-9) Eosinophils (%) (Auto) 1 % (0-3) Basophils (%) (Auto) 1 % (0-3) Neutrophils # (Auto) 6.2 x10^3/uL (1.8-7.7) Lymphocytes # (Auto) 1.3 x10^3/uL (1.0-4.8) Monocytes # (Auto) 0.9 x10^3/uL (0.0-1.1) Eosinophils # (Auto) 0.1 x10^3/uL (0.0-0.7) Basophils # (Auto) 0.1 x10^3/uL (0.0-0.2) Sodium Level 137 mmol/L (136-145) Potassium Level 4.2 mmol/L (3.5-5.1) Chloride Level 99 mmol/L (98-107) Carbon Dioxide Level 30 mmol/L (21-32) Anion Gap 8 (6-14) Blood Urea Nitrogen 22 mg/dL (7-20) Creatinine 0.7 mg/dL (0.6-1.0) Estimated GFR (Cockcroft-Gault) 86.9 Glucose Level 207 mg/dL (70-99) Calcium Level 9.9 mg/dL (8.5-10.1) Glucose (Fingerstick) 213 mg/dL (70-99) 177 mg/dL (70-99) 152 mg/dL (70-99) Test 12/02/20 07:15 Glucose (Fingerstick) 202 mg/dL (70-99) Micro GRAM STAIN Final Final GRAM NEGATIVE RODS:RARE GRAM POSITIVE COCCI:MANY SQUAMOUS EPI CELL:NONE SEEN PMN (WBCs):MODERATE Unless otherwise specified, Testing Performed by: [address] [address] For Inquires, the Physician may contact the Microbiology department at [phone] ANAEROBIC-AEROBIC CULTURE Preliminary Preliminary FEW GRAM NEGATIVE RODS on 11/29/20 at 0858 FINAL ID= [PSEUDOMONAS AERUGINOSA] MODERATE [STAPHYLOCOCCUS AUREUS] on 11/29/20 at 1251 PSEUDOMONAS AERUGINOSA STAPHYLOCOCCUS AUREUS STAPHYLOCOCCUS AUREUS ANTIMICROBIAL SUSCEPTIBILITY Preliminary Comment Comment NEG JAIME 56 PSEUDOMONAS AERUGINOSA ANTIBIOTIC RESULT INTERPRETATION AMIKACIN 32 I AZTREONAM <=4 S CEFTAZIDIME 4 S CIPROFLOXACIN 1 S CEFEPIME 8 S CEFTAZIDIME/AVIBACTAM <=4 S GENTAMICIN >8 R LEVOFLOXACIN 4 I MEROPENEM <=1 S PIPERACILLIN/TAZOBACTAM <=8 S RUN DATE: 11/30/20 [facility] *LIVE* PAGE 2 RUN TIME: 1001 Specimen Inquiry SPEC: [id number] PATIENT: DENNIS JAIMES [id number] (Continued) ---- -------- Procedure Result CONTINUED ON NEXT PAGE RUN DATE: 11/30/20 [facility] *LIVE* PAGE 3 RUN TIME: 1001 Specimen Inquiry SPEC: [id number] PATIENT: DENNIS JAIMES [id number] (Continued) Procedure Result ANTIMICROBIAL SUSCEPTIBILITY Preliminary (continued) TOBRAMYCIN 4 S POS JAIME TYPE 38 STAPHYLOCOCCUS AUREUS ANTIBIOTIC RESULT INTERPRETATION AZITHROMYCIN <=2 S CLINDAMYCIN <=0.25 S CEFOXITIN SCREEN <=4 NEG CIPROFLOXACIN <=1 S CEFTAROLINE <=0.5 S DAPTOMYCIN 1 S ERYTHROMYCIN <=0.25 S GENTAMICIN <=4 S LINEZOLID 2 S LEVOFLOXACIN <=1 S OXACILLIN <=0.25 S PENICILLIN >2 Yessica RIFAMPIN <=1 S TRIMETHOPRIM/SULFAMETHOXAZOLE <=0.5/9.5 S TETRACYCLINE <=4 S VANCOMYCIN 1 S Unless otherwise specified, Testing Performed by: [address] [address] For Inquires, the Physician may contact the Microbiology department at [phone] END OF REPORT Objective Assessment IMPRESSION: 1. Gangrene of the left foot. Status post BKA 2. Cellulitis of the left foot. 3. Gas forming organism with subcutaneous air in the left foot. 4. Chronic wound on the back of the left leg. 5. Leukocytosis. 6. Diabetes with poor control. 7. Hypertension. 8. Coronary artery disease. 9. Peripheral vascular disease. Plan Plan of Care Continue Zosyn. Continue supportive care Continue to monitor At discharge changed to p.o. Levaquin for 5 more days DONTA CRAIG MD Dec 02, 2020 09:58
[2020-12-02 11:00] VITALS: BP 154/75
[2020-12-02] MEDS: ENOXAPARIN 40 MG/0.4 ML SYRINGE. SQ SCH (11:12)
[2020-12-02] MEDS: MORPHINE SULFATE 2 MG/ML VIAL. IV PRN (13:15)
[2020-12-02 17:14] VITALS: BP 174/89
--- NOTE | 2020-12-02 17:22 | NUR ---
SW following for discharge planning. Spoke with RN and reviewed chart. SW met with pt and pt's spouse. Pt requesting referral to [facility]. SW phoned and faxed referral. patient choice of vendor form completed. Pt not able to work with PT/OT per pain per chart review. SW following.
--- NOTE | 2020-12-02 18:05 | PDOC ---
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 ID consulted for management given prior history of renal insufficiency and possible need for longer term antibiotics Diabetes - with hyperglycemia - will give aggressive insulin regimen Hypomagnesemia - will replace Hyponatremia - related to hyperglycemia, hypovolemia, will replace FEN - NPO PPX - lovenox FULL CODE Dispo - inpatient for above History of Present Illness History of Present Illness History of Present Illness Ms Chamorro is a 55yo F w/ PMHx peripheral vascular disease s/p R BKA, diabetes, CVA, atrial fibrillation, hypertension, irritable bowel, kidney stones, HLD, CKD who presents to ED with her c/o left foot redness and swelling. She was walking and hit her left foot against a door frame 11/26/2020 and noted over the past 2 days it has become infected. She notes redness, an odor and popping sensation. Patient already has a nonhealing ulcer on the medial aspect of her left leg for 6 months mid-tibia. She has been unable to get into wound care due to insurance restrictions. Patient denies any fever. Patient denies any chest pain, no abdominal pain. Patient denies any trouble breathing. No recent sick contacts. She has had nausea since 11/23/2020 and has vomited 1 time daily for the past week. Left foot XR with soft tissue swelling along the dorsum of the foot with associated thinning is gas is centered along the fourth metatarsophalangeal joint space. No definite osseous erosion or opaque foreign density. WBC 13.7, Hb 11.5, Platelets 352, Na 127, K 4.1, BUN 13, Cr 1, glucose 572, Mg 1.7, albumin 2.8 11/29: Patient with well controlled pain, no acute events reported overnight, plan of care discussed in detail. she will be going to the or in the am 11/30: Patient complainign fo nausea during my visit, hyperglycemia noted, patient not able to eat much and worried about receiving insulin and having hypogleycemic events, reassruacne provided, family at bedside, all concerns addressed to the best of my abilities 12/01: Patient with a lot of pain after the surgery. Patient is not responded well to Dilaudid since it does not seem to provide her prolonged relief. We will try with oral morphine and start her on gabapentin as well. Recommendations from Dr. Gomez greatly appreciated 12/02: Patient responding better to Dilaudid as far as pain goes. Oral morphine did not accomplish to have her pain better controlled reassurance provided no concerns voiced during my encounter other than the pain. Vitals Vitals Vital Signs Date Time Temp Pulse Resp B/P (MAP) Pulse Ox O2 Delivery O2 Flow Rate FiO2 12/02/20 17:14 97.9 89 20 174/89 (117) 100 Room Air 2.0 97.9 Physical Exam Physical Exam GENERAL: Alert, oriented female, not in any distress. VITAL SIGNS: Stable, afebrile. HEENT: NAD. NECK: Supple, no JVP, no lymphadenopathy. LUNGS: Clear. HEART: S1, S2 regular. ABDOMEN: Benign. EXTREMITIES: Right BKA unremarkable. Left lower extremity has BKA now coming out. NEUROLOGIC: The patient is alert, awake and appropriate. No focal neurologic deficit. General: Alert, Oriented X3, Cooperative, mild distress Lungs: Clear Abdomen: Normal bowel sounds, Soft, No tenderness, No hepatosplenomegaly, No masses Extremities: Other (RLE BKA clean, dry. LLE with medial ulcer 4cm x8 cm well demarcated. Fluctuance 4th and 5th dorsal MTP joint with surrounding erythema and crepitus) Skin: Other (left leg medial ulcer and left anterior foot hot red, crepitus, dry gangrene) Labs LABS Laboratory Tests Test 12/01/20 20:35 12/02/20 07:15 12/02/20 10:50 12/02/20 16:58 Glucose (Fingerstick) 152 mg/dL (70-99) 202 mg/dL (70-99) 180 mg/dL (70-99) 137 mg/dL (70-99) Review of Systems Review of Systems Review of systems pertinent as per HPI otherwise 14 point review of system is negative Assessment and Plan Assessmemt and Plan Problems Medical Problems: (1) Gas gangrene of foot Status: Acute Comment Review of Relevant I have reviewed the following items mady (where applicable) has been applied. Labs Laboratory Tests Test 11/30/20 20:10 12/01/20 07:12 12/01/20 09:21 12/01/20 10:50 Glucose (Fingerstick) 186 mg/dL (70-99) 220 mg/dL (70-99) 198 mg/dL (70-99) White Blood Count 8.6 x10^3/uL (4.0-11.0) Red Blood Count 3.80 x10^6/uL (3.50-5.40) Hemoglobin 10.6 g/dL (12.0-15.5) Hematocrit 31.4 % (36.0-47.0) Mean Corpuscular Volume 83 fL (79-100) Mean Corpuscular Hemoglobin 28 pg (25-35) Mean Corpuscular Hemoglobin Concent 34 g/dL (31-37) Red Cell Distribution Width 14.0 % (11.5-14.5) Platelet Count 422 x10^3/uL (140-400) Neutrophils (%) (Auto) 72 % (31-73) Lymphocytes (%) (Auto) 16 % (24-48) Monocytes (%) (Auto) 11 % (0-9) Eosinophils (%) (Auto) 1 % (0-3) Basophils (%) (Auto) 1 % (0-3) Neutrophils # (Auto) 6.2 x10^3/uL (1.8-7.7) Lymphocytes # (Auto) 1.3 x10^3/uL (1.0-4.8) Monocytes # (Auto) 0.9 x10^3/uL (0.0-1.1) Eosinophils # (Auto) 0.1 x10^3/uL (0.0-0.7) Basophils # (Auto) 0.1 x10^3/uL (0.0-0.2) Sodium Level 137 mmol/L (136-145) Potassium Level 4.2 mmol/L (3.5-5.1) Chloride Level 99 mmol/L (98-107) Carbon Dioxide Level 30 mmol/L (21-32) Anion Gap 8 (6-14) Blood Urea Nitrogen 22 mg/dL (7-20) Creatinine 0.7 mg/dL (0.6-1.0) Estimated GFR (Cockcroft-Gault) 86.9 Glucose Level 207 mg/dL (70-99) Calcium Level 9.9 mg/dL (8.5-10.1) Test 12/01/20 11:15 12/01/20 17:18 12/01/20 20:35 12/02/20 07:15 Glucose (Fingerstick) 213 mg/dL (70-99) 177 mg/dL (70-99) 152 mg/dL (70-99) 202 mg/dL (70-99) Test 12/02/20 10:50 12/02/20 16:58 Glucose (Fingerstick) 180 mg/dL (70-99) 137 mg/dL (70-99) Laboratory Tests Test 12/01/20 20:35 12/02/20 07:15 12/02/20 10:50 12/02/20 16:58 Glucose (Fingerstick) 152 mg/dL (70-99) 202 mg/dL (70-99) 180 mg/dL (70-99) 137 mg/dL (70-99) Microbiology 11/28/20 Gram Stain - Final, Resulted 11/28/20 Aerobic and Anaerobic Culture - Preliminary, Resulted 11/28/20 Blood Culture - Preliminary, Resulted NO GROWTH AFTER 4 DAYS Medications Current Medications Piperacillin Sod/ Tazobactam Sod 3.375 gm/Sodium Chloride 50 ml @ 100 mls/hr 1X ONCE IV Last administered on 11/28/20at 09:18; Start 11/28/20 at 09:00; Stop 11/28/20 at 09:29; Status DC Atorvastatin Calcium (Lipitor) 40 mg QHS PO Last administered on 12/01/20at 22:39; Start 11/28/20 at 21:00 Diltiazem HCl (Cardizem 24hr Cd) 180 mg DAILY PO Last administered on 12/02/20at 08:21; Start 11/29/20 at 10:00 Metoprolol Tartrate (Lopressor) 50 mg BID PO Last administered on 12/02/20at 0 8:22; Start 11/28/20 at 10:00 Oxycodone/ Acetaminophen (Percocet 5/325) 1 tab PRN Q6HRS PRN PO MODERATE TO SEVERE PAIN Last administered on 11/29/20at 10:14; Start 11/28/20 at 09:45; Stop 11/29/20 at 11:36; Status DC Vitamin D (Vitamin D3) 2,000 unit BID PO Last administered on 12/02/20at 08:19; Start 11/28/20 at 10:15 Insulin Glargine (Lantus Syringe) 30 unit HS SQ Last administered on 12/01/20at 22:53; Start 11/28/20 at 21:00 Ondansetron HCl (Zofran Odt) 8 mg PRN BID PRN PO NAUSEA/VOMITING; Start 11/28/20 at 10:15 Ondansetron HCl (Zofran) 4 mg PRN Q6HRS PRN IVP NAUSEA/VOMITING, 1ST CHOICE Last administered on 12/01/20at 04:53; Start 11/28/20 at 09:45 Acetaminophen (Tylenol) 650 mg PRN Q6HRS PRN PO Headaches, Temp > 101.5F; Start 11/28/20 at 09:45 Bisacodyl (Dulcolax Supp) 10 mg PRN DAILY PRN MI CONSTIPATION; Start 11/28/20 at 09:45 Linezolid/Dextrose 300 ml @ 300 mls/hr Q12HR IV ; Start 11/28/20 at 21:00; Status UNV Clindamycin Phosphate 50 ml @ 100 mls/hr Q8HRS IV Last administered on 11/30/20at 06:00; Start 11/28/20 at 22:00; Stop 11/30/20 at 11:24; Status DC Linezolid/Dextrose 300 ml @ 300 mls/hr Q12HR IV Last administered on 11/30/20at 08:14; Start 11/28/20 at 13:00; Stop 11/30/20 at 11:24; Status DC Clindamycin Phosphate 50 ml @ 100 mls/hr 1X ONCE IV Last administered on 11/28/20at 13:18; Start 11/28/20 at 13:00; Stop 11/28/20 at 13:29; Status DC Morphine Sulfate (Morphine Sulfate) 4 mg PRN Q2HR PRN IV PAIN Last administered on 11/28/20at 13:19; Start 11/28/20 at 13:00; Stop 11/28/20 at 16:56; Status DC Metoclopramide HCl (Reglan Vial) 10 mg PRN Q6HRS PRN IVP NAUSEA/VOMITING, 2ND CHOICE Last administered on 11/29/20at 08:47; Start 11/28/20 at 13:00 Insulin Human Lispro (HumaLOG) 0-9 UNITS TIDWMEALS SQ Last administered on 12/02/20at 12:24; Start 11/28/20 at 17:00 Dextrose (Dextrose 50%-Water Syringe) 12.5 gm PRN Q15MIN PRN IV SEE COMMENTS; Start 11/28/20 at 13:00 Ondansetron HCl (Zofran) 4 mg PRN Q6HRS PRN IV NAUSEA/VOMITING Last administered on 11/28/20at 18:19; Start 11/28/20 at 13:45; Stop 11/29/20 at 11:36; Status DC Fentanyl Citrate (Fentanyl 2ml Vial) 25 mcg PRN Q5MIN PRN IV MILD PAIN 1-3; Start 11/28/20 at 13:45; Stop 11/28/20 at 22:00; Status DC Fentanyl Citrate (Fentanyl 2ml Vial) 50 mcg PRN Q5MIN PRN IV MODERATE TO SEVERE PAIN Last administered on 11/28/20at 16:06; Start 11/28/20 at 13:45; Stop 11/28/20 at 22:00; Status DC Morphine Sulfate (Morphine Sulfate) 1 mg PRN Q10MIN PRN IV SEVERE PAIN 7-10; Start 11/28/20 at 13:45; Stop 11/28/20 at 22:00; Status DC Ringer's Solution 1,000 ml @ 30 mls/hr Q24H IV ; Start 11/28/20 at 13:45; Stop 11/29/20 at 01:44; Status DC Lidocaine HCl (Xylocaine-Mpf 1% 2ml Vial) 2 ml PRN 1X PRN ID PRIOR TO IV START; Start 11/28/20 at 13:45; Stop 11/28/20 at 22:00; Status DC Hydromorphone HCl (Dilaudid) 0.5 mg PRN Q10MIN PRN IV SEV PAIN, Second choice; Start 11/28/20 at 13:45; Stop 11/28/20 at 22:00; Status DC Prochlorperazine Edisylate (Compazine) 5 mg PACU PRN PRN IV NAUSEA, MRX1; Start 11/28/20 at 13:45; Stop 11/28/20 at 22:00; Status DC Propofol (Diprivan) 200 mg STK-MED ONCE IV ; Start 11/28/20 at 13:53; Stop 11/28/20 at 13:53; Status DC Dexamethasone Sodium Phosphate (Decadron) 4 mg STK-MED ONCE .ROUTE ; Start 11/28/20 at 13:53; Stop 11/28/20 at 13:53; Status DC Lidocaine HCl (Lidocaine Pf 2% Vial) 5 ml STK-MED ONCE .ROUTE ; Start 11/28/20 at 13:53; Stop 11/28/20 at 13:53; Status DC Ondansetron HCl (Zofran) 4 mg STK-MED ONCE .ROUTE ; Start 11/28/20 at 13:53; Stop 11/28/20 at 13:53; Status DC Insulin Human Lispro (HumaLOG VIAL for OP,RR ONLY) 0-10 units PRN Q1HR PRN SQ PER PROTOCOL Last administered on 11/28/20at 16:41; Start 11/28/20 at 14:45; Stop 11/29/20 at 10:24; Status DC Phenylephrine HCl (PHENYLEPHRINE in 0.9% NACL PF) 1 mg STK-MED ONCE IV ; Start 11/28/20 at 14:57; Stop 11/28/20 at 14:57; Status DC Sevoflurane (Ultane) 30 ml STK-MED ONCE IH ; Start 11/28/20 at 14:57; Stop 11/28/20 at 14:57; Status DC Hydromorphone HCl (Dilaudid) 2 mg STK-MED ONCE .ROUTE ; Start 11/28/20 at 15:18; Stop 11/28/20 at 15:18; Status DC Fentanyl Citrate (Fentanyl 2ml Vial) 100 mcg STK-MED ONCE .ROUTE ; Start 11/28/20 at 16:04; Stop 11/28/20 at 16:04; Status DC Morphine Sulfate (Morphine Sulfate) 2 mg PRN Q2HR PRN IV MODERATE PAIN Last administered on 12/02/20at 13:15; Start 11/28/20 at 17:00 Oxycodone/ Acetaminophen (Percocet 5/325) 1 tab PRN Q4HRS PRN PO MODERATE TO SEVERE PAIN Last administered on 12/02/20at 17:22; Start 11/28/20 at 17:00 Insulin Human Lispro (HumaLOG) 4 units TIDWMEALS SQ Last administered on 11/29/20at 12:32; Start 11/29/20 at 08:00; Stop 12/01/20 at 14:45; Status DC Magnesium Sulfate 50 ml @ 25 mls/hr 1X ONCE IV Last administered on 11/28/20at 23:38; Start 11/28/20 at 22:00; Stop 11/28/20 at 23:59; Status DC Enoxaparin Sodium (Lovenox 40mg Syringe) 40 mg Q24H SQ Last administered on 12/02/20at 11:12; Start 11/29/20 at 11:00 Aspirin (Aspirin Chewable) 81 mg DAILY PO Last administered on 12/02/20 08:22; Start 11/29/20 at 15:00 Docusate Sodium (Colace) 100 mg BID PO Last administered on 12/02/20at 08:22; Start 11/29/20 at 21:00 Fenofibrate (Lofibra) 54 mg DAILY PO Last administered on 12/02/20at 08:18; Start 11/29/20 at 15:00 Glipizide (Glucotrol) 5 mg BIDAC PO Last administered on 12/02/20at 17:22; Start 11/29/20 at 16:30 Pseudoephedrine HCl (Sudafed 12-Hour) 120 mg PRN BID PRN PO NASAL CONGESTION; Start 11/29/20 at 14:45; Stop 11/29/20 at 14:42; Status DC Insulin Human Lispro (HumaLOG) 8 units TIDAC SQ Last administered on 12/02/20at 17:29; Start 11/29/20 at 16:30 Potassium Chloride (Klor-Con) 40 meq 1X ONCE PO Last administered on 11/29/20at 18:42; Start 11/29/20 at 14:45; Stop 11/29/20 at 14:46; Status DC Lactobacillus Rhamnosus (Culturelle) 1 cap BID PO Last administered on 12/02/20at 08:18; Start 11/29/20 at 21:00 Ringer's Solution 1,000 ml @ 100 mls/hr Q10H IV Last administered on 12/02/20at 11:13; Start 11/29/20 at 15:00 Insulin Human Lispro (HumaLOG) 15 units 1X ONCE SQ Last administered on 11/29/20at 22:13; Start 11/29/20 at 22:00; Stop 11/29/20 at 22:01; Status DC Ondansetron HCl (Zofran) 4 mg PRN Q6HRS PRN IV NAUSEA/VOMITING; Start 12/01/20 at 07:00; Stop 12/01/20 at 20:00; Status DC Fentanyl Citrate (Fentanyl 2ml Vial) 25 mcg PRN Q5MIN PRN IV MILD PAIN 1-3; Start 12/01/20 at 07:00; Stop 12/01/20 at 20:00; Status DC Fentanyl Citrate (Fentanyl 2ml Vial) 50 mcg PRN Q5MIN PRN IV MODERATE TO SEVERE PAIN Last administered on 12/01/20at 09:46; Start 12/01/20 at 07:00; Stop 12/01/20 at 20:00; Status DC Morphine Sulfate (Morphine Sulfate) 1 mg PRN Q10MIN PRN IV SEVERE PAIN 7-10; Start 12/01/20 at 07:00; Stop 12/01/20 at 20:00; Status DC Ringer's Solution 1,000 ml @ 30 mls/hr Q24H IV ; Start 12/01/20 at 07:00; Stop 12/01/20 at 18:59; Status DC Lidocaine HCl (Xylocaine-Mpf 1% 2ml Vial) 2 ml PRN 1X PRN ID PRIOR TO IV START; Start 12/01/20 at 07:00; Stop 12/01/20 at 20:01; Status DC Hydromorphone HCl (Dilaudid) 0.5 mg PRN Q10MIN PRN IV SEV PAIN, Second choice; Start 12/01/20 at 07:00; Stop 12/01/20 at 20:00; Status DC Prochlorperazine Edisylate (Compazine) 5 mg PACU PRN PRN IV NAUSEA, MRX1; Start 12/01/20 at 07:00; Stop 12/02/20 at 06:59; Status DC Piperacillin Sod/ Tazobactam Sod 3.375 gm/Sodium Chloride 50 ml @ 100 mls/hr Q8HRS IV Last administered on 12/01/20at 13:39; Start 11/30/20 at 14:00; Stop 12/01/20 at 14:48; Status DC Ondansetron HCl (Zofran) 4 mg STK-MED ONCE .ROUTE ; Start 12/01/20 at 06:22; Stop 12/01/20 at 06:22; Status DC Propofol (Diprivan) 200 mg STK-MED ONCE IV ; Start 12/01/20 at 06:22; Stop 12/01/20 at 06:22; Status DC Lidocaine HCl (Lidocaine Pf 2% Vial) 5 ml STK-MED ONCE .ROUTE ; Start 12/01/20 at 06:22; Stop 12/01/20 at 06:22; Status DC Dexamethasone Sodium Phosphate (Decadron) 4 mg STK-MED ONCE .ROUTE ; Start 12/01/20 at 06:22; Stop 12/01/20 at 06:22; Status DC Fentanyl Citrate (Fentanyl 2ml Vial) 100 mcg STK-MED ONCE .ROUTE ; Start 12/01/20 at 07:12; Stop 12/01/20 at 07:13; Status DC Insulin Human Lispro (HumaLOG VIAL for OP,RR ONLY) 0-10 units PRN Q1HR PRN SQ PER PROTOCOL Last administered on 12/01/20at 09:34; Start 12/01/20 at 07:15; Stop 12/02/20 at 07:14; Status DC Fentanyl Citrate (Fentanyl 2ml Vial) 100 mcg STK-MED ONCE .ROUTE ; Start 12/01/20 at 07:46; Stop 12/01/20 at 07:47; Status DC Sevoflurane (Ultane) 30 ml STK-MED ONCE IH ; Start 12/01/20 at 08:05; Stop 12/01/20 at 08:06; Status DC Sevoflurane (Ultane) 60 ml STK-MED ONCE IH ; Start 12/01/20 at 08:40; Stop 12/01/20 at 08:41; Status DC Fentanyl Citrate (Fentanyl 2ml Vial) 100 mcg STK-MED ONCE .ROUTE ; Start 12/01/20 at 09:30; Stop 12/01/20 at 09:31; Status DC Hydromorphone HCl (Dilaudid) 1 mg 1X ONCE IVP Last administered on 12/01/20at 10:39; Start 12/01/20 at 10:30; Stop 12/01/20 at 10:31; Status DC Gabapentin (Neurontin) 100 mg TID PO Last administered on 12/02/20at 14:32; Start 12/01/20 at 14:00 Morphine Sulfate (Morphine Oral Solution) 10 mg PRN Q3HRS PRN PO SEVERE PAIN- 2ND CHOICE Last administered on 12/01/20at 17:51; Start 12/01/20 at 12:45 Piperacillin Sod/ Tazobactam Sod 3.375 gm/Sodium Chloride 50 ml @ 100 mls/hr Q6HRS IV Last administered on 12/02/20at 17:23; Start 12/01/20 at 18:00 Hydromorphone HCl (Dilaudid) 2 mg PRN Q3HRS PRN IVP SEVERE PAIN Last administered on 12/02/20at 14:30; Start 12/01/20 at 19:00 Active Scripts Active Atorvastatin Calcium 40 Mg Tablet 40 Mg PO QHS MDD 1 Sinus 12-Hour (Pseudoephedrine Hcl) 120 Mg Tablet.er 120 Mg PO PRN BID PRN 7 Day s Vitamin D (Cholecalciferol (Vitamin D3)) 2,000 Unit Capsule 1 Cap PO BID Cool Blood Glucose Meter (Blood-Glucose Meter) 1 Each Each Each dm please also dispense test strips and lancets quantity sufficient for 1 month Fenofibrate 54 Mg Tablet 54 Mg PO DAILY 30 Days Reported Colace (Docusate Sodium) 100 Mg Capsule 1 Cap PO BID 30 Days Zofran (Ondansetron Hcl) 8 Mg Tablet 8 Mg PO BID PRN Percocet 5-325 mg Tablet (Oxycodone HCl/Acetaminophen) 1 Each Tablet 1 Tab PO PRN Q6HRS PRN MDD 2 Tablet(s) 5 Days Metoprolol Tartrate 50 Mg Tablet 50 Mg PO BID Levemir (Insulin Detemir) 100 Unit/1 Ml Vial 30 Unit SQ HS Aspirin 81 Mg Tab.chew 1 Tab PO DAILY Glipizide 5 Mg Tablet 1 Tab PO BID Cardizem Cd (Diltiazem Hcl) 180 Mg Cap.er.24h 1 Cap PO DAILY Metformin Hcl 1,000 Mg Tablet 1,000 Mg PO BID hold for 48 hours. Next dose 04/09 evening dose Vitals/I & O Vital Sign - Last 24 Hours 12/01/20 12/01/20 12/01/20 12/01/20 18:44 19:00 19:28 19:28 Temp 97.7 97.7 Pulse 98 Resp 16 B/P (MAP) 180/90 (120) Pulse Ox 96 94 94 O2 Delivery Room Air Room Air Room Air Room Air 12/01/20 12/01/20 12/01/20 12/01/20 20:30 22:38 22:40 23:00 Temp 97.9 97.9 Pulse 98 105 Resp 20 18 B/P (MAP) 180/90 168/75 (106) Pulse Ox 90 O2 Delivery Room Air Room Air Room Air 12/01/20 12/02/20 12/02/20 12/02/20 23:08 02:07 02:07 02:37 Resp 20 20 20 18 O2 Delivery Room Air Room Air Nasal Cannula 12/02/20 12/02/20 12/02/20 12/02/20 03:00 06:10 07:10 07:15 Temp 97.7 97.6 97.7 97.6 Pulse 107 91 Resp 18 18 20 20 B/P (MAP) 156/81 (106) 161/80 (107) Pulse Ox 85 99 O2 Delivery Room Air Nasal Cannula Nasal Cannula Room Air O2 Flow Rate 2.0 12/02/20 12/02/20 12/02/20 12/02/20 08:00 08:21 08:22 11:00 Temp 97.8 97.8 Pulse 91 91 89 Resp 18 B/P (MAP) 161/80 161/80 154/75 (101) Pulse Ox 100 O2 Delivery Room Air Room Air O2 Flow Rate 2.0 2.0 12/02/20 17:14 Temp 97.9 97.9 Pulse 89 Resp 20 B/P (MAP) 174/89 (117) Pulse Ox 100 O2 Delivery Room Air O2 Flow Rate 2.0 Intake and Output 12/01/20 12/01/20 12/02/20 15:00 23:00 07:00 Intake Total 1860 ml 270 ml 1050 ml Output Total 30 ml 0 ml Balance 1830 ml 270 ml 1050 ml Justicifation of Admission Dx: Justifications for Admission: Justification of Admission Dx: N/A PIOTR FLORES MD Dec 02, 2020 18:05
[2020-12-02 19:00] VITALS: BP 157/64
[2020-12-02] MEDS: ATORVASTATIN CALCIUM 40 MG TABLET. PO SCH (21:12)
[2020-12-02] MEDS: INSULIN GLARGINE SYRINGE. SQ SCH (21:23)
[2020-12-02 23:00] VITALS: BP 160/82
[2020-12-03] MEDS: HYDROmorphone 2 MG/ML VIAL IVP PRN ×4 (00:24→23:28)
[2020-12-03] MEDS: PIPERACILLIN/TAZOBACTAM 3.375 GM in IV NORMAL SALINE 50ML 50 ML IV SCH ×5 (00:24→23:24)
[2020-12-03 03:00] VITALS: BP 144/63
[2020-12-03] MEDS: oxyCODONE/APAP 5/325 1 TAB TABLET PO PRN ×4 (04:37→21:29)
[2020-12-03 07:00] VITALS: BP 150/67
[2020-12-03] MEDS: DOCUSATE SODIUM 100 MG CAPSULE. PO SCH ×2 (08:32→21:28)
[2020-12-03] MEDS: CHOLECALCIFEROL (VITAMIN D3) 1,000 UNIT TABLET PO SCH ×2 (08:32→21:29)
[2020-12-03] MEDS: METOPROLOL TART IMMED RELEASE 50 MG TABLET. PO SCH ×2 (08:32→21:28)
[2020-12-03] MEDS: ASPIRIN CHEWABLE 81 MG TABLET. PO SCH (08:32)
[2020-12-03] MEDS: GABAPENTIN 100 MG CAPSULE. PO SCH ×3 (08:33→21:29)
[2020-12-03] MEDS: FENOFIBRATE 54 MG TABLET. PO SCH (08:33)
[2020-12-03] MEDS: LACTOBACILLUS RHAMNOSUS GG 1 CAPSULE. PO SCH ×2 (08:33→21:29)
[2020-12-03] MEDS: glipiZIDE 5 MG TABLET PO SCH ×2 (08:33→16:57)
[2020-12-03] MEDS: INSULIN LISPRO 300 UNITS/3 ML VIAL. SQ SCH ×6 (08:38→16:58)
--- NOTE | 2020-12-03 09:17 | PDOC ---
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 ID consulted for management given prior history of renal insufficiency and possible need for longer term antibiotics Diabetes - with hyperglycemia - will give aggressive insulin regimen Hypomagnesemia - will replace Hyponatremia - related to hyperglycemia, hypovolemia, will replace FEN - NPO PPX - lovenox FULL CODE Dispo - inpatient for above History of Present Illness History of Present Illness Ms Chamorro is a 55yo F w/ PMHx peripheral vascular disease s/p R BKA, diabetes, CVA, atrial fibrillation, hypertension, irritable bowel, kidney stones, HLD, CKD who presents to ED with her c/o left foot redness and swelling. She was walking and hit her left foot against a door frame 11/26/2020 and noted over the past 2 days it has become infected. She notes redness, an odor and popping sensation. Patient already has a nonhealing ulcer on the medial aspect of her left leg for 6 months mid-tibia. She has been unable to get into wound care due to insurance restrictions. Patient denies any fever. Patient denies any chest pain, no abdominal pain. Patient denies any trouble breathing. No recent sick contacts. She has had nausea since 11/23/2020 and has vomited 1 time daily for the past week. Left foot XR with soft tissue swelling along the dorsum of the foot with associated thinning is gas is centered along the fourth metatarsophalangeal joint space. No definite osseous erosion or opaque foreign density. WBC 13.7, Hb 11.5, Platelets 352, Na 127, K 4.1, BUN 13, Cr 1, glucose 572, Mg 1.7, albumin 2.8 11/29: Patient with well controlled pain, no acute events reported overnight, plan of care discussed in detail. she will be going to the or in the am 11/30: Patient complainign fo nausea during my visit, hyperglycemia noted, patient not able to eat much and worried about receiving insulin and having hypogleycemic events, reassruacne provided, family at bedside, all concerns addressed to the best of my abilities 12/01: Patient with a lot of pain after the surgery. Patient is not responded well to Dilaudid since it does not seem to provide her prolonged relief. We will try with oral morphine and start her on gabapentin as well. Recommendations from Dr. Gomez greatly appreciated 12/02: Patient responding better to Dilaudid as far as pain goes. Oral morphine did not accomplish to have her pain better controlled reassurance provided no concerns voiced during my encounter other than the pain. Overnight afebrile. Pain 7-10 in the left lower extremity today. She knows that she has not had a bowel movement. No chest pain or shortness of breath. is bedside supportive. Plan is to go to rehab on discharge hopefully in the next 48 to 72 hours. Vitals/I&O Vitals/I&O: Vital Signs Date Time Temp Pulse Resp B/P (MAP) Pulse Ox O2 Delivery O2 Flow Rate FiO2 12/03/20 08:32 101 144/63 12/03/20 07:01 18 95 Room Air 2.0 12/03/20 03:00 98.5 98.5 I & O 12/02/20 12/02/20 12/03/20 15:00 23:00 07:00 Intake Total 480 ml 720 ml 100 ml Balance 480 ml 720 ml 100 ml Physical Exam Physical Exam: GENERAL: Alert, oriented female, not in any distress. VITAL SIGNS: Stable, afebrile. HEENT: NAD. NECK: Supple, no JVP, no lymphadenopathy. LUNGS: Clear. HEART: S1, S2 regular. ABDOMEN: Benign. EXTREMITIES: Right BKA unremarkable. Left lower extremity has BKA now coming out. NEUROLOGIC: The patient is alert, awake and appropriate. No focal neurologic deficit. General: Alert, Oriented X3, Cooperative, mild distress Lungs: Clear Abdomen: Normal bowel sounds, Soft, No tenderness, No hepatosplenomegaly, No masses Extremities: Other (RLE BKA clean, dry. LLE with medial ulcer 4cm x8 cm well demarcated. Fluctuance 4th and 5th dorsal MTP joint with surrounding erythema and crepitus) Skin: Other (left leg medial ulcer and left anterior foot hot red, crepitus, dry gangrene) Labs Labs: Laboratory Tests Test 12/02/20 10:50 12/02/20 16:58 12/02/20 20:32 12/03/20 07:24 Glucose (Fingerstick) 180 mg/dL (70-99) 137 mg/dL (70-99) 164 mg/dL (70-99) 191 mg/dL (70-99) Assessment and Plan Assessmemt and Plan Problems Medical Problems: (1) Gas gangrene of foot Status: Acute Comment Review of Relevant I have reviewed the following items mady (where applicable) has been applied. Medications: Current Medications Medications (Trade) Dose Ordered Sig/Perry Route PRN Reason Start Time Stop Time Status Last Admin Dose Admin Gabapentin (Neurontin) 300 mg TID PO 12/02/20 21:00 12/03/20 08:33 Justifications for Admission Other Justification TAJ GHOSH MD Dec 03, 2020 09:17
[2020-12-03 11:00] VITALS: BP 135/72
[2020-12-03] MEDS: PSYLLIUM HUSK (SUGAR FREE) 1 PKT PACKET PO SCH ×2 (11:11→21:27)
[2020-12-03] MEDS: ENOXAPARIN 40 MG/0.4 ML SYRINGE. SQ SCH (11:12)
[2020-12-03] MEDS: ONDANSETRON PF 4 MG/2 ML VIAL. IVP PRN (13:42)
[2020-12-03 15:00] VITALS: BP 155/55
[2020-12-03 19:00] VITALS: BP 137/57
[2020-12-03] MEDS: ATORVASTATIN CALCIUM 40 MG TABLET. PO SCH (21:28)
[2020-12-03] MEDS: INSULIN GLARGINE SYRINGE. SQ SCH (21:37)
[2020-12-03 23:00] VITALS: BP 148/90
[2020-12-04 03:00] VITALS: BP 141/71
[2020-12-04] MEDS: HYDROmorphone 2 MG/ML VIAL IVP PRN ×2 (03:54→09:52)
[2020-12-04] MEDS: PIPERACILLIN/TAZOBACTAM 3.375 GM in IV NORMAL SALINE 50ML 50 ML IV SCH ×3 (06:17→16:50)
[2020-12-04 07:00] VITALS: BP 140/71
--- NOTE | 2020-12-04 08:00 | PDOC ---
[facility] PROGRESS NOTE Date of Service DOS: DATE: 12/04/20 TIME: 07:57 Chief Complaint Chief Complaint Gas gangrene of left foot - empiric antibiotics, testing consultant recommendations greatly appreciated (ID and vascular surgery). 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 ID consulted for management. Will f/u recs of zosyn until discharge, then 7 days levaquin on d/c Diabetes - with hyperglycemia - will give aggressive insulin regimen Hypomagnesemia - will replace Hyponatremia - related to hyperglycemia, hypovolemia, will replace Hypertension. Coronary artery disease. Plan: Continue Zosyn. Continue supportive care Continue to monitor At discharge changed to p.o. Levaquin for 5 more days FEN - ADA diet PPX - lovenox FULL CODE Dispo - inpatient for above History of Present Illness History of Present Illness Ms Chamorro is a 55yo F w/ PMHx peripheral vascular disease s/p R BKA, diabetes, CVA, atrial fibrillation, hypertension, irritable bowel, kidney stones, HLD, CKD who presents to ED with her c/o left foot redness and swelling. She was walking and hit her left foot against a door frame 11/26/2020 and noted over the past 2 days it has become infected. She notes redness, an odor and popping sensation. Patient already has a nonhealing ulcer on the medial aspect of her left leg for 6 months mid-tibia. She has been unable to get into wound care due to insurance restrictions. Patient denies any fever. Patient denies any chest pain, no abdominal pain. Patient denies any trouble breathing. No recent sick contacts. She has had nausea since 11/23/2020 and has vomited 1 time daily for the past week. Left foot XR with soft tissue swelling along the dorsum of the foot with associated thinning is gas is centered along the fourth metatarsophalangeal joint space. No definite osseous erosion or opaque foreign density. WBC 13.7, Hb 11.5, Platelets 352, Na 127, K 4.1, BUN 13, Cr 1, glucose 572, Mg 1.7, albumin 2.8 11/29: Patient with well controlled pain, no acute events reported overnight, plan of care discussed in detail. she will be going to the or in the am 11/30: Patient complainign fo nausea during my visit, hyperglycemia noted, patient not able to eat much and worried about receiving insulin and having hypogleycemic events, reassruacne provided, family at bedside, all concerns addressed to the best of my abilities 12/01: Patient with a lot of pain after the surgery. Patient is not responded well to Dilaudid since it does not seem to provide her prolonged relief. We will try with oral morphine and start her on gabapentin as well. Recommendations from Dr. Gomez greatly appreciated 12/02: Patient responding better to Dilaudid as far as pain goes. Oral morphine did not accomplish to have her pain better controlled reassurance provided no concerns voiced during my encounter other than the pain. 12/03: Overnight afebrile. Pain 7-10 in the left lower extremity today. She knows that she has not had a bowel movement. No chest pain or shortness of breath. is bedside supportive. Overnight afebrile. Noted severe pain "27/10" at 9 PM and 3 AM. She has not had a bowel movement for 8 days. No chest pain or shortness of breath. Has been frequently getting 4 mg of Dilaudid. She is amenable to increasing oral pain regimen. Plan: rehab on discharge hopefully in the next 48 to 72 hours. Vitals/I&O Vitals/I&O: Vital Signs Date Time Temp Pulse Resp B/P (MAP) Pulse Ox O2 Delivery O2 Flow Rate FiO2 12/04/20 04:30 96 Nasal Cannula 2.0 12/04/20 03:00 98.0 111 16 141/71 (94) 98.0 I & O 12/03/20 12/03/20 12/04/20 15:00 23:00 07:00 Intake Total 50 ml 50 ml 1050 ml Output Total 480 ml 400 ml Balance 50 ml -430 ml 650 ml Physical Exam Physical Exam: GENERAL: Alert, oriented female, not in any distress. VITAL SIGNS: Stable, afebrile. HEENT: NAD. NECK: Supple, no JVP, no lymphadenopathy. LUNGS: Clear. HEART: S1, S2 regular. ABDOMEN: Benign. EXTREMITIES: Right BKA unremarkable. Left lower extremity has BKA now coming out. NEUROLOGIC: The patient is alert, awake and appropriate. No focal neurologic deficit. General: Alert, Oriented X3, Cooperative, mild distress Lungs: Clear Abdomen: Normal bowel sounds, Soft, No tenderness, No hepatosplenomegaly, No masses Extremities: Other (RLE BKA clean, dry. LLE with medial ulcer 4cm x8 cm well demarcated. Fluctuance 4th and 5th dorsal MTP joint with surrounding erythema and crepitus) Skin: Other (left leg medial ulcer and left anterior foot hot red, crepitus, dry gangrene) Labs Labs: Laboratory Tests Test 12/03/20 10:59 12/03/20 16:16 12/03/20 20:35 Glucose (Fingerstick) 229 mg/dL (70-99) 80 mg/dL (70-99) 291 mg/dL (70-99) Assessment and Plan Assessmemt and Plan Problems Medical Problems: (1) Gas gangrene of foot Status: Acute Comment Review of Relevant I have reviewed the following items mady (where applicable) has been applied. Medications: Current Medications Medications (Trade) Dose Ordered Sig/[place] Route PRN Reason Start Time Stop Time Status Last Admin Dose Admin Psyllium Hydrophilic Mucilloid (Metamucil Fiber Packet) 1 pkt QHS PO 12/03/20 10:30 12/03/20 21:27 Justifications for Admission Other Justification TAJ GHOSH MD Dec 04, 2020 08:00
[2020-12-04] MEDS: LACTOBACILLUS RHAMNOSUS GG 1 CAPSULE. PO SCH ×2 (09:37→21:29)
[2020-12-04] MEDS: ENOXAPARIN 40 MG/0.4 ML SYRINGE. SQ SCH (09:37)
[2020-12-04] MEDS: DOCUSATE SODIUM 100 MG CAPSULE. PO SCH ×2 (09:37→21:28)
[2020-12-04] MEDS: CHOLECALCIFEROL (VITAMIN D3) 1,000 UNIT TABLET PO SCH ×2 (09:38→21:28)
[2020-12-04] MEDS: ASPIRIN CHEWABLE 81 MG TABLET. PO SCH (09:38)
[2020-12-04] MEDS: GABAPENTIN 100 MG CAPSULE. PO SCH ×2 (09:38→14:32)
[2020-12-04] MEDS: FENOFIBRATE 54 MG TABLET. PO SCH (09:38)
[2020-12-04] MEDS: glipiZIDE 5 MG TABLET PO SCH ×2 (09:39→16:47)
[2020-12-04] MEDS: METOPROLOL TART IMMED RELEASE 50 MG TABLET. PO SCH ×2 (09:39→21:29)
[2020-12-04] MEDS: INSULIN LISPRO 300 UNITS/3 ML VIAL. SQ SCH ×6 (09:43→17:05)
[2020-12-04] MEDS: oxyCODONE/APAP 5/325 1 TAB TABLET PO PRN ×4 (09:51→21:30)
[2020-12-04 11:00] VITALS: BP 143/67
[2020-12-04] MEDS ORDERED: traZODone 100 MG TABLET. PO PRN (12:00)
[2020-12-04] MEDS ORDERED: MAGNESIUM CITRATE 296 ML SOLUTION. PO PRN (12:00)
[2020-12-04] MEDS ORDERED: POLYETHYLENE GLYCOL 3350 17 GM PACKET. PO PRN (12:00)
[2020-12-04] MEDS ORDERED: LACTULOSE 20 GM/30 ML SOLUTION. PO PRN (12:00)
[2020-12-04] MEDS: SENNOSIDES/DOCUSATE 8.6/50MG TABLET. PO PRN (12:34)
--- NOTE | 2020-12-04 14:20 | PDOC ---
PROGRESS NOTES Date of Service DATE: 12/04/20 TIME: 14:17 Subjective Subjective Pt states BKA stump pain is under better control denies any fever, chills, rigors Objective Objective Vital Signs Date Time Temp Pulse Resp B/P (MAP) Pulse Ox O2 Delivery O2 Flow Rate FiO2 12/04/20 14:13 91 Room Air 2.0 12/04/20 11:00 97.6 96 16 143/67 (92) 97.6 Intake and Output 12/04/20 07:00 Intake Total 1150 ml Output Total 880 ml Balance 270 ml Intake Oral 1050 ml IV Total 100 ml Output Urine Total 880 ml # Voids 5 Physical Exam Physical Exam left BKA dressing taken down today POD #3 She had a blister under the skin at the posterior flap and this was drained -- clear fluid only. 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 Labs Laboratory Tests Test 12/02/20 16:58 12/02/20 20:32 12/03/20 07:24 12/03/20 10:59 Glucose (Fingerstick) 137 mg/dL (70-99) 164 mg/dL (70-99) 191 mg/dL (70-99) 229 mg/dL (70-99) Test 12/03/20 16:16 12/03/20 20:35 12/04/20 07:26 12/04/20 11:55 Glucose (Fingerstick) 80 mg/dL (70-99) 291 mg/dL (70-99) 220 mg/dL (70-99) 215 mg/dL (70-99) Laboratory Tests Test 12/03/20 16:16 12/03/20 20:35 12/04/20 07:26 12/04/20 11:55 Glucose (Fingerstick) 80 mg/dL (70-99) 291 mg/dL (70-99) 220 mg/dL (70-99) 215 mg/dL (70-99) Microbiology 11/28/20 Gram Stain - Final, Complete 11/28/20 Aerobic and Anaerobic Culture - Final, Complete 11/28/20 Blood Culture - Final, Complete NO GROWTH AFTER 5 DAYS Medications Current Medications Piperacillin Sod/ Tazobactam Sod 3.375 gm/Sodium Chloride 50 ml @ 100 mls/hr 1X ONCE IV Last administered on 11/28/20at 09:18; Start 11/28/20 at 09:00; Stop 11/28/20 at 09:29; Status DC Atorvastatin Calcium (Lipitor) 40 mg QHS PO Last administered on 12/03/20at 21:28; Start 11/28/20 at 21:00 Diltiazem HCl (Cardizem 24hr Cd) 180 mg DAILY PO Last administered on 12/04/20at 09:38; Start 11/29/20 at 10:00 Metoprolol Tartrate (Lopressor) 50 mg BID PO Last administered on 12/04/20at 09:39; Start 11/28/20 at 10:00 Oxycodone/ Acetaminophen (Percocet 5/325) 1 tab PRN Q6HRS PRN PO MODERATE TO SEVERE PAIN Last administered on 11/29/20at 10:14; Start 11/28/20 at 09:45; Stop 11/29/20 at 11:36; Status DC Vitamin D (Vitamin D3) 2,000 unit BID PO Last administered on 12/04/20at 09:38; Start 11/28/20 at 10:15 Insulin Glargine (Lantus Syringe) 30 unit HS SQ Last administered on 12/03/20at 21:37; Start 11/28/20 at 21:00 Ondansetron HCl (Zofran Odt) 8 mg PRN BID PRN PO NAUSEA/VOMITING; Start 11/28/20 at 10:15 Ondansetron HCl (Zofran) 4 mg PRN Q6HRS PRN IVP NAUSEA/VOMITING, 1ST CHOICE Last administered on 12/03/20at 13:42; Start 11/28/20 at 09:45 Acetaminophen (Tylenol) 650 mg PRN Q6HRS PRN PO Headaches, Temp > 101.5F; Start 11/28/20 at 09:45 Bisacodyl (Dulcolax Supp) 10 mg PRN DAILY PRN [place] CONSTIPATION; Start 11/28/20 at 09:45 Linezolid/Dextrose 300 ml @ 300 mls/hr Q12HR IV ; Start 11/28/20 at 21:00; Status UNV Clindamycin Phosphate 50 ml @ 100 mls/hr Q8HRS IV Last administered on 11/30/20at 06:00; Start 11/28/20 at 22:00; Stop 11/30/20 at 11:24; Status DC Linezolid/Dextrose 300 ml @ 300 mls/hr Q12HR IV Last administered on 11/30/20at 08:14; Start 11/28/20 at 13:00; Stop 11/30/20 at 11:24; Status DC Clindamycin Phosphate 50 ml @ 100 mls/hr 1X ONCE IV Last administered on 11/28/20at 13:18; Start 11/28/20 at 13:00; Stop 11/28/20 at 13:29; Status DC Morphine Sulfate (Morphine Sulfate) 4 mg PRN Q2HR PRN IV PAIN Last administered on 11/28/20at 13:19; Start 11/28/20 at 13:00; Stop 11/28/20 at 16:56; Status DC Metoclopramide HCl (Reglan Vial) 10 mg PRN Q6HRS PRN IVP NAUSEA/VOMITING, 2ND CHOICE Last administered on 11/29/20at 08:47; Start 11/28/20 at 13:00 Insulin Human Lispro (HumaLOG) 0-9 UNITS TIDWMEALS SQ Last administered on 12/04/20at 12:37; Start 11/28/20 at 17:00 Dextrose (Dextrose 50%-Water Syringe) 12.5 gm PRN Q15MIN PRN IV SEE COMMENTS; Start 11/28/20 at 13:00 Ondansetron HCl (Zofran) 4 mg PRN Q6HRS PRN IV NAUSEA/VOMITING Last administered on 11/28/20at 18:19; Start 11/28/20 at 13:45; Stop 11/29/20 at 11:36; Status DC Fentanyl Citrate (Fentanyl 2ml Vial) 25 mcg PRN Q5MIN PRN IV MILD PAIN 1-3; Start 11/28/20 at 13:45; Stop 11/28/20 at 22:00; Status DC Fentanyl Citrate (Fentanyl 2ml Vial) 50 mcg PRN Q5MIN PRN IV MODERATE TO SEVERE PAIN Last administered on 11/28/20at 16:06; Start 11/28/20 at 13:45; Stop 11/28/20 at 22:00; Status DC Morphine Sulfate (Morphine Sulfate) 1 mg PRN Q10MIN PRN IV SEVERE PAIN 7-10; Start 11/28/20 at 13:45; Stop 11/28/20 at 22:00; Status DC Ringer's Solution 1,000 ml @ 30 mls/hr Q24H IV ; Start 11/28/20 at 13:45; Stop 11/29/20 at 01:44; Status DC Lidocaine HCl (Xylocaine-Mpf 1% 2ml Vial) 2 ml PRN 1X PRN ID PRIOR TO IV START; Start 11/28/20 at 13:45; Stop 11/28/20 at 22:00; Status DC Hydromorphone HCl (Dilaudid) 0.5 mg PRN Q10MIN PRN IV SEV PAIN, Second choice; Start 11/28/20 at 13:45; Stop 11/28/20 at 22:00; Status DC Prochlorperazine Edisylate (Compazine) 5 mg PACU PRN PRN IV NAUSEA, MRX1; Start 11/28/20 at 13:45; Stop 11/28/20 at 22:00; Status DC Propofol (Diprivan) 200 mg STK-MED ONCE IV ; Start 11/28/20 at 13:53; Stop 1 at 13:53; Status DC Dexamethasone Sodium Phosphate (Decadron) 4 mg STK-MED ONCE .ROUTE ; Start 11/28/20 at 13:53; Stop 11/28/20 at 13:53; Status DC Lidocaine HCl (Lidocaine Pf 2% Vial) 5 ml STK-MED ONCE .ROUTE ; Start 11/28/20 at 13:53; Stop 11/28/20 at 13:53; Status DC Ondansetron HCl (Zofran) 4 mg STK-MED ONCE .ROUTE ; Start 11/28/20 at 13:53; Stop 11/28/20 at 13:53; Status DC Insulin Human Lispro (HumaLOG VIAL for OP,RR ONLY) 0-10 units PRN Q1HR PRN SQ PER PROTOCOL Last administered on 11/28/20at 16:41; Start 11/28/20 at 14:45; Stop 11/29/20 at 10:24; Status DC Phenylephrine HCl (PHENYLEPHRINE in 0.9% NACL PF) 1 mg STK-MED ONCE IV ; Start 11/28/20 at 14:57; Stop 11/28/20 at 14:57; Status DC Sevoflurane (Ultane) 30 ml STK-MED ONCE IH ; Start 11/28/20 at 14:57; Stop 11/28/20 at 14:57; Status DC Hydromorphone HCl (Dilaudid) 2 mg STK-MED ONCE .ROUTE ; Start 11/28/20 at 15:18; Stop 11/28/20 at 15:18; Status DC Fentanyl Citrate (Fentanyl 2ml Vial) 100 mcg STK-MED ONCE .ROUTE ; Start 11/28/20 at 16:04; Stop 11/28/20 at 16:04; Status DC Morphine Sulfate (Morphine Sulfate) 2 mg PRN Q2HR PRN IV MODERATE PAIN Last administered on 12/02/20at 13:15; Start 11/28/20 at 17:00; Stop 12/02/20 at 18:05; Status DC Oxycodone/ Acetaminophen (Percocet 5/325) 1 tab PRN Q4HRS PRN PO MODERATE TO SEVERE PAIN Last administered on 12/04/20at 09:51; Start 11/28/20 at 17:00 Insulin Human Lispro (HumaLOG) 4 units TIDWMEALS SQ Last administered on 11/29/20at 12:32; Start 11/29/20 at 08:00; Stop 12/01/20 at 14:45; Status DC Magnesium Sulfate 50 ml @ 25 mls/hr 1X ONCE IV Last administered on 11/28/20at 23:38; Start 11/28/20 at 22:00; Stop 11/28/20 at 23:59; Status DC Enoxaparin Sodium (Lovenox 40mg Syringe) 40 mg Q24H SQ Last administered on 12/04/20at 09:37; Start 11/29/20 at 11:00 Aspirin (Aspirin Chewable) 81 mg DAILY PO Last administered on 12/04/20at 09:38; Start 11/29/20 at 15:00 Docusate Sodium (Colace) 100 mg BID PO Last administered on 12/04/20at 09:37; Start 11/29/20 at 21:00 Fenofibrate (Lofibra) 54 mg DAILY PO Last administered on 12/04/20at 09:38; Start 11/29/20 at 15:00 Glipizide (Glucotrol) 5 mg BIDAC PO Last administered on 12/04/20at 09:39; Start 11/29/20 at 16:30 Pseudoephedrine HCl (Sudafed 12-Hour) 120 mg PRN BID PRN PO NASAL CONGESTION; Start 11/29/20 at 14:45; Stop 11/29/20 at 14:42; Status DC Insulin Human Lispro (HumaLOG) 8 units TIDAC SQ Last administered on 12/04/20at 12:37; Start 11/29/20 at 16:30 Potassium Chloride (Klor-Con) 40 meq 1X ONCE PO Last administered on 11/29/20at 18:42; Start 11/29/20 at 14:45; Stop 11/29/20 at 14:46; Status DC Lactobacillus Rhamnosus (Culturelle) 1 cap BID PO Last administered on 12/04/20at 09:37; Start 11/29/20 at 21:00 Ringer's Solution 1,000 ml @ 100 mls/hr Q10H IV Last administered on 12/02/20at 11:13; Start 11/29/20 at 15:00; Stop 12/02/20 at 18:05; Status DC Insulin Human Lispro (HumaLOG) 15 units 1X ONCE SQ Last administered on 11/29/20at 22:13; Start 11/29/20 at 22:00; Stop 11/29/20 at 22:01; Status DC Ondansetron HCl (Zofran) 4 mg PRN Q6HRS PRN IV NAUSEA/VOMITING; Start 12/01/20 at 07:00; Stop 12/01/20 at 20:00; Status DC Fentanyl Citrate (Fentanyl 2ml Vial) 25 mcg PRN Q5MIN PRN IV MILD PAIN 1-3; Start 12/01/20 at 07:00; Stop 12/01/20 at 20:00; Status DC Fentanyl Citrate (Fentanyl 2ml Vial) 50 mcg PRN Q5MIN PRN IV MODERATE TO SEVERE PAIN Last administered on 12/01/20at 09:46; Start 12/01/20 at 07:00; Stop 12/01/20 at 20:00; Status DC Morphine Sulfate (Morphine Sulfate) 1 mg PRN Q10MIN PRN IV SEVERE PAIN 7-10; Start 12/01/20 at 07:00; Stop 12/01/20 at 20:00; Status DC Ringer's Solution 1,000 ml @ 30 mls/hr Q24H IV ; Start 12/01/20 at 07:00; Stop 12/01/20 at 18:59; Status DC Lidocaine HCl (Xylocaine-Mpf 1% 2ml Vial) 2 ml PRN 1X PRN ID PRIOR TO IV START; Start 12/01/20 at 07:00; Stop 12/01/20 at 20:01; Status DC Hydromorphone HCl (Dilaudid) 0.5 mg PRN Q10MIN PRN IV SEV PAIN, Second choice; Start 12/01/20 at 07:00; Stop 12/01/20 at 20:00; Status DC Prochlorperazine Edisylate (Compazine) 5 mg PACU PRN PRN IV NAUSEA, MRX1; Start 12/01/20 at 07:00; Stop 12/02/20 at 06:59; Status DC Piperacillin Sod/ Tazobactam Sod 3.375 gm/Sodium Chloride 50 ml @ 100 mls/hr Q8HRS IV Last administered on 12/01/20at 13:39; Start 11/30/20 at 14:00; Stop 12/01/20 at 14:48; Status DC Ondansetron HCl (Zofran) 4 mg STK-MED ONCE .ROUTE ; Start 12/01/20 at 06:22; Stop 12/01/20 at 06:22; Status DC Propofol (Diprivan) 200 mg STK-MED ONCE IV ; Start 12/01/20 at 06:22; Stop 12/01/20 at 06:22; Status DC Lidocaine HCl (Lidocaine Pf 2% Vial) 5 ml STK-MED ONCE .ROUTE ; Start 12/01/20 at 06:22; Stop 12/01/20 at 06:22; Status DC Dexamethasone Sodium Phosphate (Decadron) 4 mg STK-MED ONCE .ROUTE ; Start 12/01/20 at 06:22; Stop 12/01/20 at 06:22; Status DC Fentanyl Citrate (Fentanyl 2ml Vial) 100 mcg STK-MED ONCE .ROUTE ; Start 12/01/20 at 07:12; Stop 12/01/20 at 07:13; Status DC Insulin Human Lispro (HumaLOG VIAL for OP,RR ONLY) 0-10 units PRN Q1HR PRN SQ PER PROTOCOL Last administered on 12/01/20at 09:34; Start 12/01/20 at 07:15; Stop 12/02/20 at 07:14; Status DC Fentanyl Citrate (Fentanyl 2ml Vial) 100 mcg STK-MED ONCE .ROUTE ; Start 12/01/20 at 07:46; Stop 12/01/20 at 07:47; Status DC Sevoflurane (Ultane) 30 ml STK-MED ONCE IH ; Start 12/01/20 at 08:05; Stop 12/01/20 at 08:06; Status DC Sevoflurane (Ultane) 60 ml STK-MED ONCE IH ; Start 12/01/20 at 08:40; Stop 12/01/20 at 08:41; Status DC Fentanyl Citrate (Fentanyl 2ml Vial) 100 mcg STK-MED ONCE .ROUTE ; Start 12/01/20 at 09:30; Stop 12/01/20 at 09:31; Status DC Hydromorphone HCl (Dilaudid) 1 mg 1X ONCE IVP Last administered on 12/01/20at 10:39; Start 12/01/20 at 10:30; Stop 12/01/20 at 10:31; Status DC Gabapentin (Neurontin) 100 mg TID PO Last administered on 12/02/20at 14:32; Start 12/01/20 at 14:00; Stop 12/02/20 at 18:05; Status DC Morphine Sulfate (Morphine Oral Solution) 10 mg PRN Q3HRS PRN PO SEVERE PAIN- 2ND CHOICE Last administered on 12/01/20at 17:51; Start 12/01/20 at 12:45; Stop 12/02/20 at 18:05; Status DC Piperacillin Sod/ Tazobactam Sod 3.375 gm/Sodium Chloride 50 ml @ 100 mls/hr Q6HRS IV Last administered on 12/04/20at 11:41; Start 12/01/20 at 18:00 Hydromorphone HCl (Dilaudid) 2 mg PRN Q3HRS PRN IVP SEVERE PAIN Last administered on 12/04/20at 09:52; Start 12/01/20 at 19:00 Gabapentin (Neurontin) 300 mg TID PO Last administered on 12/04/20at 09:38; Start 12/02/20 at 21:00 Hydromorphone HCl (Dilaudid) 4 mg PRN Q3HRS PRN IVP PAIN Last administered on 12/04/20at 03:54; Start 12/03/20 at 07:30 Psyllium Hydrophilic Mucilloid (Metamucil Fiber Packet) 1 pkt QHS PO Last administered on 12/03/20at 21:27; Start 12/03/20 at 10:30 Polyethylene Glycol (miraLAX PACKET) 17 gm PRN BID PRN PO CONSTIPATION, 1st CHOICE; Start 12/04/20 at 12:00 Senna/Docusate Sodium (Senna Plus) 2 tab PRN BID PRN PO CONSTIPATION, 2nd CHOICE Last administered on 12/04/20at 12:34; Start 12/04/20 at 12:00 Magnesium Citrate (Citroma) 296 ml PRN 1X PRN PO CONSTIPATION, 4th CHOICE; Start 12/04/20 at 12:00 Lactulose (Lactulose) 20 gm PRN DAILY PRN PO CONSTIPATION, 3rd CHOICE; Start 12/04/20 at 12:00 Oxycodone/ Acetaminophen (Percocet 5/325) 2 tab PRN Q4HRS PRN PO MODERATE PAIN, SEVERE PAIN Last administered on 12/04/20at 12:34; Start 12/04/20 at 12:00 Trazodone HCl (Desyrel) 100 mg PRN QHS PRN PO INSOMNIA; Start 12/04/20 at 12:00 Active Scripts Active Atorvastatin Calcium 40 Mg Tablet 40 Mg PO QHS MDD 1 Sinus 12-Hour (Pseudoephedrine Hcl) 120 Mg Tablet.er 120 Mg PO PRN BID PRN 7 Days Vitamin D (Cholecalciferol (Vitamin D3)) 2,000 Unit Capsule 1 Cap PO BID Cool Blood Glucose Meter (Blood-Glucose Meter) 1 Each Each Each dm please also dispense test strips and lancets quantity sufficient for 1 month Fenofibrate 54 Mg Tablet 54 Mg PO DAILY 30 Days Reported Colace (Docusate Sodium) 100 Mg Capsule 1 Cap PO BID 30 Days Zofran (Ondansetron Hcl) 8 Mg Tablet 8 Mg PO BID PRN Percocet 5-325 mg Tablet (Oxycodone HCl/Acetaminophen) 1 Each Tablet 1 Tab PO PRN Q6HRS PRN MDD 2 Tablet(s) 5 Days Metoprolol Tartrate 50 Mg Tablet 50 Mg PO BID Levemir (Insulin Detemir) 100 Unit/1 Ml Vial 30 Unit SQ HS Aspirin 81 Mg Tab.chew 1 Tab PO DAILY Glipizide 5 Mg Tablet 1 Tab PO BID Cardizem Cd (Diltiazem Hcl) 180 Mg Cap.er.24h 1 Cap PO DAILY Metformin Hcl 1,000 Mg Tablet 1,000 Mg PO BID hold for 48 hours. Next dose 04/09 evening dose Vitals/I & O Vital Sign - Last 24 Hours 12/03/20 12/03/20 12/03/20 12/03/20 15:00 16:58 17:51 19:00 Temp 97.5 98.0 97.5 98.0 Pulse 83 93 Resp 16 18 B/P (MAP) 155/55 (88) 137/57 (83) Pulse Ox 95 97 O2 Delivery Room Air Room Air Room Air Room Air 12/03/20 12/03/20 12/03/20 12/03/20 19:30 21:28 21:29 22:30 Pulse 93 B/P (MAP) 137/57 Pulse Ox 97 97 O2 Delivery Room Air Room Air Room Air 12/03/20 12/03/20 12/04/20 12/04/20 23:00 23:28 00:00 03:00 Temp 97.0 98.0 97.0 98.0 Pulse 109 111 Resp 16 16 B/P (MAP) 148/90 (109) 141/71 (94) Pulse Ox 97 97 97 96 O2 Delivery Room Air Room Air Nasal Cannula Nasal Cannula O2 Flow Rate 2.0 2.0 12/04/20 12/04/20 12/04/20 12/04/20 03:54 04:30 07:00 09:38 Temp 97.8 97.8 Pulse 102 102 Resp 18 B/P (MAP) 140/71 (94) 140/71 Pulse Ox 96 96 97 O2 Delivery Nasal Cannula Nasal Cannula Nasal Cannula O2 Flow Rate 2.0 2.0 2.0 12/04/20 12/04/20 12/04/20 12/04/20 09:39 09:51 09:52 11:00 Temp 97.6 97.6 Pulse 102 96 Resp 16 B/P (MAP) 140/71 143/67 (92) Pulse Ox 97 97 91 O2 Delivery Room Air Room Air Room Air O2 Flow Rate 2.0 2.0 12/04/20 12/04/20 12/04/20 12/04/20 11:40 11:40 12:34 14:13 Pulse Ox 91 91 91 O2 Delivery Room Air Room Air Room Air Room Air O2 Flow Rate 2.0 2.0 2.0 2.0 Intake and Output 12/03/20 12/03/20 12/04/20 15:00 23:00 07:00 Intake Total 50 ml 50 ml 1050 ml Output Total 480 ml 400 ml Balance 50 ml -430 ml 650 ml Justifications for Admission Other Justification FABRIZIO GALAVIZ MD Dec 04, 2020 14:20
[2020-12-04 15:00] VITALS: BP 115/50
[2020-12-04 19:00] VITALS: BP 150/70
[2020-12-04] MEDS: PSYLLIUM HUSK (SUGAR FREE) 1 PKT PACKET PO SCH (21:00)
[2020-12-04] MEDS: INSULIN GLARGINE SYRINGE. SQ SCH (21:00)
[2020-12-04] MEDS: GABAPENTIN 300 MG CAPSULE. PO SCH (21:28)
[2020-12-04] MEDS: ATORVASTATIN CALCIUM 40 MG TABLET. PO SCH (21:29)
[2020-12-04 23:00] VITALS: BP 140/53
[2020-12-05] MEDS: HYDROmorphone 2 MG/ML VIAL IVP PRN ×3 (00:02→21:01)
[2020-12-05] MEDS: PIPERACILLIN/TAZOBACTAM 3.375 GM in IV NORMAL SALINE 50ML 50 ML IV SCH ×4 (00:03→17:16)
[2020-12-05 03:00] VITALS: BP 139/68
[2020-12-05] MEDS: oxyCODONE/APAP 5/325 1 TAB TABLET PO PRN ×3 (06:01→17:15)
[2020-12-05 07:00] VITALS: BP 121/51
[2020-12-05] MEDS: glipiZIDE 5 MG TABLET PO SCH ×2 (07:46→16:45)
[2020-12-05] MEDS: INSULIN LISPRO 300 UNITS/3 ML VIAL. SQ SCH ×6 (07:54→16:43)
--- NOTE | 2020-12-05 08:13 | PDOC ---
PROGRESS NOTES Date of Service: DATE: 12/05/20 TIME: 08:13 Chief Complaint Chief Complaint impression Gas gangrene of left foot - empiric antibiotics, peoplesoft consultant recommendations greatly appreciated (ID and vascular surgery). 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 ID consulted for management. Will f/u recs of zosyn until discharge, then 7 days levaquin on d/c Diabetes - with hyperglycemia - will give aggressive insulin regimen Hypomagnesemia - will replace Hyponatremia - related to hyperglycemia, hypovolemia, will replace Hypertension. Coronary artery disease. Plan: Continue Zosyn. Continue supportive care Continue to monitor Local wound care as directed At discharge changed to p.o. Levaquin for 5 more days accepted [facility] re[facility] BKA stump pain is under better control FEN - ADA diet PPX - lovenox FULL CODE Dispo - inpatient for above d/w RN History of Present Illness History of Present Illness Ms Chamorro is a 55yo F w/ PMHx peripheral vascular disease s/p R BKA, diabetes, CVA, atrial fibrillation, hypertension, irritable bowel, kidney stones, HLD, CKD who presents to ED with her c/o left foot redness and swelling. She was walking and hit her left foot against a door frame 11/26/2020 and noted over the past 2 days it has become infected. She notes redness, an odor and popping sensation. Patient already has a nonhealing ulcer on the medial aspect of her left leg for 6 months mid-tibia. She has been unable to get into wound care due to insurance restrictions. Patient denies any fever. Patient denies any chest pain, no abdominal pain. Patient denies any trouble breathing. No recent sick contacts. She has had nausea since 11/23/2020 and has vomited 1 time daily for the past week. Left foot XR with soft tissue swelling along the dorsum of the foot with associated thinning is gas is centered along the fourth metatarsophalangeal joint space. No definite osseous erosion or opaque foreign density. WBC 13.7, Hb 11.5, Platelets 352, Na 127, K 4.1, BUN 13, Cr 1, glucose 572, Mg 1.7, albumin 2.8 11/29: Patient with well controlled pain, no acute events reported overnight, plan of care discussed in detail. she will be going to the or in the am 11/30: Patient complainign fo nausea during my visit, hyperglycemia noted, patient not able to eat much and worried about receiving insulin and having hypogleycemic events, reassruacne provided, family at bedside, all concerns addressed to the best of my abilities 12/01: Patient with a lot of pain after the surgery. Patient is not responded well to Dilaudid since it does not seem to provide her prolonged relief. We will try with oral morphine and start her on gabapentin as well. Recommendations from Dr. Gomez greatly appreciated 12/02: Patient responding better to Dilaudid as far as pain goes. Oral morphine did not accomplish to have her pain better controlled reassurance provided no concerns voiced during my encounter other than the pain. 12/03: Overnight afebrile. Pain 7-10 in the left lower extremity today. She knows that she has not had a bowel movement. No chest pain or shortness of breath. is bedside supportive. Overnight afebrile. Noted severe pain "27/10" at 9 PM and 3 AM. She has not had a bowel movement for 8 days. No chest pain or shortness of breath. Has been frequently getting 4 mg of Dilaudid. She is amenable to increasing oral pain regimen. Plan: rehab on discharge hopefully in the next 48 to 72 hours. Vitals Vitals Vital Signs Date Time Temp Pulse Resp B/P (MAP) Pulse Ox O2 Delivery O2 Flow Rate FiO2 12/05/20 07:01 99 Room Air 12/05/20 07:00 98.1 87 18 121/51 (74) 2.0 98.1 Physical Exam Physical Exam GENERAL: Alert, oriented female, not in any distress. VITAL SIGNS: Stable, afebrile. HEENT: NAD. NECK: Supple, no JVP, no lymphadenopathy. LUNGS: Clear. HEART: S1, S2 regular. ABDOMEN: Benign. EXTREMITIES: Right BKA unremarkable. Left lower extremity has BKA now coming out. NEUROLOGIC: The patient is alert, awake and appropriate. No focal neurologic deficit. General: Alert, Oriented X3, Cooperative, mild distress Lungs: Clear Abdomen: Normal bowel sounds, Soft, No tenderness, No hepatosplenomegaly, No masses Extremities: Other (RLE BKA clean, dry. LLE with medial ulcer 4cm x8 cm well demarcated. Fluctuance 4th and 5th dorsal MTP joint with surrounding erythema and crepitus) Skin: Other (left leg medial ulcer and left anterior foot hot red, crepitus, dry gangrene) Labs LABS EXAM: Left lower extremity arterial Doppler sonogram. HISTORY: Nonhealing wound. Peripheral vascular disease. Atherosclerosis. TECHNIQUE: [place] scale and color Doppler sonographic imaging of the left lower extremity arteries with spectral analysis was performed. COMPARISON: None. FINDINGS: There is moderate atherosclerotic plaque throughout the left lower extremity arteries. The posterior tibial artery is not seen. There are elevated peak systolic velocities the common femoral, deep femoral and proximal superficial femoral artery, measuring 208 cm/s, 190 cm/s, and one 93 cm/s, respectively. IMPRESSION: 1. Moderate atherosclerotic plaque throughout the lower extremity arteries and elevated peak systolic velocities in the common femoral, deep femoral and proximal superficial femoral artery, consistent with hemodynamically significant stenosis. 2. Nonvisualization of the posterior tibial artery. This may be due to low flow or occlusion. Electronically signed by: Salena Hodges MD (11/28/2020 2:38 PM) [id number] DICTATED and SIGNED BY: SALENA HODGES MD DATE: 11/28/20 [id number] Laboratory Tests Test 12/04/20 11:55 12/04/20 16:57 12/04/20 20:47 12/05/20 07:18 Glucose (Fingerstick) 215 mg/dL (70-99) 131 mg/dL (70-99) 80 mg/dL (70-99) 197 mg/dL (70-99) Assessment and Plan Assessmemt and Plan Problems Medical Problems: (1) Gas gangrene of foot Status: Acute Comment Review of Relevant I have reviewed the following items mady (where applicable) has been applied. Labs Laboratory Tests Test 12/03/20 10:59 12/03/20 16:16 12/03/20 20:35 12/04/20 07:26 Glucose (Fingerstick) 229 mg/dL (70-99) 80 mg/dL (70-99) 291 mg/dL (70-99) 220 mg/dL (70-99) Test 12/04/20 11:55 12/04/20 16:57 12/04/20 20:47 12/05/20 07:18 Glucose (Fingerstick) 215 mg/dL (70-99) 131 mg/dL (70-99) 80 mg/dL (70-99) 197 mg/dL (70-99) Laboratory Tests Test 12/04/20 11:55 12/04/20 16:57 12/04/20 20:47 12/05/20 07:18 Glucose (Fingerstick) 215 mg/dL (70-99) 131 mg/dL (70-99) 80 mg/dL (70-99) 197 mg/dL (70-99) Microbiology 11/28/20 Gram Stain - Final, Complete 11/28/20 Aerobic and Anaerobic Culture - Final, Complete 11/28/20 Blood Culture - Final, Complete NO GROWTH AFTER 5 DAYS Medications Current Medications Piperacillin Sod/ Tazobactam Sod 3.375 gm/Sodium Chloride 50 ml @ 100 mls/hr 1X ONCE IV Last administered on 11/28/20at 09:18; Start 11/28/20 at 09:00; Stop 11/28/20 at 09:29; Status DC Atorvastatin Calcium (Lipitor) 40 mg QHS PO Last administered on 12/04/20at 21:29; Start 11/28/20 at 21:00 Diltiazem HCl (Cardizem 24hr Cd) 180 mg DAILY PO Last administered on 12/04/20at 09:38; Start 11/29/20 at 10:00 Metoprolol Tartrate (Lopressor) 50 mg BID PO Last administered on 12/04/20at 21:29; Start 11/28/20 at 10:00 Oxycodone/ Acetaminophen (Percocet 5/325) 1 tab PRN Q6HRS PRN PO MODERATE TO SEVERE PAIN Last administered on 11/29/20at 10:14; Start 11/28/20 at 09:45; Stop 11/29/20 at 11:36; Status DC Vitamin D (Vitamin D3) 2,000 unit BID PO Last administered on 12/04/20at 21:28; Start 11/28/20 at 10:15 Insulin Glargine (Lantus Syringe) 30 unit HS SQ Last administered on 12/03/20at 21:37; Start 11/28/20 at 21:00 Ondansetron HCl (Zofran Odt) 8 mg PRN BID PRN PO NAUSEA/VOMITING; Start 11/28/20 at 10:15 Ondansetron HCl (Zofran) 4 mg PRN Q6HRS PRN IVP NAUSEA/VOMITING, 1ST CHOICE Last administered on 12/03/20at 13:42; Start 11/28/20 at 09:45 Acetaminophen (Tylenol) 650 mg PRN Q6HRS PRN PO Headaches, Temp > 101.5F; Start 11/28/20 at 09:45 Bisacodyl (Dulcolax Supp) 10 mg PRN DAILY PRN NC CONSTIPATION; Start 11/28/20 at 09:45 Linezolid/Dextrose 300 ml @ 300 mls/hr Q12HR IV ; Start 11/28/20 at 21:00; Status UNV Clindamycin Phosphate 50 ml @ 100 mls/hr Q8HRS IV Last administered on 11/30/20at 06:00; Start 11/28/20 at 22:00; Stop 11/30/20 at 11:24; Status DC Linezolid/Dextrose 300 ml @ 300 mls/hr Q12HR IV Last administered on 11/30/20at 08:14; Start 11/28/20 at 13:00; Stop 11/30/20 at 11:24; Status DC Clindamycin Phosphate 50 ml @ 100 mls/hr 1X ONCE IV Last administered on 11/28at 13:18; Start 11/28/20 at 13:00; Stop 11/28/20 at 13:29; Status DC Morphine Sulfate (Morphine Sulfate) 4 mg PRN Q2HR PRN IV PAIN Last administered on 11/28/20at 13:19; Start 11/28/20 at 13:00; Stop 11/28/20 at 16:56; Status DC Metoclopramide HCl (Reglan Vial) 10 mg PRN Q6HRS PRN IVP NAUSEA/VOMITING, 2ND CHOICE Last administered on 11/29/20at 08:47; Start 11/28/20 at 13:00 Insulin Human Lispro (HumaLOG) 0-9 UNITS TIDWMEALS SQ Last administered on 12/05/20at 07:54; Start 11/28/20 at 17:00 Dextrose (Dextrose 50%-Water Syringe) 12.5 gm PRN Q15MIN PRN IV SEE COMMENTS; Start 11/28/20 at 13:00 Ondansetron HCl (Zofran) 4 mg PRN Q6HRS PRN IV NAUSEA/VOMITING Last administered on 11/28/20at 18:19; Start 11/28/20 at 13:45; Stop 11/29/20 at 11:36; Status DC Fentanyl Citrate (Fentanyl 2ml Vial) 25 mcg PRN Q5MIN PRN IV MILD PAIN 1-3; Start 11/28/20 at 13:45; Stop 11/28/20 at 22:00; Status DC Fentanyl Citrate (Fentanyl 2ml Vial) 50 mcg PRN Q5MIN PRN IV MODERATE TO SEVERE PAIN Last administered on 11/28/20at 16:06; Start 11/28/20 at 13:45; Stop 11/28/20 at 22:00; Status DC Morphine Sulfate (Morphine Sulfate) 1 mg PRN Q10MIN PRN IV SEVERE PAIN 7-10; Start 11/28/20 at 13:45; Stop 11/28/20 at 22:00; Status DC Ringer's Solution 1,000 ml @ 30 mls/hr Q24H IV ; Start 11/28/20 at 13:45; Stop 11/29/20 at 01:44; Status DC Lidocaine HCl (Xylocaine-Mpf 1% 2ml Vial) 2 ml PRN 1X PRN ID PRIOR TO IV START; Start 11/28/20 at 13:45; Stop 11/28/20 at 22:00; Status DC Hydromorphone HCl (Dilaudid) 0.5 mg PRN Q10MIN PRN IV SEV PAIN, Second choice; Start 11/28/20 at 13:45; Stop 11/28/20 at 22:00; Status DC Prochlorperazine Edisylate (Compazine) 5 mg PACU PRN PRN IV NAUSEA, MRX1; Start 11/28/20 at 13:45; Stop 11/28/20 at 22:00; Status DC Propofol (Diprivan) 200 mg STK-MED ONCE IV ; Start 11/28/20 at 13:53; Stop 11/28/20 at 13:53; Status DC Dexamethasone Sodium Phosphate (Decadron) 4 mg STK-MED ONCE .ROUTE ; Start 11/28/20 at 13:53; Stop 11/28/20 at 13:53; Status DC Lidocaine HCl (Lidocaine Pf 2% Vial) 5 ml STK-MED ONCE .ROUTE ; Start 11/28/20 at 13:53; Stop 11/28/20 at 13:53; Status DC Ondansetron HCl (Zofran) 4 mg STK-MED ONCE .ROUTE ; Start 11/28/20 at 13:53; Stop 11/28/20 at 13:53; Status DC Insulin Human Lispro (HumaLOG VIAL for OP,RR ONLY) 0-10 units PRN Q1HR PRN SQ PER PROTOCOL Last administered on 11/28/20at 16:41; Start 11/28/20 at 14:45; Stop 11/29/20 at 10:24; Status DC Phenylephrine HCl (PHENYLEPHRINE in 0.9% NACL PF) 1 mg STK-MED ONCE IV ; Start 11/28/20 at 14:57; Stop 11/28/20 at 14:57; Status DC Sevoflurane (Ultane) 30 ml STK-MED ONCE IH ; Start 11/28/20 at 14:57; Stop 11/28/20 at 14:57; Status DC Hydromorphone HCl (Dilaudid) 2 mg STK-MED ONCE .ROUTE ; Start 11/28/20 at 15:18; Stop 11/28/20 at 15:18; Status DC Fentanyl Citrate (Fentanyl 2ml Vial) 100 mcg STK-MED ONCE .ROUTE ; Start 11/28/20 at 16:04; Stop 11/28/20 at 16:04; Status DC Morphine Sulfate (Morphine Sulfate) 2 mg PRN Q2HR PRN IV MODERATE PAIN Last administered on 12/02/20at 13:15; Start 11/28/20 at 17:00; Stop 12/02/20 at 18:05; Status DC Oxycodone/ Acetaminophen (Percocet 5/325) 1 tab PRN Q4HRS PRN PO MODERATE TO SEVERE PAIN Last administered on 12/04/20at 09:51; Start 11/28/20 at 17:00; Stop 12/04/20 at 15:48; Status DC Insulin Human Lispro (HumaLOG) 4 units TIDWMEALS SQ Last administered on 11/29/20at 12:32; Start 11/29/20 at 08:00; Stop 12/01/20 at 14:45; Status DC Magnesium Sulfate 50 ml @ 25 mls/hr 1X ONCE IV Last administered on 11/28/20at 23:38; Start 11/28/20 at 22:00; Stop 11/28/20 at 23:59; Status DC Enoxaparin Sodium (Lovenox 40mg Syringe) 40 mg Q24H SQ Last administered on 12/04/20at 09:37; Start 11/29/20 at 11:00 Aspirin (Aspirin Chewable) 81 mg DAILY PO Last administered on 12/04/20at 09:38; Start 11/29/20 at 15:00 Docusate Sodium (Colace) 100 mg BID PO Last administered on 12/04/20at 21:28; Start 11/29/20 at 21:00 Fenofibrate (Lofibra) 54 mg DAILY PO Last administered on 12/04/20at 09:38; Start 11/29/20 at 15:00 Glipizide (Glucotrol) 5 mg BIDAC PO Last administered on 12/05/20at 07:46; Start 11/29/20 at 16:30 Pseudoephedrine HCl (Sudafed 12-Hour) 120 mg PRN BID PRN PO NASAL CONGESTION; Start 11/29/20 at 14:45; Stop 11/29/20 at 14:42; Status DC Insulin Human Lispro (HumaLOG) 8 units TIDAC SQ Last administered on 12/05/20at 07:55; Start 11/29/20 at 16:30 Potassium Chloride (Klor-Con) 40 meq 1X ONCE PO Last administered on 11/29/20at 18:42; Start 11/29/20 at 14:45; Stop 11/29/20 at 14:46; Status DC Lactobacillus Rhamnosus (Culturelle) 1 cap BID PO Last administered on 12/04/20 at 21:29; Start 11/29/20 at 21:00 Ringer's Solution 1,000 ml @ 100 mls/hr Q10H IV Last administered on 12/02/20at 11:13; Start 11/29/20 at 15:00; Stop 12/02/20 at 18:05; Status DC Insulin Human Lispro (HumaLOG) 15 units 1X ONCE SQ Last administered on at 22:13; Start 11/29/20 at 22:00; Stop 11/29/20 at 22:01; Status DC Ondansetron HCl (Zofran) 4 mg PRN Q6HRS PRN IV NAUSEA/VOMITING; Start 12/01/20 at 07:00; Stop 12/01/20 at 20:00; Status DC Fentanyl Citrate (Fentanyl 2ml Vial) 25 mcg PRN Q5MIN PRN IV MILD PAIN 1-3; Start 12/01/20 at 07:00; Stop 12/01/20 at 20:00; Status DC Fentanyl Citrate (Fentanyl 2ml Vial) 50 mcg PRN Q5MIN PRN IV MODERATE TO SEVERE PAIN Last administered on 12/01/20at 09:46; Start 12/01/20 at 07:00; Stop 12/01/20 at 20:00; Status DC Morphine Sulfate (Morphine Sulfate) 1 mg PRN Q10MIN PRN IV SEVERE PAIN 7-10; Start 12/01/20 at 07:00; Stop 12/01/20 at 20:00; Status DC Ringer's Solution 1,000 ml @ 30 mls/hr Q24H IV ; Start 12/01/20 at 07:00; Stop 12/01/20 at 18:59; Status DC Lidocaine HCl (Xylocaine-Mpf 1% 2ml Vial) 2 ml PRN 1X PRN ID PRIOR TO IV START; Start 12/01/20 at 07:00; Stop 12/01/20 at 20:01; Status DC Hydromorphone HCl (Dilaudid) 0.5 mg PRN Q10MIN PRN IV SEV PAIN, Second choice; Start 12/01/20 at 07:00; Stop 12/01/20 at 20:00; Status DC Prochlorperazine Edisylate (Compazine) 5 mg PACU PRN PRN IV NAUSEA, MRX1; Start 12/01/20 at 07:00; Stop 12/02/20 at 06:59; Status DC Piperacillin Sod/ Tazobactam Sod 3.375 gm/Sodium Chloride 50 ml @ 100 mls/hr Q8HRS IV Last administered on 12/01/20at 13:39; Start 11/30/20 at 14:00; Stop 12/01/20 at 14:48; Status DC Ondansetron HCl (Zofran) 4 mg STK-MED ONCE .ROUTE ; Start 12/01/20 at 06:22; Stop 12/01/20 at 06:22; Status DC Propofol (Diprivan) 200 mg STK-MED ONCE IV ; Start 12/01/20 at 06:22; Stop 1 at 06:22; Status DC Lidocaine HCl (Lidocaine Pf 2% Vial) 5 ml STK-MED ONCE .ROUTE ; Start 12/01/20 at 06:22; Stop 12/01/20 at 06:22; Status DC Dexamethasone Sodium Phosphate (Decadron) 4 mg STK-MED ONCE .ROUTE ; Start 12/01/20 at 06:22; Stop 12/01/20 at 06:22; Status DC Fentanyl Citrate (Fentanyl 2ml Vial) 100 mcg STK-MED ONCE .ROUTE ; Start 12/01/20 at 07:12; Stop 12/01/20 at 07:13; Status DC Insulin Human Lispro (HumaLOG VIAL for OP,RR ONLY) 0-10 units PRN Q1HR PRN SQ PER PROTOCOL Last administered on 12/01/20at 09:34; Start 12/01/20 at 07:15; Stop 12/02/20 at 07:14; Status DC Fentanyl Citrate (Fentanyl 2ml Vial) 100 mcg STK-MED ONCE .ROUTE ; Start 12/01/20 at 07:46; Stop 12/01/20 at 07:47; Status DC Sevoflurane (Ultane) 30 ml STK-MED ONCE IH ; Start 12/01/20 at 08:05; Stop 12/01/20 at 08:06; Status DC Sevoflurane (Ultane) 60 ml STK-MED ONCE IH ; Start 12/01/20 at 08:40; Stop 12/01/20 at 08:41; Status DC Fentanyl Citrate (Fentanyl 2ml Vial) 100 mcg STK-MED ONCE .ROUTE ; Start 12/01/20 at 09:30; Stop 12/01/20 at 09:31; Status DC Hydromorphone HCl (Dilaudid) 1 mg 1X ONCE IVP Last administered on 12/01/20at 10:39; Start 12/01/20 at 10:30; Stop 12/01/20 at 10:31; Status DC Gabapentin (Neurontin) 100 mg TID PO Last administered on 12/02/20at 14:32; Start 12/01/20 at 14:00; Stop 12/02/20 at 18:05; Status DC Morphine Sulfate (Morphine Oral Solution) 10 mg PRN Q3HRS PRN PO SEVERE PAIN- 2ND CHOICE Last administered on 12/01/20at 17:51; Start 12/01/20 at 12:45; Stop 12/02/20 at 18:05; Status DC Piperacillin Sod/ Tazobactam Sod 3.375 gm/Sodium Chloride 50 ml @ 100 mls/hr Q6HRS IV Last administered on 12/05/20at 06:02; Start 12/01/20 at 18:00 Hydromorphone HCl (Dilaudid) 2 mg PRN Q3HRS PRN IVP SEVERE PAIN Last administered on 12/05/20at 00:02; Start 12/01/20 at 19:00 Gabapentin (Neurontin) 300 mg TID PO Last administered on 12/04/20at 14:32; Start 12/02/20 at 21:00; Stop 12/04/20 at 15:47; Status DC Hydromorphone HCl (Dilaudid) 4 mg PRN Q3HRS PRN IVP SEVERE PAIN 7-10 Last administered on 12/04/20at 03:54; Start 12/03/20 at 07:30 Psyllium Hydrophilic Mucilloid (Metamucil Fiber Packet) 1 pkt QHS PO Last administered on 12/03/20at 21:27; Start 12/03/20 at 10:30 Polyethylene Glycol (miraLAX PACKET) 17 gm PRN BID PRN PO CONSTIPATION, 1st CHOICE Last administered on 12/04/20at 21:28; Start 12/04/20 at 12:00 Senna/Docusate Sodium (Senna Plus) 2 tab PRN BID PRN PO CONSTIPATION, 2nd CHOICE Last administered on 12/04/20at 12:34; Start 12/04/20 at 12:00 Magnesium Citrate (Citroma) 296 ml PRN 1X PRN PO CONSTIPATION, 4th CHOICE; Start 12/04/20 at 12:00 Lactulose (Lactulose) 20 gm PRN DAILY PRN PO CONSTIPATION, 3rd CHOICE; Start 12/04/20 at 12:00 Oxycodone/ Acetaminophen (Percocet 5/325) 2 tab PRN Q4HRS PRN PO MODERATE PAIN, SEVERE PAIN Last administered on 12/05/20at 06:01; Start 12/04/20 at 12:00 Trazodone HCl (Desyrel) 100 mg PRN QHS PRN PO INSOMNIA; Start 12/04/20 at 12:00 Gabapentin (Neurontin) 300 mg TID PO Last administered on 12/04/20at 21:28; Start 12/04/20 at 21:00 Active Scripts Active Atorvastatin Calcium 40 Mg Tablet 40 Mg PO QHS MDD 1 Sinus 12-Hour (Pseudoephedrine Hcl) 120 Mg Tablet.er 120 Mg PO PRN BID PRN 7 Days Vitamin D (Cholecalciferol (Vitamin D3)) 2,000 Unit Capsule 1 Cap PO BID Cool Blood Glucose Meter (Blood-Glucose Meter) 1 Each Each Each dm please also dispense test strips and lancets quantity sufficient for 1 month Fenofibrate 54 Mg Tablet 54 Mg PO DAILY 30 Days Reported Colace (Docusate Sodium) 100 Mg Capsule 1 Cap PO BID 30 Days Zofran (Ondansetron Hcl) 8 Mg Tablet 8 Mg PO BID PRN Percocet 5-325 mg Tablet (Oxycodone HCl/Acetaminophen) 1 Each Tablet 1 Tab PO PRN Q6HRS PRN MDD 2 Tablet(s) 5 Days Metoprolol Tartrate 50 Mg Tablet 50 Mg PO BID Levemir (Insulin Detemir) 100 Unit/1 Ml Vial 30 Unit SQ HS Aspirin 81 Mg Tab.chew 1 Tab PO DAILY Glipizide 5 Mg Tablet 1 Tab PO BID Cardizem Cd (Diltiazem Hcl) 180 Mg Cap.er.24h 1 Cap PO DAILY Metformin Hcl 1,000 Mg Tablet 1,000 Mg PO BID hold for 48 hours. Next dose 04/09 evening dose Vitals/I & O Vital Sign - Last 24 Hours 12/04/20 12/04/20 12/04/20 12/04/20 08:30 09:38 09:39 09:51 Pulse 102 102 B/P (MAP) 140/71 140/71 Pulse Ox 97 O2 Delivery Nasal Cannula Room Air O2 Flow Rate 2.0 2.0 12/04/20 12/04/20 12/04/20 12/04/20 09:52 11:00 11:40 11:40 Temp 97.6 97.6 Pulse 96 Resp 16 B/P (MAP) 143/67 (92) Pulse Ox 97 91 91 O2 Delivery Room Air Room Air Room Air Room Air O2 Flow Rate 2.0 2.0 2.0 12/04/20 12/04/20 12/04/20 12/04/20 12:34 14:13 15:00 16:48 Temp 97.7 97.7 Pulse 87 Resp 16 B/P (MAP) 115/50 (71) Pulse Ox 91 91 94 94 O2 Delivery Room Air Room Air Room Air Room Air O2 Flow Rate 2.0 2.0 12/04/20 12/04/20 12/04/20 12/04/20 18:14 19:00 19:30 21:29 Temp 97.3 97.3 Pulse 95 95 Resp 16 B/P (MAP) 150/70 (96) 150/70 Pulse Ox 97 97 O2 Delivery Room Air Nasal Cannula Room Air O2 Flow Rate 2.0 2.0 12/04/20 12/04/20 12/04/20 12/05/20 21:30 22:40 23:00 00:02 Temp 98.2 98.2 Pulse 103 Resp 16 B/P (MAP) 140/53 (82) Pulse Ox 97 97 98 98 O2 Delivery Nasal Cannula Nasal Cannula Nasal Cannula Nasal Cannula O2 Flow Rate 2.0 2.0 2.0 2.0 12/05/20 12/05/20 12/05/20 12/05/20 00:35 03:00 06:01 07:00 Temp 98.5 98.1 98.5 98.1 Pulse 92 87 Resp 18 18 B/P (MAP) 139/68 (91) 121/51 (74) Pulse Ox 98 99 99 93 O2 Delivery Nasal Cannula Nasal Cannula Nasal Cannula Nasal Cannula O2 Flow Rate 2.0 2.0 2.0 2.0 12/05/20 07:01 Pulse Ox 99 O2 Delivery Room Air Intake and Output 12/04/20 12/04/20 12/05/20 15:00 23:00 07:00 Intake Total 600 ml 120 ml Output Total 275 ml Balance 325 ml 120 ml Justicifation of Admission Dx: Justifications for Admission: Justification of Admission Dx: N/A MACIEL ZHU MD Dec 05, 2020 08:13
--- NOTE | 2020-12-05 08:44 | PDOC ---
Infectious Disease Note Subjective: Subjective Patient complains of pain at the surgery site Just underwent dressing by vascular surgery earlier this a.m. Had blisters Denies fever, nausea, vomiting, shortness of breath, diarrhea, abdominal pain, Some skin irritation at the left knee area Otherwise as above Vital Signs: Vital Signs Vital Signs Date Time Temp Pulse Resp B/P (MAP) Pulse Ox O2 Delivery O2 Flow Rate FiO2 12/05/20 07:01 99 Room Air 12/05/20 07:00 98.1 87 18 121/51 (74) 2.0 98.1 Physical Exam: PHYSICAL EXAM GENERAL: Alert, oriented female, not in any distress. VITAL SIGNS: Stable, afebrile. HEENT: NAD. NECK: Supple, no JVP, no lymphadenopathy. LUNGS: Clear. HEART: S1, S2 regular. ABDOMEN: Benign. EXTREMITIES: Right BKA unremarkable. 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 No focal neurologic deficit. Medications: Inpatient Meds: Current Medications Medications (Trade) Dose Ordered Sig/Perry Start Time Stop Time Status Last Admin Dose Admin Acetaminophen (Tylenol) 650 mg PRN Q6HRS PRN 11/28/20 09:45 Aspirin (Aspirin Chewable) 81 mg DAILY 11/29/20 15:00 12/04/20 09:38 81 MG Atorvastatin Calcium (Lipitor) 40 mg QHS 11/28/20 21:00 12/04/20 21:29 40 MG Bisacodyl (Dulcolax Supp) 10 mg PRN DAILY PRN 11/28/20 09:45 Clindamycin Phosphate 50 ml @ 100 mls/hr 1X ONCE 11/28/20 13:00 11/28/20 13:29 DC 11/28/20 13:18 100 MLS/HR Dexamethasone Sodium Phosphate (Decadron) 4 mg STK-MED ONCE 12/01/20 06:22 12/01/20 06:22 DC Dextrose (Dextrose 50%-Water Syringe) 12.5 gm PRN Q15MIN PRN 11/28/20 13:00 Diltiazem HCl (Cardizem 24hr Cd) 180 mg DAILY 11/29/20 10:00 12/04/20 09:38 180 MG Docusate Sodium (Colace) 100 mg BID 11/29/20 21:00 12/04/20 21:28 100 MG Enoxaparin Sodium (Lovenox 40mg Syringe) 40 mg Q24H 11/29/20 11:00 12/04/20 09:37 40 MG Fenofibrate (Lofibra) 54 mg DAILY 11/29/20 15:00 12/04/20 09:38 54 MG Fentanyl Citrate (Fentanyl 2ml Vial) 100 mcg STK-MED ONCE 12/01/20 09:30 12/01/20 09:31 DC Gabapentin (Neurontin) 300 mg TID 12/04/20 21:00 12/04/20 21:28 300 MG Glipizide (Glucotrol) 5 mg BIDAC 11/29/20 16:30 12/05/20 07:46 5 MG Hydromorphone HCl (Dilaudid) 4 mg PRN Q3HRS PRN 12/03/20 07:30 12/04/20 03:54 4 MG Insulin Glargine (Lantus Syringe) 30 unit HS 11/28/20 21:00 12/03/20 21:37 30 UNIT Insulin Human Lispro (HumaLOG VIAL for OP,RR ONLY) 0-10 units PRN Q1HR PRN 12/01/20 07:15 12/02/20 07:14 DC 12/01/20 09:34 4 UNIT Insulin Human Lispro (HumaLOG) 15 units 1X ONCE 11/29/20 22:00 11/29/20 22:01 DC 11/29/20 22:13 15 UNITS Lactobacillus Rhamnosus (Culturelle) 1 cap BID 11/29/20 21:00 12/04/20 21:29 1 CAP Lactulose (Lactulose) 20 gm PRN DAILY PRN 12/04/20 12:00 Lidocaine HCl (Lidocaine Pf 2% Vial) 5 ml STK-MED ONCE 12/01/20 06:22 12/01/20 06:22 DC Lidocaine HCl (Xylocaine-Mpf 1% 2ml Vial) 2 ml PRN 1X PRN 12/01/20 07:00 12/01/20 20:01 DC Linezolid/Dextrose 300 ml @ 300 mls/hr Q12HR 11/28/20 13:00 11/30/20 11:24 DC 11/30/20 08:14 300 MLS/HR Magnesium Citrate (Citroma) 296 ml PRN 1X PRN 12/04/20 12:00 Magnesium Sulfate 50 ml @ 25 mls/hr 1X ONCE 11/28/20 22:00 11/28/20 23:59 DC 11/28/20 23:38 25 MLS/HR Metoclopramide HCl (Reglan Vial) 10 mg PRN Q6HRS PRN 11/28/20 13:00 11/29/20 08:47 10 MG Metoprolol Tartrate (Lopressor) 50 mg BID 11/28/20 10:00 12/04/20 21:29 50 MG Morphine Sulfate (Morphine Sulfate) 1 mg PRN Q10MIN PRN 12/01/20 07:00 12/01/20 20:00 DC Morphine Sulfate (Morphine Oral Solution) 10 mg PRN Q3HRS PRN 12/01/20 12:45 12/02/20 18:05 DC 12/01/20 17:51 10 MG Ondansetron HCl (Zofran Odt) 8 mg PRN BID PRN 11/28/20 10:15 Ondansetron HCl (Zofran) 4 mg STK-MED ONCE 12/01/20 06:22 12/01/20 06:22 DC Oxycodone/ Acetaminophen (Percocet 5/325) 2 tab PRN Q4HRS PRN 12/04/20 12:00 12/05/20 06:01 2 TAB Phenylephrine HCl (PHENYLEPHRINE in 0.9% NACL PF) 1 mg STK-MED ONCE 11/28/20 14:57 11/28/20 14:57 DC Piperacillin Sod/ Tazobactam Sod 3.375 gm/Sodium Chloride 50 ml @ 100 mls/hr Q6HRS 12/01/20 18:00 12/05/20 06:02 100 MLS/HR Polyethylene Glycol (miraLAX PACKET) 17 gm PRN BID PRN 12/04/20 12:00 12/04/20 21:28 17 GM Potassium Chloride (Klor-Con) 40 meq 1X ONCE 11/29/20 14:45 11/29/20 14:46 DC 11/29/20 18:42 40 MEQ Prochlorperazine Edisylate (Compazine) 5 mg PACU PRN PRN 12/01/20 07:00 12/02/20 06:59 DC Propofol (Diprivan) 200 mg STK-MED ONCE 12/01/20 06:22 12/01/20 06:22 DC Pseudoephedrine HCl (Sudafed 12-Hour) 120 mg PRN BID PRN 11/29/20 14:45 11/29/20 14:42 DC Psyllium Hydrophilic Mucilloid (Metamucil Fiber Packet) 1 pkt QHS 12/03/20 10:30 12/03/20 21:27 1 PKT Ringer's Solution 1,000 ml @ 30 mls/hr Q24H 12/01/20 07:00 12/01/20 18:59 DC Senna/Docusate Sodium (Senna Plus) 2 tab PRN BID PRN 12/04/20 12:00 12/04/20 12:34 2 TAB Sevoflurane (Ultane) 60 ml STK-MED ONCE 12/01/20 08:40 12/01/20 08:41 DC Trazodone HCl (Desyrel) 100 mg PRN QHS PRN 12/04/20 12:00 Vitamin D (Vitamin D3) 2,000 unit BID 11/28/20 10:15 12/04/20 21:28 2,000 UNIT Labs: Lab Laboratory Tests Test 12/04/20 11:55 12/04/20 16:57 12/04/20 20:47 12/05/20 07:18 Glucose (Fingerstick) 215 mg/dL (70-99) 131 mg/dL (70-99) 80 mg/dL (70-99) 197 mg/dL (70-99) Micro RUN DATE: 12/04/20 [facility] LAB *LIVE* PAGE 1 RUN TIME: 1102 Specimen Inquiry PATIENT: DENNIS JAIMES ACCT: [id number] LOC: [address] [place] [address] U: [id number] AGE/SX: 55/F ROOM: 4 RE11/28/[address]: TAJ GHOSH MD : 1965 BED: 1 DIS: STATUS: ADM IN TLOC: ---- -------- SPEC #: [id number] RACHAEL: 11/28/20-1502 STATUS: COMP REQ #: [id number] RECD: 11/28/20-[address]: TAJ GHOSH MD SOURCE: FOOT ENTR: 11/29/[address]: FABRIZIO GALAVIZ MD SPDESC: ELAYNE MATTHEWS MD, DOUGLAS M DO PULS, DARCY L MD ORDERED: LUANA/CAMMY/HÉCTOR COMMENTS: LEFT FOOT ABSCESS Procedure Result GRAM STAIN Final Final GRAM NEG COCCOBACILLI:MODERATE GRAM POSITIVE COCCI:MODERATE SQUAMOUS EPI CELL:NONE SEEN PMN (WBCs):RARE Unless otherwise specified, Testing Performed by: [address] [address] For Inquires, the Physician may contact the Microbiology department at [phone] ANAEROBIC-AEROBIC CULTURE Final Final MANY [STAPHYLOCOCCUS AUREUS] on 11/30/20 at 0941 SEE CULTURE AN5 FOR SUSCEPTIBILITIES MANY [STREPTOCOCCUS MITIS/ORALIS GRP] on 12/01/20 at 1136 MANY ANAEROBIC GRAM NEGATIVE RODS on 12/02/20 at 1412 FINAL ID= [PORPHYROMONAS SOMERAE] MANY ANAEROBIC GRAM POSITIVE COCCI on 12/03/20 at 1317 FINAL ID= [ANAEROCOCCUS VAGINALIS] STREPTOCOCCUS MITIS/ORALIS GRP PORPHYROMONAS SOMERAE ANAEROCOCCUS VAGINALIS STAPHYLOCOCCUS AUREUS Unless otherwise specified, Testing Performed by: [address] [address] For Inquires, the Physician may contact the Microbiology department at [phone] ---- -------- RUN DATE: 12/03/20 [facility] LAB *LIVE* PAGE 1 RUN TIME: 1055 Specimen Inquiry PATIENT: DENNIS JAIMES ACCT: [id number] LOC: [address] [place] [address] U: [id number] AGE/SX: 55/F ROOM: 4 RE11/28/[address]: TAJ GHOSH MD : 1965 BED: 1 DIS: STATUS: ADM IN TLOC: SPEC #: [id number] RACHAEL: 11/28/20 STATUS: COMP REQ #: [id number] RECD: 11/28/[address]: TAJ GHOSH MD SOURCE: LEG ENTR: 11/28/[address]: FABRIZIO GALAVIZ MD SPDESC: DRAINAGE ELAYNE CRAIG MD, DARCY L MD ORDERED: LUANA/CAMMY/HÉCTOR COMMENTS: LEFT LEG WOUND Procedure Result GRAM STAIN Final Final GRAM NEGATIVE RODS:RARE GRAM POSITIVE COCCI:MANY SQUAMOUS EPI CELL:NONE SEEN PMN (WBCs):MODERATE Unless otherwise specified, Testing Performed by: [address] [address] For Inquires, the Physician may contact the Microbiology department at [phone] ANAEROBIC-AEROBIC CULTURE Final Final FEW GRAM NEGATIVE RODS on 11/29/20 at 0858 FINAL ID= [PSEUDOMONAS AERUGINOSA] MODERATE [STAPHYLOCOCCUS AUREUS] on 11/29/20 at 1251 MODERATE [STREPTOCOCCUS MITIS/ORALIS] on 12/01/20 at 1139 NO ANAEROBIC ORGANISMS ISOLATED on 12/03/20 at 1052 PSEUDOMONAS AERUGINOSA STAPHYLOCOCCUS AUREUS STREPTOCOCCUS MITIS/ORALIS ANTIMICROBIAL SUSCEPTIBILITY Final Comment Comment NEG JAIME 56 PSEUDOMONAS AERUGINOSA ANTIBIOTIC RESULT INTERPRETATION AMIKACIN 32 I AZTREONAM <=4 S CEFTAZIDIME 4 S CIPROFLOXACIN 1 S CEFEPIME 8 S CEFTAZIDIME/AVIBACTAM <=4 S GENTAMICIN >8 R LEVOFLOXACIN 4 I RUN DATE: 12/03/20 [email or web address] LAB *LIVE* PAGE 2 RUN TIME: 1055 Specimen Inquiry SPEC: [id number] PATIENT: GLORIALaurieDENNIS [id number] (Continued) Procedure Result ---- -------- CONTINUED ON NEXT PAGE RUN DATE: 12/03/20 [facility] *LIVE* PAGE 3 RUN TIME: 1055 Specimen Inquiry SPEC: [id number] PATIENT: GLORIALaurieDENNIS [id number] (Continued) Procedure Result ANTIMICROBIAL SUSCEPTIBILITY Final (continued) MEROPENEM <=1 S PIPERACILLIN/TAZOBACTAM <=8 S TOBRAMYCIN 4 S POS JAIME TYPE 38 STAPHYLOCOCCUS AUREUS ANTIBIOTIC RESULT INTERPRETATION AZITHROMYCIN <=2 S CLINDAMYCIN <=0.25 S CEFOXITIN SCREEN <=4 NEG CIPROFLOXACIN <=1 S CEFTAROLINE <=0.5 S DAPTOMYCIN 1 S ERYTHROMYCIN <=0.25 S GENTAMICIN <=4 S LINEZOLID 2 S LEVOFLOXACIN <=1 S OXACILLIN <=0.25 S PENICILLIN >2 Yessica RIFAMPIN <=1 S TRIMETHOPRIM/SULFAMETHOXAZOLE <=0.5/9.5 S TETRACYCLINE <=4 S VANCOMYCIN 1 S Unless otherwise specified, Testing Performed by: [address] [address] For Inquires, the Physician may contact the Microbiology department at [phone] Objective: Assessment: 1. Gangrene of the left foot. Status post BKA 2. Cellulitis of the left foot. 3. Gas forming organism with subcutaneous air in the left foot. 4. Chronic wound on the back of the left leg. 5. Leukocytosis. 6. Diabetes with poor control. 7. Hypertension. 8. Coronary artery disease. 9. Peripheral vascular disease. Plan: Plan of Care Continue Zosyn. Continue supportive care Local wound care as directed Continue to monitor Discussed with son-in-law at bedside Discussed with ELAYNE SON MD Dec 05, 2020 08:44
[2020-12-05] MEDS: FENOFIBRATE 54 MG TABLET. PO SCH (09:16)
[2020-12-05] MEDS: ASPIRIN CHEWABLE 81 MG TABLET. PO SCH (09:16)
[2020-12-05] MEDS: DOCUSATE SODIUM 100 MG CAPSULE. PO SCH ×2 (09:16→20:59)
[2020-12-05] MEDS: GABAPENTIN 300 MG CAPSULE. PO SCH ×3 (09:16→20:59)
[2020-12-05] MEDS: LACTOBACILLUS RHAMNOSUS GG 1 CAPSULE. PO SCH ×2 (09:16→20:59)
[2020-12-05] MEDS: CHOLECALCIFEROL (VITAMIN D3) 1,000 UNIT TABLET PO SCH ×2 (09:16→20:58)
[2020-12-05] MEDS: METOPROLOL TART IMMED RELEASE 50 MG TABLET. PO SCH ×2 (09:17→20:59)
--- NOTE | 2020-12-05 09:49 | PDOC ---
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 Chris and he agrees with above Justicifation of Admission Dx: Justifications for Admission: Justification of Admission Dx: N/A MAUREEN LOERA APRN Dec 05, 2020 09:49
[2020-12-05 11:00] VITALS: BP 120/66
[2020-12-05] MEDS: ENOXAPARIN 40 MG/0.4 ML SYRINGE. SQ SCH (11:00)
--- NOTE | 2020-12-05 11:08 | PATHOLOGY ---
[facility] Accession Number: [id number] . 01 Material submitted: . leg - LEFT LOWER LEG AND FOOT. Modifiers: left, lower . 01 Clinical history: . GANGRENE OF LEFT FOOT . 02 Diagnosis: Left lower leg and foot amputation: - Ulceration and necrosis of dorsal aspect of left fourth and fifth toes with extensive acute cellulitis of foot. - Focal ulceration, necrosis, and acute cellulitis of posterior distal calf. - Skin and subcutaneous tissue of proximal amputation margin negative for acute cellulitis. (JPM:michael; 12/05/2020) S 12/05/2020 0933 Local . 02 Electronically signed: . Berto Ahn MD, Pathologist NPI- [id number] . 01 Gross description: . The specimen is received fresh in a red biohazard bag, labeled "Frannie Chamorro, left lower leg and foot". Received is a left [id number] amputation, with all five toes present, measuring 23.1 cm from heel to toe, 19.2 cm from heel to skin margin 20.0 cm from heel to tibial bone margin, and 20.1 cm from heel to fibular bone margin. The skin and soft tissue margins appear viable. The tibial bone margin is blunt in appearance, consistent with transection, and appears grossly unremarkable. The fibular bone margin is jagged in appearance, however, appears grossly unremarkable. On the dorsal aspect of the specimen, overlying the third through fifth toes, there is a surgical incision revealing underlying necrotic-appearing soft tissue. On the epidermal surface between toes 4 and 5, there is a degroot-brown, necrotic-appearing lesion measuring 2.0 x 1.8 cm. On the posterior aspect of the lower calf, there is a poorly circumscribed degroot-brown necrotic-appearing lesion measuring 4.3 x 3.5 cm, which is 1.3 cm from the closest skin margin. Sectioning through the anterior and posterior tibial vasculatures reveals pinpoint to patent lumens. Calcification is not grossly identified. The specimen is submitted representative phlebotomy services as follows: . A1 perpendicular section through skin margin and additional representative phlebotomy services section of skin margin to show relationship with lesion on posterior calf A2-A3 representative phlebotomy services sections of skin and soft tissue from surgical incision on dorsal aspect of foot A4 representative phlebotomy services section of lesion on dorsal aspect of foot between toes 4 and 5 A5 additional representative phlebotomy services section of lesion on posterior aspect of calf A6 anterior and posterior tibial vasculatures. . Gross photographs are taken. (CAA; 12/02/2020) QAC/QAC 12/05/2020 0932 Local . 02 Pathologist provided ICD-10: L97.529, L03.032, I96 . 02 CPT . 985323, 954854 Specimen Comment: A courtesy copy of this report has been sent to [phone] Specimen Comment: Report sent to Performed at: 01 [facility] [address] [facility] [address], [place] [id number] MD Franklin Vogt MD Phone: [phone] Performed at: 02 [facility] [address] [place], [place] [id number] MD Berto Ahn MD Phone: [phone]
--- NOTE | 2020-12-05 11:25 | NUR ---
ADRIAN following. Discussed with RN, pt from home with , room air. [facility] were unable to provide an acceptance decision without therapy notes. ADRIAN faxed therapy notes to [facility], awaiting acceptance decision and insurance auth. ADRIAN will continue to follow. Addendum: 12/05/20 at 1138 by SUNITA CAMPBELL Pt accepted at [facility] pending insurance auth. RN notified.
[2020-12-05 14:30] VITALS: BP 106/47
[2020-12-05 19:00] VITALS: BP 131/64
[2020-12-05] MEDS: ATORVASTATIN CALCIUM 40 MG TABLET. PO SCH (20:59)
[2020-12-05] MEDS: PSYLLIUM HUSK (SUGAR FREE) 1 PKT PACKET PO SCH (20:59)
[2020-12-05] MEDS: INSULIN GLARGINE SYRINGE. SQ SCH (21:10)
[2020-12-05 23:00] VITALS: BP 167/79
[2020-12-06] MEDS: oxyCODONE/APAP 5/325 1 TAB TABLET PO PRN ×4 (00:16→16:19)
[2020-12-06] MEDS: PIPERACILLIN/TAZOBACTAM 3.375 GM in IV NORMAL SALINE 50ML 50 ML IV SCH ×3 (00:16→12:10)
[2020-12-06 03:00] VITALS: BP 153/73
[2020-12-06] MEDS: HYDROmorphone 2 MG/ML VIAL IVP PRN ×2 (04:22→14:55)
[2020-12-06 06:44] LABS: BASO # 0.1 x10^3/uL (0.0-0.2); BASO % 1 % (0-3); EOS # 0.1 x10^3/uL (0.0-0.7); EOS % 1 % (0-3); LYMPH % 21 % (24-48); MEAN CORPUSCULAR HEMOGLOBIN 28 pg (25-35); MEAN CORPUSCULAR HGB CONC 33 g/dL (31-37); MEAN CORPUSCULAR VOLUME 84 fL (79-100); MONO # 0.9 x10^3/uL (0.0-1.1); MONO % 9 % (0-9); NEUT # 6.6 x10^3/uL (1.8-7.7); NEUT % 68 % (31-73); PLATELET COUNT 437 x10^3/uL (140-400); RED BLOOD COUNT 3.22 x10^6/uL (3.50-5.40); RED CELL DISTRIBUTION WIDTH 14.5 % (11.5-14.5); WHITE BLOOD COUNT 9.6 x10^3/uL (4.0-11.0)
[2020-12-06 07:00] VITALS: BP 148/62
[2020-12-06 07:03] LABS: CALCIUM 9.4 mg/dL (8.5-10.1); CREATININE 0.8 mg/dL (0.6-1.0); GFR 74.5; POTASSIUM 4.7 mmol/L (3.5-5.1)
[2020-12-06] MEDS: ASPIRIN CHEWABLE 81 MG TABLET. PO SCH (08:57)
[2020-12-06] MEDS: DOCUSATE SODIUM 100 MG CAPSULE. PO SCH (08:58)
[2020-12-06] MEDS: GABAPENTIN 300 MG CAPSULE. PO SCH ×2 (08:58→12:12)
[2020-12-06] MEDS: FENOFIBRATE 54 MG TABLET. PO SCH (08:58)
[2020-12-06] MEDS: SENNOSIDES/DOCUSATE 8.6/50MG TABLET. PO PRN (08:58)
[2020-12-06] MEDS: LACTOBACILLUS RHAMNOSUS GG 1 CAPSULE. PO SCH (08:58)
[2020-12-06] MEDS: CHOLECALCIFEROL (VITAMIN D3) 1,000 UNIT TABLET PO SCH (08:58)
[2020-12-06] MEDS: glipiZIDE 5 MG TABLET PO SCH ×2 (08:59→17:07)
[2020-12-06] MEDS: METOPROLOL TART IMMED RELEASE 50 MG TABLET. PO SCH (08:59)
[2020-12-06] MEDS: INSULIN LISPRO 300 UNITS/3 ML VIAL. SQ SCH ×6 (09:12→17:00)
--- NOTE | 2020-12-06 10:28 | NUR ---
SW following. Discussed with RN, insurance approved transfer to [facility]. ADRIAN met with pt and pt's daughter at bedside (no isolation precautions at the time), pt happy to hear insurance approved and is okay with discharge today, after seen by vascular. Pt and family had questions about [facility]'s visiting policy - ADRIAN sent message to Mark at [facility] to determine. ADRIAN notified Dr. Cummings and RN of insurance approval, and bed available today. SW awaiting discharge orders. Choice of vendor form completed. ADRIAN will continue to follow. Addendum: 12/06/20 at 1251 by SUNITA CAMPBELL Discharge orders faxed to [facility]. [facility] will collect pt at 1600. RN notified. No further SW needs. Addendum: 12/06/20 at 1540 by SUNITA CAMPBELL Transportation changed to 1730 with a stretcher transportation. ALEE and pt notified.
--- NOTE | 2020-12-06 10:40 | PDOC ---
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 ID consulted for management. Will f/u recs of zosyn until discharge, then 7 days levaquin on d/c Diabetes - with hyperglycemia - will give aggressive insulin regimen Hypomagnesemia - will replace Hyponatremia - related to hyperglycemia, hypovolemia, will replace Hypertension. Coronary artery disease. Plan: Continue Zosyn. iv Continue supportive care Continue to monitor Local wound care as directed At discharge changed to p.o. Levaquin for 5 more days accepted [facility] BKA stump pain is under better control FEN - ADA diet PPX - lovenox FULL CODE Dispo - inpatient for above d/w RN History of Present Illness History of Present Illness Ms Chamorro is a 55yo F w/ PMHx peripheral vascular disease s/p R BKA, diabetes, CVA, atrial fibrillation, hypertension, irritable bowel, kidney stones, HLD, CKD who presents to ED with her c/o left foot redness and swelling. She was walking and hit her left foot against a door frame 11/26/2020 and noted over the past 2 days it has become infected. She notes redness, an odor and popping sensation. Patient already has a nonhealing ulcer on the medial aspect of her left leg for 6 months mid-tibia. She has been unable to get into wound care due to insurance restrictions. Patient denies any fever. Patient denies any chest pain, no abdominal pain. Patient denies any trouble breathing. No recent sick contacts. She has had nausea since 11/23/2020 and has vomited 1 time daily for the past week. Left foot XR with soft tissue swelling along the dorsum of the foot with associated thinning is gas is centered along the fourth metatarsophalangeal joint space. No definite osseous erosion or opaque foreign density. WBC 13.7, Hb 11.5, Platelets 352, Na 127, K 4.1, BUN 13, Cr 1, glucose 572, Mg 1.7, albumin 2.8 11/29: Patient with well controlled pain, no acute events reported overnight, plan of care discussed in detail. she will be going to the or in the am 11/30: Patient complainign fo nausea during my visit, hyperglycemia noted, patient not able to eat much and worried about receiving insulin and having hypogleycemic events, reassruacne provided, family at bedside, all concerns addressed to the best of my abilities 12/01: Patient with a lot of pain after the surgery. Patient is not responded well to Dilaudid since it does not seem to provide her prolonged relief. We will try with oral morphine and start her on gabapentin as well. Recommendations from Dr. Gomez greatly appreciated 12/02: Patient responding better to Dilaudid as far as pain goes. Oral morphine did not accomplish to have her pain better controlled reassurance provided no concerns voiced during my encounter other than the pain. 12/03: Overnight afebrile. Pain 7-10 in the left lower extremity today. She knows that she has not had a bowel movement. No chest pain or shortness of breath. is bedside supportive. Overnight afebrile. Noted severe pain "27/10" at 9 PM and 3 AM. She has not had a bowel movement for 8 days. No chest pain or shortness of breath. Has been frequently getting 4 mg of Dilaudid. She is amenable to increasing oral pain regimen. Plan: rehab on discharge hopefully in the next 48 to 72 hours. Vitals Vitals Vital Signs Date Time Temp Pulse Resp B/P (MAP) Pulse Ox O2 Delivery O2 Flow Rate FiO2 12/06/20 08:59 91 148/62 12/06/20 08:00 Room Air 2.0 12/06/20 07:44 20 93 12/06/20 07:00 97.5 97.5 Physical Exam Physical Exam GENERAL: Alert, oriented female, not in any distress. VITAL SIGNS: Stable, afebrile. HEENT: NAD. NECK: Supple, no JVP, no lymphadenopathy. LUNGS: Clear. HEART: S1, S2 regular. ABDOMEN: Benign. EXTREMITIES: Right BKA unremarkable. 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 No focal neurologic deficit. General: Alert, Oriented X3, Cooperative, No acute distress Heart: Regular rate Lungs: Clear Abdomen: Normal bowel sounds, Soft, No tenderness, No hepatosplenomegaly, No masses Extremities: No cyanosis, Other (RLE BKA clean, dry. LLE with medial ulcer 4cm x8 cm well demarcated. Fluctuance 4th and 5th dorsal MTP joint with surrounding erythema and crepitus) Skin: Other (left leg medial ulcer and left anterior foot hot red, crepitus, dry gangrene) Labs LABS SPEC #: [id number] RACHAEL: 11/28/20 STATUS: COMP REQ #: [id number] RECD: 11/28/[address]: JERILYN MURPHY DO SOURCE: BLOOD ENTR: 11/28/20 [facility] DR: KALEN SPRING MD SPDC: ORDERED: BCULT Procedure Result -------- ---- BLOOD CULTURE Final NO GROWTH AFTER 5 DAYS [facility] Accession Number: [id number] . 01 Material submitted: . leg - LEFT LOWER LEG AND FOOT. Modifiers: left, lower . 01 Clinical history: . GANGRENE OF LEFT FOOT . 02 Diagnosis: Left lower leg and foot amputation: - Ulceration and necrosis of dorsal aspect of left fourth and fifth toes with extensive acute cellulitis of foot. - Focal ulceration, necrosis, and acute cellulitis of posterior distal calf. - Skin and subcutaneous tissue of proximal amputation margin negative for acute cellulitis. (JPM:michael; 12/05/2020) S 12/05/2020 0933 Local . 02 Electronically signed: . Berto Ahn MD, Pathologist NPI- [id number] . 01 Gross description: . The specimen is received fresh in a red biohazard bag, labeled "Frannie Chamorro, left lower leg and foot". Received is a left [id number] amputation, with all five toes present, measuring 23.1 cm from heel to toe, 19.2 cm from heel to skin margin 20.0 cm from heel to tibial bone margin, and 20.1 cm from heel to fibular bone margin. The skin and soft tissue margins appear viable. The tibial bone margin is blunt in appearance, consistent with transection, and appears grossly unremarkable. The fibular bone margin is jagged in appearance, however, appears grossly unremarkable. On the dorsal aspect of the specimen, overlying the third through fifth toes, there is a surgical incision revealing underlying necrotic-appearing soft tissue. On the epidermal surface between toes 4 and 5, there is a degroot-brown, necrotic-appearing lesion measuring 2.0 x 1.8 cm. On the posterior aspect of the lower calf, there is a poorly circumscribed degroot-brown necrotic-appearing lesion measuring 4.3 x 3.5 cm, which is 1.3 cm from the closest skin margin. Sectioning through the anterior and posterior tibial vasculatures reveals pinpoint to patent lumens. Calcification is not grossly identified. The specimen is submitted account representative as follows: . A1 perpendicular section through skin margin and additional account representative section of skin margin to show relationship with lesion on posterior calf A2-A3 account representative sections of skin and soft tissue from surgical incision on dorsal aspect of foot A4 account representative section of lesion on dorsal aspect of foot between toes 4 and 5 A5 additional account representative section of lesion on posterior aspect of calf A6 anterior and posterior tibial vasculatures. . Gross photographs are taken. (CAA; 12/02/2020) [facility] 12/05/2020 0932 Local . 02 Pathologist provided ICD-10: L97.529, L03.032, I96 . 02 CPT . 071920, 358907 Specimen Comment: A courtesy copy of this report has been sent to [phone] Procedure Result ANTIMICROBIAL SUSCEPTIBILITY Final (continued) MEROPENEM <=1 S PIPERACILLIN/TAZOBACTAM <=8 S TOBRAMYCIN 4 S POS JAIME TYPE 38 STAPHYLOCOCCUS AUREUS ANTIBIOTIC RESULT INTERPRETATION AZITHROMYCIN <=2 S CLINDAMYCIN <=0.25 S CEFOXITIN SCREEN <=4 NEG CIPROFLOXACIN <=1 S CEFTAROLINE <=0.5 S DAPTOMYCIN 1 S ERYTHROMYCIN <=0.25 S GENTAMICIN <=4 S LINEZOLID 2 S LEVOFLOXACIN <=1 S OXACILLIN <=0.25 S PENICILLIN >2 Yessica RIFAMPIN <=1 S TRIMETHOPRIM/SULFAMETHOXAZOLE <=0.5/9.5 S TETRACYCLINE <=4 S VANCOMYCIN 1 S Unless otherwise specified, Testing Performed by: [address] [address] For Inquires, the Physician may contact the Microbiology department at [phone] Laboratory Tests Test 12/05/20 11:31 12/05/20 16:35 12/05/20 20:30 12/06/20 06:29 Glucose (Fingerstick) 168 mg/dL (70-99) 117 mg/dL (70-99) 204 mg/dL (70-99) White Blood Count 9.6 x10^3/uL (4.0-11.0) Red Blood Count 3.22 x10^6/uL (3.50-5.40) Hemoglobin 9.0 g/dL (12.0-15.5) Hematocrit 27.0 % (36.0-47.0) Mean Corpuscular Volume 84 fL (79-100) Mean Corpuscular Hemoglobin 28 pg (25-35) Mean Corpuscular Hemoglobin Concent 33 g/dL (31-37) Red Cell Distribution Width 14.5 % (11.5-14.5) Platelet Count 437 x10^3/uL (140-400) Neutrophils (%) (Auto) 68 % (31-73) Lymphocytes (%) (Auto) 21 % (24-48) Monocytes (%) (Auto) 9 % (0-9) Eosinophils (%) (Auto) 1 % (0-3) Basophils (%) (Auto) 1 % (0-3) Neutrophils # (Auto) 6.6 x10^3/uL (1.8-7.7) Lymphocytes # (Auto) 2.0 x10^3/uL (1.0-4.8) Monocytes # (Auto) 0.9 x10^3/uL (0.0-1.1) Eosinophils # (Auto) 0.1 x10^3/uL (0.0-0.7) Basophils # (Auto) 0.1 x10^3/uL (0.0-0.2) Sodium Level 137 mmol/L (136-145) Potassium Level 4.7 mmol/L (3.5-5.1) Chloride Level 101 mmol/L (98-107) Carbon Dioxide Level 30 mmol/L (21-32) Anion Gap 6 (6-14) Blood Urea Nitrogen 17 mg/dL (7-20) Creatinine 0.8 mg/dL (0.6-1.0) Estimated GFR (Cockcroft-Gault) 74.5 Glucose Level 226 mg/dL (70-99) Calcium Level 9.4 mg/dL (8.5-10.1) Test 12/06/20 07:28 Glucose (Fingerstick) 226 mg/dL (70-99) Assessment and Plan Assessmemt and Plan Problems Medical Problems: (1) Gas gangrene of foot Status: Acute Comment Review of Relevant I have reviewed the following items mady (where applicable) has been applied. Labs Laboratory Tests Test 12/04/20 11:55 12/04/20 16:57 12/04/20 20:47 12/05/20 07:18 Glucose (Fingerstick) 215 mg/dL (70-99) 131 mg/dL (70-99) 80 mg/dL (70-99) 197 mg/dL (70-99) Test 12/05/20 11:31 12/05/20 16:35 12/05/20 20:30 12/06/20 06:29 Glucose (Fingerstick) 168 mg/dL (70-99) 117 mg/dL (70-99) 204 mg/dL (70-99) White Blood Count 9.6 x10^3/uL (4.0-11.0) Red Blood Count 3.22 x10^6/uL (3.50-5.40) Hemoglobin 9.0 g/dL (12.0-15.5) Hematocrit 27.0 % (36.0-47.0) Mean Corpuscular Volume 84 fL (79-100) Mean Corpuscular Hemoglobin 28 pg (25-35) Mean Corpuscular Hemoglobin Concent 33 g/dL (31-37) Red Cell Distribution Width 14.5 % (11.5-14.5) Platelet Count 437 x10^3/uL (140-400) Neutrophils (%) (Auto) 68 % (31-73) Lymphocytes (%) (Auto) 21 % (24-48) Monocytes (%) (Auto) 9 % (0-9) Eosinophils (%) (Auto) 1 % (0-3) Basophils (%) (Auto) 1 % (0-3) Neutrophils # (Auto) 6.6 x10^3/uL (1.8-7.7) Lymphocytes # (Auto) 2.0 x10^3/uL (1.0-4.8) Monocytes # (Auto) 0.9 x10^3/uL (0.0-1.1) Eosinophils # (Auto) 0.1 x10^3/uL (0.0-0.7) Basophils # (Auto) 0.1 x10^3/uL (0.0-0.2) Sodium Level 137 mmol/L (136-145) Potassium Level 4.7 mmol/L (3.5-5.1) Chloride Level 101 mmol/L (98-107) Carbon Dioxide Level 30 mmol/L (21-32) Anion Gap 6 (6-14) Blood Urea Nitrogen 17 mg/dL (7-20) Creatinine 0.8 mg/dL (0.6-1.0) Estimated GFR (Cockcroft-Gault) 74.5 Glucose Level 226 mg/dL (70-99) Calcium Level 9.4 mg/dL (8.5-10.1) Test 12/06/20 07:28 Glucose (Fingerstick) 226 mg/dL (70-99) Laboratory Tests Test 12/05/20 11:31 12/05/20 16:35 12/05/20 20:30 12/06/20 06:29 Glucose (Fingerstick) 168 mg/dL (70-99) 117 mg/dL (70-99) 204 mg/dL (70-99) White Blood Count 9.6 x10^3/uL (4.0-11.0) Red Blood Count 3.22 x10^6/uL (3.50-5.40) Hemoglobin 9.0 g/dL (12.0-15.5) Hematocrit 27.0 % (36.0-47.0) Mean Corpuscular Volume 84 fL (79-100) Mean Corpuscular Hemoglobin 28 pg (25-35) Mean Corpuscular Hemoglobin Concent 33 g/dL (31-37) Red Cell Distribution Width 14.5 % (11.5-14.5) Platelet Count 437 x10^3/uL (140-400) Neutrophils (%) (Auto) 68 % (31-73) Lymphocytes (%) (Auto) 21 % (24-48) Monocytes (%) (Auto) 9 % (0-9) Eosinophils (%) (Auto) 1 % (0-3) Basophils (%) (Auto) 1 % (0-3) Neutrophils # (Auto) 6.6 x10^3/uL (1.8-7.7) Lymphocytes # (Auto) 2.0 x10^3/uL (1.0-4.8) Monocytes # (Auto) 0.9 x10^3/uL (0.0-1.1) Eosinophils # (Auto) 0.1 x10^3/uL (0.0-0.7) Basophils # (Auto) 0.1 x10^3/uL (0.0-0.2) Sodium Level 137 mmol/L (136-145) Potassium Level 4.7 mmol/L (3.5-5.1) Chloride Level 101 mmol/L (98-107) Carbon Dioxide Level 30 mmol/L (21-32) Anion Gap 6 (6-14) Blood Urea Nitrogen 17 mg/dL (7-20) Creatinine 0.8 mg/dL (0.6-1.0) Estimated GFR (Cockcroft-Gault) 74.5 Glucose Level 226 mg/dL (70-99) Calcium Level 9.4 mg/dL (8.5-10.1) Test 12/06/20 07:28 Glucose (Fingerstick) 226 mg/dL (70-99) Microbiology 11/28/20 Gram Stain - Final, Complete 11/28/20 Aerobic and Anaerobic Culture - Final, Complete 11/28/20 Blood Culture - Final, Complete NO GROWTH AFTER 5 DAYS Medications Current Medications Piperacillin Sod/ Tazobactam Sod 3.375 gm/Sodium Chloride 50 ml @ 100 mls/hr 1X ONCE IV Last administered on 11/28/20at 09:18; Start 11/28/20 at 09:00; Stop 11/28/20 at 09:29; Status DC Atorvastatin Calcium (Lipitor) 40 mg QHS PO Last administered on 12/05/20at 20:59; Start 11/28/20 at 21:00 Diltiazem HCl (Cardizem 24hr Cd) 180 mg DAILY PO Last administered on 12/06/20at 08:58; Start 11/29/20 at 10:00 Metoprolol Tartrate (Lopressor) 50 mg BID PO Last administered on 12/06/20at 08:59; Start 11/28/20 at 10:00 Oxycodone/ Acetaminophen (Percocet 5/325) 1 tab PRN Q6HRS PRN PO MODERATE TO SEVERE PAIN Last administered on 11/29/20at 10:14; Start 11/28/20 at 09:45; Stop 11/29/20 at 11:36; Status DC Vitamin D (Vitamin D3) 2,000 unit BID PO Last administered on 12/06/20at 08:58; Start 11/28/20 at 10:15 Insulin Glargine (Lantus Syringe) 30 unit HS SQ Last administered on 12/05/20at 21:10; Start 11/28/20 at 21:00 Ondansetron HCl (Zofran Odt) 8 mg PRN BID PRN PO NAUSEA/VOMITING; Start 11/28/20 at 10:15 Ondansetron HCl (Zofran) 4 mg PRN Q6HRS PRN IVP NAUSEA/VOMITING, 1ST CHOICE Last administered on 12/03/20at 13:42; Start 11/28/20 at 09:45 Acetaminophen (Tylenol) 650 mg PRN Q6HRS PRN PO Headaches, Temp > 101.5F; Start 11/28/20 at 09:45 Bisacodyl (Dulcolax Supp) [address] CONSTIPATION; Start 11/28/20 at 09:45 Linezolid/Dextrose 300 ml @ 300 mls/hr Q12HR IV ; Start 11/28/20 at 21:00; Status UNV Clindamycin Phosphate 50 ml @ 100 mls/hr Q8HRS IV Last administered on 11/30/20at 06:00; Start 11/28/20 at 22:00; Stop 11/30/20 at 11:24; Status DC Linezolid/Dextrose 300 ml @ 300 mls/hr Q12HR IV Last administered on 11/30/20at 08:14; Start 11/28/20 at 13:00; Stop 11/30/20 at 11:24; Status DC Clindamycin Phosphate 50 ml @ 100 mls/hr 1X ONCE IV Last administered on 11/28/20at 13:18; Start 11/28/20 at 13:00; Stop 11/28/20 at 13:29; Status DC Morphine Sulfate (Morphine Sulfate) 4 mg PRN Q2HR PRN IV PAIN Last administered on 11/28/20at 13:19; Start 11/28/20 at 13:00; Stop 11/28/20 at 16:56; Status DC Metoclopramide HCl (Reglan Vial) 10 mg PRN Q6HRS PRN IVP NAUSEA/VOMITING, 2ND CHOICE Last administered on 11/29/20at 08:47; Start 11/28/20 at 13:00 Insulin Human Lispro (HumaLOG) 0-9 UNITS TIDWMEALS SQ Last administered on 12/06/20at 09:12; Start 11/28/20 at 17:00 Dextrose (Dextrose 50%-Water Syringe) 12.5 gm PRN Q15MIN PRN IV SEE COMMENTS; Start 11/28/20 at 13:00 Ondansetron HCl (Zofran) 4 mg PRN Q6HRS PRN IV NAUSEA/VOMITING Last administered on 11/28/20at 18:19; Start 11/28/20 at 13:45; Stop 11/29/20 at 11:36; Status DC Fentanyl Citrate (Fentanyl 2ml Vial) 25 mcg PRN Q5MIN PRN IV MILD PAIN 1-3; Start 11/28/20 at 13:45; Stop 11/28/20 at 22:00; Status DC Fentanyl Citrate (Fentanyl 2ml Vial) 50 mcg PRN Q5MIN PRN IV MODERATE TO SEVERE PAIN Last administered on 11/28/20at 16:06; Start 11/28/20 at 13:45; Stop 11/28/20 at 22:00; Status DC Morphine Sulfate (Morphine Sulfate) 1 mg PRN Q10MIN PRN IV SEVERE PAIN 7-10; Start 11/28/20 at 13:45; Stop 11/28/20 at 22:00; Status DC Ringer's Solution 1,000 ml @ 30 mls/hr Q24H IV ; Start 11/28/20 at 13:45; Stop 11/29/20 at 01:44; Status DC Lidocaine HCl (Xylocaine-Mpf 1% 2ml Vial) 2 ml PRN 1X PRN ID PRIOR TO IV START; Start 11/28/20 at 13:45; Stop 11/28/20 at 22:00; Status DC Hydromorphone HCl (Dilaudid) 0.5 mg PRN Q10MIN PRN IV SEV PAIN, Second choice; Start 11/28/20 at 13:45; Stop 11/28/20 at 22:00; Status DC Prochlorperazine Edisylate (Compazine) 5 mg PACU PRN PRN IV NAUSEA, MRX1; Start 11/28/20 at 13:45; Stop 11/28/20 at 22:00; Status DC Propofol (Diprivan) 200 mg STK-MED ONCE IV ; Start 11/28/20 at 13:53; Stop 1 at 13:53; Status DC Dexamethasone Sodium Phosphate (Decadron) 4 mg STK-MED ONCE .ROUTE ; Start 11/28/20 at 13:53; Stop 11/28/20 at 13:53; Status DC Lidocaine HCl (Lidocaine Pf 2% Vial) 5 ml STK-MED ONCE .ROUTE ; Start 11/28/20 at 13:53; Stop 11/28/20 at 13:53; Status DC Ondansetron HCl (Zofran) 4 mg STK-MED ONCE .ROUTE ; Start 11/28/20 at 13:53; Stop 11/28/20 at 13:53; Status DC Insulin Human Lispro (HumaLOG VIAL for OP,RR ONLY) 0-10 units PRN Q1HR PRN SQ PER PROTOCOL Last administered on 11/28/20at 16:41; Start 11/28/20 at 14:45; Stop 11/29/20 at 10:24; Status DC Phenylephrine HCl (PHENYLEPHRINE in 0.9% NACL PF) 1 mg STK-MED ONCE IV ; Start 11/28/20 at 14:57; Stop 11/28/20 at 14:57; Status DC Sevoflurane (Ultane) 30 ml STK-MED ONCE IH ; Start 11/28/20 at 14:57; Stop 11/28/20 at 14:57; Status DC Hydromorphone HCl (Dilaudid) 2 mg STK-MED ONCE .ROUTE ; Start 11/28/20 at 15:18; Stop 11/28/20 at 15:18; Status DC Fentanyl Citrate (Fentanyl 2ml Vial) 100 mcg STK-MED ONCE .ROUTE ; Start 11/28/20 at 16:04; Stop 11/28/20 at 16:04; Status DC Morphine Sulfate (Morphine Sulfate) 2 mg PRN Q2HR PRN IV MODERATE PAIN Last administered on 12/02/20at 13:15; Start 11/28/20 at 17:00; Stop 12/02/20 at 18:05; Status DC Oxycodone/ Acetaminophen (Percocet 5/325) 1 tab PRN Q4HRS PRN PO MODERATE TO SEVERE PAIN Last administered on 12/04/20at 09:51; Start 11/28/20 at 17:00; Stop 12/04/20 at 15:48; Status DC Insulin Human Lispro (HumaLOG) 4 units TIDWMEALS SQ Last administered on 11/29/20at 12:32; Start 11/29/20 at 08:00; Stop 12/01/20 at 14:45; Status DC Magnesium Sulfate 50 ml @ 25 mls/hr 1X ONCE IV Last administered on 11/28/20at 23:38; Start 11/28/20 at 22:00; Stop 11/28/20 at 23:59; Status DC Enoxaparin Sodium (Lovenox 40mg Syringe) 40 mg Q24H SQ Last administered on 12/05/20at 11:00; Start 11/29/20 at 11:00 Aspirin (Aspirin Chewable) 81 mg DAILY PO Last administered on 12/06/20at 08:57; Start 11/29/20 at 15:00 Docusate Sodium (Colace) 100 mg BID PO Last administered on 12/06/20at 08:58; Start 11/29/20 at 21:00 Fenofibrate (Lofibra) 54 mg DAILY PO Last administered on 12/06/20at 08:58; Start 11/29/20 at 15:00 Glipizide (Glucotrol) 5 mg BIDAC PO Last administered on 12/06/20at 08:59; Start 11/29/20 at 16:30 Pseudoephedrine HCl (Sudafed 12-Hour) 120 mg PRN BID PRN PO NASAL CONGESTION; Start 11/29/20 at 14:45; Stop 11/29/20 at 14:42; Status DC Insulin Human Lispro (HumaLOG) 8 units TIDAC SQ Last administered on 12/06/20at 09:12; Start 11/29/20 at 16:30 Potassium Chloride (Klor-Con) 40 meq 1X ONCE PO Last administered on 11/29/20at 18:42; Start 11/29/20 at 14:45; Stop 11/29/20 at 14:46; Status DC Lactobacillus Rhamnosus (Culturelle) 1 cap BID PO Last administered on 12/06/20at 08:58; Start 11/29/20 at 21:00 Ringer's Solution 1,000 ml @ 100 mls/hr Q10H IV Last administered on 12/02/20at 11:13; Start 11/29/20 at 15:00; Stop 12/02/20 at 18:05; Status DC Insulin Human Lispro (HumaLOG) 15 units 1X ONCE SQ Last administered on 11/29/20at 22:13; Start 11/29/20 at 22:00; Stop 11/29/20 at 22:01; Status DC Ondansetron HCl (Zofran) 4 mg PRN Q6HRS PRN IV NAUSEA/VOMITING; Start 12/01/20 at 07:00; Stop 12/01/20 at 20:00; Status DC Fentanyl Citrate (Fentanyl 2ml Vial) 25 mcg PRN Q5MIN PRN IV MILD PAIN 1-3; Start 12/01/20 at 07:00; Stop 12/01/20 at 20:00; Status DC Fentanyl Citrate (Fentanyl 2ml Vial) 50 mcg PRN Q5MIN PRN IV MODERATE TO SEVERE PAIN Last administered on 12/01/20at 09:46; Start 12/01/20 at 07:00; Stop 12/01/20 at 20:00; Status DC Morphine Sulfate (Morphine Sulfate) 1 mg PRN Q10MIN PRN IV SEVERE PAIN 7-10; Start 12/01/20 at 07:00; Stop 12/01/20 at 20:00; Status DC Ringer's Solution 1,000 ml @ 30 mls/hr Q24H IV ; Start 12/01/20 at 07:00; Stop 12/01/20 at 18:59; Status DC Lidocaine HCl (Xylocaine-Mpf 1% 2ml Vial) 2 ml PRN 1X PRN ID PRIOR TO IV START; Start 12/01/20 at 07:00; Stop 12/01/20 at 20:01; Status DC Hydromorphone HCl (Dilaudid) 0.5 mg PRN Q10MIN PRN IV SEV PAIN, Second choice; Start 12/01/20 at 07:00; Stop 12/01/20 at 20:00; Status DC Prochlorperazine Edisylate (Compazine) 5 mg PACU PRN PRN IV NAUSEA, MRX1; Start 12/01/20 at 07:00; Stop 12/02/20 at 06:59; Status DC Piperacillin Sod/ Tazobactam Sod 3.375 gm/Sodium Chloride 50 ml @ 100 mls/hr Q8HRS IV Last administered on 12/01/20at 13:39; Start 11/30/20 at 14:00; Stop 12/01/20 at 14:48; Status DC Ondansetron HCl (Zofran) 4 mg STK-MED ONCE .ROUTE ; Start 12/01/20 at 06:22; Stop 12/01/20 at 06:22; Status DC Propofol (Diprivan) 200 mg STK-MED ONCE IV ; Start 12/01/20 at 06:22; Stop 12/01/20 at 06:22; Status DC Lidocaine HCl (Lidocaine Pf 2% Vial) 5 ml STK-MED ONCE .ROUTE ; Start 12/01/20 at 06:22; Stop 12/01/20 at 06:22; Status DC Dexamethasone Sodium Phosphate (Decadron) 4 mg STK-MED ONCE .ROUTE ; Start 12/01/20 at 06:22; Stop 12/01/20 at 06:22; Status DC Fentanyl Citrate (Fentanyl 2ml Vial) 100 mcg STK-MED ONCE .ROUTE ; Start 12/01/20 at 07:12; Stop 12/01/20 at 07:13; Status DC Insulin Human Lispro (HumaLOG VIAL for OP,RR ONLY) 0-10 units PRN Q1HR PRN SQ PER PROTOCOL Last administered on 12/01/20at 09:34; Start 12/01/20 at 07:15; Stop 12/02/20 at 07:14; Status DC Fentanyl Citrate (Fentanyl 2ml Vial) 100 mcg STK-MED ONCE .ROUTE ; Start 12/01/20 at 07:46; Stop 12/01/20 at 07:47; Status DC Sevoflurane (Ultane) 30 ml STK-MED ONCE IH ; Start 12/01/20 at 08:05; Stop 12/01/20 at 08:06; Status DC Sevoflurane (Ultane) 60 ml STK-MED ONCE IH ; Start 12/01/20 at 08:40; Stop 12/01/20 at 08:41; Status DC Fentanyl Citrate (Fentanyl 2ml Vial) 100 mcg STK-MED ONCE .ROUTE ; Start 12/01/20 at 09:30; Stop 12/01/20 at 09:31; Status DC Hydromorphone HCl (Dilaudid) 1 mg 1X ONCE IVP Last administered on 12/01/20at 10:39; Start 12/01/20 at 10:30; Stop 12/01/20 at 10:31; Status DC Gabapentin (Neurontin) 100 mg TID PO Last administered on 12/02/20at 14:32; Start 12/01/20 at 14:00; Stop 12/02/20 at 18:05; Status DC Morphine Sulfate (Morphine Oral Solution) 10 mg PRN Q3HRS PRN PO SEVERE PAIN- 2ND CHOICE Last administered on 12/01/20at 17:51; Start 12/01/20 at 12:45; Stop 12/02/20 at 18:05; Status DC Piperacillin Sod/ Tazobactam Sod 3.375 gm/Sodium Chloride 50 ml @ 100 mls/hr Q6HRS IV Last administered on 12/06/20at 05:42; Start 12/01/20 at 18:00 Hydromorphone HCl (Dilaudid) 2 mg PRN Q3HRS PRN IVP SEVERE PAIN Last administered on 12/06/20at 04:22; Start 12/01/20 at 19:00 Gabapentin (Neurontin) 300 mg TID PO Last administered on 12/04/20at 14:32; Start 12/02/20 at 21:00; Stop 12/04/20 at 15:47; Status DC Hydromorphone HCl (Dilaudid) 4 mg PRN Q3HRS PRN IVP SEVERE PAIN, 2ND CHOICE Last administered on 12/04/20at 03:54; Start 12/03/20 at 07:30 Psyllium Hydrophilic Mucilloid (Metamucil Fiber Packet) 1 pkt QHS PO Last administered on 12/05/20at 20:59; Start 12/03/20 at 10:30 Polyethylene Glycol (miraLAX PACKET) 17 gm PRN BID PRN PO CONSTIPATION, 1st CHOICE Last administered on 12/04/20at 21:28; Start 12/04/20 at 12:00 Senna/Docusate Sodium (Senna Plus) 2 tab PRN BID PRN PO CONSTIPATION, 2nd CHOICE Last administered on 12/06/20at 08:58; Start 12/04/20 at 12:00 Magnesium Citrate (Citroma) 296 ml PRN 1X PRN PO CONSTIPATION, 4th CHOICE; Start 12/04/20 at 12:00 Lactulose (Lactulose) 20 gm PRN DAILY PRN PO CONSTIPATION, 3rd CHOICE; Start 12/04/20 at 12:00 Oxycodone/ Acetaminophen (Percocet 5/325) 2 tab PRN Q4HRS PRN PO MODERATE PAIN, SEVERE PAIN Last administered on 12/06/20at 06:44; Start 12/04/20 at 12:00 Trazodone HCl (Desyrel) 100 mg PRN QHS PRN PO INSOMNIA Last administered on 12/06/20at 00:15; Start 12/04/20 at 12:00 Gabapentin (Neurontin) 300 mg TID PO Last administered on 12/06/20at 08:58; Start 12/04/20 at 21:00 Active Scripts Active Atorvastatin Calcium 40 Mg Tablet 40 Mg PO QHS MDD 1 Sinus 12-Hour (Pseudoephedrine Hcl) 120 Mg Tablet.er 120 Mg PO PRN BID PRN 7 Days Vitamin D (Cholecalciferol (Vitamin D3)) 2,000 Unit Capsule 1 Cap PO BID Cool Blood Glucose Meter (Blood-Glucose Meter) 1 Each Each Each dm please also dispense test strips and lancets quantity sufficient for 1 month Fenofibrate 54 Mg Tablet 54 Mg PO DAILY 30 Days Reported Colace (Docusate Sodium) 100 Mg Capsule 1 Cap PO BID 30 Days Zofran (Ondansetron Hcl) 8 Mg Tablet 8 Mg PO BID PRN Percocet 5-325 mg Tablet (Oxycodone HCl/Acetaminophen) 1 Each Tablet 1 Tab PO PRN Q6HRS PRN MDD 2 Tablet(s) 5 Days Metoprolol Tartrate 50 Mg Tablet 50 Mg PO BID Levemir (Insulin Detemir) 100 Unit/1 Ml Vial 30 Unit SQ HS Aspirin 81 Mg Tab.chew 1 Tab PO DAILY Glipizide 5 Mg Tablet 1 Tab PO BID Cardizem Cd (Diltiazem Hcl) 180 Mg Cap.er.24h 1 Cap PO DAILY Metformin Hcl 1,000 Mg Tablet 1,000 Mg PO BID hold for 48 hours. Next dose 04/09 evening dose Vitals/I & O Vital Sign - Last 24 Hours 12/05/20 12/05/20 12/05/20 12/05/20 11:00 12:14 14:30 17:15 Temp 97.9 98.1 97.9 98.1 Pulse 98 85 Resp 18 18 B/P (MAP) 120/66 (84) 106/47 (66) Pulse Ox 96 95 O2 Delivery Nasal Cannula Room Air Nasal Cannula Room Air O2 Flow Rate 2.0 2.0 12/05/20 12/05/20 12/05/20 12/05/20 19:00 19:21 20:00 20:59 Temp 97.9 97.9 Pulse 95 95 Resp 18 B/P (MAP) 131/64 (86) 131/64 Pulse Ox 96 O2 Delivery Room Air Room Air Room Air 12/05/20 12/05/20 12/05/20 12/06/20 21:01 21:31 23:00 00:16 Temp 98.1 98.1 Pulse 104 Resp 20 18 18 18 B/P (MAP) 167/79 (108) Pulse Ox 96 95 93 93 O2 Delivery Room Air Room Air Room Air Room Air O2 Flow Rate 2.0 1/1212/06/20 12/06/20 12/06/20 01:16 03:00 04:22 04:52 Temp 98.0 98.0 Pulse 109 Resp 18 18 20 16 B/P (MAP) 153/73 (99) Pulse Ox 95 95 95 95 O2 Delivery Room Air Room Air Room Air Room Air O2 Flow Rate 2.0 12/06/20 12/06/20 12/06/20 12/06/20 06:44 07:00 07:44 08:00 Temp 97.5 97.5 Pulse 91 Resp 18 18 20 B/P (MAP) 148/62 (90) Pulse Ox 95 93 93 O2 Delivery Room Air Room Air Room Air Room Air O2 Flow Rate 2.0 12/06/20 12/06/20 08:58 08:59 Pulse 91 91 B/P (MAP) 148/62 148/62 Intake and Output 12/05/20 12/05/20 12/06/20 15:00 23:00 07:00 Intake Total 400 ml 400 ml 120 ml Output Total 1 ml Balance 400 ml 399 ml 120 ml Justicifation of Admission Dx: Justifications for Admission: Justification of Admission Dx: N/A MACIEL ZHU MD Dec 06, 2020 10:40
[2020-12-06 11:00] VITALS: BP 120/70
--- NOTE | 2020-12-06 11:56 | PDOC ---
Infectious Disease Note Subjective: Subjective Patient complains of pain at the surgery site but under better control Denies fever, nausea, vomiting, shortness of breath, diarrhea, abdominal pain, ready for dc today to [facility] Otherwise as above Vital Signs: Vital Signs Vital Signs Date Time Temp Pulse Resp B/P (MAP) Pulse Ox O2 Delivery O2 Flow Rate FiO2 12/06/20 11:00 97.7 86 18 120/70 (87) 96 Room Air 97.7 12/06/20 08:00 2.0 Physical Exam: PHYSICAL EXAM GENERAL: Alert, oriented female, not in any distress. VITAL SIGNS: Stable, afebrile. HEENT: NAD. NECK: Supple, no JVP, no lymphadenopathy. LUNGS: Clear. HEART: S1, S2 regular. ABDOMEN: Benign. EXTREMITIES: Right BKA unremarkable. 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 No focal neurologic deficit. Medications: Inpatient Meds: Current Medications Medications (Trade) Dose Ordered Sig/[facility] Start Time Stop Time Status Last Admin Dose Admin Acetaminophen (Tylenol) 650 mg PRN Q6HRS PRN 11/28/20 09:45 Aspirin (Aspirin Chewable) 81 mg DAILY 11/29/20 15:00 12/06/20 08:57 81 MG Atorvastatin Calcium (Lipitor) 40 mg QHS 11/28/20 21:00 12/05/20 20:59 40 MG Bisacodyl (Dulcolax Supp) 10 mg PRN DAILY PRN 11/28/20 09:45 Clindamycin Phosphate 50 ml @ 100 mls/hr 1X ONCE 11/28/20 13:00 11/28/20 13:29 DC 11/28/20 13:18 100 MLS/HR Dexamethasone Sodium Phosphate (Decadron) 4 mg STK-MED ONCE 12/01/20 06:22 12/01/20 06:22 DC Dextrose (Dextrose 50%-Water Syringe) 12.5 gm PRN Q15MIN PRN 11/28/20 13:00 Diltiazem HCl (Cardizem 24hr Cd) 180 mg DAILY 11/29/20 10:00 12/06/20 08:58 180 MG Docusate Sodium (Colace) 100 mg BID 11/29/20 21:00 12/06/20 08:58 100 MG Enoxaparin Sodium (Lovenox 40mg Syringe) 40 mg Q24H 11/29/20 11:00 12/05/20 11:00 40 MG Fenofibrate (Lofibra) 54 mg DAILY 11/29/20 15:00 12/06/20 08:58 54 MG Fentanyl Citrate (Fentanyl 2ml Vial) 100 mcg STK-MED ONCE 12/01/20 09:30 12/01/20 09:31 DC Gabapentin (Neurontin) 300 mg TID 12/04/20 21:00 12/06/20 08:58 300 MG Glipizide (Glucotrol) 5 mg BIDAC 11/29/20 16:30 12/06/20 08:59 5 MG Hydromorphone HCl (Dilaudid) 4 mg PRN Q3HRS PRN 12/03/20 07:30 12/04/20 03:54 4 MG Insulin Glargine (Lantus Syringe) 30 unit HS 11/28/20 21:00 12/05/20 21:10 30 UNIT Insulin Human Lispro (HumaLOG VIAL for OP,RR ONLY) 0-10 units PRN Q1HR PRN 12/01/20 07:15 12/02/20 07:14 DC 12/01/20 09:34 4 UNIT Insulin Human Lispro (HumaLOG) 15 units 1X ONCE 11/29/20 22:00 11/29/20 22:01 DC 11/29/20 22:13 15 UNITS Lactobacillus Rhamnosus (Culturelle) 1 cap BID 11/29/20 21:00 12/06/20 08:58 1 CAP Lactulose (Lactulose) 20 gm PRN DAILY PRN 12/04/20 12:00 Lidocaine HCl (Lidocaine Pf 2% Vial) 5 ml STK-MED ONCE 12/01/20 06:22 12/01/20 06:22 DC Lidocaine HCl (Xylocaine-Mpf 1% 2ml Vial) 2 ml PRN 1X PRN 12/01/20 07:00 12/01/20 20:01 DC Linezolid/Dextrose 300 ml @ 300 mls/hr Q12HR 11/28/20 13:00 11/30/20 11:24 DC 11/30/20 08:14 300 MLS/HR Magnesium Citrate (Citroma) 296 ml PRN 1X PRN 12/04/20 12:00 Magnesium Sulfate 50 ml @ 25 mls/hr 1X ONCE 11/28/20 22:00 11/28/20 23:59 DC 11/28/20 23:38 25 MLS/HR Metoclopramide HCl (Reglan Vial) 10 mg PRN Q6HRS PRN 11/28/20 13:00 11/29/20 08:47 10 MG Metoprolol Tartrate (Lopressor) 50 mg BID 11/28/20 10:00 12/06/20 08:59 50 MG Morphine Sulfate (Morphine Sulfate) 1 mg PRN Q10MIN PRN 12/01/20 07:00 12/01/20 20:00 DC Morphine Sulfate (Morphine Oral Solution) 10 mg PRN Q3HRS PRN 12/01/20 12:45 12/02/20 18:05 DC 12/01/20 17:51 10 MG Ondansetron HCl (Zofran Odt) 8 mg PRN BID PRN 11/28/20 10:15 Ondansetron HCl (Zofran) 4 mg STK-MED ONCE 12/01/20 06:22 12/01/20 06:22 DC Oxycodone/ Acetaminophen (Percocet 5/325) 2 tab PRN Q4HRS PRN 12/04/20 12:00 12/06/20 06:44 2 TAB Phenylephrine HCl (PHENYLEPHRINE in 0.9% NACL PF) 1 mg STK-MED ONCE 11/28/20 14:57 11/28/20 14:57 DC Piperacillin Sod/ Tazobactam Sod 3.375 gm/Sodium Chloride 50 ml @ 100 mls/hr Q6HRS 12/01/20 18:00 12/06/20 05:42 100 MLS/HR Polyethylene Glycol (miraLAX PACKET) 17 gm PRN BID PRN 12/04/20 12:00 12/04/20 21:28 17 GM Potassium Chloride (Klor-Con) 40 meq 1X ONCE 11/29/20 14:45 11/29/20 14:46 DC 11/29/20 18:42 40 MEQ Prochlorperazine Edisylate (Compazine) 5 mg PACU PRN PRN 12/01/20 07:00 12/02/20 06:59 DC Propofol (Diprivan) 200 mg STK-MED ONCE 12/01/20 06:22 12/01/20 06:22 DC Pseudoephedrine HCl (Sudafed 12-Hour) 120 mg PRN BID PRN 11/29/20 14:45 11/29/20 14:42 DC Psyllium Hydrophilic Mucilloid (Metamucil Fiber Packet) 1 pkt QHS 12/03/20 10:30 12/05/20 20:59 1 PKT Ringer's Solution 1,000 ml @ 30 mls/hr Q24H 12/01/20 07:00 12/01/20 18:59 DC Senna/Docusate Sodium (Senna Plus) 2 tab PRN BID PRN 12/04/20 12:00 12/06/20 08:58 2 TAB Sevoflurane (Ultane) 60 ml STK-MED ONCE 12/01/20 08:40 12/01/20 08:41 DC Trazodone HCl (Desyrel) 100 mg PRN QHS PRN 12/04/20 12:00 12/06/20 00:15 100 MG Vitamin D (Vitamin D3) 2,000 unit BID 11/28/20 10:15 12/06/20 08:58 2,000 UNIT Labs: Lab Laboratory Tests Test 12/05/20 16:35 12/05/20 20:30 12/06/20 06:29 12/06/20 07:28 Glucose (Fingerstick) 117 mg/dL (70-99) 204 mg/dL (70-99) 226 mg/dL (70-99) White Blood Count 9.6 x10^3/uL (4.0-11.0) Red Blood Count 3.22 x10^6/uL (3.50-5.40) Hemoglobin 9.0 g/dL (12.0-15.5) Hematocrit 27.0 % (36.0-47.0) Mean Corpuscular Volume 84 fL (79-100) Mean Corpuscular Hemoglobin 28 pg (25-35) Mean Corpuscular Hemoglobin Concent 33 g/dL (31-37) Red Cell Distribution Width 14.5 % (11.5-14.5) Platelet Count 437 x10^3/uL (140-400) Neutrophils (%) (Auto) 68 % (31-73) Lymphocytes (%) (Auto) 21 % (24-48) Monocytes (%) (Auto) 9 % (0-9) Eosinophils (%) (Auto) 1 % (0-3) Basophils (%) (Auto) 1 % (0-3) Neutrophils # (Auto) 6.6 x10^3/uL (1.8-7.7) Lymphocytes # (Auto) 2.0 x10^3/uL (1.0-4.8) Monocytes # (Auto) 0.9 x10^3/uL (0.0-1.1) Eosinophils # (Auto) 0.1 x10^3/uL (0.0-0.7) Basophils # (Auto) 0.1 x10^3/uL (0.0-0.2) Sodium Level 137 mmol/L (136-145) Potassium Level 4.7 mmol/L (3.5-5.1) Chloride Level 101 mmol/L (98-107) Carbon Dioxide Level 30 mmol/L (21-32) Anion Gap 6 (6-14) Blood Urea Nitrogen 17 mg/dL (7-20) Creatinine 0.8 mg/dL (0.6-1.0) Estimated GFR (Cockcroft-Gault) 74.5 Glucose Level 226 mg/dL (70-99) Calcium Level 9.4 mg/dL (8.5-10.1) Test 12/06/20 11:34 Glucose (Fingerstick) 184 mg/dL (70-99) Micro --------- --- RUN DATE: 12/04/20 [facility] *LIVE* PAGE 1 RUN TIME: 1102 Specimen Inquiry PATIENT: DENNIS JAIMES ACCT: [id number] LOC: [address] [place] [address] U: [id number] AGE/SX: 55/F ROOM: 52 RE11/28/[address]: TAJ GHOSH MD : 1965 BED: 1 DIS: STATUS: ADM IN TLOC: SPEC #: [id number] RACHAEL: 11/28/20-150 STATUS: COMP REQ #: [id number] RECD: 11/28/20-[address]: TAJ GHOSH MD SOURCE: FOOT ENTR: 11/29/[address]: FABRIZIO GALAVIZ MD SPDESC: ELAYNE MATTHEWS MD, DOUGLAS M DO PULS, DARCY L MD ORDERED: LUANA/CAMMY/HÉCTOR COMMENTS: LEFT FOOT ABSCESS Procedure Result GRAM STAIN Final Final GRAM NEG COCCOBACILLI:MODERATE GRAM POSITIVE COCCI:MODERATE SQUAMOUS EPI CELL:NONE SEEN PMN (WBCs):RARE Unless otherwise specified, Testing Performed by: [address] [address] For Inquires, the Physician may contact the Microbiology department at [phone] ANAEROBIC-AEROBIC CULTURE Final Final MANY [STAPHYLOCOCCUS AUREUS] on 11/30/20 at 0941 SEE CULTURE AN5 FOR SUSCEPTIBILITIES MANY [STREPTOCOCCUS MITIS/ORALIS GRP] on 12/01/20 at 1136 MANY ANAEROBIC GRAM NEGATIVE RODS on 12/02/20 at 1412 FINAL ID= [PORPHYROMONAS SOMERAE] MANY ANAEROBIC GRAM POSITIVE COCCI on 12/03/20 at 1317 FINAL ID= [ANAEROCOCCUS VAGINALIS] STREPTOCOCCUS MITIS/ORALIS GRP PORPHYROMONAS SOMERAE ANAEROCOCCUS VAGINALIS STAPHYLOCOCCUS AUREUS Unless otherwise specified, Testing Performed by: [address] [address] For Inquires, the Physician may contact the Microbiology department at [phone] RUN DATE: 12/03/20 [facility] *LIVE* PAGE 1 RUN TIME: 1055 Specimen Inquiry PATIENT: DENNIS JAIMES ACCT: [id number] LOC: [address] [place] [address] U: [id number] AGE/SX: 55/F ROOM: [facility] RE11/28/[address]: TAJ GHOSH MD : 1965 BED: 1 DIS: STATUS: ADM IN TLOC: SPEC #: [id number] RACHAEL: 11/28/20 STATUS: COMP REQ #: [id number] RECD: 11/28/[address] [facility] [address]: TAJ GHOSH MD SOURCE: LEG ENTR: 11/28/[address]: FABRIZIO GALAVIZ MD SPDESC: DRAINAGE ELAYNE CRAIG MD, DARCY L MD ORDERED: LUANA/CAMMY/HÉCTOR COMMENTS: LEFT LEG WOUND Procedure Result GRAM STAIN Final Final GRAM NEGATIVE RODS:RARE GRAM POSITIVE COCCI:MANY SQUAMOUS EPI CELL:NONE SEEN PMN (WBCs):MODERATE Unless otherwise specified, Testing Performed by: [address] [id number] For Inquires, the Physician may contact the Microbiology department at [phone] ANAEROBIC-AEROBIC CULTURE Final Final FEW GRAM NEGATIVE RODS on 11/29/20 at 0858 FINAL ID= [PSEUDOMONAS AERUGINOSA] MODERATE [STAPHYLOCOCCUS AUREUS] on 11/29/20 at 1251 MODERATE [STREPTOCOCCUS MITIS/ORALIS] on 12/01/20 at 1139 NO ANAEROBIC ORGANISMS ISOLATED on 12/03/20 at 1052 PSEUDOMONAS AERUGINOSA STAPHYLOCOCCUS AUREUS STREPTOCOCCUS MITIS/ORALIS ANTIMICROBIAL SUSCEPTIBILITY Final Comment Comment NEG JAIME 56 PSEUDOMONAS AERUGINOSA ANTIBIOTIC RESULT INTERPRETATION AMIKACIN 32 I AZTREONAM <=4 S CEFTAZIDIME 4 S CIPROFLOXACIN 1 S CEFEPIME 8 S CEFTAZIDIME/AVIBACTAM <=4 S GENTAMICIN >8 R LEVOFLOXACIN 4 I RUN DATE: 12/03/20 [facility] *LIVE* PAGE 2 RUN TIME: 1055 Specimen Inquiry SPEC: [id number] PATIENT: DENNIS JAIMES [id number] (Continued) Procedure Result CONTINUED ON NEXT PAGE RUN DATE: 12/03/20 [facility] *LIVE* PAGE 3 RUN TIME: 1055 Specimen Inquiry SPEC: [id number] PATIENT: DENNIS JAIMES [id number] (Continued) ----- ------- Procedure Result ANTIMICROBIAL SUSCEPTIBILITY Final (continued) MEROPENEM <=1 S PIPERACILLIN/TAZOBACTAM <=8 S TOBRAMYCIN 4 S POS JAIME TYPE 38 STAPHYLOCOCCUS AUREUS ANTIBIOTIC RESULT INTERPRETATION AZITHROMYCIN <=2 S CLINDAMYCIN <=0.25 S CEFOXITIN SCREEN <=4 NEG CIPROFLOXACIN <=1 S CEFTAROLINE <=0.5 S DAPTOMYCIN 1 S ERYTHROMYCIN <=0.25 S GENTAMICIN <=4 S LINEZOLID 2 S LEVOFLOXACIN <=1 S OXACILLIN <=0.25 S PENICILLIN >2 Yessica RIFAMPIN <=1 S TRIMETHOPRIM/SULFAMETHOXAZOLE <=0.5/9.5 S TETRACYCLINE <=4 S VANCOMYCIN 1 S Unless otherwise specified, Testing Performed by: [address] [address] For Inquires, the Physician may contact the Microbiology department at [phone] Objective: Assessment: 1. Gangrene of the left foot. Status post BKA Nov 28 2020 2. Cellulitis of the left foot. 3. Gas forming organism with subcutaneous air in the left foot. 4. Chronic wound on the back of the left leg. 5. Leukocytosis. 6. Diabetes with poor control. 7. Hypertension. 8. Coronary artery disease. 9. Peripheral vascular disease. Plan: Plan of Care Levaquin for 5 days probiotics Continue supportive care Local wound care as directed Continue to monitor Discussed with daughter at bedside Discussed with ELAYNE SON MD Dec 06, 2020 11:56
[2020-12-06] MEDS: ENOXAPARIN 40 MG/0.4 ML SYRINGE. SQ SCH (12:07)
--- NOTE | 2020-12-06 12:19 | PDOC3 ---
Discharge Summary Date of Admission: Nov 28, 2020 Date of Discharge: Dec 06, 2020 Follow-Up: 3-5 days Admitting Diagnosis comment: DISCHARGE DX Chief Complaint impression Gas gangrene of left foot - empiric antibiotics, is consultant recommendations greatly appreciated (ID and vascular surgery). 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 ID consulted for management. Will f/u recs of zosyn until discharge, then 7 days levaquin on d/c Diabetes - with hyperglycemia - will give aggressive insulin regimen Hypomagnesemia - will replace Hyponatremia - related to hyperglycemia, hypovolemia, will replace Hypertension. Coronary artery disease. Plan: Continue Zosyn. iv Continue supportive care Continue to monitor Local wound care as directed At discharge changed to p.o. Levaquin for 5 more days accepted [facility] re[facility] BKA stump pain is under better control FEN - ADA diet PPX - lovenox FULL CODE Dispo - inpatient for above d/w RN D/C PLANNING 35 MIN History of Present Illness History of Present Illness Ms Chamorro is a 55yo F w/ PMHx peripheral vascular disease s/p R BKA, diabetes, CVA, atrial fibrillation, hypertension, irritable bowel, kidney stones, HLD, CKD who presents to ED with her c/o left foot redness and swelling. She was walking and hit her left foot against a door frame 11/26/2020 and noted over the past 2 days it has become infected. She notes redness, an odor and popping sensation. Patient already has a nonhealing ulcer on the medial aspect of her left leg for 6 months mid-tibia. She has been unable to get into wound care due to insurance restrictions. Patient denies any fever. Patient denies any chest pain, no abdominal pain. Patient denies any trouble breathing. No recent sick contacts. She has had nausea since 11/23/2020 and has vomited 1 time daily for the past week. Left foot XR with soft tissue swelling along the dorsum of the foot with associated thinning is gas is centered along the fourth metatarsophalangeal joint space. No definite osseous erosion or opaque foreign density. WBC 13.7, Hb 11.5, Platelets 352, Na 127, K 4.1, BUN 13, Cr 1, glucose 572, Mg 1.7, albumin 2.8 11/29: Patient with well controlled pain, no acute events reported overnight, plan of care discussed in detail. she will be going to the or in the am 11/30: Patient complainign fo nausea during my visit, hyperglycemia noted, patient not able to eat much and worried about receiving insulin and having hypogl eycemic events, reassruacne provided, family at bedside, all concerns addressed to the best of my abilities 12/01: Patient with a lot of pain after the surgery. Patient is not responded well to Dilaudid since it does not seem to provide her prolonged relief. We will try with oral morphine and start her on gabapentin as well. Recommendations from Dr. Gomez greatly appreciated 12/02: Patient responding better to Dilaudid as far as pain goes. Oral morphine did not accomplish to have her pain better controlled reassurance provided no concerns voiced during my encounter other than the pain. 12/03: Overnight afebrile. Pain 7-10 in the left lower extremity today. She knows that she has not had a bowel movement. No chest pain or shortness of breath. is bedside supportive. Overnight afebrile. Noted severe pain "27/10" at 9 PM and 3 AM. She has not had a bowel movement for 8 days. No chest pain or shortness of breath. Has been frequently getting 4 mg of Dilaudid. She is amenable to increasing oral pain regimen. Plan: rehab on discharge hopefully in the next 48 to 72 hours. Vitals Vitals Vital Signs Date Time Temp Pulse Resp B/P (MAP) Pulse Ox O2 Delivery O2 Flow Rate FiO2 1/12/21 08:59 91 148/62 12/06/20 08:00 Room Air 2.0 12/06/20 07:44 20 93 12/06/20 07:00 97.5 97.5 Physical Exam Physical Exam GENERAL: Alert, oriented female, not in any distress. VITAL SIGNS: Stable, afebrile. HEENT: NAD. NECK: Supple, no JVP, no lymphadenopathy. LUNGS: Clear. HEART: S1, S2 regular. ABDOMEN: Benign. EXTREMITIES: Right BKA unremarkable. 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 No focal neurologic deficit. General: Alert, Oriented X3, Cooperative, No acute distress Heart: Regular rate Lungs: Clear Abdomen: Normal bowel sounds, Soft, No tenderness, No hepatosplenomegaly, No masses Extremities: No cyanosis, Other (RLE BKA clean, dry. LLE with medial ulcer 4cm x8 cm well demarcated. Fluctuance 4th and 5th dorsal MTP joint with surrounding erythema and crepitus) Skin: Other (left leg medial ulcer and left anterior foot hot red, crepitus, dry gangrene) Labs LABS SPEC #: [id number] RACHAEL: 11/28/20 STATUS: COMP REQ #: [id number] RECD: 11/28/[address]: JERILYN MURPHY DO SOURCE: BLOOD ENTR: 11/28/20 [facility] DR: KALEN SPRING MD [facility]: ORDERED: BCULT Procedure Result BLOOD CULTURE Final NO GROWTH AFTER 5 DAYS [facility] Accession Number: [id number] . 01 Material submitted: . leg - LEFT LOWER LEG AND FOOT. Modifiers: left, lower . 01 Clinical history: . GANGRENE OF LEFT FOOT . 02 Diagnosis: Left lower leg and foot amputation: - Ulceration and necrosis of dorsal aspect of left fourth and fifth toes with extensive acute cellulitis of foot. - Focal ulceration, necrosis, and acute cellulitis of posterior distal calf. - Skin and subcutaneous tissue of proximal amputation margin negative for acute cellulitis. (JPM:michael; 12/05/2020) [facility] [place]/05/2020 0933 Local . 02 Electronically signed: . Berto Ahn MD, Pathologist NPI- [id number] . 01 Gross description: . The specimen is received fresh in a red biohazard bag, labeled "Frannie Chamorro, left lower leg and foot". Received is a left ykojp-hep-denc amputation, with all five toes present, measuring 23.1 cm from heel to toe, 19.2 cm from heel to skin margin 20.0 cm from heel to tibial bone margin, and 20.1 cm from heel to fibular bone margin. The skin and soft tissue margins appear viable. The tibial bone margin is blunt in appearance, consistent with transection, and appears grossly unremarkable. The fibular bone margin is jagged in appearance, however, appears grossly unremarkable. On the dorsal aspect of the specimen, overlying the third through fifth toes, there is a surgical incision revealing underlying necrotic-appearing soft tissue. On the epidermal surface between toes 4 and 5, there is a degroot-brown, necrotic-appearing lesion measuring 2.0 x 1.8 cm. On the posterior aspect of the lower calf, there is a poorly circumscribed degroot-brown necrotic-appearing lesion measuring 4.3 x 3.5 cm, which is 1.3 cm from the closest skin margin. Sectioning through the anterior and posterior tibial vasculatures reveals pinpoint to patent lumens. Calcification is not grossly identified. The specimen is submitted labor service representative as follows: . A1 perpendicular section through skin margin and additional labor service representative section of skin margin to show relationship with lesion on posterior calf A2-A3 labor service representative sections of skin and soft tissue from surgical incision on dorsal aspect of foot A4 labor service representative section of lesion on dorsal aspect of foot between toes 4 and 5 A5 additional labor service representative section of lesion on posterior aspect of calf A6 anterior and posterior tibial vasculatures. . Gross photographs are taken. (CAA; 12/02/2020) QAC/QAC 12/05/2020 0932 Local . 02 Pathologist provided ICD-10: L97.529, L03.032, I96 . 02 CPT . 591277, 410531 Specimen Comment: A courtesy copy of this report has been sent to [phone] FINAL DIAGNOSIS Problems Medical Problems: (1) Gas gangrene of foot Status: Acute Brief Hospital Course Ms. Chamorro is a 55 old [sex] who presented with [ GAS GANGRENE OF FOOT] CONDITION AT DISCHARGE: Improved Discharge Medications Current Medications Piperacillin Sod/ Tazobactam Sod 3.375 gm/Sodium Chloride 50 ml @ 100 mls/hr 1X ONCE IV Last administered on 11/28/20at 09:18; Start 11/28/20 at 09:00; Stop 11/28/20 at 09:29; Status DC Atorvastatin Calcium (Lipitor) 40 mg QHS PO Last administered on 12/05/20at 20:59; Start 11/28/20 at 21:00 Diltiazem HCl (Cardizem 24hr Cd) 180 mg DAILY PO Last administered on 12/06/20at 08:58; Start 11/29/20 at 10:00 Metoprolol Tartrate (Lopressor) 50 mg BID PO Last administered on 12/06/20at 08:59; Start 11/28/20 at 10:00 Oxycodone/ Acetaminophen (Percocet 5/325) 1 tab PRN Q6HRS PRN PO MODERATE TO SEVERE PAIN Last administered on 11/29/20at 10:14; Start 11/28/20 at 09:45; Stop 11/29/20 at 11:36; Status DC Vitamin D (Vitamin D3) 2,000 unit BID PO Last administered on 12/06/20at 08:58; Start 11/28/20 at 10:15 Insulin Glargine (Lantus Syringe) 30 unit HS SQ Last administered on 12/05/20at 21:10; Start 11/28/20 at 21:00 Ondansetron HCl (Zofran Odt) 8 mg PRN BID PRN PO NAUSEA/VOMITING; Start 11/28/20 at 10:15 Ondansetron HCl (Zofran) 4 mg PRN Q6HRS PRN IVP NAUSEA/VOMITING, 1ST CHOICE Last administered on 12/03/20at 13:42; Start 11/28/20 at 09:45 Acetaminophen (Tylenol) 650 mg PRN Q6HRS PRN PO Headaches, Temp > 101.5F; Start 11/28/20 at 09:45 Bisacodyl (Dulcolax Supp) 10 mg PRN DAILY PRN OK CONSTIPATION; Start 11/28/20 at 09:45 Linezolid/Dextrose 300 ml @ 300 mls/hr Q12HR IV ; Start 11/28/20 at 21:00; Status UNV Clindamycin Phosphate 50 ml @ 100 mls/hr Q8HRS IV Last administered on 11/30/20at 06:00; Start 11/28/20 at 22:00; Stop 11/30/20 at 11:24; Status DC Linezolid/Dextrose 300 ml @ 300 mls/hr Q12HR IV Last administered on 11/30/20at 08:14; Start 11/28/20 at 13:00; Stop 11/30/20 at 11:24; Status DC Clindamycin Phosphate 50 ml @ 100 mls/hr 1X ONCE IV Last administered on 11/28/20at 13:18; Start 11/28/20 at 13:00; Stop 11/28/20 at 13:29; Status DC Morphine Sulfate (Morphine Sulfate) 4 mg PRN Q2HR PRN IV PAIN Last administered on 11/28/20at 13:19; Start 11/28/20 at 13:00; Stop 11/28/20 at 16:56; Status DC Metoclopramide HCl (Reglan Vial) 10 mg PRN Q6HRS PRN IVP NAUSEA/VOMITING, 2ND CHOICE Last administered on 11/29/20at 08:47; Start 11/28/20 at 13:00 Insulin Human Lispro (HumaLOG) 0-9 UNITS TIDWMEALS SQ Last administered on 12/06/20at 09:12; Start 11/28/20 at 17:00 Dextrose (Dextrose 50%-Water Syringe) 12.5 gm PRN Q15MIN PRN IV SEE COMMENTS; Start 11/28/20 at 13:00 Ondansetron HCl (Zofran) 4 mg PRN Q6HRS PRN IV NAUSEA/VOMITING Last administe red on 11/28/20at 18:19; Start 11/28/20 at 13:45; Stop 11/29/20 at 11:36; Status DC Fentanyl Citrate (Fentanyl 2ml Vial) 25 mcg PRN Q5MIN PRN IV MILD PAIN 1-3; Start 11/28/20 at 13:45; Stop 11/28/20 at 22:00; Status DC Fentanyl Citrate (Fentanyl 2ml Vial) 50 mcg PRN Q5MIN PRN IV MODERATE TO SEVERE PAIN Last administered on 11/28/20at 16:06; Start 11/28/20 at 13:45; Stop 11/28/20 at 22:00; Status DC Morphine Sulfate (Morphine Sulfate) 1 mg PRN Q10MIN PRN IV SEVERE PAIN 7-10; Start 11/28/20 at 13:45; Stop 11/28/20 at 22:00; Status DC Ringer's Solution 1,000 ml @ 30 mls/hr Q24H IV ; Start 11/28/20 at 13:45; Stop 11/29/20 at 01:44; Status DC Lidocaine HCl (Xylocaine-Mpf 1% 2ml Vial) 2 ml PRN 1X PRN ID PRIOR TO IV START; Start 11/28/20 at 13:45; Stop 11/28/20 at 22:00; Status DC Hydromorphone HCl (Dilaudid) 0.5 mg PRN Q10MIN PRN IV SEV PAIN, Second choice; Start 11/28/20 at 13:45; Stop 11/28/20 at 22:00; Status DC Prochlorperazine Edisylate (Compazine) 5 mg PACU PRN PRN IV NAUSEA, MRX1; Start 11/28/20 at 13:45; Stop 11/28/20 at 22:00; Status DC Propofol (Diprivan) 200 mg STK-MED ONCE IV ; Start 11/28/20 at 13:53; Stop 11/28/20 at 13:53; Status DC Dexamethasone Sodium Phosphate (Decadron) 4 mg STK-MED ONCE .ROUTE ; Start 11/28/20 at 13:53; Stop 11/28/20 at 13:53; Status DC Lidocaine HCl (Lidocaine Pf 2% Vial) 5 ml STK-MED ONCE .ROUTE ; Start 11/28/20 at 13:53; Stop 11/28/20 at 13:53; Status DC Ondansetron HCl (Zofran) 4 mg STK-MED ONCE .ROUTE ; Start 11/28/20 at 13:53; Stop 11/28/20 at 13:53; Status DC Insulin Human Lispro (HumaLOG VIAL for OP,RR ONLY) 0-10 units PRN Q1HR PRN SQ PER PROTOCOL Last administered on 11/28/20at 16:41; Start 11/28/20 at 14:45; Stop 11/29/20 at 10:24; Status DC Phenylephrine HCl (PHENYLEPHRINE in 0.9% NACL PF) 1 mg STK-MED ONCE IV ; Start 11/28/20 at 14:57; Stop 11/28/20 at 14:57; Status DC Sevoflurane (Ultane) 30 ml STK-MED ONCE IH ; Start 11/28/20 at 14:57; Stop 11/28/20 at 14:57; Status DC Hydromorphone HCl (Dilaudid) 2 mg STK-MED ONCE .ROUTE ; Start 11/28/20 at 15:18; Stop 11/28/20 at 15:18; Status DC Fentanyl Citrate (Fentanyl 2ml Vial) 100 mcg STK-MED ONCE .ROUTE ; Start 11/28/20 at 16:04; Stop 11/28/20 at 16:04; Status DC Morphine Sulfate (Morphine Sulfate) 2 mg PRN Q2HR PRN IV MODERATE PAIN Last administered on 12/02/20at 13:15; Start 11/28/20 at 17:00; Stop 12/02/20 at 18:05; Status DC Oxycodone/ Acetaminophen (Percocet 5/325) 1 tab PRN Q4HRS PRN PO MODERATE TO SEVERE PAIN Last administered on 12/04/20at 09:51; Start 11/28/20 at 17:00; Stop 12/04/20 at 15:48; Status DC Insulin Human Lispro (HumaLOG) 4 units TIDWMEALS SQ Last administered on 11/29/20at 12:32; Start 11/29/20 at 08:00; Stop 12/01/20 at 14:45; Status DC Magnesium Sulfate 50 ml @ 25 mls/hr 1X ONCE IV Last administered on 11/28/20at 23:38; Start 11/28/20 at 22:00; Stop 11/28/20 at 23:59; Status DC Enoxaparin Sodium (Lovenox 40mg Syringe) 40 mg Q24H SQ Last administered on 12/05/20at 11:00; Start 11/29/20 at 11:00 Aspirin (Aspirin Chewable) 81 mg DAILY PO Last administered on 12/06/20at 08:57; Start 11/29/20 at 15:00 Docusate Sodium (Colace) 100 mg BID PO Last administered on 12/06/20at 08:58; Start 11/29/20 at 21:00 Fenofibrate (Lofibra) 54 mg DAILY PO Last administered on 12/06/20at 08:58; Start 11/29/20 at 15:00 Glipizide (Glucotrol) 5 mg BIDAC PO Last administered on 12/06/20at 08:59; Start 11/29/20 at 16:30 Pseudoephedrine HCl (Sudafed 12-Hour) 120 mg PRN BID PRN PO NASAL CONGESTION; Start 11/29/20 at 14:45; Stop 11/29/20 at 14:42; Status DC Insulin Human Lispro (HumaLOG) 8 units TIDAC SQ Last administered on 12/06/20at 09:12; Start 11/29/20 at 16:30 Potassium Chloride (Klor-Con) 40 meq 1X ONCE PO Last administered on 11/29/20at 18:42; Start 11/29/20 at 14:45; Stop 11/29/20 at 14:46; Status DC Lactobacillus Rhamnosus (Culturelle) 1 cap BID PO Last administered on 12/06/20at 08:58; Start 11/29/20 at 21:00 Ringer's Solution 1,000 ml @ 100 mls/hr Q10H IV Last administered on 12/02/20at 11:13; Start 11/29/20 at 15:00; Stop 12/02/20 at 18:05; Status DC Insulin Human Lispro (HumaLOG) 15 units 1X ONCE SQ Last administered on 11/29/20at 22:13; Start 11/29/20 at 22:00; Stop 11/29/20 at 22:01; Status DC Ondansetron HCl (Zofran) 4 mg PRN Q6HRS PRN IV NAUSEA/VOMITING; Start 12/01/20 at 07:00; Stop 12/01/20 at 20:00; Status DC Fentanyl Citrate (Fentanyl 2ml Vial) 25 mcg PRN Q5MIN PRN IV MILD PAIN 1-3; Start 12/01/20 at 07:00; Stop 12/01/20 at 20:00; Status DC Fentanyl Citrate (Fentanyl 2ml Vial) 50 mcg PRN Q5MIN PRN IV MODERATE TO SEVERE PAIN Last administered on 12/01/20at 09:46; Start 12/01/20 at 07:00; Stop 12/01/20 at 20:00; Status DC Morphine Sulfate (Morphine Sulfate) 1 mg PRN Q10MIN PRN IV SEVERE PAIN 7-10; Start 12/01/20 at 07:00; Stop 12/01/20 at 20:00; Status DC Ringer's Solution 1,000 ml @ 30 mls/hr Q24H IV ; Start 12/01/20 at 07:00; Stop 12/01/20 at 18:59; Status DC Lidocaine HCl (Xylocaine-Mpf 1% 2ml Vial) 2 ml PRN 1X PRN ID PRIOR TO IV START; Start 12/01/20 at 07:00; Stop 12/01/20 at 20:01; Status DC Hydromorphone HCl (Dilaudid) 0.5 mg PRN Q10MIN PRN IV SEV PAIN, Second choice; Start 12/01/20 at 07:00; Stop 12/01/20 at 20:00; Status DC Prochlorperazine Edisylate (Compazine) 5 mg PACU PRN PRN IV NAUSEA, MRX1; Start 12/01/20 at 07:00; Stop 12/02/20 at 06:59; Status DC Piperacillin Sod/ Tazobactam Sod 3.375 gm/Sodium Chloride 50 ml @ 100 mls/hr Q8HRS IV Last administered on 12/01/20at 13:39; Start 11/30/20 at 14:00; Stop 12/01/20 at 14:48; Status DC Ondansetron HCl (Zofran) 4 mg STK-MED ONCE .ROUTE ; Start 12/01/20 at 06:22; Stop 12/01/20 at 06:22; Status DC Propofol (Diprivan) 200 mg STK-MED ONCE IV ; Start 12/01/20 at 06:22; Stop 12/01/20 at 06:22; Status DC Lidocaine HCl (Lidocaine Pf 2% Vial) 5 ml STK-MED ONCE .ROUTE ; Start 12/01/20 at 06:22; Stop 12/01/20 at 06:22; Status DC Dexamethasone Sodium Phosphate (Decadron) 4 mg STK-MED ONCE .ROUTE ; Start 12/01/20 at 06:22; Stop 12/01/20 at 06:22; Status DC Fentanyl Citrate (Fentanyl 2ml Vial) 100 mcg STK-MED ONCE .ROUTE ; Start 12/01/20 at 07:12; Stop 12/01/20 at 07:13; Status DC Insulin Human Lispro (HumaLOG VIAL for OP,RR ONLY) 0-10 units PRN Q1HR PRN SQ PER PROTOCOL Last administered on 12/01/20at 09:34; Start 12/01/20 at 07:15; Stop 12/02/20 at 07:14; Status DC Fentanyl Citrate (Fentanyl 2ml Vial) 100 mcg STK-MED ONCE .ROUTE ; Start 12/01/20 at 07:46; Stop 12/01/20 at 07:47; Status DC Sevoflurane (Ultane) 30 ml STK-MED ONCE IH ; Start 12/01/20 at 08:05; Stop 12/01/20 at 08:06; Status DC Sevoflurane (Ultane) 60 ml STK-MED ONCE IH ; Start 12/01/20 at 08:40; Stop 12/01/20 at 08:41; Status DC Fentanyl Citrate (Fentanyl 2ml Vial) 100 mcg STK-MED ONCE .ROUTE ; Start 12/01/20 at 09:30; Stop 12/01/20 at 09:31; Status DC Hydromorphone HCl (Dilaudid) 1 mg 1X ONCE IVP Last administered on 12/01/20at 10:39; Start 12/01/20 at 10:30; Stop 12/01/20 at 10:31; Status DC Gabapentin (Neurontin) 100 mg TID PO Last administered on 12/02/20at 14:32; Start 12/01/20 at 14:00; Stop 12/02/20 at 18:05; Status DC Morphine Sulfate (Morphine Oral Solution) 10 mg PRN Q3HRS PRN PO SEVERE PAIN- 2ND CHOICE Last administered on 12/01/20at 17:51; Start 12/01/20 at 12:45; Stop 12/02/20 at 18:05; Status DC Piperacillin Sod/ Tazobactam Sod 3.375 gm/Sodium Chloride 50 ml @ 100 mls/hr Q6HRS IV Last administered on 12/06/20at 05:42; Start 12/01/20 at 18:00 Hydromorphone HCl (Dilaudid) 2 mg PRN Q3HRS PRN IVP SEVERE PAIN Last administered on 12/06/20at 04:22; Start 12/01/20 at 19:00 Gabapentin (Neurontin) 300 mg TID PO Last administered on 12/04/20at 14:32; Start 12/02/20 at 21:00; Stop 12/04/20 at 15:47; Status DC Hydromorphone HCl (Dilaudid) 4 mg PRN Q3HRS PRN IVP SEVERE PAIN, 2ND CHOICE Last administered on 12/04/20at 03:54; Start 12/03/20 at 07:30 Psyllium Hydrophilic Mucilloid (Metamucil Fiber Packet) 1 pkt QHS PO Last administered on 12/05/20at 20:59; Start 12/03/20 at 10:30 Polyethylene Glycol (miraLAX PACKET) 17 gm PRN BID PRN PO CONSTIPATION, 1st CHOICE Last administered on 12/04/20at 21:28; Start 12/04/20 at 12:00 Senna/Docusate Sodium (Senna Plus) 2 tab PRN BID PRN PO CONSTIPATION, 2nd CHOICE Last administered on 12/06/20at 08:58; Start 12/04/20 at 12:00 Magnesium Citrate (Citroma) 296 ml PRN 1X PRN PO CONSTIPATION, 4th CHOICE; Start 12/04/20 at 12:00 Lactulose (Lactulose) 20 gm PRN DAILY PRN PO CONSTIPATION, 3rd CHOICE; Start 12/04/20 at 12:00 Oxycodone/ Acetaminophen (Percocet 5/325) 2 tab PRN Q4HRS PRN PO MODERATE PAIN, SEVERE PAIN Last administered on 12/06/20at 06:44; Start 12/04/20 at 12:00 Trazodone HCl (Desyrel) 100 mg PRN QHS PRN PO INSOMNIA Last administered on 12/06/20at 00:15; Start 12/04/20 at 12:00 Gabapentin (Neurontin) 300 mg TID PO Last administered on 12/06/20at 08:58; Start 12/04/20 at 21:00 Active Scripts Active Atorvastatin Calcium 40 Mg Tablet 40 Mg PO QHS MDD 1 Sinus 12-Hour (Pseudoephedrine Hcl) 120 Mg Tablet.er 120 Mg PO PRN BID PRN 7 Days Vitamin D (Cholecalciferol (Vitamin D3)) 2,000 Unit Capsule 1 Cap PO BID Cool Blood Glucose Meter (Blood-Glucose Meter) 1 Each Each Each MC dm please also dispense test strips and lancets quantity sufficient for 1 month Fenofibrate 54 Mg Tablet 54 Mg PO DAILY 30 Days Reported Colace (Docusate Sodium) 100 Mg Capsule 1 Cap PO BID 30 Days Zofran (Ondansetron Hcl) 8 Mg Tablet 8 Mg PO BID PRN Percocet 5-325 mg Tablet (Oxycodone HCl/Acetaminophen) 1 Each Tablet 1 Tab PO P RN Q6HRS PRN MDD 2 Tablet(s) 5 Days Metoprolol Tartrate 50 Mg Tablet 50 Mg PO BID Levemir (Insulin Detemir) 100 Unit/1 Ml Vial 30 Unit SQ HS Aspirin 81 Mg Tab.chew 1 Tab PO DAILY Glipizide 5 Mg Tablet 1 Tab PO BID Cardizem Cd (Diltiazem Hcl) 180 Mg Cap.er.24h 1 Cap PO DAILY Metformin Hcl 1,000 Mg Tablet 1,000 Mg PO BID hold for 48 hours. Next dose 04/09 evening dose Vital Signs Vital Signs Date Time Temp Pulse Resp B/P (MAP) Pulse Ox O2 Delivery O2 Flow Rate FiO2 12/06/20 11:00 97.7 86 18 120/70 (87) 96 Room Air 97.7 12/06/20 08:00 2.0 Labs Laboratory Tests Test 12/04/20 16:57 12/04/20 20:47 12/05/20 07:18 12/05/20 11:31 Glucose (Fingerstick) 131 mg/dL (70-99) 80 mg/dL (70-99) 197 mg/dL (70-99) 168 mg/dL (70-99) Test 12/05/20 16:35 12/05/20 20:30 12/06/20 06:29 12/06/20 07:28 Glucose (Fingerstick) 117 mg/dL (70-99) 204 mg/dL (70-99) 226 mg/dL (70-99) White Blood Count 9.6 x10^3/uL (4.0-11.0) Red Blood Count 3.22 x10^6/uL (3.50-5.40) Hemoglobin 9.0 g/dL (12.0-15.5) Hematocrit 27.0 % (36.0-47.0) Mean Corpuscular Volume 84 fL (79-100) Mean Corpuscular Hemoglobin 28 pg (25-35) Mean Corpuscular Hemoglobin Concent 33 g/dL (31-37) Red Cell Distribution Width 14.5 % (11.5-14.5) Platelet Count 437 x10^3/uL (140-400) Neutrophils (%) (Auto) 68 % (31-73) Lymphocytes (%) (Auto) 21 % (24-48) Monocytes (%) (Auto) 9 % (0-9) Eosinophils (%) (Auto) 1 % (0-3) Basophils (%) (Auto) 1 % (0-3) Neutrophils # (Auto) 6.6 x10^3/uL (1.8-7.7) Lymphocytes # (Auto) 2.0 x10^3/uL (1.0-4.8) Monocytes # (Auto) 0.9 x10^3/uL (0.0-1.1) Eosinophils # (Auto) 0.1 x10^3/uL (0.0-0.7) Basophils # (Auto) 0.1 x10^3/uL (0.0-0.2) Sodium Level 137 mmol/L (136-145) Potassium Level 4.7 mmol/L (3.5-5.1) Chloride Level 101 mmol/L (98-107) Carbon Dioxide Level 30 mmol/L (21-32) Anion Gap 6 (6-14) Blood Urea Nitrogen 17 mg/dL (7-20) Creatinine 0.8 mg/dL (0.6-1.0) Estimated GFR (Cockcroft-Gault) 74.5 Glucose Level 226 mg/dL (70-99) Calcium Level 9.4 mg/dL (8.5-10.1) Test 12/06/20 11:34 Glucose (Fingerstick) 184 mg/dL (70-99) Laboratory Tests Test 12/05/20 16:35 12/05/20 20:30 12/06/20 06:29 12/06/20 07:28 Glucose (Fingerstick) 117 mg/dL (70-99) 204 mg/dL (70-99) 226 mg/dL (70-99) White Blood Count 9.6 x10^3/uL (4.0-11.0) Red Blood Count 3.22 x10^6/uL (3.50-5.40) Hemoglobin 9.0 g/dL (12.0-15.5) Hematocrit 27.0 % (36.0-47.0) Mean Corpuscular Volume 84 fL (79-100) Mean Corpuscular Hemoglobin 28 pg (25-35) Mean Corpuscular Hemoglobin Concent 33 g/dL (31-37) Red Cell Distribution Width 14.5 % (11.5-14.5) Platelet Count 437 x10^3/uL (140-400) Neutrophils (%) (Auto) 68 % (31-73) Lymphocytes (%) (Auto) 21 % (24-48) Monocytes (%) (Auto) 9 % (0-9) Eosinophils (%) (Auto) 1 % (0-3) Basophils (%) (Auto) 1 % (0-3) Neutrophils # (Auto) 6.6 x10^3/uL (1.8-7.7) Lymphocytes # (Auto) 2.0 x10^3/uL (1.0-4.8) Monocytes # (Auto) 0.9 x10^3/uL (0.0-1.1) Eosinophils # (Auto) 0.1 x10^3/uL (0.0-0.7) Basophils # (Auto) 0.1 x10^3/uL (0.0-0.2) Sodium Level 137 mmol/L (136-145) Potassium Level 4.7 mmol/L (3.5-5.1) Chloride Level 101 mmol/L (98-107) Carbon Dioxide Level 30 mmol/L (21-32) Anion Gap 6 (6-14) Blood Urea Nitrogen 17 mg/dL (7-20) Creatinine 0.8 mg/dL (0.6-1.0) Estimated GFR (Cockcroft-Gault) 74.5 Glucose Level 226 mg/dL (70-99) Calcium Level 9.4 mg/dL (8.5-10.1) Test 12/06/20 11:34 Glucose (Fingerstick) 184 mg/dL (70-99) Allergies Allergies Coded Allergies Type Severity Reaction Last Updated Verified No Known Drug Allergies 11/11/19 No Disposition/Orders: Instructions/Orders ([facility] Justicifation of Admission Dx: Justifications for Admission: Justification of Admission Dx: N/A MACIEL ZHU MD Dec 06, 2020 12:19
[2020-12-06] MEDS ORDERED: INSU100V35 SQ (12:24)
[2020-12-06] MEDS ORDERED: LEVO500T8 PO (12:24)
[2020-12-06] MEDS ORDERED: POLY17PO52 PO (12:24)
[2020-12-06] MEDS ORDERED: ENOX40DI3 SQ (12:24)
[2020-12-06] MEDS ORDERED: LACT1CAP19 PO (12:24)
[2020-12-06] MEDS ORDERED: GABA300C18 PO (12:24)
[2020-12-06] MEDS ORDERED: LACT20SO PO (12:24)
--- NOTE | 2020-12-06 12:27 | SNU/HH DC ---
DISCHARGE ORDERS DISCHARGE INFORMATION: FINAL DIAGNOSIS Problems Medical Problems: (1) Gas gangrene of foot Status: Acute CONDITION ON DISCHARGE: Stable CODE STATUS: Code Status: Full CARE HOME: SNF STAY <30 DAYS: No HOSPICE: HOSPICE: No HOSPICE EVAL & TREAT: No LTAC: ADMIT TO LTAC: No POST DISCHARGE ORDERS: ACTIVITY ORDERS: Activity as tolerated WEIGHT BEARING STATUS: As tolerated BATHING ORDERS: Shower-keep dressing dry DIET AFTER DISCHARGE: ADA WOUND/INCISION CARE: Ice to area for comfort, Keep wound/cast CDI OTHER WOUND INSTRUCTIONS: PER VASCULAR, WOUND CARE CHECKS AFTER DISCHARGE: CHECKS AFTER DISCHARGE: Check blood press - daily, Check blood sugar, ac/hs FOLLOW-UP: PHYSICIAN FOLLOW-UP: VASCULAR SOON DIRECTED Additional Instructions: DIRECT ADMIT TO [facility] TREATMENT/EQUIPMENT ORDERS: ADAPTIVE EQUIPMENT NEEDED: Front wheeled walker Physical Therapy For: Evalulation/Treatment Occupational Therapy For: Evaluation/Treatment Speech Language Pathology For: Evaluation/Treatment DISCHARGE MEDICATIONS: Home Meds Active Scripts Insulin Lispro (Admelog) 100 Unit/1 Ml Vial, 8 UNITS SQ TIDAC for DIABETES for 28 Days, #2 EACH Prov:MACIEL ZHU MD 12/06/20 Lactobacillus Rhamnosus Gg (CULTURELLE) 1 Each Cap.sprink, 1 CAP PO BID for SUPPLEMENT for 30 Days, #60 CAP Prov:MACIEL ZHU MD 12/06/20 Polyethylene Glycol 3350 (POLYETHYLENE GLYCOL 3350) 17 Gm Powd.pack, 17 GM PO PRN BID PRN for CONSTIPATION, 1st CHOICE for 14 Days, #14 PKT Prov:MACIEL ZHU MD 12/06/20 Lactulose (LACTULOSE) 20 Gm/30 Ml Solution, 20 GM PO PRN DAILY PRN for CONSTIPATION, 3rd CHOICE for 10 Days, #60 MISC Prov:MACIEL ZHU MD 12/06/20 Gabapentin (GABAPENTIN) 300 Mg Capsule, 300 MG PO TID for NEUROPATHY for 30 Days, #90 CAP Prov:MACIEL ZHU MD 12/06/20 Enoxaparin Sodium (ENOXAPARIN SODIUM) 40 Mg/0.4 Ml Disp.syrin, 40 MG SQ Q24H for DVT PROPHYLAXIS for 10 Days, #10 DIS.SYR Prov:MACIEL ZHU MD 12/06/20 Levofloxacin (LEVOFLOXACIN) 500 Mg Tablet, 500 MG PO DAILY06 for INFECTION for 7 Days, #7 TAB Prov:MACIEL ZHU MD 12/06/20 Atorvastatin Calcium (ATORVASTATIN CALCIUM) 40 Mg Tablet, 40 MG PO QHS for hlp MDD 1, #30 TAB Prov:MARJAN RUIZ MD 10/05/18 Cholecalciferol (Vitamin D3) (VITAMIN D) 2,000 Unit Capsule, 1 CAP PO BID, #60 CAP 3 Refills Prov:KEREN KILLIAN MD 12/28/17 Blood-Glucose Meter (Cool Blood Glucose Meter) 1 Each Each, EACH for SEE COMMENTS, #1 dm please also dispense test strips and lancets quantity sufficient for 1 month Prov:KEREN KILLIAN MD 12/28/17 Fenofibrate (FENOFIBRATE) 54 Mg Tablet, 54 MG PO DAILY for 30 Days, #30 TAB Prov:KEREN KILLIAN MD 12/28/17 Reported Medications Docusate Sodium (COLACE) 100 Mg Capsule, 1 CAP PO BID for constipation for 30 Days, #60 CAP 0 Refills 11/11/19 Ondansetron Hcl (ZOFRAN) 8 Mg Tablet, 8 MG PO BID PRN for NAUSEA/VOMITING, TAB 11/11/19 Oxycodone HCl/Acetaminophen (Percocet 5-325 mg Tablet) 1 Each Tablet, 1 TAB PO PRN Q6HRS PRN for PAIN MDD 2 Tablet(s) for 5 Days, #10 TAB 0 Refills 11/11/19 Metoprolol Tartrate (METOPROLOL TARTRATE) 50 Mg Tablet, 50 MG PO BID 10/03/18 Insulin Detemir (LEVEMIR) 100 Unit/1 Ml Vial, 30 UNIT SQ HS for diabetes, VIAL 04/07/18 Aspirin (ASPIRIN) 81 Mg Tab.chew, 1 TAB PO DAILY, #90 TAB 3 Refills 04/07/18 Glipizide (GLIPIZIDE) 5 Mg Tablet, 1 TAB PO BID, #180 TAB 3 Refills 04/07/18 Diltiazem Hcl (CARDIZEM CD) 180 Mg Cap.er.24h, 1 CAP PO DAILY, #90 CAP 1 Refill 12/27/17 Discontinued Reported Medications Metformin Hcl (METFORMIN HCL) 1,000 Mg Tablet, 1000 MG PO BID for ANTI-DIABETIC, TAB 0 Refills hold for 48 hours. Next dose Wed 04/09 evening dose 08/30/16 Discontinued Scripts Pseudoephedrine Hcl (SINUS 12-HOUR) 120 Mg Tablet.er, 120 MG PO PRN BID PRN for NASAL CONGESTION for 7 Days, #14 TAB.SR Prov:MARJAN RUIZ MD 10/05/18 MACIEL ZHU MD Dec 06, 2020 12:27
[2020-12-06 14:41] VITALS: BP 137/68
--- NOTE | 2020-12-06 15:32 | NUR ---
Discharge Note: ADALGISA JAIMES RYE Discharge instructions and discharge home medications reviewed with Other facility and a copy given. All questions have been answered and understanding verbalized. The following instructions and handouts were given: d/c instructions sent with patient at d/c to [facility]. Report called to Radha VICKERS at [facility]. Patient's dressing changed prior to discharge. Discontinued lines and drains: Peripheral IV intact. Patient discharged to Rehab Facility with Ambulance Personnel via Stretcher
[2020-12-29] MEDS ORDERED: AMLO-186 PO (09:15)
[2020-12-29] MEDS ORDERED: INSU100V6 SQ (09:15)
[2020-12-29] MEDS ORDERED: INSU100V13 SQ (09:15)
[2020-12-29] MEDS ORDERED: NYST15CR2 TP (09:15)
[2020-12-29] MEDS ORDERED: ZINC56.713 TP (09:15)
[2020-12-29] MEDS ORDERED: MORP15TA80 PO (09:15)
== END 2020-12-06 17:28 | DRG 853 ==
LOC: ER 08:06 → ED HOLD 09:31 → 5 NORTH 14:40
PROVIDERS: ADMIT Internal Medicine; ATTEND Internal Medicine
PROC: 0Y6J0Z1 Detachment at Left Lower Leg, High, Open Approach (ICD-10-PCS; principal; 2020-12-01 07:30)
DX: A41.9 Sepsis, unspecified organism (principal); A48.0 Gas gangrene; E11.52 Type 2 diabetes mellitus with diabetic peripheral angiopathy with gangrene; E87.1 Hypo-osmolality and hyponatremia; L02.619 Cutaneous abscess of unspecified foot; L03.116 Cellulitis of left lower limb; L97.229 Non-pressure chronic ulcer of left calf with unspecified severity; E85.4 Organ-limited amyloidosis; I70.262 Atherosclerosis of native arteries of extremities with gangrene, left leg; K50.90 Crohn's disease, unspecified, without complications; E11.22 Type 2 diabetes mellitus with diabetic chronic kidney disease; E11.621 Type 2 diabetes mellitus with foot ulcer; E11.65 Type 2 diabetes mellitus with hyperglycemia; E78.00 Pure hypercholesterolemia, unspecified; E78.5 Hyperlipidemia, unspecified; E83.42 Hypomagnesemia; E86.1 Hypovolemia; I12.9 Hypertensive chronic kidney disease with stage 1 through stage 4 chronic kidney disease, or unspecified chronic kidney disease; I25.10 Atherosclerotic heart disease of native coronary artery without angina pectoris; I48.91 Unspecified atrial fibrillation; L97.529 Non-pressure chronic ulcer of other part of left foot with unspecified severity; N18.9 Chronic kidney disease, unspecified; Z82.49 Family history of ischemic heart disease and other diseases of the circulatory system; Z86.73 Personal history of transient ischemic attack (TIA), and cerebral infarction without residual deficits; Z87.442 Personal history of urinary calculi; Z87.891 Personal history of nicotine dependence; Z90.710 Acquired absence of both cervix and uterus; Z91.14 Patient's other noncompliance with medication regimen; Z97.13 Presence of artificial right leg (complete) (partial); Z98.891 History of uterine scar from previous surgery; Z20.822 Contact with and (suspected) exposure to COVID-19
CPT/HCPCS: 36415; 73630; 80048; 80053; 82962; 83036; 83605; 83735; 85007; 85025; 87040; 87071; 87075; 87076; 87077; 87186; 87426; 88307; 88311; 93005; 93923; 96365; 96367; 96375; 99285; G0238; J1100; J1170; J1650; J1815; J2020; J2270; J2370; J2405; J2543; J2704; J2765; J3010; J3475; J3490; J7120; U0003; 97110-GP; 97530-GO; A4461; G0378

== ENCOUNTER → 2020-12-28 | Outpatient (CLI) | payer BC ==
[2020-12-06 14:41] VITALS: BP 137/68
[~2020-12-28] MED LIST changes: +AMLO-186 PO; +CEPH500C PO; +ENOX40DI3 SQ; +GABA300C18 PO; +INSU100V35 SQ; +INSU100V6 SQ; +LACT1CAP19 PO; +LACT20SO PO; +LEVO500T8 PO; +MORP15TA80 PO; +NYST15CR2 TP; +POLY17PO28 PO; +ZINC56.713 TP
== END ==
LOC: LAB 10:59
PROVIDERS: ATTEND Surgery Vascular Surgery
DX: Z01.812 Encounter for preprocedural laboratory examination (principal); Z20.822 Contact with and (suspected) exposure to COVID-19
CPT/HCPCS: U0003

== ENCOUNTER 2020-12-30 06:09 | Day surgery (SDC) | payer BC ==
[~2020-12-30] VITALS: Ht 170.2 cm; Wt 95.7 kg
[~2020-12-30 06:09] MED LIST changes: -CEPH500C PO; +HYDROmorphone 2 MG/ML VIAL IVP PRN; +IV RINGERS,LACTATED 1000ML 1,000 ML IV SCH; +MORPHINE SULFATE 2 MG/ML VIAL. IVP PRN; +PROCHLORPERAZINE 10 MG/2 ML VIAL. IVP PRN; +fentaNYL PF VIAL 100 MCG/2 ML VIAL IVP PRN
[2020-12-30] MEDS ORDERED: LIDOCAINE 2% PF 5 ML VIAL. ONE (06:57)
[2020-12-30] MEDS ORDERED: PROPOFOL 10 MG/ML (20ML) VIAL. IV ONE (06:57)
[2020-12-30] MEDS: INSULIN LISPRO 100 UNIT/ML 3ML VIAL for OP,RR ONLY. SQ PRN ×2 (07:05→08:54)
[2020-12-30] MEDS ORDERED: fentaNYL PF VIAL 100 MCG/2 ML VIAL ONE ×2 (07:14→08:31)
[2020-12-30 07:20] LABS: BASO # 0.1 x10^3/uL (0.0-0.2); BASO % 1 % (0-3); EOS # 0.2 x10^3/uL (0.0-0.7); EOS % 3 % (0-3); HEMATOCRIT 32.5 % (36.0-47.0); HEMOGLOBIN 10.8 g/dL (12.0-15.5); LYMPH # 1.9 x10^3/uL (1.0-4.8); LYMPH % 31 % (24-48); MEAN CORPUSCULAR HEMOGLOBIN 27 pg (25-35); MEAN CORPUSCULAR HGB CONC 33 g/dL (31-37); MEAN CORPUSCULAR VOLUME 82 fL (79-100); MONO # 0.6 x10^3/uL (0.0-1.1); MONO % 10 % (0-9); NEUT # 3.4 x10^3/uL (1.8-7.7); NEUT % 56 % (31-73); PLATELET COUNT 269 x10^3/uL (140-400); RED BLOOD COUNT 3.94 x10^6/uL (3.50-5.40); RED CELL DISTRIBUTION WIDTH 15.6 % (11.5-14.5); WHITE BLOOD COUNT 6.2 x10^3/uL (4.0-11.0)
[2020-12-30] MEDS ORDERED: LIDOCAINE 1% PF 30 ML VIAL. ONE (07:21)
[2020-12-30 07:33] LABS: CALCIUM 9.2 mg/dL (8.5-10.1); CREATININE 0.7 mg/dL (0.6-1.0); GFR 86.9
[2020-12-30] MEDS ORDERED: DEXAMETHASONE SOD PHOS 4 MG/ML VIAL ONE (07:57)
[2020-12-30] MEDS ORDERED: ePHEDrine PF IN SALINE 50 MG/10 ML SYRINGE. IV ONE (07:57)
[2020-12-30] MEDS ORDERED: ONDANSETRON PF 4 MG/2 ML VIAL. ONE (07:57)
[2020-12-30] MEDS ORDERED: SEVOFLURANE 31 TO 60 MINUTES. IH ONE (08:01)
[2020-12-30] MEDS ORDERED: CEPH500C PO (08:19)
--- NOTE | 2020-12-30 08:21 | PDOC4 ---
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
[2020-12-30] MEDS: fentaNYL PF VIAL 100 MCG/2 ML VIAL IVP PRN ×2 (08:36→08:41)
[2020-12-30] MEDS ORDERED: oxyCODONE/APAP 5/325 1 TAB TABLET PO ONE (09:00)
[2020-12-30] MEDS ORDERED: INSULIN LISPRO 100 UNIT/ML 3ML VIAL for OP,RR ONLY. SQ ONE ×2 (09:00)
[2020-12-30] MEDS ORDERED: oxyCODONE/APAP 5/325 1 TAB TABLET ONE (09:01)
--- NOTE | 2020-12-30 09:05 | OP ---
DATE OF SURGERY: 12/30/2020 SURGEON: Carmen Vallejo MD ANESTHESIA USED: General anesthesia. PREOPERATIVE DIAGNOSIS: Recent left hthtx-avg-wvqy amputation, which has developed dehiscence of her incision and necrotic tissue. She was seen by Dr. Gomez in the office and recommendations for debridement. POSTOPERATIVE DIAGNOSIS: Recent left ikrym-oqp-atin amputation, which has developed dehiscence of her incision and necrotic tissue. She was seen by Dr. Gomez in the office and recommendations for debridement. OPERATIONS PERFORMED: 1. Left mubjb-nrq-tkfy amputation, sharp excisional debridement of the necrotic skin and subcutaneous tissue throughout the wound bed. Measurements after debridement were 20 cm in length x 2 cm in width x 1 cm in depth. 2. Left ikxpk-vgu-jfxj amputation stump open wound VAC dressing placement. BLOOD LOSS: Approximately 5 mL. ANESTHESIA USED: General anesthesia. 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 She then subsequently had a revision to a formal closed left rvewk-qvq-xxbs amputation. This incision has developed some dehiscence and necrotic tissue throughout the wound bed. Dr. Gomez saw her in the office with these findings and recommended debridement of her left fvwhm-jrr-sxxp amputation stump and wound VAC dressing placement. Informed consent was obtained. DETAILS OF THE OPERATION: The patient was brought to the operating room and placed on table in supine position. She received general anesthesia and monitored throughout the case by the anesthesiologist. Her left pvker-wif-zrhq stump up to the thigh was prepped and draped by normal sterile fashion. I removed the rest of the klarissa that are within the incision. There was dehiscence of areas of this incision. There was necrotic skin in multiple areas of the length of the incision, which I excised and then there was underlying subcutaneous tissue with necrotic tissue, which was excised throughout the wound bed. This was healthy after debridement was performed. It did not go through the fascial layer or incorporate into the bone. It was more superficial. All the necrotic tissue was removed. There was good bleeding, which was controlled with electrocautery. The entire incision was opened and debrided; therefore, we irrigated with copious amounts of antibiotic solution. When there was good hemostasis, we placed a wound VAC dressing sponge within the open wound, we sealed it to with tape and sealed it with suctioned. Please see measurements above. She tolerated the surgery with no immediate complications. SPECIMENS: None. CARMEN VALLEJO MD DR: DARBY/pamela JOB#: [id number] / [id number]
[2020-12-30 09:15] VITALS: BP 155/57
== END 2020-12-30 10:26 | disposition home or self-care (01) ==
LOC: SURG 06:09
PROVIDERS: ATTEND Surgery Vascular Surgery
DX: S88.112A Complete traumatic amputation at level between knee and ankle, left lower leg, initial encounter (principal); E78.00 Pure hypercholesterolemia, unspecified; I48.91 Unspecified atrial fibrillation; I10 Essential (primary) hypertension; E11.9 Type 2 diabetes mellitus without complications; E66.9 Obesity, unspecified; Z89.512 Acquired absence of left leg below knee; Z90.710 Acquired absence of both cervix and uterus; Z98.890 Other specified postprocedural states; Z79.899 Other long term (current) drug therapy; Z79.82 Long term (current) use of aspirin; Z79.4 Long term (current) use of insulin; Z87.891 Personal history of nicotine dependence; X58.XXXA Exposure to other specified factors, initial encounter; Y93.89 Activity, other specified; Y92.89 Other specified places as the place of occurrence of the external cause; Y99.8 Other external cause status
CPT/HCPCS: 27590; 27880; 36415; 80048; 82962; 85025; A4461; J0690; J1100; J1815; J2405; J2704; J3010; J7040; J3490